=== PATIENT | female | born 1965 | race Caucasian/White ===

== ENCOUNTER 2022-08-16 | Outpatient (REF) | payer OTHER, SELFPAY ==
--- NOTE | ~2022-08-16 | XR_ITS ---
EXAMINATION: XR SHOULDER, LEFT CLINICAL INFORMATION: Left shoulder pain. COMPARISON: 02/01/2020 TECHNIQUE: Three views of the left shoulder. FINDINGS: The humeral head resurfacing hemiarthroplasty appears appropriately positioned without surrounding lucency. No fracture or malalignment. Acromioclavicular joint appears relatively well preserved. Soft tissues are unremarkable. XR/XR shoulder LT min 2V IMPRESSION: Status post left humeral head resurfacing. No complications are identified. No acute findings.
== END 2022-08-16 00:01 | disposition home or self-care (01) ==
LOC: HO.HOSX
PROVIDERS: Visit Provider Physician Assistant
DX: M25.512 Pain in left shoulder (principal); Z96.612 Presence of left artificial shoulder joint
CPT/HCPCS: 73030; 99212

== ENCOUNTER 2022-08-29 09:00 | Outpatient (RCR) | payer OTHER, MEDICAID, SELFPAY ==
--- NOTE | 2022-08-23 08:58 | MHC.PT.EP ---
[facility] [place] Office [place] [facility] [place] Office [address] Dorita Jones [address] [phone] F: [phone] F: [phone] F: [phone] F: [phone] Physical Therapy Plan of Care Date of Evaluation: Date of Surgery: 1.5-2 years ago. Diagnosis: Presence of LEFT artificial shoulder joint Assessment: Patient is a 57 year old R handed female who presents with s/s consistent with L shoulder pain. 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 Patient past medical history includes TSA, CTS, and ankle fusion. Current impairments include pain, posture, ROM, strength, activity tolerance and functional mobility. Functional limitations include decreased ability to sleep, dress, lift, push, pull and perform more strenuous activities with L UE. Patient is motivated with good rehab potential. Skilled PT will address impairments and functional limitations in order to achieve goals. Frequency and Duration: The patient will be seen 2x/week for 6 weeks Short Term Goals: I with HEP - 2 weeks AAROM flexion to 120 pain free - 3 weeks AAROM scaption to 90 pain free - 3 weeks ER 55 pain free - 3 weeks Longterm Goals: SPADI 60/130 or better - 6 weeks Strength ER/IR 4/5 pain free - 6 weeks Able to sleep pain free - 6 weeks Able to work pain free - 6 weeks Treatment Plan: Modalities to reduce pain, spasms and effusion. Manual therapy to restore motion and function. Therapeutic exercise to improve strength and flexibility. Neuromuscular re-education for posture and balance. Therapeutic activities to return to functional activities of daily living. Electronically signed by: Elias Lopez, PT Please sign and return to therapist. Thank you for your referral.
--- NOTE | 2022-10-16 11:23 | MHC.PT.DC ---
[facility] [place] Office [place] Office [place] Office [address] Dorita Jones [address] [phone] F: [phone] F: [phone] F: [phone] F: [phone] Physical Therapy Discharge Report Diagnosis: Presence of LEFT artificial shoulder joint Date of Surgery: 1.5-2 years ago. Date of Evaluation: 08/23/22 Date of Discharge: 10/16/22 Treatments to Date: 3 Cancellations to Date: No Shows to Date: Discharge Status: Discharge Summary: Pt held on PT due to discomfort. 08/29/22: pain management mostly today as pt has difficult time tolerating most activities. 08/27/22: attempting gentle desensitization to L c-spine and UE. we will assess response and progress as tolerated. to increase activity NV. Patient is a 57 year old R handed female who presents with s/s consistent with L shoulder pain. 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 Patient past medical history includes TSA, CTS, and ankle fusion. Current impairments include pain, posture, ROM, strength, activity tolerance and functional mobility. Functional limitations include decreased ability to sleep, dress, lift, push, pull and perform more strenuous activities with L UE. Patient is motivated with good rehab potential. Skilled PT will address impairments and functional limitations in order to achieve goals. Electronically signed by: Elias Lopez, PT Please sign and return to therapist. Thank you for your referral.
== END 2022-10-16 11:24 | disposition home or self-care (01) ==
LOC: HO.PTCHIC 09:00
PROVIDERS: PCP Nurse Practitioner Family; Visit Provider Physician Assistant
DX: Z96.612 Presence of left artificial shoulder joint (principal)
CPT/HCPCS: 97014; 97110; 97140; 97162

== ENCOUNTER 2023-04-18 09:21 | Outpatient (REF) | payer OTHER, SELFPAY ==
--- NOTE | ~2023-04-18 | MR_ITS ---
EXAMINATION: MR BRAIN WITHOUT AND WITH CONTRAST MR ORBITS WITHOUT AND WITH CONTRAST CLINICAL INFORMATION: Blurred vision. Rule out optic neuritis. COMPARISON: None available. TECHNIQUE: Multiplanar, multisequence imaging of the brain and orbits was performed before and after the intravenous administration of 7.5 mL of Gadavist. Slightly limited study with motion artifacts. FINDINGS: No diffusion abnormalities are identified to suggest an acute or subacute infarct. The ventricles are normal in size. No mass effect or midline shift is seen. Mild scattered white matter signal changes may be due to chronic microangiopathy. No extra-axial fluid collections are seen. The brainstem and cerebellum are normal. On postcontrast imaging, there is no abnormal parenchymal or leptomeningeal enhancement. The globes are symmetric and normal in appearance. No signal abnormality or pathologic enhancement is seen within the optic nerves. The extraocular muscles and lacrimal glands are normal. No post septal soft tissue inflammatory changes or mass lesion identified. The cavernous sinuses opacify symmetrically. The optic pathway and pituitary axis structures are normal. No suprasellar soft tissue abnormality is visible. The gradient refocused acquisition demonstrates no pathologic magnetic susceptibility artifact to indicate underlying acute or chronic blood products. The craniovertebral junction, marrow signal, and midline structures are normal. The major intracranial flow voids at the level of the [place] are preserved. The dural venous sinus flow voids are maintained. The mastoid air cells and paranasal sinuses are well aerated. MR/MR head/brain wo/w con IMPRESSION: 1. No acute intracranial process. Nonspecific mild scattered white matter signal changes. No abnormal enhancement. 2. Normal MRI of the orbits.
--- NOTE | ~2023-04-18 | MR_ITS ---
EXAMINATION: MR BRAIN WITHOUT AND WITH CONTRAST MR ORBITS WITHOUT AND WITH CONTRAST CLINICAL INFORMATION: Blurred vision. Rule out optic neuritis. COMPARISON: None available. TECHNIQUE: Multiplanar, multisequence imaging of the brain and orbits was performed before and after the intravenous administration of 7.5 mL of Gadavist. Slightly limited study with motion artifacts. FINDINGS: No diffusion abnormalities are identified to suggest an acute or subacute infarct. The ventricles are normal in size. No mass effect or midline shift is seen. Mild scattered white matter signal changes may be due to chronic microangiopathy. No extra-axial fluid collections are seen. The brainstem and cerebellum are normal. On postcontrast imaging, there is no abnormal parenchymal or leptomeningeal enhancement. The globes are symmetric and normal in appearance. No signal abnormality or pathologic enhancement is seen within the optic nerves. The extraocular muscles and lacrimal glands are normal. No post septal soft tissue inflammatory changes or mass lesion identified. The cavernous sinuses opacify symmetrically. The optic pathway and pituitary axis structures are normal. No suprasellar soft tissue abnormality is visible. The gradient refocused acquisition demonstrates no pathologic magnetic susceptibility artifact to indicate underlying acute or chronic blood products. The craniovertebral junction, marrow signal, and midline structures are normal. The major intracranial flow voids at the level of the [place] are preserved. The dural venous sinus flow voids are maintained. The mastoid air cells and paranasal sinuses are well aerated. MR/MR orbits face neck wo/w con IMPRESSION: 1. No acute intracranial process. Nonspecific mild scattered white matter signal changes. No abnormal enhancement. 2. Normal MRI of the orbits.
== END 2023-04-18 09:22 | disposition home or self-care (01) ==
LOC: HO.MRI 09:21
PROVIDERS: PCP Nurse Practitioner Family; Visit Provider Ophthalmology
DX: H53.8 Other visual disturbances (principal); H54.7 Unspecified visual loss
CPT/HCPCS: 70543; 70553; A9585

== ENCOUNTER 2023-09-20 10:44 | Outpatient (REF) | payer OTHER, SELFPAY ==
--- NOTE | ~2023-09-20 | XR_ITS ---
EXAMINATION: XR SHOULDER, LEFT CLINICAL INFORMATION: Pain. COMPARISON: Radiographs dated 02/01/2020. TECHNIQUE: AP external rotation, Grashey, scapular Y, and axillary views of the left shoulder. FINDINGS: Bony alignment and mineralization are normal. There is an intact left shoulder total arthroplasty, without hardware failure or loosening. No fracture or dislocation is seen. The acromioclavicular and coracoclavicular intervals are normal. No soft tissue calcifications or foreign body seen. There is no left pneumothorax. XR/XR shoulder LT min 2V IMPRESSION: An intact left shoulder arthroplasty is seen, without hardware failure or loosening. The examination is otherwise unremarkable.
== END 2023-09-20 10:45 | disposition home or self-care (01) ==
LOC: HO.HOSX 10:44
PROVIDERS: PCP Nurse Practitioner Family; Visit Provider Orthopaedic Surgery
DX: T84.84XA Pain due to internal orthopedic prosthetic devices, implants and grafts, initial encounter (principal); Z96.612 Presence of left artificial shoulder joint
CPT/HCPCS: 73030; 99212

== ENCOUNTER 2023-09-20 10:44 | Outpatient (AMB) | payer OTHER, SELFPAY ==
--- NOTE | 2023-09-20 11:26 | MHC.OFFVIS ---
Intake Vital Signs 09/20/23 11:27 Height 5 ft 5 in Weight 165 lb BMI 27.5 Intake Visit Reasons: OV- LT shoulder pain Intake Note: Aysha is a 57 yr old rt hand dominant female who presents today for left shoulder pain. Hx of left TSA. Was given Celebrex at her last visit. She reports that she has had increased pain for the last year, the celebrex was not helpful. Has numbness and tingling in the hand. She has increased pain with reaching lifting and laying on the left shoulder. Allergies acetaminophen [Percocet] Allergy (Unknown, Verified 08/16/22 15:05) unknown oxycodone [Percocet] Allergy (Unknown, Verified 08/16/22 15:05) Unknown latex Allergy (Verified 08/16/22 15:05) Unknown HPI OV- LT shoulder pain HPI Details Aysha is a 58 year old woman who presents with complaints of left shoulder pain. She complains of pain with daily activity, worse with reaching or lifting activities, and when lying on her side. She says her pain has been present for ~8 months and she found no relief from Celebrex. She denies any falls or known injury, and says her pain began suddenly . She has a hx of left shoulder humeral head resurfacing, DOS: 08/17/20. 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 Review of Systems Const All systems reviewed & are unremarkable except as noted in HPI and below Physical Exam Vital Signs: BMI result Body Mass Index 27.5 Const General: no acute distress, alert and awake Orientation/consciousness: patient oriented x3 HEENT Head: Yes normocephalic and Yes atraumatic Eyes EOM: EOMs intact bilaterally Resp Effort & Inspection: normal respiratory effort and able to speak in complete sentences Cardio Jugular venous distension: no JVD Skin General skin exam: turgor normal Rashes: no rashes Neuro General: patient oriented x3 Extrem Other: Left Shoulder: Psych Appearance: grossly normal Affect: normal affect Attitude: cooperative Results Reviewed Results Reviewed: I personally reviewed relevant radiographs Status post left humeral head resurfacing. No complications are identified. No acute findings. Assessment & Plan Assessment & Plan (1) History of arthroplasty of left shoulder: Code(s): Z96.612 - Presence of left artificial shoulder joint Plan: This is a 58 year old woman with a hx of partial left shoulder arthroplasty & humeral head resurfacing, DOS: 08/17/20. She complains of pain with daily activity, worse with lifting, reaching, and at night. She found no relief from Celebrex. I discussed her diagnosis and treatment options, she may benefit from a conversion to a TSA. I ordered labs to rule out infection and a CT scan to assess for hardware loosening and an MRI to assess the cuff. She will follow up when completed for review. Plan Scribed for Andrei Fletcher MD by Jamey Moulton, medical billing associate, on 09/20/23 at 12:00 PM, EST. Orders: Orders XR shoulder LT min 2V 09/20/23 M25.519 - Pain in unspecified shoulder Coding Level of Care Code Est Pt Level 4 (38319) Diagnoses History of arthroplasty of left shoulder Z96.612
[2023-09-20 11:27] VITALS: BMI 27.5
== END 2023-09-20 12:15 | disposition home or self-care (01) ==
PROVIDERS: PCP Nurse Practitioner Family; Visit Provider Orthopaedic Surgery
DX: M25.512 Pain in left shoulder (principal); Z96.612 Presence of left artificial shoulder joint
CPT/HCPCS: 99214

== ENCOUNTER 2023-10-04 08:12 | Outpatient (REF) | payer OTHER, SELFPAY ==
[2023-10-04 09:09] LABS: C Reactive Protein 0.18 mg/dL (< or = 0.50)
[2023-10-04 09:20] LABS: Erythrocyte Sedimentation Rate 8 MM/HR (0-20)
== END 2023-10-04 08:13 | disposition home or self-care (01) ==
LOC: HO.LAB 08:12
PROVIDERS: Visit Provider Orthopaedic Surgery
DX: Z96.612 Presence of left artificial shoulder joint (principal)
CPT/HCPCS: 36415; 85652; 86140

== ENCOUNTER 2023-10-31 07:12 | Outpatient (REF) | payer OTHER, SELFPAY ==
--- NOTE | ~2023-10-31 | CT_ITS ---
EXAMINATION: CT SHOULDER WITHOUT CONTRAST, LEFT CLINICAL INFORMATION: Left shoulder arthroplasty. Preoperative evaluation. COMPARISON: Multiple priors, most recent left shoulder radiographs dated 09/20/2023. TECHNIQUE: Contiguous axial CT images of the left shoulder were obtained without contrast. Sagittal and coronal reformats were provided and reviewed. Examination was performed as per T[facility]ier protocol. This CT examination was performed using dose optimization techniques as appropriate, variously including the following: *Automated exposure control *Adjustment of mA and/or kV according to patient size (this includes techniques or standardized protocols for targeted exams where dose is matched to indication/reason for exam; i.e. extremities or head) *Use of iterative reconstruction technique. DOSE: 231 mGy-cm. FINDINGS: Visualized left lung: Unremarkable. Bone/joint: Postsurgical change consistent with partial shoulder arthroplasty including a humeral head arthroplasty component. No hardware fracture. No perihardware lucency to suggest loosening or infection. Slight, chronic appearing posterior subluxation of the humeral head. No acute osseous fracture. Kniigtec-vu-[id number] glenohumeral joint space narrowing. No significant glenoid bony remodeling. Small marginal osteophytes. No concerning lytic or blastic osseous lesion. Glenoid version: No significant glenoid bony remodeling or retroversion. Estimated depth of the glenoid vault: Approximately 2.3 cm. Glenoid morphology: Walch Type a 1 Joint fluid/bursa/soft tissues: No large glenohumeral joint effusion. Grossly intact rotator cuff tendons, however, evaluation is limited on CT examination and due to metal artifact. CT/CT shoulder LT wo IV con IMPRESSION: 1. Postsurgical change consistent with partial shoulder arthroplasty. No evidence of hardware complication. Slight, chronic appearing posterior subluxation of the humeral head. 2. Isndfrej-ph-fyqsan glenohumeral osteoarthritis.
== END 2023-10-31 07:13 | disposition home or self-care (01) ==
LOC: HO.CT 07:12
PROVIDERS: PCP Nurse Practitioner Family; Visit Provider Orthopaedic Surgery
DX: Z96.612 Presence of left artificial shoulder joint (principal)
CPT/HCPCS: 73200

== ENCOUNTER 2023-12-05 09:14 | Outpatient (AMB) | payer OTHER, SELFPAY ==
--- NOTE | 2023-12-05 09:21 | MHC.OFFVIS ---
Intake Intake Visit Reasons: Preop LT TSA 12/11/23 NE Intake Note: Aysha is a 58 year old female who presents today for a pre op appointment for LT revision TSA 12/11/23 NE. Allergies acetaminophen [Percocet] Allergy (Unknown, Verified 12/05/23 09:23) unknown oxycodone [Percocet] Allergy (Unknown, Verified 12/05/23 09:23) Unknown latex Allergy (Verified 12/05/23 09:23) Unknown Medication List - Last Reconciled 12/05/23 by Ne Son, ODALIS amlodipine 5 mg PO BEDTIME PRN atorvastatin 40 mg PO BEDTIME liraglutide (Victoza 3-Catrachito) 1.8 mg subcut DAILY lisinopril 10 mg PO BEDTIME PRN HPI Preop LT TSA 12/11/23 NE HPI Details Aysha is a 58 year old woman who presents for a left shoulder CT scan review. She has a hx of partial left shoulder arthroplasty with humeral head resurfacing, DOS: 08/17/20, and is scheduled for a conversion to a TSA on 12/11/23. She complains of pain with daily activity, worse with reaching or lifting activities, and when lying on her side. She finds little relief from NSAIDs or activity modification. Her ESR and CRP are within nl and her radiographs are suggestive of loosening. CT was performed and she is scheduled for surgery next week. [facility] Medical History (Updated 12/03/23 @ 12:33 by Gisel Iniguez RN) Anemia Arthritis GERD (gastroesophageal reflux disease) Kidney stones Bipolar 1 disorder Avascular necrosis of humeral head Hx of substance abuse Pelvicaliectasis Hypertriglyceridemia Depression Tobacco dependence History of hypertension Surgical History (Updated 12/06/23 @ 12:01 by Paty Lord PA-C) H/O gastric sleeve H/O colonoscopy History of ankle fusion History of arthroplasty of left shoulder History of carpal tunnel release Social History (Updated 08/16/22 @ 15:00 by ANH Ignacio) Are you a primary client care representative to a significant other at home: Yes Do you presently have visiting nurse or other home services: No Patient Tobacco Use Status: Current everyday Tobacco user Cigarettes Per Day: 4 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, 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 Review of Systems Const All systems reviewed & are unremarkable except as noted in HPI and below Physical Exam Const General: cooperative and no acute distress Orientation/consciousness: patient oriented x3 HEENT Head: Yes normocephalic and Yes atraumatic Eyes EOM: EOMs intact bilaterally Neck Neck: Yes normal visual inspection and Yes no lymphadenopathy Resp Effort & Inspection: normal respiratory effort and able to speak in complete sentences Cardio Jugular venous distension: no JVD Peripheral pulses: Peripheral pulses 2+ throughout GI Inspection: Yes normal to inspection Palpation (GI): Soft to palpation Skin General skin exam: no rashes or lesions noted Rashes: no rashes Neuro General: patient oriented x3 Extrem Other: Pain with abduction Neg lift off 35/90/130/S1 inc c/d/i SILT Psych Appearance: grossly normal Affect: normal affect Attitude: cooperative Results Reviewed Results Reviewed: Daiana-implant lucency but no obvious hardware complications Assessment & Plan Assessment & Plan (1) History of arthroplasty of left shoulder: Comment: 2020 Code(s): Z96.612 - Presence of left artificial shoulder joint Plan: S/p Resurfacing with pain and question loosening vs pain from unresurfaced glenoid. I recommend revision arthroplasty. We have discussed this and we discussed the risks benefits and alternatives including but not limited to the risk of pain, infection, stiffness, need for further surgery as well as potential medical complications such as blood clots, pulmonary embolism and cardiac complications. She understands this and we will proceed forward accordingly. Plan Prepared for Andrei Fletcher MD by Jamey Moulton, medical coding technician, on 12/05/23 at 9:42 AM, EST. Coding Level of Care Code Global (88202) Diagnoses History of arthroplasty of left shoulder Z96.612
== END 2023-12-05 10:45 | disposition home or self-care (01) ==
PROVIDERS: PCP Nurse Practitioner Family; Visit Provider Orthopaedic Surgery
DX: T84.038A Mechanical loosening of other internal prosthetic joint, initial encounter (principal)
CPT/HCPCS: 99214

== ENCOUNTER → 2023-12-05 09:14 | Outpatient (BNVA) | payer OTHER, SELFPAY | PROVIDERS: PCP Nurse Practitioner Family; Visit Provider Physician Assistant | DX: M25.512 Pain in left shoulder (principal); Z96.612 Presence of left artificial shoulder joint | CPT/HCPCS: 99212 ==

== ENCOUNTER 2023-12-11 07:06 | Inpatient (IN) | payer OTHER, SELFPAY ==
[2023-12-03 12:09] VITALS: BP 145/70; PULSE 76; RESP 18; O2SAT 99; BMI 28.5
--- NOTE | 2023-12-03 12:36 | HO.ANESPROP2 ---
Documented by User: Gail Adhikari NP 12/10/23 10:17 HPI - Anesthesia Eval Consult details Narrative: 58yo F for Left CONVERSION of partial Shoulder Total Arthroplasty to a TSA 3 x surgically implanted piercings down sternum and patient unable to remove preop. Dr Fletcher and Dr Spencer aware. Plan to avoid cautery. 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 Resolved with gastric sleeve s/p gastric sleeve 2018 Anesthesia Pre-Procedure Meds Is the patient on any of the following meds?: Any other SGL-1 drugs or drugs that delay gastric emptying (Liraglutide daily for weight loss, no DM) If Yes to any meds - educate patient: Pt education - increased risk of aspiration and Pt education - possibility of cancelled proc at provider's discretion PMFSH Active Problems Active Problems: All Active Problems (Updated 12/03/23 @ 12:31 by Gisel Iniguez RN) History of arthroplasty of left shoulder (Acute) Past Medical History Medical History Anemia Arthritis GERD (gastroesophageal reflux disease) Kidney stones Bipolar 1 disorder Avascular necrosis of humeral head Hx of substance abuse Pelvicaliectasis Hypertriglyceridemia Depression Tobacco dependence History of hypertension Family History Family history of problems with anesthesia: No Surgical History Surgical History H/O gastric sleeve H/O colonoscopy History of ankle fusion History of arthroplasty of left shoulder History of carpal tunnel release History of Problems with Anesthesia: No Social History Social History 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 Allergies Allergy/AdvReac Type Severity Reaction Status Date / Time acetaminophen [Percocet] Allergy Severe Itching Verified 12/11/23 06:59 latex Allergy Severe Rash Verified 12/11/23 06:59 oxycodone [Percocet] Allergy Severe Itching Verified 12/11/23 06:59 Home Medications Medication Instructions Recorded Confirmed Last Taken Type amlodipine 5 mg tablet 5 mg PO BEDTIME PRN Hypertension 08/16/22 12/11/23 10/10/23 History atorvastatin 40 mg tablet 40 mg PO BEDTIME 08/16/22 12/11/23 12/10/23 History liraglutide 0.6 mg/0.1 mL (18 mg/3 1.8 mg subcut DAILY 08/16/22 12/11/23 12/03/23 History mL) subcutaneous pen injector (Victoza 3-Catrachito) lisinopril 10 mg tablet 10 mg PO BEDTIME PRN Hypertension 08/16/22 12/11/23 10/10/23 History Exam Height,Weight and Vital Signs: Height 5 ft 5 in Weight 77.564 kg Last Vital Signs Pulse 76 12/03/23 12:09 Resp 18 12/03/23 12:09 BP 145/70 H 12/03/23 12:09 Pulse Ox 99 12/03/23 12:09 O2 Del Method Room Air 12/03/23 12:09 Airway Mallampati Class: II TM Dist: >3cm Neck ROM: Full Partial: Lower Heart: RRR Lungs: CTAB Assessment and Plan Assessment Anesthesia Assessment: Anesthesia Plan Discussed, Smoking Cess. Discussed and PAT Visit Final Anesthetic Review Family History of Problems with Anesthesia: No History of Problems with Anesthesia: No Documented by User: Fabian Spencer MD 12/11/23 08:44 COUNT INCLUDES THE [facility] Past Medical History Medical History Anemia Arthritis GERD (gastroesophageal reflux disease) Kidney stones Bipolar 1 disorder Avascular necrosis of humeral head Hx of substance abuse Pelvicaliectasis Hypertriglyceridemia Depression Tobacco dependence History of hypertension Surgical History Surgical History H/O gastric sleeve H/O colonoscopy History of ankle fusion History of arthroplasty of left shoulder History of carpal tunnel release Social History Social History 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 Allergies Allergy/AdvReac Type Severity Reaction Status Date / Time acetaminophen [Percocet] Allergy Severe Itching Verified 12/11/23 06:59 latex Allergy Severe Rash Verified 12/11/23 06:59 oxycodone [Percocet] Allergy Severe Itching Verified 12/11/23 06:59 Home Medications Medication Instructions Recorded Confirmed Last Taken Type amlodipine 5 mg tablet 5 mg PO BEDTIME PRN Hypertension 08/16/22 12/11/23 10/10/23 History atorvastatin 40 mg tablet 40 mg PO BEDTIME 08/16/22 12/11/23 12/10/23 History liraglutide 0.6 mg/0.1 mL (18 mg/3 1.8 mg subcut DAILY 08/16/22 12/11/23 12/03/23 History mL) subcutaneous pen injector (Victoza 3-Catrachito) lisinopril 10 mg tablet 10 mg PO BEDTIME PRN Hypertension 08/16/22 12/11/23 10/10/23 History Exam Airway Mallampati Class: II Assessment and Plan Final Anesthetic Review NPO: Yes ASA Class: III Final Preanesthetic Review: No Changes in Pt Med Stat, Meds/Allgs Chart Reviewed, Consent Obtained/Reviewed and Anes Risks/Benef Reviewed Patient Risk: Intermediate Procedure Risk: Intermediate Assessment/Block/Sedation in SS: Assess/Block/Sedation-SS Anesthetic Plan Anesthetic Plan: GA and Neuraxial Block: Disposition: Standard PACU
[2023-12-03 14:09] LABS: MRSA Nasal PCR NEGATIVE (Negative); SA Nasal PCR NEGATIVE (Negative)
[2023-12-11] VITALS (11 sets, daily range): BP systolic 93–163; BP diastolic 52–86; PULSE 59–68; RESP 14–18; TEMP 36.3–37.6; O2SAT 94–100; BMI 28.2
--- NOTE | ~2023-12-11 | XR_ITS ---
EXAMINATION: XR SHOULDER, LEFT CLINICAL INFORMATION: Left shoulder COMPARISON: 09/20/2023 TECHNIQUE: AP external rotation, Grashey, scapular Y, and axillary views of the left shoulder. FINDINGS: Status post left shoulder arthroplasty. There is atelectasis at the left lung base and surgical clips overlie the mediastinum and are seen within the left upper quadrant.. Prosthetic components are intact with anatomic alignment observed. Post surgical soft tissue alterations are noted. XR/XR shoulder LT min 2V IMPRESSION: Post surgical changes noted. Alignment is considered anatomic.
--- OUTSIDE RECORDS SUMMARY | 2023-12-11 07:11 | XMS_ITS | Continuity of Care Document ---
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 Percocet itchy,rash Active 1Rash Immunizations Given and Recorded Vaccine Date Status Refusal Reason influenza virus vaccine, inactivated 10/26/21 Give n influenza virus vaccine, inactivated 07/29/20 Give n influenza virus vaccine, inactivated 08/05/19 Give n influenza virus vaccine, inactivated 08/08/18 Dameon rded influenza virus vaccine, inactivated 09/18/17 Give n influenza virus vaccine, inactivated 09/05/16 Give n influenza virus vaccine, inactivated 10/12/15 Give n influenza virus vaccine, inactivated 08/27/14 Give n influenza virus vaccine, inactivated 12/24/13 Give n SARS-CoV-2 (COVID-19) mRNA BNT-162b2 vac 07/02/21 Recorded SARS-CoV-2 (COVID-19) mRNA BNT-162b2 vac 12/26/20 Recorded SARS-CoV-2 (COVID-19) mRNA BNT-162b2 vac 12/09/20 Recorded SARS-CoV-2 (COVID-19) mRNA BNT-162b2 vac 12/06/20 Recorded pneumococcal 23-valent vaccine 10/12/15 Given tetanus/diphtheria/pertussis, acel(Tdap) 12/24/13 Given Medications amLODIPine 5 mg oral tablet 5 mg, 1, tablet, By Mouth, Daily, # 90 tablet, Refills 3, Tot. Refills 3, Maintenance, 09/14/21 16:28:00 EST, Route to Pharmacy Electronically, [facility]/pharmacy #[id number], 165, cm, 09/14/21 14:59:00 EST, Height Start Date: 09/14/21 Stop Date: 09/09/22 Status: Ordered Ankle Brace Ankle Brace, See Instructions, # 1 units, Refills 0, Tot. Refills 0, Maintenance, Dx: L ankle swelling, 05/02/18 17:00:21 EDT, Compound Start Date: 05/02/18 Status: Ordered atorvastatin 40 mg oral tablet 1 tablet = 40 mg, By Mouth, Daily at bedtime, # 90 tablet, 3 Refills, Maintenance, 09/14/21 16:28:00 EST, Tablet, [facility]/pharmacy #[id number], 165, cm, 09/14/21 14:59:00 EST, Height Start Date: 09/14/21 Stop Date: 09/09/22 Status: Ordered calcium (as carbonate)-vitamin D 500 mg-400 intl units oral tablet 1 tablet, By Mouth, Daily, # 300 tablet, 11 Refills, Maintenance, 11/03/20 8:37:00 EST, Tablet, [facility]/pharmacy #[id number], 1 tablet By Mouth Daily, 165, cm, 08/12/20 15:39:00 EDT, Height, 75, kg, 02/12/19 9:43:00 EDT, Dry Weight Start Date: 11/03/20 Status: Ordered hydrOXYzine hydrochloride 25 mg oral tablet 1 tablet = 25 mg, By Mouth, 2 times a day, 0 Refills, Maintenance, 12/21/21 15:52:00 EST, Tablet, Partial fill upon patient request if the prescription is for a schedule II opioid drug. Start Date: 12/21/21 Status: Ordered Left Hand Wrist Splint Left Hand Wrist Splint, See Instructions, # 1 each, Refills 0, Tot. Refills 0, Maintenance, Left Hand Wrist Splint To use as directed r/t numbeness and tingling Dx: R20.2 Duration: Lifetime, 01/20/2111:09:00 EDT, Supply Start Date: 01/20/21 Status: Ordered lisinopril 10 mg oral tablet 10 mg, 1, tablet, By Mouth, Daily, # 90 tablet, Refills 3, Tot. Refills 3, Maintenance, 09/14/21 16:29:00 EST, Route to Pharmacy Electronically, [facility]/pharmacy #[id number], 165, cm, 09/14/21 14:59:00 EST, Height Start Date: 09/14/21 Stop Date: 09/09/22 Status: Ordered meloxicam 7.5 mg oral tablet 1 tablet, By Mouth, Daily, # 30 tablet, 0 Refills, [facility] STORE [id number], 165, cm, 10/26/21 9:52:00 EST, Height Start Date: 11/19/21 Status: Ordered oxyCODONE 5 mg oral tablet 5 mg, 1, tablet, By Mouth, Every 4 hours, Refills 0, Tot. Refills 0, Maintenance, 12/27/21 6:45:00 EST, Partial fill upon patient request if the prescription is for a schedule II opioid drug. Start Date: 12/27/21 Status: Ordered oxyCODONE 5 mg oral tablet 5 mg, 1, tablet, By Mouth, Every 4 hours, Refills 0, Tot. Refills 0, Maintenance, 01/10/22 6:59:00 EST, Partial fill upon patient request if the prescription is for a schedule II opioid drug. Start Date: 01/10/22 Status: Ordered prazosin 5 mg oral capsule 10 mg, 2, capsule, By Mouth, Daily at bedtime, Dose increased to 10mg po qhs on 10/26/21, # 60 capsule, Refills 6, Tot. Refills 6, Maintenance, 01/02/22 11:52:00 EST, Route to Pharmacy Electronically, [facility]/pharmacy #[id number], Partial fill upon patient requ... Start Date: 01/02/22 Status: Ordered Right Hand Wrist Splint Right Hand Wrist Splint, See Instructions, # 1 each, Refills 0, Tot. Refills 0, Maintenance, Right Hand Wrist Splint To use for carpal tunnel Dx: G56.01 Duration: Lifetime, 01/02/21 10:32:00 EST, Supply Start Date: 01/02/21 Status: Ordered Wellbutrin XL 150 mg/24 hours oral tablet, extended release 1 tablet = 150 mg, By Mouth, Every 24 hours, # 90 tablet, 1 Refills, Maintenance, 09/14/21 18:33:00EST, ER Tablet, [id number], Partial fill upon patient request if the prescription is for a schedule II opioid drug., 165, cm, 09/14/21 14:59:00... 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 Currently attem pting to quit smoking(Confirmed) Active Colonoscopy(Confirmed) 1 04/04/10 Active History of substance use(Confirmed) 2 Active HTN (hypertension)(Confirmed) Active Hypertriglyceridemia(Confirmed) Active Left Pelvicaliectasis(Confirmed) 3 Active Depression(Confirmed) Active 1REPEAT 5 YRS 2heroin, cocaine 3Left, on CT abdo 2013 Social History Social History Type Response Smoking Status 5-9 cigarettes (betw een 1/4 to 1/2 pack)/day in last 30 days; Tobacco use times per day: 2 ppd X 31 years, currently 6 cigs/day; Started at age: 13; entered on: 11/06/19 Sex Female Medical Equipment Implanted Date:02/23/19Target Site:Foot Left Description Quantity MRI [employer] Model Bone Putty DBM, AlloSync, 01ml, Human Allograft 1 [employer] Unknown LILIAN:No Information Assigning Authority: FDA INJ AUGMENT BONE GRAFT 1.5ML - WRGT ([id number]) 1 [employer] Unknown LILIAN:No Information Assigning Authority: FDA
--- OUTSIDE RECORDS SUMMARY | 2023-12-11 07:11 | XMS_ITS | Continuity of Care Document ---
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 Percocet itchy,rash Active 1Rash Immunizations Given and Recorded Vaccine Date Status Refusal Reason SARS-CoV-2 (COVID-19) mRNA BNT-162b2 vac 07/02/21 Recorded SARS-CoV-2 (COVID-19) mRNA BNT-162b2 vac 12/26/20 Recorded SARS-CoV-2 (COVID-19) mRNA BNT-162b2 vac 12/09/20 Recorded SARS-CoV-2 (COVID-19) mRNA BNT-162b2 vac 12/06/20 Recorded influenza virus vaccine, inactivated 07/29/20 Give n influenza virus vaccine, inactivated 08/05/19 Give n influenza virus vaccine, inactivated 08/08/18 Dameon rded influenza virus vaccine, inactivated 09/18/17 Give n influenza virus vaccine, inactivated 09/05/16 Give n influenza virus vaccine, inactivated 10/12/15 Give n influenza virus vaccine, inactivated 08/27/14 Give n influenza virus vaccine, inactivated 12/24/13 Give n pneumococcal 23-valent vaccine 10/12/15 Given tetanus/diphtheria/pertussis, acel(Tdap) 12/24/13 Given Medications amLODIPine 5 mg oral tablet 5 mg, 1, tablet, By Mouth, Daily, # 90 tablet, Refills 3, Tot. Refills 3, Maintenance, 09/14/21 16:28:00 EST, Route to Pharmacy Electronically, [facility]/pharmacy #[id number], 165, cm, 09/14/21 14:59:00 [...] Maintenance, 09/14/21 16:28:00 EST, Tablet, [facility]/pharmacy #[id number], 165, cm, 09/14/21 14:59:00 EST, Height Start Date: 09/14/21 Stop Date: 09/09/22 Status: Ordered calcium (as carbonate)-vitamin D 500 mg-400 intl units oral tablet 1 tablet, By Mouth, Daily, # 300 tablet, 11 Refills, Maintenance, 11/03/20 8:37:00 EST, Tablet, [facility]/pharmacy #[id number], 1 tablet By Mouth Daily, 165, cm, 08/12/20 15:39:00 EDT, Height, 75, kg, 02/12/19 9:43:00 EDT, Dry Weight Start Date: 11/03/20 Status: Ordered capsaicin 0.025% topical cream 1 application, Topically, 2 times a day, # 42 Gm, 0 Refills, Maintenance, 07/29/20 15:33:00 EDT, Cream, [facility]/pharmacy #[id number], 1 application Topically 2 times a day, 165, cm, 07/29/20 14:56:00 EDT, Height, 75, kg, 02/12/19 9:43:00 EDT, Dry Weight Start Date: 07/29/20 Status: Ordered diclofenac 1% topical gel = 2 Gm, Topically, 4 times a day, # 100 Gm, 5 Refills, Maintenance, 11/06/19 11:03:00 EST, Gel, [facility]/pharmacy #[id number], 165, cm, 11/06/19 10:52:00 EST, Height, 75, kg, 02/12/19 9:43:00 EDT, Dry Weight Start Date: 11/06/19 Stop Date: 05/04/20 Status: Ordered diclofenac potassium 50 mg oral tablet 1 tablet, By Mouth, 3 times a day, PRN NEEDED FOR ARTHRITIS, WITH FOOD, # 50 tablet, 2 Refills, Acute, 03/21/21 13:01:00 EDT, [facility], 165, cm, 02/15/21 9:39:00 EDT, Height Start Date: 03/21/21 Status: Ordered doxepin 3 mg oral tablet 1 tablet = 3 mg, By Mouth, Daily at bedtime, # 30 tablet, 1 Refills, Maintenance, 09/22/21 15:54:00EST, Tablet, [id number], Partial fill upon patient request if the prescription is for a schedule II opioid drug., 165, cm, 09/22/21 14:38:00 ES... Start Date: 09/22/21 Status: Ordered famotidine 20 mg oral tablet 1, tablet, By Mouth, Daily, AVOID EATING/DRINKING FOR 10 MINUTES AFTER EACH DOSE, # 90 tablet, Refills 3, Tot. Refills 0, Maintenance, 05/15/20 8:33:00 EDT, Route to Pharmacy Electronically, [id number], 165, cm, 11/12/19 10:55:00 EST, Height, 75,... Start Date: 05/15/20 Status: Ordered hydrOXYzine hydrochloride 25 mg oral tablet 1 tablet = 25 mg, By Mouth, 3 times a day, PRN for anxiety, for 30 days, # 90 tablet, 2 Refills, Acute 12/13/21 18:34:00 EST, 09/14/21 18:34:00 EST, Tablet, [id number], Partial fill upon patient request if the prescription is for a schedule II... Start Date: 09/14/21 Stop Date: 12/13/21 Status: Ordered Left Hand Wrist Splint Left [...] EST, Route to Pharmacy Electronically, [facility]/pharmacy #[id number], 165, cm, 09/14/21 14:59:00 EST, Height Start Date: 09/14/21 Stop Date: 09/09/22 Status: Ordered melatonin 10 mg oral tablet 1 tablet = 10 mg, By Mouth, Daily at bedtime, PRN as needed for insomnia, # 200 tablet, 0 Refills, Maintenance, 09/29/21 16:15:00 EST, Tablet, [facility]/pharmacy #[id number], Partial fill upon patient request ifthe prescription is for a schedule II opioid drug.,... Start Date: 09/29/21 Status: Ordered naloxone 4 mg/0.1 mL nasal spray See Instructions, Once may repeat every 2 to 3 minutes until patient responds, # 2 each, 0 Refills,Soft Stop, 10/29/18 15:17:51 EST Start Date: 10/29/18 Status: Ordered omeprazole 20 mg oral enteric coated capsule 1 capsule = 20 mg, By Mouth, Daily, # 30 capsule, 3 Refills, Maintenance, 10/12/20 10:00:00 EST, ECCapsule, [facility]/pharmacy #[id number], 165, cm, 08/12/20 15:39:00 EDT, Height, 75, kg, 02/12/19 9:43:00 EDT, Dry Weight Start Date: 10/12/20 Stop Date: 02/09/21 Status: Ordered prazosin 5 mg oral capsule 5 mg, 1, capsule, By Mouth, Daily at bedtime, # 90 capsule, Refills 0, Tot. Refills 0, Maintenance,09/29/21 16:16:00 EST, Route to Pharmacy Electronically, [facility]/pharmacy #[id number], Partial fill upon patient request if the prescription is for a schedule II... Start Date: 09/29/21 Status: Ordered Right Hand Wrist Splint Right Hand Wrist Splint, See Instructions, # 1 each, Refills 0, Tot. Refills 0, Maintenance, Right Hand Wrist Splint To use for carpal tunnel Dx: G56.01 Duration: Lifetime, 01/02/21 10:32:00 EST, Supply Start Date: 01/02/21 Status: Ordered Senna 2 tablets, By Mouth, Daily at bedtime, 0 Refills, Maintenance, 01/22/19 13:16:27 EDT Start Date: 01/22/19 Status: Ordered Wellbutrin XL 150 mg/24 hours oral tablet, extended release 1 tablet = 150 mg, By Mouth, Every 24 hours, # 90 tablet, 1 Refills, Maintenance, 09/14/21 18:33:00EST, ER Tablet, [id number], Partial fill upon patient request if the [...] INJ AUGMENT BONE GRAFT 1.5ML - WRGT ([id number]) 1 [employer] Unknown LILIAN:No Information Assigning Authority: FDA
--- OUTSIDE RECORDS SUMMARY | 2023-12-11 07:11 | XMS_ITS | Continuity of Care Document ---
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 Percocet 5/ itchy,rash Active 1Rash Immunizations Given and Recorded [...] 09/14/21 16:28:00 EST, Route to Pharmacy Electronically, [facility]/pharmacy #[id number], 165, cm, 09/14/21 14:59:00 EST, Height [...] 3 Refills, Maintenance, 09/14/21 16:28:00 EST, Tablet, [facility]/pharmacy #[id number], 165, cm, 09/14/21 14:59:00 EST, Height Start Date: 09/14/21 Stop Date: 09/09/22 Status: Ordered calcium (as carbonate)-vitamin D 500 mg-400 intl units oral tablet 1 tablet, By Mouth, Daily, # 300 tablet, 11 Refills, Maintenance, 11/03/20 8:37:00 EST, Tablet, [facility]/pharmacy #[id number], 1 tablet By Mouth Daily, 165, [...] 09/14/21 16:29:00 EST, Route to Pharmacy Electronically, [facility]/pharmacy #[id number], 165, cm, 09/14/21 14:59:00 EST, Height Start Date: 09/14/21 Stop Date: 09/09/22 Status: Ordered meloxicam 7.5 mg oral tablet 1 tablet, By Mouth, Daily, # 30 tablet, 0 Refills, [facility] STORE 79316, 165, cm, 10/26/21 9:52:00 EST, Height Start [...] 01/02/22 11:52:00 EST, Route to Pharmacy Electronically, [facility]/pharmacy #[id number], Partial fill upon patient requ... Start [...] Refills, Maintenance, 09/14/21 18:33:00EST, ER Tablet, [id number], Partial fill upon patient request if the [...] INJ AUGMENT BONE GRAFT 1.5ML - WRGT ([id number]) 1 [employer] Unknown LILIAN:No Information Assigning Authority: FDA
--- OUTSIDE RECORDS SUMMARY | 2023-12-11 07:11 | XMS_ITS | Continuity of Care Document ---
Author Name Unknown Organization [facility] Address [address] [place] [address]- Care Team Providers Care Sawmill Equipment Operator Name Role Phone Shefali Sanchez MD Primary Care Physician [facility]): 02/19/22 - 03/21/22 [facility] [address] [place] [id number] Allergies, Adverse Reactions, Alerts Substance Reaction Severity [...] 09/14/21 16:28:00 EST, Route to Pharmacy Electronically, [facility]/pharmacy #[id number], 165, cm, 09/14/21 14:59:00 EST, [...] 3 Refills, Maintenance, 09/14/21 16:28:00 EST, Tablet, [facility]/pharmacy #[id number], 165, cm, 09/14/21 14:59:00 EST, Height Start Date: 09/14/21 Stop Date: 09/09/22 Status: Ordered calcium (as carbonate)-vitamin D 500 mg-400 intl units oral tablet 1 tablet, By Mouth, Daily, # 300 tablet, 11 Refills, Maintenance, 11/03/20 8:37:00 EST, Tablet, [facility]/pharmacy #[id number], 1 tablet By Mouth Daily, [...] EDT, Supply Start Date: 01/20/21 Status: Ordered liraglutide 18 mg/3 mL subcutaneous solution = 3 mg, Subcutaneous Injection, Daily, # 15 mL, 5 Refills, Maintenance, 02/21/22 10:27:00 EDT, Solution, [facility]/pharmacy #[id number], Partial fill upon patient request if the prescription is for a schedule IIopioid drug., 165, cm, 02/15/22 8:10:00 EDT, Height... Start Date: 02/21/22 Status: Ordered lisinopril 10 mg oral tablet 10 mg, 1, tablet, By Mouth, Daily, # 90 tablet, Refills 3, Tot. Refills 3, Maintenance, 09/14/21 16:29:00 EST, Route to Pharmacy Electronically, [facility]/pharmacy #[id number], 165, cm, 09/14/21 14:59:00 EST, Height Start Date: 09/14/21 Stop Date: 09/09/22 Status: Ordered meloxicam 7.5 mg oral tablet 1 tablet, By Mouth, Daily, # 30 tablet, 0 Refills, [facility] STORE [id number], 165, cm, 10/26/21 9:52:00 EST, Height Start [...] opioid drug. Start Date: 01/10/22 Status: Ordered Pen [place], 31 G x 8 mm BD Ultra Fine III See Instructions, # 100 each, Refills 5, Tot. Refills 5, Maintenance, use as directed for Type 2 Diabetes Mellitus, 01/30/22 15:20:00 EDT, Supply, 165, cm, 01/15/22 17:37:00 EDT, Height, 76.7, kg, 01/10/22 6:52:00 EST, Dry Weight Start Date: 01/30/22 Stop Date: 07/29/22 Status: Ordered prazosin 5 mg oral capsule 10 mg, 2, capsule, By Mouth, Daily at bedtime, Dose increased to 10mg po qhs on 10/26/21, # 60 capsule, Refills 6, Tot. Refills 6, Maintenance, 01/02/22 11:52:00 EST, Route to Pharmacy Electronically, [facility]/pharmacy #[id number], Partial fill upon patient requ... [...] 1 Refills, Maintenance, 09/14/21 18:33:00EST, ER Tablet, [facility]/pharmacy #[id number], Partial fill upon patient request if the prescription is for a schedule II opioid drug., 165, cm, 09/14/21 14:59:00... 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 Currently attem pting to [...] INJ AUGMENT BONE GRAFT 1.5ML - WRGT ([id number]) 1 [employer] Unknown LILIAN:No Information Assigning Authority: FDA
--- OUTSIDE RECORDS SUMMARY | 2023-12-11 07:11 | XMS_ITS | Continuity of Care Document ---
Author Name Unknown Organization [facility] Address [address] [place] [address]- Care Team Providers Care Immigration Lawyer Name Role Phone Shefali Sanchez MD Primary Care Physician [facility]): 09/12/21 - 10/12/21 [facility] [address] [place] [phone]- Allergies, Adverse Reactions, Alerts Substance Reaction Severity [...] 09/14/21 16:28:00 EST, Route to Pharmacy Electronically, [facility]/pharmacy #[id number], 165, cm, 09/14/21 14:59:00 EST, Height [...] 3 Refills, Maintenance, 09/14/21 16:28:00 EST, Tablet, [facility]/pharmacy #[id number], 165, cm, 09/14/21 14:59:00 EST, Height Start Date: 09/14/21 Stop Date: 09/09/22 Status: Ordered calcium (as carbonate)-vitamin D 500 mg-400 intl units oral tablet 1 tablet, By Mouth, Daily, # 300 tablet, 11 Refills, Maintenance, 11/03/20 8:37:00 EST, Tablet, [facility]/pharmacy #[id number], 1 tablet By Mouth Daily, 165, cm, 08/12/20 15:39:00 EDT, Height, 75, kg, 02/12/19 9:43:00 EDT, Dry Weight Start Date: 11/03/20 Status: Ordered capsaicin 0.025% topical cream 1 application, Topically, 2 times a day, # 42 Gm, 0 Refills, Maintenance, 07/29/20 15:33:00 EDT, Cream, [facility]/pharmacy #[id number], 1 application Topically 2 times a day, 165, cm, 07/29/20 14:56:00 EDT, Height, 75, kg, 02/12/19 9:43:00 EDT, Dry Weight Start Date: 07/29/20 Status: Ordered diclofenac 1% topical gel = 2 Gm, Topically, 4 times a day, # 100 Gm, 5 Refills, Maintenance, 11/06/19 11:03:00 EST, Gel, [facility]/pharmacy #[id number], 165, cm, 11/06/19 10:52:00 EST, Height, 75, kg, 02/12/19 9:43:00 EDT, Dry Weight Start Date: 11/06/19 Stop Date: 05/04/20 Status: Ordered diclofenac potassium 50 mg oral tablet 1 tablet, By Mouth, 3 times a day, PRN NEEDED FOR ARTHRITIS, WITH FOOD, # 50 tablet, 2 Refills, Acute, 03/21/21 13:01:00 EDT, [facility], 165, cm, 02/15/21 9:39:00 EDT, Height Start [...] 05/15/20 8:33:00 EDT, Route to Pharmacy Electronically, [facility], 165, cm, 11/12/19 10:55:00 EST, Height, 75,... [...] 09/14/21 16:29:00 EST, Route to Pharmacy Electronically, [facility]/pharmacy #[id number], 165, cm, 09/14/21 14:59:00 EST, Height Start Date: 09/14/21 Stop Date: 09/09/22 Status: Ordered melatonin 10 mg oral tablet 1 tablet = 10 mg, By Mouth, Daily at bedtime, PRN as needed for insomnia, # 200 tablet, 0 Refills, Maintenance, 09/29/21 16:15:00 EST, Tablet, [facility]/pharmacy #[id number], Partial fill upon patient request ifthe [...] 3 Refills, Maintenance, 10/12/20 10:00:00 EST, ECCapsule, [facility]/pharmacy #[id number], 165, cm, 08/12/20 15:39:00 EDT, Height, 75, kg, 02/12/19 9:43:00 EDT, Dry Weight Start Date: 10/12/20 Stop Date: 02/09/21 Status: Ordered prazosin 5 mg oral capsule 5 mg, 1, capsule, By Mouth, Daily at bedtime, # 90 capsule, Refills 0, Tot. Refills 0, Maintenance,09/29/21 16:16:00 EST, Route to Pharmacy Electronically, [facility]/pharmacy #[id number], Partial fill upon patient request if [...] Refills, Maintenance, 09/14/21 18:33:00EST, ER Tablet, [id number], Partial fill upon patient request if the [...] INJ AUGMENT BONE GRAFT 1.5ML - WRGT ([id number]) 1 [employer] Unknown LILIAN:No Information Assigning Authority: FDA
--- OUTSIDE RECORDS SUMMARY | 2023-12-11 07:11 | XMS_ITS | Continuity of Care Document ---
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 Refills 3, Maintenance, 09/14/21 16:28:00 EST, [id number], cm, 09/14/21 14:59:00 EST, Height [...] 3 Refills, Maintenance, 09/14/21 16:28:00 EST, Tablet[id number] 165, cm, 09/14/21 14:59:00 EST, Height Start Date: 09/14/21 Stop Date: 09/09/22 Status: Ordered calcium (as carbonate)-vitamin D 500 mg-400 intl units oral tablet 1 tablet, By Mouth, Daily, # 300 tablet, 11 Refills, Maintenance, 11/03/20 8:37:00 EST, Tablet, [facility]/pharmacy #[id number], 1 tablet By Mouth Daily, 165, cm, 08/12/20 15:39:00 EDT, Height, 75, kg, 02/12/19 9:43:00 EDT, Dry Weight Start Date: 11/03/20 Status: Ordered capsaicin 0.025% topical cream 1 application, Topically, 2 times a day, # 42 Gm, 0 Refills, Maintenance, 07/29/20 15:33:00 EDT, Cream, [facility]/pharmacy #[id number], 1 application Topically 2 times a day, 165, cm, 07/29/20 14:56:00 EDT, Height, 75, kg, 02/12/19 9:43:00 EDT, Dry Weight Start Date: 07/29/20 Status: Ordered diclofenac 1% topical gel = 2 Gm, Topically, 4 times a day, # 100 Gm, 5 Refills, Maintenance, 11/06/19 11:03:00 EST, Gel, [id number], 165, cm, 11/06/19 10:52:00 EST, Height, 75, kg, 02/12/19 9:43:00 EDT, Dry Weight Start Date: 11/06/19 Stop Date: 05/04/20 Status: Ordered diclofenac potassium 50 mg oral tablet 1 tablet, By Mouth, 3 times a day, PRN NEEDED FOR ARTHRITIS, WITH FOOD, # 50 tablet, 2 Refills, Acute, 03/21/21 13:01:00 EDT, [id number], 165, cm, 02/15/21 9:39:00 EDT, Height Start [...] EDT, Route to Pharmacy Electronically, [id number], 165, cm, 11/12/19 10:55:00 EST, Height, 75,... [...] 09/14/21 16:29:00 EST, Route to Pharmacy Electronically, [facility]/pharm[facility] #[id number], 165, cm, 09/14/21 14:59:00 EST, Height Start Date: 09/14/21 Stop Date: 09/09/22 Status: Ordered melatonin 10 mg oral tablet 1 tablet = 10 mg, By Mouth, Daily at bedtime, PRN as needed for insomnia, # 200 tablet, 0 Refills, Maintenance, 09/29/21 16:15:00 EST, Tablet, [facility]/pharmacy #[id number], Partial fill upon patient request ifthe [...] 3 Refills, Maintenance, 10/12/20 10:00:00 EST, ECCapsule, [facility]/pharmacy #[id number], 165, cm, 08/12/20 15:39:00 EDT, Height, 75, kg, 02/12/19 9:43:00 EDT, Dry Weight Start Date: 10/12/20 Stop Date: 02/09/21 Status: Ordered prazosin 5 mg oral capsule 5 mg, 1, capsule, By Mouth, Daily at bedtime, # 90 capsule, Refills 0, Tot. Refills 0, Maintenance,09/29/21 16:16:00 EST, Route to Pharmacy Electronically, [facility]/pharmacy #[id number], Partial fill upon patient request if [...] 1 Refills, Maintenance, 09/14/21 18:33:00EST, ER Tablet, [facility]/pharmacy #[id number], Partial fill upon patient request if [...] INJ AUGMENT BONE GRAFT 1.5ML - [employer] ([id number]) 1 [employer] Unknown LILIAN:No Information Assigning Authority: FDA
--- OUTSIDE RECORDS SUMMARY | 2023-12-11 07:11 | XMS_ITS | Continuity of Care Document ---
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 Name Role Phone Shefali Sanchez MD Primary Care Physician Encounter [facility] [place] Date(s): 04/22/23 - 06/14/23 [facility] [address] [place] [id number] Attending Physician: Kings CORDON, Hayley Kerr Admitting Physician: Hayley Ku NP Referring Physician: Shefali Sanchez MD Allergies, Adverse Reactions, Alerts Substance Reaction Severity Status Percocet 5/ itchy,rash Active Latex 1 Red,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 Refills 0, Maintenance, Dx: L ankle swelling, 05/02/18 17:00:21 EDT, Compound Start Date: 05/02/18 Status: Ordered atorvastatin 40 mg oral tablet 1 tablet = 40 mg, By Mouth, Daily at bedtime, # 90 tablet, 3 Refills, Maintenance, 10/18/22 15:53:00 EST, Tablet, [facility]/pharmacy #[id number], 165, cm, 10/18/22 15:02:00 EST, Height, 76.7, kg, 01/10/22 6:52:00 EST, Dry Weight Start Date: 10/18/22 Status: Ordered calcium (as carbonate)-vitamin D 500 mg-400 intl units oral tablet 1 tablet, By Mouth, Daily, # 84 tablet, 2 Refills, Maintenance, 05/14/23 12:37:00 EDT, [id number], 84, TAKE 1 TABLET BY MOUTH EVERY DAY, 165, cm, 03/25/23 14:55:00 EDT, Height, 76.7, kg, 01/10/22 6:52:00 EST, Dry Weight Start Date: 05/14/23 Status: Ordered hydrOXYzine hydrochloride 25 mg oral tablet 1 capsule, By Mouth, 4 times a day, PRN NEEDED FOR PAIN OR ANXIETY, # 120 tablet, 0 Refills, Maintenance, 02/08/23 18:04:00 EDT, [facility], 165, cm, 01/17/23 9:47:00 EDT, Height, 76.7, kg, 01/10/22 6:52:00 EST, Dry Weight Start Date: 02/08/23 Stop Date: 03/10/23 Status: Ordered Left Hand Wrist Splint Left Hand Wrist Splint, See Instructions, # 1 each, Refills 0, Tot. Refills 0, Maintenance, Left Hand Wrist Splint To use as directed r/t numbeness and tingling Dx: R20.2 Duration: Lifetime, 01/20/2111:09:00 EDT, Supply Start Date: 01/20/21 Status: Ordered liraglutide 18 mg/3 mL subcutaneous solution = 1.8 mg, Subcutaneous Injection, Daily, # 9 mL, 5 Refills, Maintenance, 10/18/22 15:53:00 EST, Solution, [facility]/pharmacy #[id number], Partial fill upon patient request if the prescription is for a schedule II opioid drug., 165, cm, 10/18/22 15:02:00 EST, Heig... Start Date: 10/18/22 Stop Date: 04/16/23 Status: Ordered lisinopril 10 mg oral tablet 10 mg, 1, tablet, By Mouth, Daily, # 90 tablet, Refills 3, Tot. Refills 3, Maintenance, 10/18/22 15:53:00 EST, Route to Pharmacy Electronically, [facility]/pharmacy #[id number], 165, cm, 10/18/22 15:02:00 EST, Height, 76.7, kg, 01/10/22 6:52:00 EST, Dry Weight Start Date: 10/18/22 Status: Ordered meloxicam 7.5 mg oral tablet 1 tablet, By Mouth, Daily, # 30 tablet, 0 Refills, [facility] ST[facility] [id number], 165, cm, 10/26/21 9:52:00 EST, Height Start [...] drug. Start Date: 01/10/22 Status: Ordered Pen Warner, 31 G x 8 mm BD Ultra Fine III See Instructions, # 100 each, Refills 5, Tot. Refills 5, Maintenance, use as directed for Type 2 Diabetes Mellitus, 01/30/22 15:20:00 EDT, Supply, 165, cm, 01/15/22 17:37:00 EDT, Height, 76.7, kg, 01/10/22 6:52:00 EST, Dry Weight Start Date: 01/30/22 Stop Date: 07/29/22 Status: Ordered prazosin 5 mg oral capsule 2, tablet, By Mouth, Daily, PRN, # 60 capsule, Refills 1, Maintenance, NEEDED FOR INSOMNIA, 02/08/23 18:04:00 EDT, Route to Pharmacy Electronically, [facility] STORE 22913, 165, cm, 01/17/23 9:47:00 EDT,Height, 76.7, kg, 01/10/22 6:52:00 EST, Dry Weight Start Date: 02/08/23 Status: Ordered Right Hand Wrist Splint Right Hand Wrist Splint, See Instructions, # 1 each, Refills 0, Tot. Refills 0, Maintenance, Right Hand Wrist Splint To use for carpal tunnel Dx: G56.01 Duration: Lifetime, 01/02/21 10:32:00 EST, Supply Start Date: 01/02/21 Status: Ordered sertraline 25 mg oral tablet 1 tablet = 25 mg, By Mouth, Daily, # 90 tablet, 0 Refills, Maintenance, 01/17/23 10:13:00 EDT, Tablet, [facility]/pharmacy #[id number], Partial fill upon patient request if the prescription is for a schedule II opioid drug., 165, cm, 01/17/23 9:47:00 EDT, Height,... Start Date: 01/17/23 Status: Ordered Victoza 18 mg/3 mL subcutaneous solution See Instructions, INJECT 1.8 MG SUBCUTANEOUS INJECTION DAILY,X30 DAYS, # 9 Unknown, 5 Refills, Maintenance, 04/23/23 14:24:00 EDT, [facility], 165, cm, 03/25/23 14:55:00 EDT, Height, 76.7, kg, 01/10/22 6:52:00 EST, Dry Weight Start Date: 04/23/23 Status: Ordered Problem List Condition Confirmation Course Effective Dates Status Health Status Informant Avascular necrosis of left humoral head, resurfaced / Andrew Yuen, Dr Andrei Fletcher Confirmed Active Tobacco use. Currently attempting to quit smoking Confirmed Active Colonoscopy 1 Confirmed 04/04/10 Active History of substance use 2 Confirmed Active HTN (hypertension) Confirmed Active Hypertriglyceridemia Confirmed Active Left Pelvicaliectasis 3 Confirmed Active Depression Confirmed Active 1REPEAT 5 YRS 2heroin, cocaine 3Left, on CT abdo 2013 Social History Social History Type Response Smoking Status 5-9 cigarettes (betw een 1/4 to 1/2 pack)/day in last 30 days; Tobacco use times per day: 2 ppd X 31 years, currently 6 cigs/day; Started at age: 13; entered on: 11/06/19 Sex Female Implantable Device List Procedure Provider Procedure Date Device Type Site Fusion/Arthrodesis Subtalar Matthieu Martinez MD 02/23/19 Unknown Foot Left Device Identifier Serial Number Lot or Batch Number Manufacturing Date Expiration Date Distinct Identification Code MRI Safety Implantable Status Assigning Authority Unknown [id number] Unknown 08/31/19 Unknown Unknown Active Unkn own Unknown Unknown [id number] Unknown 08/31/21 Unknown Unknown Active Un known Patient Care team information Care Team Personnel Name: Shefali Sanchez MD Position: [facility] Resident Member Role: PCP Address: Address: [address] [place] [address]- Name: Jean-Paul Clay RN Position: S RN Member Role: Primary Care Nurse Care Team Related Persons Name: YAMILA REYNOLDS Address: home [address] [place] [address] Name: MARKUS MATA Address: home [address] [place] [address] Name: KENZIE HENDRICKSON Address: home [address] [place] [address]
--- OUTSIDE RECORDS SUMMARY | 2023-12-11 07:11 | XMS_ITS | Continuity of Care Document ---
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 Name Role Phone Kristine Bhatia DO Primary Care Physician [place] [facility] [place]20 - 03/09/20 [facility] [address] [place] [id number]- [facility] Attending Physician: Gita Topete MD Admitting Physician: Baldomero Fried MD Allergies, Adverse Reactions, Alerts Substance Reaction Severity Status Latex 1 Red,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 Percocet 5/325 itchy,rash Active 1Rash Immunizations Given and Recorded Vaccine Date Status Refusal Reason influenza virus vaccine, inactivated 08/05/19 Give n influenza virus vaccine, inactivated 09/18/17 Give n influenza virus vaccine, inactivated 09/05/16 Give n influenza virus vaccine, inactivated 10/12/15 Give n influenza virus vaccine, inactivated 08/27/14 Give n influenza virus vaccine, inactivated 12/24/13 Give n pneumococcal 23-valent vaccine 10/12/15 Given tetanus/diphtheria/pertussis, acel(Tdap) 12/24/13 Given Medications amLODIPine 5 mg oral tablet 5 mg, 1, tablet, By Mouth, Daily, # 30 tablet, Refills 11, Tot. Refills 11, Maintenance, 11/06/19 11:00:00 EST, Route to Pharmacy Electronically, [facility]/pharmacy #[id number], 165, cm, 11/06/19 10:52:00 EST, Height, 75, kg, 02/12/19 9:43:00 EDT, Dry Weight Start Date: 11/06/19 Stop Date: 10/31/20 Status: Ordered Ankle Brace Ankle Brace, See Instructions, # 1 units, Refills 0, Tot. Refills 0, Maintenance, Dx: L ankle swelling, 05/02/18 17:00:21 EDT, Compound Start Date: 05/02/18 Status: Ordered atorvastatin 40 mg oral tablet 1 tablet = 40 mg, By Mouth, Daily at bedtime, # 30 tablet, 11 Refills, Maintenance, 02/03/20 9:22:00 EDT, Tablet, [facility]/pharmacy #[id number], 165, cm, 11/12/19 10:55:00 EST, Height, 75, kg, 02/12/19 9:43:00 EDT, Dry Weight Start Date: 02/03/20 Stop Date: 01/28/21 Status: Ordered calcium (as carbonate)-vitamin D 500 mg-400 intl units oral tablet 1 tablet, By Mouth, Daily, # 300 tablet, 11 Refills, Maintenance, 02/03/20 9:22:00 EDT, Tablet, [facility]/pharmacy #[id number], 1 tablet By Mouth Daily, 165, cm, 11/12/19 10:55:00 EST, Height, 75, kg, 02/12/19 9:43:00 EDT, Dry Weight Start Date: 02/03/20 Status: Ordered diclofenac 1% topical gel = 2 Gm, Topically, 4 times a day, # 100 Gm, 5 Refills, Maintenance, 11/06/19 11:03:00 EST, Gel, [facility]/pharmacy #[id number], 165, cm, 11/06/19 10:52:00 EST, Height, 75, kg, 02/12/19 9:43:00 EDT, Dry Weight Start Date: 11/06/19 Stop Date: 05/04/20 Status: Ordered famotidine 20 mg oral tablet 20 mg, 1, tablet, By Mouth, Daily, avoid eating and drinking for 10 minutes after each dose to replace rantitidine, # 30 tablet, Refills 2, Tot. Refills 2, Maintenance, 02/09/20 14:30:00 EDT, Route to Pharmacy Electronically, [facility]/pharmacy #[id number], 16... Start Date: 02/09/20 Status: Ordered lisinopril 10 mg oral tablet 10 mg, 1, tablet, By Mouth, Daily, # 30 tablet, Refills 11, Tot. Refills 11, Maintenance, 11/06/19 11:00:00 EST, Route to Pharmacy Electronically, [facility]/pharmacy #[id number], 165, cm, 11/06/19 10:52:00 EST, Height, 75, kg, 02/12/19 9:43:00 EDT, Dry Weight Start Date: 11/06/19 Stop Date: 10/31/20 Status: Ordered nabumetone 500 mg oral tablet 1 tablet = 500 mg, By Mouth, 2 times a day, # 6 tablet, 0 Refills, Maintenance, 11/06/19 11:03:00 EST, Tablet, [facility]/pharmacy #[id number], 165, cm, 11/06/19 10:52:00 EST, Height, 75, kg, 02/12/19 9:43:00 EDT, Dry Weight Start Date: 11/06/19 Stop Date: 11/09/19 Status: Ordered naloxone 4 mg/0.1 mL nasal spray See Instructions, Once may repeat every 2 to 3 minutes until patient responds, # 2 each, 0 Refills,Soft Stop, 10/29/18 15:17:51 EST Start Date: 10/29/18 Status: Ordered Senna 2 tablets, By Mouth, Daily at bedtime, 0 Refills, Maintenance, 01/22/19 13:16:27 EDT Start Date: 01/22/19 Status: Ordered Problem List Condition Effective Dates Status Health Status Inform ant Depression(Confirmed) Active Avascular necrosis of left h umoral head, resurfaced / Dr Andrei Michele(Confirmed) Active Tobacco use. Currently attem pting to quit smoking(Confirmed) Active Colonoscopy(Confirmed) 1 04/04/10 Active HTN (hypertension)(Confirmed) Active Hypertriglyceridemia(Confirmed) Active 1REPEAT 5 YRS Procedures Procedure Date Related Diagnosis Body Site Status Resurfacing - left humeral h ead for avascular necrosis 11/17/19 Completed Subtalar arthrodesis 02/23/19 Comp leted Social History Social History Type Response Smoking [...] INJ AUGMENT BONE GRAFT 1.5ML - [employer] ([id number]) 1 [employer] Unknown LILIAN:No Information Assigning Authority: FDA
--- OUTSIDE RECORDS SUMMARY | 2023-12-11 07:11 | XMS_ITS | Continuity of Care Document ---
Author Name Unknown Organization [facility] Address [address] [place] [id number]- Care Team Providers Care Orderly Name Role Phone Kristine Bhatia DO Primary Care Physician Encounter [facility] [place] Date(s): 11/12/19 - 11/19/19 [facility] [address] [id number]- [facility] Attending Physician: Justine HUMPHREY , Andrei Guan Allergies, Adverse Reactions, Alerts Substance Reaction Severity [...] 11/06/19 11:00:00 EST, Route to Pharmacy Electronically, [facility][id number], 165, cm, 11/06/19 10:52:00 EST, Height, 75, [...] Mouth, Daily at bedtime, # 30 tablet, 5 Refills, Maintenance, 11/02/19 9:13:00EST, Tablet, [facility]/pharmacy #[id number], 165, cm, 08/28/19 14:56:00 EDT, Height, 75, kg, 02/12/19 9:43:00 EDT, Dry Weight Start Date: 11/02/19 Stop Date: 04/30/20 Status: Ordered calcium (as carbonate)-vitamin D 500 mg-400 intl units oral tablet 1 tablet, By Mouth, Daily, # 300 tablet, 11 Refills, Maintenance, 04/01/19 9:22:18 EDT, Tablet, 1 tablet By Mouth Daily Start Date: 04/01/19 Status: Ordered diclofenac 1% topical gel = 2 Gm, Topically, 4 times a day, # 100 Gm, 5 Refills, Maintenance, 11/06/19 11:03:00 EST, Gel, [facility]/pharmacy #[id number], 165, cm, 11/06/19 10:52:00 EST, Height, 75, kg, 02/12/19 9:43:00 EDT, Dry Weight Start Date: 11/06/19 Stop Date: 05/04/20 Status: Ordered lisinopril 10 mg oral tablet 10 mg, 1, tablet, By Mouth, Daily, # 30 tablet, Refills 11, Tot. Refills 11, Maintenance, 11/06/19 11:00:00 EST, Route to Pharmacy Electronically, [facility]/pharmacy #[id number], 165, cm, 11/06/19 10:52:00 EST, Height, 75, kg, 02/12/19 9:43:00 EDT, Dry Weight Start Date: 11/06/19 Stop Date: 10/31/20 Status: Ordered nabumetone 500 mg oral tablet 1 tablet = 500 mg, By Mouth, 2 times a day, # 6 tablet, 0 Refills, Maintenance, 11/06/19 11:03:00 EST, [facility]t, [id number], 165, cm, 11/06/19 10:52:00 EST, [...] Status Health Status Inform ant Depression(Confirmed) Active Tobacco use. Currently attem pting to quit smoking(Confirmed) Active Colonoscopy(Confirmed) 1 04/04/10 Active HTN (hypertension)(Confirmed) Active Hypertriglyceridemia(Confirmed) Active 1REPEAT 5 YRS Vital Signs Most recent to oldest [Reference Range]: 1 Height 165 cm (11/12/19 10:55 AM) Weight 77.2 kg (11/12/19 10:55 AM) Pulse Rate [55-90 bpm] 74 bpm (11/12/19 10:55 AM) Body Mass Index [18.5-24.99] 28.36 *H* (11/12/19 10:55 AM) Blood Pressure [90-138/55-84 mm Hg] 120/ 78mm Hg (11/12/19 10:55 AM) Respiratory Rate [16-30 br/min] 18 br/mi n (11/12/19 10:55 AM) Temperature [96.8-100.4 DegF] 97 DegF (11/12/19 10:55 AM) Blood pressure sites Arm, right (11/12/19 10:55 AM) Temperature Route Temporal (11/12/19 10:55 AM) Social History Social History Type Response Smoking Status 5-9 cigarettes (betw een 1/4 to 1/2 pack)/day in last 30 days; Tobacco use times per day: 2 ppd X 31 years, currently 6 cigs/day; Started at age: 13; entered on: 11/06/19 Sex Female Medical Equipment Implanted Date:02/23/19Target Site:Foot Left Description Quantity MRI Company Model Bone Putty DBM, AlloSync, 01ml, Human Allograft 1 [employer] Unknown LILIAN:No Information Assigning Authority: FDA INJ AUGMENT BONE GRAFT 1.5ML - WRGT ([id number]) [address] [employer] Unknown LILIAN:No Information Assigning Authority: FDA
--- OUTSIDE RECORDS SUMMARY | 2023-12-11 07:11 | XMS_ITS | Continuity of Care Document ---
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/pharmacy #[id number], 165, cm, 11/06/19 10:52:00 EST, Height, [...] 11 Refills, Maintenance, 02/03/20 9:22:00 EDT, Tablet, [facility]/pharmacy #[id number], 165, cm, 11/12/19 10:55:00 EST, Height, 75, kg, 02/12/19 9:43:00 EDT, Dry Weight Start Date: 02/03/20 Stop Date: 01/28/21 Status: Ordered calcium (as carbonate)-vitamin D 500 mg-400 intl units oral tablet 1 tablet, By Mouth, Daily, # 300 tablet, 11 Refills, Maintenance, 02/03/20 9:22:00 EDT, Tablet, [facility]/pharmacy #[id number], 1 tablet By Mouth Daily, 165, cm, 11/12/19 10:55:00 EST, Height, 75, kg, 02/12/19 9:43:00 EDT, Dry Weight Start Date: 02/03/20 Status: Ordered diclofenac 1% topical gel = 2 Gm, Topically, 4 times a day, # 100 Gm, 5 Refills, Maintenance, 11/06/19 11:03:00 EST, Gel, [facility]/pharmacy #[id number], 165, cm, 11/06/19 10:52:00 EST, Height, 75, kg, 02/12/19 9:43:00 EDT, Dry Weight Start Date: 11/06/19 Stop Date: 05/04/20 Status: Ordered lisinopril 10 mg oral tablet 10 mg, 1, tablet, By Mouth, Daily, # 30 tablet, Refills 11, Tot. Refills 11, Maintenance, 11/06/19 11:00:00 EST, Route to Pharmacy Electronically, [facility]/pharmacy #[id number], 165, cm, 11/06/19 10:52:00 EST, Height, 75, kg, 02/12/19 9:43:00 EDT, Dry Weight Start Date: 11/06/19 Stop Date: 10/31/20 Status: Ordered nabumetone 500 mg oral tablet 1 tablet = 500 mg, By Mouth, 2 times a day, # 6 tablet, 0 Refills, Maintenance, 11/06/19 11:03:00 EST, Tablet, [facility]/pharmacy #[id number], 165, cm, 11/06/19 10:52:00 EST, Height, [...] mg, By Mouth, Daily, # 30 capsule, 5 Refills, Maintenance, 03/17/20 15:44:00 EDT, ECCapsule, [facility]/pharmacy #[id number], 165, cm, 11/12/19 10:55:00 EST, Height, 75, kg, 02/12/19 9:43:00 EDT, Dry Weight Start Date: 03/17/20 Stop Date: 09/13/20 Status: Ordered Senna 2 tablets, By Mouth, [...] (hypertension)(Confirmed) Active Hypertriglyceridemia(Confirmed) Active 1REPEAT 5 YRS Social History Social History Type Response Smoking [...] 01ml, Human Allograft 1 [employer] Unknown LILAIN:No Information Assigning Authority: FDA INJ AUGMENT BONE GRAFT 1.5ML - [facility] ([id number]) 1 [employer] Unknown LILIAN:No Information Assigning Authority: FDA
--- OUTSIDE RECORDS SUMMARY | 2023-12-11 07:11 | XMS_ITS | Continuity of Care Document ---
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 Role Phone Shefali Sanchez MD Primary Care Physician [place] [facility] [place] 11/01/21 - 12/06/21 [facility] [address] [place] [id number]- Attending Physician: Baldomero Fried MD Admitting Physician: Baldomero Fried MD Allergies, [...] 09/14/21 16:28:00 EST, Route to Pharmacy Electronically, [facility]/pharmacy #[id number], 165, cm, 09/14/21 14:59:00 [...] 3 Refills, Maintenance, 09/14/21 16:28:00 EST, Tablet, [facility]/pharmacy #[id number], 165, cm, 09/14/21 14:59:00 EST, Height Start Date: 09/14/21 Stop Date: 09/09/22 Status: Ordered calcium (as carbonate)-vitamin D 500 mg-400 intl units oral tablet 1 tablet, By Mouth, Daily, # 300 tablet, 11 Refills, Maintenance, 11/03/20 8:37:00 EST, Tablet, [facility]/pharmacy #[id number], 1 tablet By Mouth Daily, 165, cm, 08/12/20 15:39:00 EDT, Height, 75, kg, 02/12/19 9:43:00 EDT, Dry Weight Start Date: 11/03/20 Status: Ordered CALCIUM 500 + VIT D 400IU TAB CALCIUM 500 + VIT D 400IU TAB, 1, tablet, By Mouth, Daily, # 30 tablet, 5 Refills, 165, cm, 10/26/21 9:52:00 EST, Height Start Date: 11/23/21 Status: Ordered capsaicin 0.025% topical cream 1 application, Topically, 2 times a day, # 42 Gm, 0 Refills, Maintenance, 07/29/20 15:33:00 EDT, Cream, [facility]/pharmacy #[id number], 1 application Topically 2 times [...] Refills, Acute, 03/21/21 13:01:00 EDT, [facility], 165, cm, 02/15/21 9:39:00 EDT, Height Start Date: 03/21/21 Status: Ordered doxepin 10 mg oral capsule 1 capsule = 10 mg, By Mouth, Daily at bedtime, # 30 capsule, 0 Refills, Maintenance, 11/27/21 17:54:00 EST, [id number], Partial fill upon patient request if the prescription is for a scheduleII opioid drug., 165, cm, 11/27/21 17:11:00 EST, He... Start Date: 11/27/21 Status: Ordered famotidine 20 mg oral tablet 1, tablet, By Mouth, Daily, AVOID EATING/DRINKING FOR 10 MINUTES AFTER EACH DOSE, # 90 tablet, Refills 3, Tot. Refills 0, Maintenance, 05/15/20 8:33:00 EDT, Route to Pharmacy Electronically, [facility], 165, cm, 11/12/19 10:55:00 EST, Height, 75,... [...] 09/14/21 16:29:00 EST, Route to Pharmacy Electronically, [facility]/pharmacy #[id number], 165, cm, 09/14/21 14:59:00 EST, Height Start Date: 09/14/21 Stop Date: 09/09/22 Status: Ordered melatonin 10 mg oral tablet 1 tablet = 10 mg, By Mouth, Daily at bedtime, PRN as needed for insomnia, # 200 tablet, 0 Refills, Maintenance, 09/29/21 16:15:00 EST, Tablet, [facility]/pharmacy #[id number], Partial fill upon patient request ifthe prescription is for a schedule II opioid drug.,... Start Date: 09/29/21 Status: Ordered meloxicam 7.5 mg oral tablet 1 tablet, By Mouth, Daily, # 30 tablet, 0 Refills, [facility] ST[facility] 23189, 165, cm, 10/26/21 9:52:00 EST, Height Start Date: 11/19/21 Status: Ordered naloxone 4 mg/0.1 mL nasal spray See Instructions, Once may repeat every 2 to 3 minutes until patient responds, # 2 each, 0 Refills,Soft Stop, 10/29/18 15:17:51 EST Start Date: 10/29/18 Status: Ordered omeprazole 20 mg oral enteric coated capsule 1 capsule = 20 mg, By Mouth, Daily, # 30 capsule, 3 Refills, Maintenance, 10/12/20 10:00:00 EST, ECCapsule, [facility]/pharmacy #[id number], 165, cm, 08/12/20 15:39:00 EDT, Height, 75, kg, 02/12/19 9:43:00 EDT, Dry Weight Start Date: 10/12/20 Stop Date: 02/09/21 Status: Ordered prazosin 5 mg oral capsule 10 mg, 2, capsule, By Mouth, Daily at bedtime, Dose increased to 10mg po qhs on 10/26/21, # 60 capsule, Refills 1, Tot. Refills 1, Maintenance, 10/26/21 10:31:00 EST, Route to Pharmacy Electronically, [facility]/pharmacy #[id number], Partial fill upon patient requ... Start Date: 10/26/21 Status: Ordered Right Hand Wrist Splint Right [...] 1 Refills, Maintenance, 09/14/21 18:33:00EST, ER Tablet, [facility]/pharmacy #[id number], Partial fill upon patient [...] Putty DBM, AlloSync, 01ml, Human Allograft 1 [employer] Unknown LILIAN:No Information Assigning Authority: FDA INJ AUGMENT BONE GRAFT 1.5ML - [facility] ([id number]) 1 [employer] Unknown LILIAN:No Information Assigning Authority: FDA
--- OUTSIDE RECORDS SUMMARY | 2023-12-11 07:11 | XMS_ITS | Continuity of Care Document ---
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 Name Role Phone Kristine Bhatia DO Primary Care Physician [facility] Date(s): 11/06/19 - 11/16/19 [facility] [address] [place] [phone]- [facility] Attending Physician: Mony Whitney Admitting Physician: AdmtrMony Referring Physician: AdmtrMony Allergies, Adverse Reactions, Alerts Substance Reaction Severity [...] 11/06/19 11:00:00 EST, Route to Pharmacy Electronically, [facility]/pharmacy #[id number], 165, cm, 11/06/19 10:52:00 EST, [...] tablet, 5 Refills, Maintenance, 11/02/19 9:13:00EST, Tablet, [facility]/pharmacy #0693, 165, cm, 08/28/19 14:56:00 EDT, Height, [...] 5 Refills, Maintenance, 11/06/19 11:03:00 EST, Gel, [facility]/pharmacy #[id number], 165, cm, 11/06/19 10:52:00 EST, Height, 75, kg, 02/12/19 9:43:00 EDT, Dry Weight Start Date: 11/06/19 Stop Date: 05/04/20 Status: Ordered lisinopril 10 mg oral tablet 10 mg, 1, tablet, By Mouth, Daily, # 30 tablet, Refills 11, Tot. Refills 11, Maintenance, 11/06/19 11:00:00 EST, Route to Pharmacy Electronically, [facility]/pharmacy #[id number], 165, cm, 11/06/19 10:52:00 EST, [...] INJ AUGMENT BONE GRAFT 1.5ML - [facility] ([id number]) 1 [employer] Unknown LILIAN:No Information Assigning Authority: FDA
--- OUTSIDE RECORDS SUMMARY | 2023-12-11 07:11 | XMS_ITS | Continuity of Care Document ---
Author Name Unknown Organization [facility] Address [address] [place] [id number]- Care Team Providers Care Paramedic Rn Name Role Phone Shefali Sanchez MD Primary Care Physician [facility]counter [facility] Date(s): 09/13/21 - 10/14/21 [facility] [address] [place] [id number]- Attending Physician: Baldomero Fried MD Admitting Physician: Baldomero Fried MD Referring Physician: Kristine Bhatia DO Allergies, Adverse Reactions, [...] 09/14/21 16:28:00 EST, Route to Pharmacy Electronically, [facility]/pharmacy #[id number], 165, cm, 09/14/21 14:59:00 EST, Height [...] 3 Refills, Maintenance, 09/14/21 16:28:00 EST, Tablet, [facility]/pharmacy #[id number], 165, cm, 09/14/21 14:59:00 EST, Height Start Date: 09/14/21 Stop Date: 09/09/22 Status: Ordered calcium (as carbonate)-vitamin D 500 mg-400 intl units oral tablet 1 tablet, By Mouth, Daily, # 300 tablet, 11 Refills, Maintenance, 11/03/20 8:37:00 EST, Tablet, [facility]/pharmacy #[id number], 1 tablet By Mouth Daily, 165, cm, 08/12/20 15:39:00 EDT, Height, 75, kg, 02/12/19 9:43:00 EDT, Dry Weight Start Date: 11/03/20 Status: Ordered capsaicin 0.025% topical cream 1 application, Topically, 2 times a day, # 42 Gm, 0 Refills, Maintenance, 07/29/20 15:33:00 EDT, Cream, [facility]/pharmacy #[id number], 1 application Topically 2 times a [...] Refills, Acute, 03/21/21 13:01:00 EDT, [facility], 165, cm, 02/15/21 9:39:00 EDT, Height Start [...] EDT, Route to Pharmacy Electronically, [facility], 165, cm, 11/12/19 10:55:00 EST, Height, 75,... [...] 09/14/21 16:29:00 EST, Route to Pharmacy Electronically, [facility]/pharmacy #[id number], 165, cm, 09/14/21 14:59:00 EST, Height Start Date: 09/14/21 Stop Date: 09/09/22 Status: Ordered melatonin 10 mg oral tablet 1 tablet = 10 mg, By Mouth, Daily at bedtime, PRN as needed for insomnia, # 200 tablet, 0 Refills, Maintenance, 09/29/21 16:15:00 EST, Tablet, [facility]/pharmacy #[id number], Partial fill upon patient request ifthe [...] 3 Refills, Maintenance, 10/12/20 10:00:00 EST, ECCapsule, [facility]/pharmacy #[id number], 165, cm, 08/12/20 15:39:00 EDT, Height, 75, kg, 02/12/19 9:43:00 EDT, Dry Weight Start Date: 10/12/20 Stop Date: 02/09/21 Status: Ordered prazosin 5 mg oral capsule 5 mg, 1, capsule, By Mouth, Daily at bedtime, # 90 capsule, Refills 0, Tot. Refills 0, Maintenance,09/29/21 16:16:00 EST, Route to Pharmacy Electronically, [facility]/pharmacy #[id number], Partial fill upon patient request if [...] 1 Refills, Maintenance, 09/14/21 18:33:00EST, ER Tablet, [facility]/pharmacy #0650, Partial fill upon patient request if [...] INJ AUGMENT BONE GRAFT 1.5ML - [facility] ([id number]) 1 [employer] Unknown LILIAN:No Information Assigning Authority: FDA
--- OUTSIDE RECORDS SUMMARY | 2023-12-11 07:11 | XMS_ITS | Continuity of Care Document ---
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 Name Role Phone Shefali Sanchez MD Primary Care Physician [facility] Date(s): 01/29/22 - 02/28/22 [facility] [address] [place] [id number] Allergies, Adverse Reactions, Alerts Substance [...] 09/14/21 16:28:00 EST, Route to Pharmacy Electronically, [facility]/pharmacy #[id number], 165, cm, 09/14/21 14:59:00 [...] 3 Refills, Maintenance, 09/14/21 16:28:00 EST, Tablet, [facility]/pharmacy #[id number], 165, cm, 09/14/21 14:59:00 EST, Height Start Date: 09/14/21 Stop Date: 09/09/22 Status: Ordered calcium (as carbonate)-vitamin D 500 mg-400 intl units oral tablet 1 tablet, By Mouth, Daily, # 300 tablet, 11 Refills, Maintenance, 11/03/20 8:37:00 EST, Tablet, [facility]/pharmacy #[id number], 1 tablet By Mouth [...] 5 Refills, Maintenance, 02/21/22 10:27:00 EDT, Solution, [facility]/pharmacy #[id number], Partial fill upon patient request if the prescription is for a schedule IIopioid drug., 165, cm, 02/15/22 8:10:00 EDT, Height... Start Date: 02/21/22 Status: Ordered lisinopril 10 mg oral tablet 10 mg, 1, tablet, By Mouth, Daily, # 90 tablet, Refills 3, Tot. Refills 3, Maintenance, 09/14/21 16:29:00 EST, [id number], cm, 09/14/21 14:59:00 EST, Height Start Date: 09/14/21 Stop Date: 09/09/22 Status: Ordered meloxicam 7.5 mg oral tablet 1 tablet, By Mouth, Daily, # 30 tablet, 0 Refills, [facility] ST[facility] 57672, 165, cm, 10/26/21 9:52:00 EST, Height Start [...] drug. Start Date: 01/10/22 Status: Ordered Pen Sheffield, 31 G x 8 mm BD Ultra [...] 01/02/22 11:52:00 EST, Route to Pharmacy Electronically, [facility]/pharmacy #[id number], Partial fill upon patient [...] 1 Refills, Maintenance, 09/14/21 18:33:00EST, ER Tablet, [facility]/pharmacy #[id number], Partial fill upon patient request if [...] Putty DBM, AlloSync, 01ml, Human Allograft 1 [employer] Unknown LILIAN:No Information Assigning Authority: FDA INJ AUGMENT BONE GRAFT 1.5ML - [facility] ([id number]) 1 [employer] Unknown LILIAN:No Information Assigning Authority: FDA
--- OUTSIDE RECORDS SUMMARY | 2023-12-11 07:11 | XMS_ITS | Continuity of Care Document ---
Author Name Unknown Organization [facility] Address [address] [place] [address]- Care Team Providers Care Marine Service Operator Name Role Phone Shefali Sanchez MD Primary Care Physician [place] [facility] [place] 03/01/22 [facility] [address] [place] [id number] Attending Physician: Kings CORDON, Hayley Kerr Admitting Physician: Hayley Ku NP Allergies, Adverse Reactions, Alerts Substance Reaction [...] 09/14/21 16:28:00 EST, [id number] 165, cm, 09/14/21 14:59:00 EST, Height [...] 3 Refills, Maintenance, 09/14/21 16:28:00 EST, Tablet, [id number] 165, cm, 09/14/21 14:59:00 EST, Height Start Date: 09/14/21 Stop Date: 09/09/22 Status: Ordered calcium (as carbonate)-vitamin D 500 mg-400 intl units oral tablet 1 tablet, By Mouth, Daily, # 300 tablet, 11 Refills, Maintenance, 11/03/20 8:37:00 EST, Tablet, [facility]/pharmacy #[id number], 1 tablet By Mouth Daily, [...] 5 Refills, Maintenance, 02/21/22 10:27:00 EDT, Solution, [facility]/pharmacy #[id number], Partial fill upon patient request if the prescription is for a schedule IIopioid drug., 165, cm, 02/15/22 8:10:00 EDT, Height... Start Date: 02/21/22 Status: Ordered lisinopril 10 mg oral tablet 10 mg, 1, tablet, By Mouth, Daily, # 90 tablet, Refills 3, Tot. Refills 3, Maintenance, 09/14/21 16:29:00 EST, [facility], [id number], 165, cm, 09/14/21 14:59:00 EST, Height Start Date: 09/14/21 Stop Date: 09/09/22 Status: Ordered meloxicam 7.5 mg oral tablet 1 tablet, By Mouth, Daily, # 30 tablet, 0 Refills, [facility] ST[facility] 51845, 165, cm, 10/26/21 9:52:00 EST, Height Start [...] drug. Start Date: 01/10/22 Status: Ordered Pen Whitney, 31 G x 8 mm BD Ultra [...] 01/02/22 11:52:00 EST, Route to Pharmacy Electronically, [facility]/pharmacy #[id number], Partial fill upon patient requ... [...] 1 Refills, Maintenance, 09/14/21 18:33:00EST, ER Tablet, [facility]/pharmacy #[id number], Partial fill upon patient request [...] cigs/day; Started at age: 13; entered on: 1/3/20 Sex Female Medical Equipment Implanted Date:02/23/19Target Site:Foot Left Description Quantity [employer] Model Bone Putty DBM, AlloSync, 01ml, Human Allograft 1 [employer] Unknown LILIAN:No Information Assigning Authority: FDA INJ AUGMENT BONE GRAFT 1.5ML - [facility] ([id number]) 1 [employer] Unknown LILIAN:No Information Assigning Authority: FDA
--- OUTSIDE RECORDS SUMMARY | 2023-12-11 07:11 | XMS_ITS | Continuity of Care Document ---
Author Name Unknown Organization [facility] Address [address] [place] [address]- Care Team Providers Care Supply Technician Name Role Phone Shefali Sanchez MD Primary Care Physician [phone] Encounter [facility] Date(s): 02/21/22 - 03/23/22 [facility] [address] [place] [id number]- Allergies, Adverse Reactions, Alerts Substance Reaction Severity [...] 09/14/21 16:28:00 EST, Route to Pharmacy Electronically, [facility]/pharmacy #[id number], 165, cm, 09/14/21 [...] 3 Refills, Maintenance, 09/14/21 16:28:00 EST, Tablet, [facility]/pharmacy #[id number], 165, cm, 09/14/21 14:59:00 EST, Height Start Date: 09/14/21 Stop Date: 09/09/22 Status: Ordered calcium (as carbonate)-vitamin D 500 mg-400 intl units oral tablet 1 tablet, By Mouth, Daily, # 300 tablet, 11 Refills, Maintenance, 11/03/20 8:37:00 EST, Tablet, [facility]/pharmacy #[id number], 1 tablet By [...] Refills, Maintenance, 02/21/22 10:27:00 EDT, [id number] Partial fill upon patient request if the prescription is for a schedule IIopioid drug., 165, cm, 02/15/22 8:10:00 EDT, Height... Start Date: 02/21/22 Status: Ordered lisinopril 10 mg oral tablet 10 mg, 1, tablet, By Mouth, Daily, # 90 tablet, Refills 3, Tot. Refills 3, Maintenance, 09/14/21 16:29:00 EST, [id number] 165, cm, 09/14/21 14:59:00 EST, Height Start Date: 09/14/21 Stop Date: 09/09/22 Status: Ordered meloxicam 7.5 mg oral tablet 1 tablet, By Mouth, Daily, # 30 tablet, 0 Refills, [facility] STORE 80847, 165, cm, 10/26/21 9:52:00 EST, Height Start [...] drug. Start Date: 01/10/22 Status: Ordered Pen Adell, 31 G x 8 mm BD Ultra [...] 01/02/22 11:52:00 EST, Route to Pharmacy Electronically, [facility]/pharmacy #[id number], Partial fill upon [...] 1 Refills, Maintenance, 09/14/21 18:33:00EST, ER Tablet, [facility]/pharmacy #[id number], Partial fill upon [...] FDA INJ AUGMENT BONE GRAFT 1.5ML - [facility] ([id number]) 1 [employer] Unknown LILIAN:No Information Assigning Authority: FDA
--- OUTSIDE RECORDS SUMMARY | 2023-12-11 07:11 | XMS_ITS | Continuity of Care Document ---
Author Name Unknown Organization [facility] Address [address] [address]- Care Team Providers Care Try Out Person Name Role Phone Kristine Bhatia DO Primary Care Physician Encounter [facility] [place] Date(s): 04/19/20 - 05/19/20 [facility] [address] [address]- [facility] Attending Physician: Mony Whitney Admitting Physician: AdmtrMony [...] 10/12/15 Given tetanus/diphtheria/pertussis, acel(Tdap) 12/24/13 Given Medications acyclovir 200 mg oral capsule 2 capsule = 400 mg, By Mouth, 3 times a day, for 7 days, drink plenty of fluids, # 42 capsule, 1 Refills, Acute 05/25/20 8:10:00 EDT, 05/11/20 8:10:00 EDT, [facility], [id number], 165, cm, 11/12/19 10:55:00 EST, Height, 75, kg, 02/12/19 9:43:00 E... Start Date: 05/11/20 Stop Date: 05/25/20 Status: Ordered amLODIPine 5 mg oral tablet 5 mg, 1, tablet, By Mouth, Daily, # 30 tablet, Refills 11, Tot. Refills 11, Maintenance, 11/06/19 11:00:00 EST, Route to Pharmacy Electronically, [facility]/pharmacy #[id number], 165, cm, 11/06/19 10:52:00 EST, [...] 11 Refills, Maintenance, 02/03/20 9:22:00 EDT, Tablet, [facility]/pharmacy #[id number], 165, cm, 11/12/19 10:55:00 EST, Height, 75, kg, 02/12/19 9:43:00 EDT, Dry Weight Start Date: 02/03/20 Stop Date: 01/28/21 Status: Ordered calcium (as carbonate)-vitamin D 500 mg-400 intl units oral tablet 1 tablet, By Mouth, Daily, # 300 tablet, 11 Refills, Maintenance, 02/03/20 9:22:00 EDT, Tablet, [facility]/pharmacy #[id number], 1 tablet By Mouth Daily, 165, cm, 11/12/19 10:55:00 EST, Height, 75, kg, 02/12/19 9:43:00 EDT, Dry Weight Start Date: 02/03/20 Status: Ordered diclofenac 1% topical gel = 2 Gm, Topically, 4 times a day, # 100 Gm, 5 Refills, Maintenance, 11/06/19 11:03:00 EST, Gel, [facility]/pharmacy #[id number], 165, cm, 11/06/19 10:52:00 EST, Height, 75, kg, 02/12/19 9:43:00 EDT, Dry Weight Start Date: 11/06/19 Stop Date: 05/04/20 Status: Ordered famotidine 20 mg oral tablet 1, tablet, By Mouth, Daily, AVOID EATING/DRINKING FOR 10 MINUTES AFTER EACH DOSE, # 90 tablet, Refills 3, Tot. Refills 0, Maintenance, 05/15/20 8:33:00 EDT, Route to Pharmacy Electronically, [facility] STORE 92774, 165, cm, 11/12/19 10:55:00 EST, Height, 75,... Start Date: 05/15/20 Status: Ordered gabapentin 300 mg oral capsule 300 mg, 1, capsule, By Mouth, Daily at bedtime, # 90 capsule, Refills 1, Tot. Refills 1, Maintenance, 04/13/20 10:36:00 EDT, [id number], cm, 11/12/19 10:55:00 EST, Height, 75, kg, 02/12/19 9:43:00 EDT, Start Date: 04/13/20 Stop Date: 10/10/20 Status: Ordered lisinopril 10 mg oral tablet 10 mg, 1, tablet, By Mouth, Daily, # 30 tablet, Refills 11, Tot. Refills 11, Maintenance, 11/06/19 11:00:00 EST, [id number] 165, cm, 11/06/19 10:52:00 EST, Height, 75, kg, 02/12/19 9:43:00 EDT, Dry Weight Start Date: 11/06/19 Stop Date: 10/31/20 Status: Ordered nabumetone 500 mg oral tablet 1 tablet = 500 mg, By Mouth, 2 times a day, # 6 tablet, 0 Refills, Maintenance, 11/06/19 11:03:00 EST, Tablet, [facility]/pharmacy #[id number], 165, cm, 11/06/19 10:52:00 EST, [...] 5 Refills, Maintenance, 03/17/20 15:44:00 EDT, [facility], [id number], 165, cm, 11/12/19 10:55:00 EST, Height, [...] INJ AUGMENT BONE GRAFT 1.5ML - [facility] ([id number]) 1 [employer] Unknown LILIAN:No Information Assigning Authority: FDA
--- OUTSIDE RECORDS SUMMARY | 2023-12-11 07:11 | XMS_ITS | Continuity of Care Document ---
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 Name Role Phone Shefali Sanchez MD Primary Care Physician [phone] Encounter [facility] Date(s): 09/13/21 - 10/13/21 [facility] [address] [place] [phone]- Allergies, Adverse Reactions, Alerts Substance Reaction Severity [...] 09/14/21 16:28:00 EST, Route to Pharmacy Electronically, [facility]/pharmacy #[id number], 165, cm, 09/14/21 14:59:00 EST, [...] 3 Refills, Maintenance, 09/14/21 16:28:00 EST, Tablet, [facility]/pharmacy #[id number], 165, cm, 09/14/21 14:59:00 EST, Height Start Date: 09/14/21 Stop Date: 09/09/22 Status: Ordered calcium (as carbonate)-vitamin D 500 mg-400 intl units oral tablet 1 tablet, By Mouth, Daily, # 300 tablet, 11 Refills, Maintenance, 11/03/20 8:37:00 EST, Tablet, [facility]/pharmacy #[id number], 1 tablet By Mouth Daily, 165, cm, 08/12/20 15:39:00 EDT, Height, 75, kg, 02/12/19 9:43:00 EDT, Dry Weight Start Date: 11/03/20 Status: Ordered capsaicin 0.025% topical cream 1 application, Topically, 2 times a day, # 42 Gm, 0 Refills, Maintenance, 07/29/20 15:33:00 EDT, Cream, [facility]/pharmacy #[id number], 1 application Topically 2 times a day, 165, cm, 07/29/20 14:56:00 EDT, Height, 75, kg, 02/12/19 9:43:00 EDT, Dry Weight Start Date: 07/29/20 Status: Ordered diclofenac 1% topical gel = 2 Gm, Topically, 4 times a day, # 100 Gm, 5 Refills, Maintenance, 11/06/19 11:03:00 EST, Gel, [facility]/pharmacy #[id number], 165, cm, 11/06/19 10:52:00 EST, Height, 75, kg, 02/12/19 9:43:00 EDT, Dry Weight Start Date: 11/06/19 Stop Date: 05/04/20 Status: Ordered diclofenac potassium 50 mg oral tablet 1 tablet, By Mouth, 3 times a day, PRN NEEDED FOR ARTHRITIS, WITH FOOD, # 50 tablet, 2 Refills, Acute, 03/21/21 13:01:00 EDT, [facility], 165, cm, 02/15/21 9:39:00 EDT, Height Start [...] 05/15/20 8:33:00 EDT, Route to Pharmacy Electronically, [facility] STORE 52214, 165, cm, 11/12/19 10:55:00 EST, Height, 75,... [...] 09/14/21 16:29:00 EST, Route to Pharmacy Electronically, [facility]/pharmacy #[id number], 165, cm, 09/14/21 14:59:00 EST, Height Start Date: 09/14/21 Stop Date: 09/09/22 Status: Ordered melatonin 10 mg oral tablet 1 tablet = 10 mg, By Mouth, Daily at bedtime, PRN as needed for insomnia, # 200 tablet, 0 Refills, Maintenance, 09/29/21 16:15:00 EST, Tablet, [facility]/pharmacy #[id number], Partial fill upon [...] 3 Refills, Maintenance, 10/12/20 10:00:00 EST, ECCapsule, [facility]/pharmacy #[id number], 165, cm, 08/12/20 15:39:00 EDT, Height, 75, kg, 02/12/19 9:43:00 EDT, Dry Weight Start Date: 10/12/20 Stop Date: 02/09/21 Status: Ordered prazosin 5 mg oral capsule 5 mg, 1, capsule, By Mouth, Daily at bedtime, # 90 capsule, Refills 0, Tot. Refills 0, Maintenance,09/29/21 16:16:00 EST, Route to Pharmacy Electronically, [facility]/pharmacy #[id number], Partial fill upon [...] Refills, Maintenance, 09/14/21 18:33:00EST, ER Tablet, [id number], Partial fill upon patient request if the [...] INJ AUGMENT BONE GRAFT 1.5ML - [facility] ([id number]) 1 [employer] Unknown LILIAN:No Information Assigning Authority: FDA
--- OUTSIDE RECORDS SUMMARY | 2023-12-11 07:11 | XMS_ITS | Continuity of Care Document ---
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 Refills 11, Maintenance, 11/03/20 8:37:00 EST, Route to Pharmacy Electronically, [facility]/pharmacy #[id number], 165, cm, 08/12/20 15:39:00 EDT, Height, 75, kg, 04/11/19 9:43:00 EDT, Dry Weight Start Date: 11/03/20 Stop Date: 10/29/21 Status: Ordered Ankle Brace Ankle Brace, See Instructions, # 1 units, Refills 0, Tot. Refills 0, Maintenance, Dx: L ankle swelling, 05/02/18 17:00:21 EDT, Compound Start Date: 05/02/18 Status: Ordered atorvastatin 40 mg oral tablet 1 tablet = 40 mg, By Mouth, Daily at bedtime, # 30 tablet, 11 Refills, Maintenance, 02/13/21 9:53:00 EDT, Tablet, [id number], 165, cm, 01/19/21 17:30:00 EDT, Height Start Date: 02/13/21 Stop Date: 02/08/22 Status: Ordered calcium (as carbonate)-vitamin D 500 mg-400 intl units oral tablet 1 tablet, By Mouth, Daily, # 300 tablet, 11 Refills, Maintenance, 11/03/20 8:37:00 EST, Tablet, [id number], 1 tablet By Mouth Daily, 165, cm, 08/12/20 15:39:00 EDT, Height, 75, kg, 02/12/19 9:43:00 EDT, Dry Weight Start Date: 11/03/20 Status: Ordered capsaicin 0.025% topical cream 1 application, Topically, 2 times a day, # 42 Gm, 0 Refills, Maintenance, 07/29/20 15:33:00 EDT, Cream, [id number], 1 application Topically 2 times a [...] diclofenac potassium 50 mg oral tablet 1 tablet = 50 mg, By Mouth, 3 times a day, PRN for arthritis, with food, # 50 tablet, 2 Refills, Maintenance, 01/19/21 18:56:00 EDT, Tablet, [facility]/pharmacy #[id number], Partial fill upon patient request if the prescription is for a schedule II opioid drug., 1... Start Date: 01/19/21 Status: Ordered famotidine 20 mg oral tablet 1, tablet, By Mouth, Daily, AVOID EATING/DRINKING FOR 10 MINUTES AFTER EACH DOSE, # 90 tablet, Refills 3, Tot. Refills 0, Maintenance, 05/15/20 8:33:00 EDT, Route to Pharmacy Electronically, [facility] STORE [id number], 165, cm, 11/12/19 10:55:00 EST, Height, 75,... Start Date: 05/15/20 Status: Ordered gabapentin 600 mg oral tablet 1 tablet = 600 mg, By Mouth, 2 times a day, Increased dose, 600mg PO BID, # 60 tablet, 2 Refills, Maintenance, 01/02/21 9:18:00 EST, [facility]/pharmacy #[id number], Partial fill upon patient request if the prescription is for a schedule II opioid drug., 165, cm,... Start Date: 01/02/21 Status: Ordered Left Hand Wrist Splint Left [...] tablet, Refills 11, Tot. Refills 11, Maintenance, 11/03/20 8:37:00 EST, Route to Pharmacy Electronically, [facility]/pharmacy #[id number], 165, cm, 08/12/20 15:39:00 EDT, Height, 75, kg, 02/12/19 9:43:00 EDT, Dry Weight Start Date: 11/03/20 Stop Date: 10/29/21 Status: Ordered naloxone 4 mg/0.1 mL nasal spray See Instructions, Once may repeat every 2 to 3 minutes until patient responds, # 2 each, 0 Refills,Soft Stop, 10/29/18 15:17:51 EST Start Date: 10/29/18 Status: Ordered omeprazole 20 mg oral enteric coated capsule 1 capsule = 20 mg, By Mouth, Daily, # 30 capsule, 3 Refills, Maintenance, 10/12/20 10:00:00 EST, ECCapsule, [id number], 165, cm, 08/12/20 15:39:00 EDT, Height, 75, kg, 02/12/19 9:43:00 EDT, Dry Weight Start Date: 10/12/20 Stop Date: 02/09/21 Status: Ordered Right Hand Wrist Splint Right [...] 04/04/10 Active HTN (hypertension)(Confirmed) Active Hypertriglyceridemia(Confirmed) Active Left Pelvicaliectasis(Confirmed) 2 Active Depression(Confirmed) Active 1REPEAT 5 YRS 2Left, on CT abdo 2013 Social History Social [...] INJ AUGMENT BONE GRAFT 1.5ML - WRGT ([id number]) 1 [employer] Unknown LILIAN:No Information Assigning Authority: FDA
--- OUTSIDE RECORDS SUMMARY | 2023-12-11 07:11 | XMS_ITS | Continuity of Care Document ---
Author Name Unknown Organization 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 [address] [place] [id number] Allergies, Adverse Reactions, Alerts Substance Reaction Severity [...] 09/14/21 16:28:00 EST, Route to Pharmacy Electronically, [facility]/pharmacy #[id number], 165, cm, 09/14/21 14:59:00 [...] 3 Refills, Maintenance, 09/14/21 16:28:00 EST, Tablet, [facility]/pharmacy #[id number], 165, cm, 09/14/21 14:59:00 EST, Height Start Date: 09/14/21 Stop Date: 09/09/22 Status: Ordered calcium (as carbonate)-vitamin D 500 mg-400 intl units oral tablet 1 tablet, By Mouth, Daily, # 300 tablet, 11 Refills, Maintenance, 11/03/20 8:37:00 EST, Tablet, [facility]/pharmacy #[id number], 1 tablet By Mouth [...] Daily, # 9 mL, 5 Refills, Maintenance, 04/17/22 10:57:00 EDT, Solution, [facility]/pharmacy #[id number], Partial fill upon patient request if the prescription is for a schedule II opioid drug., 165, cm, 03/27/22 9:50:00 EDT, Marixa... Start Date: 04/17/22 Stop Date: 10/14/22 Status: Ordered lisinopril 10 mg oral tablet 10 mg, 1, tablet, By Mouth, Daily, # 90 tablet, Refills 3, Tot. Refills 3, Maintenance, 09/14/21 16:29:00 EST, Route to Pharmacy Electronically, [facility]/pharmacy #[id number], 165, cm, 09/14/21 14:59:00 EST, Height Start Date: 09/14/21 Stop Date: 09/09/22 Status: Ordered meloxicam 7.5 mg oral tablet 1 tablet, By Mouth, Daily, # 30 tablet, 0 Refills, [facility] STORE [id number], 165, cm, 10/26/21 9:52:00 EST, Height Start [...] drug. Start Date: 01/10/22 Status: Ordered Pen [place], 31 G x 8 mm BD Ultra [...] 01/02/22 11:52:00 EST, Route to Pharmacy Electronically, [facility]/pharmacy #[id number], Partial fill upon patient [...] 1 Refills, Maintenance, 09/14/21 18:33:00EST, ER Tablet, [facility]/pharmacy #[id number], Partial fill upon patient [...] Putty DBM, AlloSync, 01ml, Human Allograft 1 [employer] Unknown LILIAN:No Information Assigning Authority: FDA INJ AUGMENT BONE GRAFT 1.5ML - WRGT ([id number]) 1 [employer] Unknown LILIAN:No Information Assigning Authority: FDA
--- OUTSIDE RECORDS SUMMARY | 2023-12-11 07:12 | XMS_ITS | Continuity of Care Document ---
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 Percocet 5/325 itchy,rash Active 1Rash Immunizations Given and Recorded Vaccine Date Status Refusal Reason influenza virus vaccine, inactivated 07/29/20 Give n [...] 11:00:00 EST, Route to Pharmacy Electronically, [facility]/pharmacy #[id number], 165, cm, 11/06/19 10:52:00 EST, Height, 75, [...] 11 Refills, Maintenance, 02/03/20 9:22:00 EDT, Tablet, [facility]/pharmacy #[id number], 165, cm, 11/12/19 10:55:00 EST, Height, 75, kg, 02/12/19 9:43:00 EDT, Dry Weight Start Date: 02/03/20 Stop Date: 01/28/21 Status: Ordered calcium (as carbonate)-vitamin D 500 mg-400 intl units oral tablet 1 tablet, By Mouth, Daily, # 300 tablet, 11 Refills, Maintenance, 02/03/20 9:22:00 EDT, Tablet, [facility]/pharmacy #[id number], 1 tablet By Mouth Daily, 165, cm, 11/12/19 10:55:00 EST, Height, 75, kg, 02/12/19 9:43:00 EDT, Dry Weight Start Date: 02/03/20 Status: Ordered capsaicin 0.025% topical cream 1 application, Topically, 2 times a day, # 42 Gm, 0 Refills, Maintenance, 07/29/20 15:33:00 EDT, Cream, [facility]/pharmacy #[id number], 1 application Topically [...] 05/15/20 8:33:00 EDT, Route to Pharmacy Electronically, [facility] STORE [id number], 165, cm, 11/12/19 10:55:00 EST, Height, 75,... Start Date: 05/15/20 Status: Ordered gabapentin 300 mg oral capsule 300 mg, 1, capsule, By Mouth, 2 times a day, Increased dose, # 180 capsule, Refills 1, Tot. Refills1, Maintenance, 05/23/20 11:16:00 EDT, Route to Pharmacy Electronically, [facility]/pharmacy #[id number], 165, cm, 05/23/20 10:20:00 EDT, Height, 75, kg, 02/12/19 9... Start Date: 05/23/20 Stop Date: 11/19/20 Status: Ordered lisinopril 10 mg oral tablet 10 mg, 1, tablet, By Mouth, Daily, # 30 tablet, Refills 11, Tot. Refills 11, Maintenance, 11/06/19 11:00:00 EST, [id number] 165, cm, 11/06/19 10:52:00 EST, Height, 75, kg, 02/12/19 9:43:00 EDT, Dry Weight Start Date: 11/06/19 Stop Date: 10/31/20 Status: Ordered naloxone 4 mg/0.1 mL nasal spray See Instructions, Once may repeat every 2 to 3 minutes until patient responds, # 2 each, 0 Refills,Soft Stop, 10/29/18 15:17:51 EST Start Date: 10/29/18 Status: Ordered naproxen 500 mg oral tablet 1 tablet = 500 mg, By Mouth, 2 times a day, PRN for pain, with food, # 30 tablet, 0 Refills, Maintenance, 08/18/20 10:05:00 EDT, Tablet, [facility]/pharmacy #[id number], 165, cm, 08/12/20 15:39:00 EDT, Height, 75, kg, 02/12/19 9:43:00 EDT, Dry Weight Start Date: 08/18/20 Stop Date: 09/01/20 Status: Ordered omeprazole 20 mg oral enteric coated capsule 1 capsule = 20 mg, By Mouth, Daily, # 30 capsule, 1 Refills, Maintenance, 07/14/20 13:56:00 EDT, ECCapsule, [id number], 165, cm, 05/23/20 10:20:00 EDT, Height, 75, kg, 02/12/19 9:43:00 EDT, Dry Weight Start Date: 07/14/20 Stop Date: 09/12/20 Status: Ordered Senna 2 tablets, By Mouth, [...] INJ AUGMENT BONE GRAFT 1.5ML - WRGT ([id number]) 1 [employer] Unknown LILIAN:No Information Assigning Authority: FDA
--- OUTSIDE RECORDS SUMMARY | 2023-12-11 07:12 | XMS_ITS | Continuity of Care Document ---
Author Name Unknown Organization [facility] Address [address] [place] [phone]- Care Team Providers Care Diet Therapist Name Role Phone Shefali Sanchez MD Primary Care Physician [phone] Encounter [facility] Date(s): 01/10/22 - 02/09/22 [facility] [address] [place] [id number]- Allergies, Adverse Reactions, Alerts Substance Reaction Severity [...] 09/14/21 16:28:00 EST, Route to Pharmacy Electronically, [facility]/pharmacy #[id number], 165, cm, 09/14/21 [...] 3 Refills, Maintenance, 09/14/21 16:28:00 EST, Tablet, [facility]/pharmacy #[id number], 165, cm, 09/14/21 14:59:00 EST, Height Start Date: 09/14/21 Stop Date: 09/09/22 Status: Ordered calcium (as carbonate)-vitamin D 500 mg-400 intl units oral tablet 1 tablet, By Mouth, Daily, # 300 tablet, 11 Refills, Maintenance, 11/03/20 8:37:00 EST, Tablet, [facility]/pharmacy #[id number], 1 tablet By [...] 09/14/21 16:29:00 EST, Route to Pharmacy Electronically, [facility]/pharmacy #[id number], 165, cm, 09/14/21 14:59:00 EST, Height Start Date: 09/14/21 Stop Date: 09/09/22 Status: Ordered meloxicam 7.5 mg oral tablet 1 tablet, By Mouth, Daily, # 30 tablet, 0 Refills, [facility] STORE 19486, 165, cm, 10/26/21 9:52:00 EST, Height Start [...] drug. Start Date: 01/10/22 Status: Ordered Pen [place], 31 G x 8 mm BD Ultra [...] 01/02/22 11:52:00 EST, Route to Pharmacy Electronically, [facility]/pharmacy #[id number], Partial fill upon patient requ... Start Date: 01/02/22 Status: Ordered Right Hand Wrist Splint Right Hand Wrist Splint, See Instructions, # 1 each, Refills 0, Tot. Refills 0, Maintenance, Right Hand Wrist Splint To use for carpal tunnel Dx: G56.01 Duration: Lifetime, 01/02/21 10:32:00 EST, Supply Start Date: 01/02/21 Status: Ordered Victoza 18 mg/3 mL subcutaneous solution See Instructions, 0.6mg once daily for 1 week, then increase to 1.2mg daily, # 6 mL, 1 Refills, Maintenance, 01/25/22 14:46:00 EDT, [facility]/pharmacy #[id number], Partial fill upon patient request if the prescription is for a schedule II opioid drug., 165, cm, 0... Start Date: 01/25/22 Status: Ordered Wellbutrin XL 150 mg/24 hours oral tablet, extended release 1 tablet = 150 mg, By Mouth, Every 24 hours, # 90 tablet, 1 Refills, Maintenance, 09/14/21 18:33:00EST, ER Tablet, [facility]/pharmacy #[id number], Partial fill upon [...] INJ AUGMENT BONE GRAFT 1.5ML - WRGT ([id number]) 1 [employer] Unknown LILIAN:No Information Assigning Authority: FDA
--- OUTSIDE RECORDS SUMMARY | 2023-12-11 07:12 | XMS_ITS | Continuity of Care Document ---
Author Name Unknown Organization [facility] Address [address] [place] [address]- Care Team Providers Care Lozenge Maker Name Role Phone Daniel HUMPHREY, Shefali Primary Care Physician [phone] Encounter [facility] Date(s): 04/22/23 - 05/22/23 [facility] [address] [place] [id number]- Allergies, Adverse Reactions, Alerts Substance Reaction Severity [...] Refills, Maintenance, 01/21/23 15:58:00 EDT, [facility], 165, cm, 01/17/23 9:47:00 EDT, Height, 76.7, [...] 3 Refills, Maintenance, 10/18/22 15:53:00 EST, Tablet, [facility]/pharmacy #[id number], 165, cm, 10/18/22 15:02:00 EST, Height, 76.7, kg, 01/10/22 6:52:00 EST, Dry Weight Start Date: 10/18/22 Status: Ordered calcium (as carbonate)-vitamin D 500 mg-400 intl units oral tablet 1 tablet, By Mouth, Daily, # 84 tablet, 2 Refills, Maintenance, 05/14/23 12:37:00 EDT, [facility] 10[facility], 84, TAKE 1 TABLET BY MOUTH EVERY DAY, 165, cm, 03/25/23 14:55:00 EDT, Height, 76.7, kg, 01/10/22 6:52:00 EST, Dry Weight Start Date: 05/14/23 Status: Ordered hydrOXYzine hydrochloride 25 mg oral tablet 1 capsule, By Mouth, 4 times a day, PRN NEEDED FOR PAIN OR ANXIETY, # 120 tablet, 0 Refills, Maintenance, 02/08/23 18:04:00 EDT, [facility], 165, cm, 01/17/23 9:47:00 EDT, Height, 76.7, [...] 5 Refills, Maintenance, 10/18/22 15:53:00 EST, Solution, [facility]/pharmacy #0957, Partial fill upon patient request if the prescription is for a schedule II opioid drug., 165, cm, 10/18/22 15:02:00 EST, Heig... Start Date: 10/18/22 Stop Date: 04/16/23 Status: Ordered lisinopril 10 mg oral tablet 10 mg, 1, tablet, By Mouth, Daily, # 90 tablet, Refills 3, Tot. Refills 3, Maintenance, 10/18/22 15:53:00 EST, Route to Pharmacy Electronically, [facility]/pharmacy #[id number], 165, cm, 10/18/22 15:02:00 EST, Height, 76.7, kg, 01/10/22 6:52:00 EST, Dry Weight Start Date: 10/18/22 Status: Ordered meloxicam 7.5 mg oral tablet 1 tablet, By Mouth, Daily, # 30 tablet, 0 Refills, [facility] STORE 09274, 165, cm, 10/26/21 9:52:00 EST, Height Start [...] drug. Start Date: 01/10/22 Status: Ordered Pen [place], 31 G x 8 mm BD Ultra [...] 02/08/23 18:04:00 EDT, Route to Pharmacy Electronically, [facility], 165, cm, 01/17/23 9:47:00 EDT,Height, 76.7, kg, [...] 0 Refills, Maintenance, 01/17/23 10:13:00 EDT, Tablet, [facility]/pharmacy #[id number], Partial fill upon patient request if the prescription is for a schedule II opioid drug., 165, cm, 01/17/23 9:47:00 EDT, Height,... Start Date: 01/17/23 Status: Ordered Victoza 18 mg/3 mL subcutaneous solution See Instructions, INJECT 1.8 MG SUBCUTANEOUS INJECTION DAILY,X30 DAYS, # 9 Unknown, 5 Refills, Maintenance, 04/23/23 14:24:00 EDT, [facility], 165, cm, 03/25/23 14:55:00 EDT, Height, 76.7, [...] Provider Procedure Date Device Type Site Fusion/Arthrodesis Joanne Martinez MD, Matthieu Conti 02/23/19 Unknown Foot Left Device Identifier Serial Number Lot or Batch Number Manufacturing Date Expiration Date Distinct Identification Code MRI Safety Implantable Status Assigning Authority Unknown [id number] Unknown 08/31/19 Unknown Unknown Active Unkn own Unknown Unknown [id number] Unknown 08/31/21 Unknown Unknown Active Un known Patient Care team information Care Team Personnel Name: Shefali Sanchez MD Position: [facility] Resident Member Role: PCP Address: Address: [address] [facility] [place] [address]- Name: Jean-Paul Clay RN Position: [facility] RN Member Role: Primary Care Nurse Care Team Related Persons Name: NICCI HOODLE YAMILA Address: home [address] [place] [address] Name: MARKUS MATA Address: home [address] [place] [address] Name: KENZIE HENDRICKSON Address: home [address] [place] [address]
--- OUTSIDE RECORDS SUMMARY | 2023-12-11 07:12 | XMS_ITS | Continuity of Care Document ---
Author Name Unknown Organization [facility] Address [address] [place] [address]- Care Team Providers Care Bank Secrecy Act Officer Name Role Phone Shefali Sanchez MD Primary Care Physician [phone] [facility]counter [facility] Date[facility]): 08/19/23 - 09/18/23 [facility] [address] [place] [id number] Allergies, Adverse Reactions, Alerts Substance Reaction Severity [...] Refills, Maintenance, 01/21/23 15:58:00 EDT, [facility], 165, cm, 01/17/23 9:47:00 EDT, Height, 76.7, kg, 01/10/22 6:52:00 EST, Dry Weight Start Date: 01/21/23 Status: Ordered amLODIPine 5 mg oral tablet 1 tablet = 5 mg, By Mouth, Daily, # 90 tablet, 11 Refills, Maintenance, 08/19/23 10:04:00 EDT, Tablet, [id number], Partial fill upon patient request if the prescription is for a schedule II opioid drug., 165, cm, 08/19/23 9:40:00 EDT, Height,... Start Date: 08/19/23 Status: Ordered Ankle Brace Ankle Brace, See Instructions, # 1 units, Refills 0, Tot. Refills 0, Maintenance, Dx: L ankle swelling, 05/02/18 17:00:21 EDT, Compound Start Date: 05/02/18 Status: Ordered atorvastatin 40 mg oral tablet 1 tablet = 40 mg, By Mouth, Daily, # 30 tablet, 5 Refills, Maintenance, 08/19/23 10:05:00 EDT, Tablet, [facility], Partial fill upon patient request if the prescription is for a schedule II opioid drug., 165, cm, 08/19/23 9:40:00 EDT, Height,... Start Date: 08/19/23 Status: Ordered atorvastatin 40 mg oral tablet 1 tablet, By Mouth, Daily at bedtime, # 90 tablet, 3 Refills, Maintenance, 07/29/23 20:03:00 EDT, [facility], 165, cm, 03/25/23 14:55:00 EDT, Height, 76.7, kg, 01/10/22 6:52:00 EST, Dry Weight Start Date: 07/29/23 Status: Ordered calcium (as carbonate)-vitamin D 500 mg-400 intl units oral tablet 1 tablet, By Mouth, Daily, # 84 tablet, 2 Refills, Maintenance, 05/14/23 12:37:00 EDT, [facility] 238[facility], 84, TAKE 1 TABLET BY MOUTH EVERY DAY, 165, cm, 03/25/23 14:55:00 EDT, Height, 76.7, kg, 01/10/22 6:52:00 EST, Dry Weight Start Date: 05/14/23 Status: Ordered hydrOXYzine hydrochloride 25 mg oral tablet 1 capsule, By Mouth, 4 times a day, PRN NEEDED FOR PAIN OR ANXIETY, # 120 tablet, 0 Refills, Maintenance, 02/08/23 18:04:00 EDT, [facility] STORE 93829, 165, cm, 01/17/23 9:47:00 EDT, Height, 76.7, [...] 5 Refills, Maintenance, 10/18/22 15:53:00 EST, Solution, [facility]/pharmacy #0957, Partial fill upon patient request if the prescription is for a schedule II opioid drug., 165, cm, 10/18/22 15:02:00 EST, Freddie Start Date: 10/18/22 Stop Date: 04/16/23 Status: Ordered lisinopril 10 mg oral tablet 10 mg, 1, tablet, By Mouth, Daily, # 30 tablet, Refills 11, Tot. Refills 11, Maintenance, 08/19/23 10:04:00 EDT, Route to Pharmacy Electronically, [facility]/pharmacy #[id number], Partial fill upon patient request if the prescription is for a schedule II opioid dr... Start Date: 08/19/23 Status: Ordered lisinopril 10 mg oral tablet 10 mg, 1, tablet, By Mouth, Daily, # 90 tablet, Refills 3, Tot. Refills 3, Maintenance, 10/18/22 15:53:00 EST, Route to Pharmacy Electronically, [facility]/pharmacy #[id number], 165, cm, 10/18/22 15:02:00 EST, Height, 76.7, kg, 01/10/22 6:52:00 EST, Dry Weight Start Date: 10/18/22 Status: Ordered meloxicam 7.5 mg oral tablet 1 tablet, By Mouth, Daily, # 30 tablet, 0 Refills, [facility] STORE 50350, 165, cm, 10/26/21 9:52:00 EST, Height Start Date: 11/19/21 Status: Ordered Nasal Four 1% nasal spray 2 sprays, Nares, Both, Every 4 hours, PRN for nasal congestion, # 29.6 mL, 0 Refills, Maintenance, 08/19/23 10:00:00 EDT, [place] Partial fill upon patient request if the prescription is for a schedule II opioid drug., 2 sprays Nare... Start Date: 08/19/23 Status: Ordered oxyCODONE 5 mg oral tablet [...] opioid drug. Start Date: 01/10/22 Status: Ordered Paxlovid 150 mg-100 mg (150 mg-100 mg Dose) oral tablet See Instructions, By Mouth 2 times a day Take 150 mg nirmatrelvir (one 150 mg tablet) and 100 mg ritonavir (one 100 mg tablet), taking both tablets together, orally twice daily for 5 days, # 30 tablet, 0 Refills, Maintenance, 08/19/23 11:13:00 EDT, C... Start Date: 08/19/23 Status: Ordered Pen [place], 31 G x 8 mm BD Ultra [...] EDT, Route to Pharmacy Electronically, [facility], 165, cm, 01/17/23 9:47:00 EDT,Height, 76.7, kg, 01/10/22 6:52:00 EST, Dry Weight Start Date: 02/08/23 Status: Ordered Right Hand Wrist Splint Right Hand Wrist Splint, See Instructions, # 1 each, Refills 0, Tot. Refills 0, Maintenance, Right Hand Wrist Splint To use for carpal tunnel Dx: G56.01 Duration: [facility], 01/02/21 10:32:00 EST, Supply Start Date: 01/02/21 Status: Ordered Robitussin Maximum Strength Nighttime Cough 30 mg-12.5 mg/20 mL oral liquid 20 mL, By Mouth, Every 6 hours, PRN as needed for cough and congestion, # 118 mL, 0 Refills, Maintenance, 08/19/23 10:02:00 EDT, Liquid, [facility]/pharmacy #[id number], Partial fill upon patient request if the prescription is for a schedule II opioid drug., 20 mL... Start Date: 08/19/23 Status: Ordered sertraline 25 mg oral tablet 1 tablet = 25 mg, By Mouth, Daily, # 90 tablet, 0 Refills, Maintenance, 01/17/23 10:13:00 EDT, Tablet, [facility], Partial fill upon patient request if the prescription is for a schedule II opioid drug., 165, cm, 01/17/23 9:47:00 EDT, Height,... Start Date: 01/17/23 Status: Ordered Tylenol 8 Hour 650 mg oral tablet, extended release 2 tablet = 1,300 mg, By Mouth, Every 8 hours, PRN as needed for fever, # 24 tablet, 1 Refills, Maintenance, 08/19/23 9:59:00 EDT, ER Tablet, [facility], Partial fill upon patient request if the prescription is for a schedule II opioid drug., 1... Start Date: 08/19/23 Status: Ordered Victoza 18 mg/3 mL subcutaneous solution See Instructions, INJECT 1.8 MG SUBCUTANEOUS INJECTION DAILY,X30 DAYS, # 9 Unknown, 5 Refills, Maintenance, 04/23/23 14:24:00 EDT, [facility], 165, cm, 03/25/23 14:55:00 EDT, Height, 76.7, [...] Provider Procedure Date Device Type Site Fusion/Arthrodesis Matthieu Martinez MD 02/23/19 Unknown Foot Left Device Identifier Serial Number Lot or Batch Number Manufacturing Date Expiration Date Distinct Identification Code MRI Safety Implantable Status Assigning Authority Unknown [id number] Unknown 08/31/19 Unknown Unknown Active Unkn own Unknown Unknown [id number] Unknown 08/31/21 Unknown Unknown Active Un known Patient Care team information Care Team Personnel Name: Shefali Sanchez MD Position: [facility] Resident Member Role: PCP Address: Address: [address] [place] [address] [place] [address]- Name: Jean-Paul Clay RN Position: S RN Member Role: Primary Care Nurse Care Team Related Persons Name: LUX THAYERFA Address: home [address] [place] [address] Name: YAMILA REYNOLDS Address: home [address] [place] [address] Name: MARKUS MATA Address: home [address] [place] [address] Name: KENZIE HENDRICKSON Address: home [address] [place] [address]
--- OUTSIDE RECORDS SUMMARY | 2023-12-11 07:12 | XMS_ITS | Continuity of Care Document ---
Author Name Unknown Organization [facility] Address [address] [place] [address]- Care Team Providers Care Civil Engineering Assistant Name Role Phone Kristine Bhatia DO Primary Care Physician Encounter [facility] [place] Date(s): 10/16/19 - 11/21/19 [facility] [address] [address]- [facility] Attending Physician: Andrei Fletcher MD Allergies, Adverse Reactions, Alerts Substance Reaction [...] 11/06/19 11:00:00 EST, Route to Pharmacy Electronically, [facility]/pharmacy #[id number], 165, cm, 11/06/19 10:52:00 EST, [...] tablet, 5 Refills, Maintenance, 11/02/19 9:13:00EST, Tablet, [facility]/pharmacy #0693, 165, cm, 08/28/19 14:56:00 EDT, [...] 5 Refills, Maintenance, 11/06/19 11:03:00 EST, Gel, [facility]/pharmacy #0693, 165, cm, 11/06/19 10:52:00 EST, Height, 75, kg, 02/12/19 9:43:00 EDT, Dry Weight Start Date: 11/06/19 Stop Date: 05/04/20 Status: Ordered lisinopril 10 mg oral tablet 10 mg, 1, tablet, By Mouth, Daily, # 30 tablet, Refills 11, Tot. Refills 11, Maintenance, 11/06/19 11:00:00 EST, Route to Pharmacy Electronically, [facility]/pharmacy #[id number], 165, cm, 11/06/19 10:52:00 EST, [...] INJ AUGMENT BONE GRAFT 1.5ML - WRGT ([id number]) 1 [employer] Unknown LILIAN:No Information Assigning Authority: FDA
--- OUTSIDE RECORDS SUMMARY | 2023-12-11 07:12 | XMS_ITS | Continuity of Care Document ---
Author Name Unknown Organization [facility] Address [address] [place] [address]- Care Team Providers Care Editor Continuity And Script Name Role Phone Shefali Sanchez MD Primary Care Physician [facility]): 10/03/23 - 11/02/23 [facility] [address] [place] [id number]- Allergies, Adverse Reactions, Alerts Substance Reaction Severity [...] Refills, Maintenance, 01/21/23 15:58:00 EDT, [facility], 165, cm, 01/17/23 9:47:00 EDT, Height, 76.7, kg, 01/10/22 6:52:00 EST, Dry Weight Start Date: 01/21/23 Status: Ordered amLODIPine 5 mg oral tablet 1 tablet = 5 mg, By Mouth, Daily, # 90 tablet, 11 Refills, Maintenance, 08/19/23 10:04:00 EDT, Tablet, [facility]/pharmacy #[id number], Partial fill upon patient request [...] 5 Refills, Maintenance, 08/19/23 10:05:00 EDT, Tablet, [facility]/pharmacy #[id number], Partial fill upon patient request if the prescription is for a schedule II opioid drug., 165, cm, 08/19/23 9:40:00 EDT, Height,... Start Date: 08/19/23 Status: Ordered atorvastatin 40 mg oral tablet 1 tablet, By Mouth, Daily at bedtime, # 90 tablet, 3 Refills, Maintenance, 07/29/23 20:03:00 EDT, [facility], 165, cm, 03/25/23 14:55:00 EDT, Height, 76.7, kg, 01/10/22 6:52:00 EST, Dry Weight Start Date: 07/29/23 Status: Ordered calcium (as carbonate)-vitamin D 500 mg-400 intl units oral tablet 1 tablet, By Mouth, Daily, # 84 tablet, 2 Refills, Maintenance, 05/14/23 12:37:00 EDT, [facility] 247[facility], 84, TAKE 1 TABLET BY MOUTH EVERY DAY, 165, cm, 03/25/23 14:55:00 EDT, Height, 76.7, kg, 01/10/22 6:52:00 EST, Dry Weight Start Date: 05/14/23 Status: Ordered Home Blood Pressure Monitor See Instructions, # 1 each, Refills 0, Tot. Refills 0, Maintenance, HTN / i10 Lisinopril / Amlodipine Daily BP checks [facility], 10/24/23 20:06:00 EST, Supply, 165, cm, 10/24/23 16:33:00 EST, Height, 76.7, kg, 01/10/22 6:52:00 EST, Dry Weight Start Date: 10/24/23 Status: Ordered hydrOXYzine hydrochloride 25 mg oral tablet 1 capsule, By Mouth, 4 times a day, PRN NEEDED FOR PAIN OR ANXIETY, # 120 tablet, 0 Refills, Maintenance, 02/08/23 18:04:00 EDT, [facility], 165, cm, 01/17/23 9:47:00 EDT, Height, 76.7, kg, 01/10/22 6:52:00 EST, Dry Weight Start Date: 02/08/23 Stop Date: 03/10/23 Status: Ordered ibuprofen 800 mg oral tablet 800 mg, 1, tablet, By Mouth, 3 times a day, not to exceed 3200 mg/day with food or milk, # 90 tablet, Refills 1, Tot. Refills 1, Acute 12/20/23 20:09:00 EST, 10/24/23 20:09:00 EST, Route to Pharmacy Electronically, [facility]/pharmacy #[id number], Partial fill up... Start Date: 10/24/23 Stop Date: 12/20/23 Status: Ordered Left Hand Wrist Splint Left [...] 5 Refills, Maintenance, 10/18/22 15:53:00 EST, Solution, [facility]/pharmacy #0957, Partial fill upon patient request if the prescription is for a schedule II opioid drug., 165, cm, 10/18/22 15:02:00 EST, [place]... Start Date: 10/18/22 Stop Date: 04/16/23 Status: Ordered lisinopril 10 mg oral tablet 10 mg, 1, tablet, By Mouth, Daily, # 30 tablet, Refills 11, Tot. Refills 11, Maintenance, 08/19/23 10:04:00 EDT, Route to Pharmacy Electronically, [facility]/pharmacy #[id number], Partial fill upon patient request if the prescription is for a schedule II opioid dr... Start Date: 08/19/23 Status: Ordered lisinopril 10 mg oral tablet 10 mg, 1, tablet, By Mouth, Daily, # 90 tablet, Refills 3, Tot. Refills 3, Maintenance, 10/18/22 15:53:00 EST, Route to Pharmacy Electronically, [facility]/pharmacy #[id number], 165, cm, 10/18/22 15:02:00 EST, Height, 76.7, kg, 01/10/22 6:52:00 EST, Dry Weight Start Date: 10/18/22 Status: Ordered Nasal Four 1% nasal spray 2 sprays, Nares, Both, Every 4 hours, PRN for nasal congestion, # 29.6 mL, 0 Refills, Maintenance, 08/19/23 10:00:00 EDT, [place], [facility]/pharmacy #[id number], Partial fill upon patient request [...] C... Start Date: 08/19/23 Status: Ordered Pen [place], 31 G x 8 mm BD Ultra [...] EDT, Route to Pharmacy Electronically, [facility], 165, cm, 01/17/23 9:47:00 EDT,Height, 76.7, kg, [...] 0 Refills, Maintenance, 08/19/23 10:02:00 EDT, Liquid, [facility]/pharmacy #0675, Partial fill upon patient request if [...] mg/3 mL subcutaneous solution See Instructions, INJECT 2.4 MG SUBCUTANEOUS INJECTION DAILY,X30 DAYS, # 9 Unknown, 5 Refills, Maintenance, 10/24/23 20:03:00 EST, [id number], 165, cm, 10/24/23 16:33:00 EST, Height, 76.7, kg, 01/10/22 6:52:00 EST, Dry Weight Start Date: 10/24/23 Status: Ordered Problem List Condition Confirmation Course [...] MRI Safety Implantable Status Assigning Authority Unknown [id number] Unknown 08/31/19 Unknown Unknown Active Unkn own Unknown Unknown [id number] Unknown 08/31/21 Unknown Unknown Active Un known Patient Care team information Care Team Personnel Name: Shefali Sanchez MD Position: [facility] Resident Member Role: PCP Address: Address: [address] [place] [address] [place], [place] [address] Name: Jean-Paul Clay RN Position: [facility] RN Member Role: Primary Care Nurse Care Team Related Persons Name: YAMILA THAYER Address: home [address] [place] [address] Name: YAMILA REYNOLDS Address: home [address] [place] [address] Name: MARKUS MATA Address: home [address] [place] [address] Name: KENZIE HENDRICKSON Address: home [address] [place] [address]
--- OUTSIDE RECORDS SUMMARY | 2023-12-11 07:12 | XMS_ITS | Continuity of Care Document ---
Author Name Unknown Organization [facility] Address [address] [place] [address]- Care Team Providers Care Business Development Sales Executive Name Role Phone Kristine Bhatia DO Primary Care Physician [place] [facility] [place] 01/13[place]21 - 02/12/21 [facility] [address] [place] [id number]- Allergies, Adverse Reactions, Alerts Substance Reaction Severity [...] 11/03/20 8:37:00 EST, Route to Pharmacy Electronically, [facility]/pharmacy #[id number], 165, cm, 08/12/20 15:39:00 EDT, Height, 75, [...] bedtime, # 30 tablet, 11 Refills, Maintenance, 11/03/20 8:37:00 EST, Tablet, [facility]/pharmacy #[id number], 165, cm, 08/12/20 15:39:00 EDT, Height, 75, kg, 02/12/19 9:43:00 EDT, Dry Weight Start Date: 11/03/20 Stop Date: 10/29/21 Status: Ordered calcium (as carbonate)-vitamin D 500 [...] 2 Refills, Maintenance, 01/19/21 18:56:00 EDT, Tablet, [facility]/pharmacy #[id number], Partial fill upon patient request if the prescription is for a schedule II opioid drug., 1... Start Date: 01/19/21 Status: Ordered famotidine 20 mg oral tablet 1, tablet, By Mouth, Daily, AVOID EATING/DRINKING FOR 10 MINUTES AFTER EACH DOSE, # 90 tablet, Refills 3, Tot. Refills 0, Maintenance, 05/15/20 8:33:00 EDT, Route to Pharmacy Electronically, [facility] STORE 25327, 165, cm, 11/12/19 10:55:00 EST, Height, 75,... Start Date: 05/15/20 Status: Ordered gabapentin 300 mg oral capsule 300 mg, 1, capsule, By Mouth, 2 times a day, Increased dose, # 180 capsule, Refills 4, Tot. Refills4, Maintenance, 12/23/20 10:52:00 EST, Route to Pharmacy Electronically, [facility]/pharmacy #[id number], 165, cm, 08/12/20 15:39:00 EDT, Height, 75, kg, 02/12/19 9... Start Date: 12/23/20 Stop Date: 03/18/22 Status: Ordered gabapentin 600 mg oral tablet 1 tablet = 600 mg, By Mouth, 2 times a day, Increased dose, 600mg PO BID, # 60 tablet, 2 Refills, Maintenance, 01/02/21 9:18:00 EST, [facility]/pharmacy #[id number], Partial fill upon [...] 11/03/20 8:37:00 EST, Route to Pharmacy Electronically, [facility]/pharmacy #[id number], 165, cm, 08/12/20 [...] 0 Refills, Maintenance, 08/18/20 10:05:00 EDT, Tablet, [facility]/pharmacy #[id number], 165, cm, 08/12/20 [...] necrosis of left h umoral head, resurfaced 1-2020 / Andrew Yuen, Dr Andrei Fletcher(Confirmed) Active [...] INJ AUGMENT BONE GRAFT 1.5ML - WRGT ([id number]) 1 [employer] Unknown LILIAN:No Information Assigning Authority: FDA
--- OUTSIDE RECORDS SUMMARY | 2023-12-11 07:12 | XMS_ITS | Continuity of Care Document ---
Author Name Unknown Organization [facility] Address [address] [place] [address]- Care Team Providers Care Database Administration Manager Name Role Phone Shefali Sanchez MD Primary Care Physician [facility] 04[facility]10[facility]22 - 05/10/22 [facility] [address] [place] [address]- Allergies, Adverse Reactions, Alerts Substance Reaction Severity [...] 09/14/21 16:28:00 EST, Route to Pharmacy Electronically, [facility]/pharmacy #[id number], 165, cm, 09/14/21 14:59:00 EST, Height [...] 3 Refills, Maintenance, 09/14/21 16:28:00 EST, Tablet, [facility]/pharmacy #[id number], 165, cm, 09/14/21 14:59:00 EST, Height Start Date: 09/14/21 Stop Date: 09/09/22 Status: Ordered calcium (as carbonate)-vitamin D 500 mg-400 intl units oral tablet 1 tablet, By Mouth, Daily, # 300 tablet, 11 Refills, Maintenance, 11/03/20 8:37:00 EST, Tablet, [facility]/pharmacy #0693, 1 tablet By Mouth Daily, 165, [...] 5 Refills, Maintenance, 04/17/22 10:57:00 EDT, Solution, [facility]/pharmacy #0957, Partial fill upon patient request if the prescription is for a schedule II opioid drug., 165, cm, 03/27/22 9:50:00 EDT, Heigh... Start Date: 04/17/22 Stop Date: 10/14/22 Status: Ordered lisinopril 10 mg oral tablet 10 mg, 1, tablet, By Mouth, Daily, # 90 tablet, Refills 3, Tot. Refills 3, Maintenance, 09/14/21 16:29:00 EST, Route to Pharmacy Electronically, [facility]/pharmacy #[id number], 165, cm, 09/14/21 14:59:00 EST, Height Start Date: 09/14/21 Stop Date: 09/09/22 Status: Ordered meloxicam 7.5 mg oral tablet 1 tablet, By Mouth, Daily, # 30 tablet, 0 Refills, [facility] 69623, 165, cm, 10/26/21 9:52:00 EST, Height Start [...] drug. Start Date: 01/10/22 Status: Ordered Pen [place], 31 G x 8 mm BD Ultra [...] 01/02/22 11:52:00 EST, Route to Pharmacy Electronically, [facility]/pharmacy #[id number], Partial fill upon patient requ... Start [...] 1 Refills, Maintenance, 09/14/21 18:33:00EST, ER Tablet, [facility]/pharmacy #[id number], Partial fill upon patient request if [...] Putty DBM, [employer]oSync, 01ml, Human Allograft 1 [employer] Unknown LILIAN:No Information Assigning Authority: FDA INJ AUGMENT BONE GRAFT 1.5ML - WRGT ([id number]) 1 [employer] Unknown LILIAN:No Information Assigning Authority: FDA
--- OUTSIDE RECORDS SUMMARY | 2023-12-11 07:12 | XMS_ITS | Continuity of Care Document ---
Author Name Unknown Organization [facility] Address [address] [place] [address]- Care Team Providers Care Mainframe Consultant Name Role Phone Shefali Sanchez MD Primary Care Physician [facility]): 02/19/22 - 03/21/22 [facility] [address] [place] [address] Allergies, Adverse Reactions, Alerts Substance Reaction Severity [...] 09/14/21 16:28:00 EST, Route to Pharmacy Electronically, [facility]/pharmacy #[id number], 165, cm, 09/14/21 [...] 3 Refills, Maintenance, 09/14/21 16:28:00 EST, Tablet, [facility]/pharmacy #[id number], 165, cm, 09/14/21 14:59:00 EST, Height Start Date: 09/14/21 Stop Date: 09/09/22 Status: Ordered calcium (as carbonate)-vitamin D 500 mg-400 intl units oral tablet 1 tablet, By Mouth, Daily, # 300 tablet, 11 Refills, Maintenance, 11/03/20 8:37:00 EST, Tablet, [facility]/pharmacy #0693, 1 tablet By [...] 5 Refills, Maintenance, 02/21/22 10:27:00 EDT, Solution, [facility]/pharmacy #[id number], Partial fill upon patient request if the prescription is for a schedule IIopioid drug., 165, cm, 02/15/22 8:10:00 EDT, Height... Start Date: 02/21/22 Status: Ordered lisinopril 10 mg oral tablet 10 mg, 1, tablet, By Mouth, Daily, # 90 tablet, Refills 3, Tot. Refills 3, Maintenance, 09/14/21 16:29:00 EST, Route to Pharmacy Electronically, [facility]/pharmacy #[id number], 165, cm, 09/14/21 14:59:00 EST, Height Start Date: 09/14/21 Stop Date: 09/09/22 Status: Ordered meloxicam 7.5 mg oral tablet 1 tablet, By Mouth, Daily, # 30 tablet, 0 Refills, [facility] STORE 18089, 165, cm, 10/26/21 9:52:00 EST, Height Start [...] drug. Start Date: 01/10/22 Status: Ordered Pen [place], 31 G x 8 mm BD Ultra [...] 01/02/22 11:52:00 EST, Route to Pharmacy Electronically, [facility]/pharmacy #[id number], Partial fill upon [...] 1 Refills, Maintenance, 09/14/21 18:33:00EST, ER Tablet, [facility]/pharmacy #[id number], Partial fill upon [...] INJ AUGMENT BONE GRAFT 1.5ML - WRGT ([id number]) 1 [employer] Unknown LILIAN:No Information Assigning Authority: FDA
--- OUTSIDE RECORDS SUMMARY | 2023-12-11 07:12 | XMS_ITS | Continuity of Care Document ---
Author Name Unknown Organization Pre Op Overflow Address [address] [facility], [address] [address]- Care Team Providers Care Sand System Operator Name Role Phone Kristine Bhatia DO Primary Care Physician Encounter [facility] Date(s): 10/22/19 - 11/01/19 Pre Op Overflow [address] [address]- [facility] Attending Physician: Mony Whitney Admitting Physician: Mony Whitney Referring Physician: AdmtrMony Allergies, Adverse Reactions, Alerts [...] 5 mg, 1, tablet, By Mouth, Daily, dose decrease. d/c amlopidine 10mg tablets, # 30 tablet, Refills 11, Tot. Refills 11, Maintenance, 12/26/18 10:34:18 EST, Route to Pharmacy Electronically, [id number], [facility]/pharmacy #[id number] Start Date: 12/26/18 Status: Ordered Ankle Brace Ankle Brace, See Instructions, # 1 units, Refills 0, Tot. Refills 0, Maintenance, Dx: L ankle swelling, 05/02/18 17:00:21 EDT, Compound Start Date: 05/02/18 Status: Ordered atorvastatin 40 mg oral tablet 1 tablet = 40 mg, By Mouth, Daily at bedtime, # 30 tablet, 11 Refills, Maintenance, Tablet, Route to Pharmacy Electronically, [id number], [facility]/pharmacy #[id number] Start Date: 10/29/18 Stop Date: 10/24/19 Status: Ordered calcium (as carbonate)-vitamin D 500 mg-400 intl units oral tablet 1 tablet, By Mouth, Daily, # 300 tablet, 11 Refills, Maintenance, 04/01/19 9:22:18 EDT, Tablet, 1 tablet By Mouth Daily Start Date: 04/01/19 Status: Ordered diclofenac 1% topical gel 1 application, Topically, 4 times a day, not to exceed 8 grams/day/single joint of upper extremities, prn pain, # 100 Gm, 5 Refills, Maintenance, 08/31/19 13:33:03 EDT, Gel, 1 application Topically 4times a day,x30 days,Instr:not to exceed 8 grams/da... Start Date: 08/31/19 Stop Date: 02/27/20 Status: Ordered lisinopril 10 mg oral tablet 10 mg, 1, tablet, By Mouth, Daily, # 30 tablet, Refills 11, Tot. Refills 11, Maintenance, 10/29/18 15:20:06 EST, Route to Pharmacy Electronically, [id number], [facility]/pharmacy #[id number] Start Date: 10/29/18 Stop Date: 10/24/19 Status: Ordered naloxone 4 mg/0.1 mL nasal [...] History Social History Type Response Smoking Status 10 or more cigarette s (1/2 pack or more)/day in last 30 days; Tobacco use times per day: 2 ppd X 31 years, currently 6 cigs/day; Started at age: 13; entered on: 04/01/19 Sex Female Medical Equipment Implanted Date:02/23/19Target Site:Foot Left Description Quantity MRI Company Model Bone Putty DBM, AlloSync, 01ml, Human Allograft 1 [employer] Unknown LILIAN:No Information Assigning Authority: FDA INJ AUGMENT BONE GRAFT 1.5ML - WRGT ([id number]) 1 [employer] Unknown LILIAN:No Information Assigning Authority: FDA
--- OUTSIDE RECORDS SUMMARY | 2023-12-11 07:12 | XMS_ITS | Continuity of Care Document ---
Author Name Unknown Organization [facility] Address [address] [place] [address]- Care Team Providers Care Special Forces Engineer Sergeant Name Role Phone Shefali Sanchez MD Primary Care Physician [facility] Date(s): 09/20/21 - 10/22/21 [facility] [address] [place] [address]- Attending Physician: Garret Perkins Admitting Physician: Garret Perkins Allergies, Adverse Reactions, Alerts Substance Reaction Severity [...] inactivated 12/24/13 Give n pneumococcal 23-valent vaccine 12/9/15 Given tetanus/diphtheria/pertussis, acel(Tdap) 12/24/13 Given Medications amLODIPine 5 mg oral tablet 5 mg, 1, tablet, By Mouth, Daily, # 90 tablet, Refills 3, Tot. Refills 3, Maintenance, 09/14/21 16:28:00 EST, [id number], cm, 09/14/21 14:59:00 EST, [...] 3 Refills, Maintenance, 09/14/21 16:28:00 EST, Tablet[id number], cm, 09/14/21 14:59:00 EST, Height Start Date: 09/14/21 Stop Date: 09/09/22 Status: Ordered calcium (as carbonate)-vitamin D 500 mg-400 intl units oral tablet 1 tablet, By Mouth, Daily, # 300 tablet, 11 Refills, Maintenance, 11/03/20 8:37:00 EST, Tablet, [facility]/pharmacy #[id number], 1 tablet By Mouth Daily, 165, cm, 08/12/20 15:39:00 EDT, Height, 75, kg, 02/12/19 9:43:00 EDT, Dry Weight Start Date: 11/03/20 Status: Ordered capsaicin 0.025% topical cream 1 application, Topically, 2 times a day, # 42 Gm, 0 Refills, Maintenance, 07/29/20 15:33:00 EDT, Cream, [facility]/pharmacy #[id number], 1 application Topically 2 times [...] Refills, Acute, 03/21/21 13:01:00 EDT, [facility], 165, cm, 02/15/21 9:39:00 EDT, Height Start Date: 03/21/21 Status: Ordered doxepin 3 mg oral tablet 1 tablet = 3 mg, By Mouth, Daily at bedtime, # 30 tablet, 1 Refills, Maintenance, 09/22/21 15:54:00EST, Tablet, [facility]/pharmacy #[id number], Partial fill upon patient request if the prescription is for a schedule II opioid drug., 165, cm, 09/22/21 14:38:00 ES... Start Date: 09/22/21 Status: Ordered famotidine 20 mg oral tablet 1, tablet, By Mouth, Daily, AVOID EATING/DRINKING FOR 10 MINUTES AFTER EACH DOSE, # 90 tablet, Refills 3, Tot. Refills 0, Maintenance, 05/15/20 8:33:00 EDT, Route to Pharmacy Electronically, [facility], 165, cm, 11/12/19 10:55:00 EST, Height, 75,... Start Date: 05/15/20 Status: Ordered hydrOXYzine hydrochloride 25 mg oral tablet 1 tablet = 25 mg, By Mouth, 3 times a day, PRN for anxiety, for 30 days, # 90 tablet, 2 Refills, Acute 12/13/21 18:34:00 EST, 09/14/21 18:34:00 EST, Tablet, [facility]/pharmacy #[id number], Partial fill upon patient request [...] 09/14/21 16:29:00 EST, Route to Pharmacy Electronically, [facility]/pharmacy #[id number], 165, cm, 09/14/21 14:59:00 EST, Height Start Date: 09/14/21 Stop Date: 09/09/22 Status: Ordered melatonin 10 mg oral tablet 1 tablet = 10 mg, By Mouth, Daily at bedtime, PRN as needed for insomnia, # 200 tablet, 0 Refills, Maintenance, 09/29/21 16:15:00 EST, Tablet, [facility]/pharmacy #[id number], Partial fill upon patient request [...] 3 Refills, Maintenance, 10/12/20 10:00:00 EST, ECCapsule, [facility]/pharmacy #[id number], 165, cm, 08/12/20 15:39:00 EDT, Height, 75, kg, 02/12/19 9:43:00 EDT, Dry Weight Start Date: 10/12/20 Stop Date: 02/09/21 Status: Ordered prazosin 5 mg oral capsule 5 mg, 1, capsule, By Mouth, Daily at bedtime, # 90 capsule, Refills 0, Tot. Refills 0, Maintenance,09/29/21 16:16:00 EST, Route to Pharmacy Electronically, [facility]/pharmacy #[id number], Partial fill upon patient request [...] 1 Refills, Maintenance, 09/14/21 18:33:00EST, ER Tablet, [facility]/pharmacy #[id number], Partial fill upon patient request if the prescription is for a schedule II opioid drug., 165, cm, 09/14/21 14:59:00... 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 Currently [...] INJ AUGMENT BONE GRAFT 1.5ML - WRGT ([id number]) 1 [employer] Unknown LILIAN:No Information Assigning Authority: FDA
--- OUTSIDE RECORDS SUMMARY | 2023-12-11 07:12 | XMS_ITS | Continuity of Care Document ---
Author Name Unknown Organization [facility] Address [address] [place] [address]- Care Team Providers Care Caustic Purification Operator Name Role Phone Shefali Sanchez MD Primary Care Physician [facility] Date(s): 04/13/22 - 05/13/22 [facility] [address] [place] [phone]- Allergies, Adverse Reactions, Alerts Substance Reaction Severity [...] 5 Refills, Maintenance, 04/17/22 10:57:00 EDT, Solution, [facility]/pharmacy #0957, Partial fill upon patient request [...] 0 Refills, [facility], 165, cm, 10/26/21 9:52:00 EST, Height Start [...] drug. Start Date: 01/10/22 Status: Ordered Pen Winifred, 31 G x 8 mm BD Ultra [...] 1 Refills, Maintenance, 09/14/21 18:33:00EST, ER Tablet, [facility]/pharmacy #[id number], Partial fill [...] Putty DBM, AlloSync, 01ml, Human Allograft 1 [employer] Unknown LILIAN:No Information Assigning Authority: FDA INJ AUGMENT BONE GRAFT 1.5ML - WRGT ([id number]) 1 [employer] Unknown LILIAN:No Information Assigning Authority: FDA
--- OUTSIDE RECORDS SUMMARY | 2023-12-11 07:12 | XMS_ITS | Continuity of Care Document ---
Author Name Unknown Organization [facility] Address [address] [place] [address]- Care Team Providers Care Diagrammer And Seamer Name Role Phone Shefali Sanchez MD Primary Care Physician [facility]counter [facility] Date(s): 10/19/21 - 11/18/21 [facility] [address] [place] [address]- Allergies, Adverse Reactions, Alerts Substance Reaction Severity [...] Route to Pharmacy Electronically, [facility]/pharmacy #[id number], 165, cm, 09/14/21 14:59:00 EST, Height [...] 09/14/21 16:28:00 EST, Tablet, [facility]/pharmacy #[id number], 165, cm, 09/14/21 14:59:00 EST, Height Start Date: 09/14/21 Stop Date: 09/09/22 Status: Ordered calcium (as carbonate)-vitamin D 500 mg-400 intl units oral tablet 1 tablet, By Mouth, Daily, # 300 tablet, 11 Refills, Maintenance, 11/03/20 8:37:00 EST, Tablet, [facility]/pharmacy #[id number], 1 tablet By Mouth Daily, 165, cm, 08/12/20 15:39:00 EDT, Height, 75, kg, 02/12/19 9:43:00 EDT, Dry Weight Start Date: 11/03/20 Status: Ordered capsaicin 0.025% topical cream 1 application, Topically, 2 times a day, # 42 Gm, 0 Refills, Maintenance, 07/29/20 15:33:00 EDT, Cream, [facility]/pharmacy #[id number], 1 application Topically 2 times a day, 165, cm, 07/29/20 14:56:00 EDT, Height, 75, kg, 02/12/19 9:43:00 EDT, Dry Weight Start Date: 07/29/20 Status: Ordered diclofenac 1% topical gel = 2 Gm, Topically, 4 times a day, # 100 Gm, 5 Refills, Maintenance, 11/06/19 11:03:00 EST, Gel, [facility]/pharmacy #[id number], 165, cm, 11/06/19 10:52:00 EST, Height, 75, kg, 02/12/19 9:43:00 EDT, Dry Weight Start Date: 11/06/19 Stop Date: 05/04/20 Status: Ordered diclofenac potassium 50 mg oral tablet 1 tablet, By Mouth, 3 times a day, PRN NEEDED FOR ARTHRITIS, WITH FOOD, # 50 tablet, 2 Refills, Acute, 03/21/21 13:01:00 EDT, [facility], 165, cm, 02/15/21 9:39:00 EDT, Height Start [...] EDT, Route to Pharmacy Electronically, [facility], 165, cm, 11/12/19 10:55:00 EST, Height, 75,... [...] Route to Pharmacy Electronically, [facility]/pharmacy #[id number], 165, cm, 09/14/21 14:59:00 EST, Height Start Date: 09/14/21 Stop Date: 09/09/22 Status: Ordered melatonin 10 mg oral tablet 1 tablet = 10 mg, By Mouth, Daily at bedtime, PRN as needed for insomnia, # 200 tablet, 0 Refills, Maintenance, 09/29/21 16:15:00 EST, Tablet, [facility]/pharmacy #[id number], Partial fill upon patient request ifthe prescription is for a schedule II opioid drug.,... Start Date: 09/29/21 Status: Ordered meloxicam 7.5 mg oral tablet 1 tablet = 7.5 mg, By Mouth, Daily, # 30 tablet, 0 Refills, Maintenance, 10/26/21 10:31:00 EST, Tablet, [facility]/pharmacy #[id number], Partial fill upon patient request if the prescription is for a schedule II opioid drug., 165, cm, 10/26/21 9:52:00 EST, Height Start Date: 10/26/21 Status: Ordered naloxone 4 mg/0.1 mL nasal spray See Instructions, Once may repeat every 2 to 3 minutes until patient responds, # 2 each, 0 Refills,Soft Stop, 10/29/18 15:17:51 EST Start Date: 10/29/18 Status: Ordered omeprazole 20 mg oral enteric coated capsule 1 capsule = 20 mg, By Mouth, Daily, # 30 capsule, 3 Refills, Maintenance, 10/12/20 10:00:00 EST, ECCapsule, [facility]/pharmacy #[id number], 165, cm, 08/12/20 15:39:00 EDT, Height, 75, kg, 02/12/19 9:43:00 EDT, Dry Weight Start Date: 10/12/20 Stop Date: 02/09/21 Status: Ordered prazosin 5 mg oral capsule 10 mg, 2, capsule, By Mouth, Daily at bedtime, Dose increased to 10mg po qhs on 10/26/21, # 60 capsule, Refills 1, Tot. Refills 1, Maintenance, 10/26/21 10:31:00 EST, Route to Pharmacy Electronically, [facility]/pharmacy #[id number], Partial fill upon patient requ... Start [...] 1 Refills, Maintenance, 09/14/21 18:33:00EST, ER Tablet, [facility]/pharmacy #[id number], Partial fill upon patient request if [...] INJ AUGMENT BONE GRAFT 1.5ML - WRGT ([id number]) 1 [employer] Unknown LILIAN:No Information Assigning Authority: FDA
--- OUTSIDE RECORDS SUMMARY | 2023-12-11 07:12 | XMS_ITS | Continuity of Care Document ---
Author Name Unknown Organization [facility] Address [address] [place] [address]- Care Team Providers Care Proposal Manager Writer Name Role Phone Kristine Bhatia DO Primary Care Physician [facility] Date[facility]): 07/28/20 - 08/27/20 [facility] [address] [place] [phone]- [facility] Allergies, Adverse Reactions, Alerts Substance Reaction Severity [...] 11/06/19 11:00:00 EST, Route to Pharmacy Electronically, [facility]/pharmacy #[id number], 165, cm, 11/06/19 10:52:00 EST, Height, 75, [...] 11 Refills, Maintenance, 02/03/20 9:22:00 EDT, Tablet, [facility]/pharmacy #[id number], 165, cm, 11/12/19 10:55:00 EST, Height, 75, kg, 02/12/19 9:43:00 EDT, Dry Weight Start Date: 02/03/20 Stop Date: 01/28/21 Status: Ordered calcium (as carbonate)-vitamin D 500 mg-400 intl units oral tablet 1 tablet, By Mouth, Daily, # 300 tablet, 11 Refills, Maintenance, 02/03/20 9:22:00 EDT, Tablet, [facility]/pharmacy #[id number], 1 tablet By Mouth Daily, 165, cm, 11/12/19 10:55:00 EST, Height, 75, kg, 02/12/19 9:43:00 EDT, Dry Weight Start Date: 02/03/20 Status: Ordered capsaicin 0.025% topical cream 1 application, Topically, 2 times a day, # 42 Gm, 0 Refills, Maintenance, 07/29/20 15:33:00 EDT, Cream, [facility]/pharmacy #[id number], 1 application Topically 2 times [...] 05/15/20 8:33:00 EDT, Route to Pharmacy Electronically, [id number], 165, cm, 11/12/19 10:55:00 EST, Height, 75,... Start Date: 05/15/20 Status: Ordered gabapentin 300 mg oral capsule 300 mg, 1, capsule, By Mouth, 2 times a day, Increased dose, # 180 capsule, Refills 1, Tot. Refills1, Maintenance, 05/23/20 11:16:00 EDT, Route to Pharmacy Electronically, [facility]/pharmacy #[id number], 165, cm, 05/23/20 10:20:00 EDT, Height, 75, kg, 02/12/19 9... Start Date: 05/23/20 Stop Date: 11/19/20 Status: Ordered lisinopril 10 mg oral tablet 10 mg, 1, tablet, By Mouth, Daily, # 30 tablet, Refills 11, Tot. Refills 11, Maintenance, 11/06/19 11:00:00 EST, [facility], cm, 11/06/19 10:52:00 EST, Height, [...] 0 Refills, Maintenance, 08/18/20 10:05:00 EDT, Tablet, [facility]/pharmacy #[id number], 165, cm, 08/12/20 15:39:00 EDT, [...] INJ AUGMENT BONE GRAFT 1.5ML - WRGT ([id number]) 1 [employer] Unknown LILIAN:No Information Assigning Authority: FDA
--- OUTSIDE RECORDS SUMMARY | 2023-12-11 07:12 | XMS_ITS | Continuity of Care Document ---
Author Name Unknown Organization [facility] Address [address] [place] [address]- Care Team Providers Care Housekeeper And Laundry Assistant Name Role Phone Shefali Sanchez MD Primary Care Physician Encounter [facility] Date(s): 07/22/21 - 09/22/21 [facility] [address] [place] [phone]- Attending Physician: Not on Staff, Attending MD Allergies, Adverse Reactions, Alerts Substance Reaction [...] 09/14/21 16:28:00 EST, Route to Pharmacy Electronically, [facility]/pharmacy #[id number], 165, cm, 09/14/21 14:59:00 [...] 3 Refills, Maintenance, 09/14/21 16:28:00 EST, Tablet, [facility]/pharmacy #[id number], 165, cm, 09/14/21 14:59:00 EST, Height Start Date: 09/14/21 Stop Date: 09/09/22 Status: Ordered calcium (as carbonate)-vitamin D 500 mg-400 intl units oral tablet 1 tablet, By Mouth, Daily, # 300 tablet, 11 Refills, Maintenance, 11/03/20 8:37:00 EST, Tablet, [facility]/pharmacy #[id number], 1 tablet By Mouth Daily, 165, cm, 08/12/20 15:39:00 EDT, Height, 75, kg, 02/12/19 9:43:00 EDT, Dry Weight Start Date: 11/03/20 Status: Ordered capsaicin 0.025% topical cream 1 application, Topically, 2 times a day, # 42 Gm, 0 Refills, Maintenance, 07/29/20 15:33:00 EDT, Cream, [facility]/pharmacy #[id number], 1 application Topically 2 times a day, 165, cm, 07/29/20 14:56:00 EDT, Height, 75, kg, 02/12/19 9:43:00 EDT, Dry Weight Start Date: 07/29/20 Status: Ordered diclofenac 1% topical gel = 2 Gm, Topically, 4 times a day, # 100 Gm, 5 Refills, Maintenance, 11/06/19 11:03:00 EST, Gel, [facility]/pharmacy #[id number], 165, cm, 11/06/19 10:52:00 EST, Height, 75, kg, 02/12/19 9:43:00 EDT, Dry Weight Start Date: 11/06/19 Stop Date: 05/04/20 Status: Ordered diclofenac potassium 50 mg oral tablet 1 tablet, By Mouth, 3 times a day, PRN NEEDED FOR ARTHRITIS, WITH FOOD, # 50 tablet, 2 Refills, Acute, 03/21/21 13:01:00 EDT, [facility], 165, cm, 02/15/21 9:39:00 EDT, Height Start [...] 05/15/20 8:33:00 EDT, Route to Pharmacy Electronically, [facility], 165, cm, 11/12/19 10:55:00 EST, Height, 75,... [...] 09/14/21 16:29:00 EST, Route to Pharmacy Electronically, [facility]/pharmacy #[id number], 165, cm, 09/14/21 14:59:00 EST, Height Start Date: 09/14/21 Stop Date: 09/09/22 Status: Ordered naloxone 4 mg/0.1 mL nasal spray See Instructions, Once may repeat every 2 to 3 minutes until patient responds, # 2 each, 0 Refills,Soft Stop, 10/29/18 15:17:51 EST Start Date: 10/29/18 Status: Ordered omeprazole 20 mg oral enteric coated capsule 1 capsule = 20 mg, By Mouth, Daily, # 30 capsule, 3 Refills, Maintenance, 10/12/20 10:00:00 EST, ECCapsule, [facility]/pharmacy #[id number], 165, cm, 08/12/20 15:39:00 [...] 1 Refills, Maintenance, 09/14/21 18:33:00EST, ER Tablet, [facility]/pharmacy #[id number], Partial fill upon patient [...] INJ AUGMENT BONE GRAFT 1.5ML - WRGT ([id number]) 1 [employer] Unknown LILIAN:No Information Assigning Authority: FDA
--- OUTSIDE RECORDS SUMMARY | 2023-12-11 07:12 | XMS_ITS | Continuity of Care Document ---
Author Name Unknown Organization [facility] Address [address] [place] [address]- Care Team Providers Care Credit Risk Manager Name Role Phone Kristine Bhatia DO Primary Care Physician [facility]): 08[facility]12/20 - 09/11/20 [facility] [address] [place] [address]- Attending Physician: Mony Whitney Admitting Physician: Mony Whitney Referring Physician: Mony Whitney Allergies, Adverse Reactions, Alerts Substance Reaction Severity [...] 11/06/19 11:00:00 EST, Route to Pharmacy Electronically, [facility]/pharmacy #[id number], 165, cm, 11/06/19 10:52:00 EST, Height, [...] 11 Refills, Maintenance, 02/03/20 9:22:00 EDT, Tablet, [facility]/pharmacy #0693, 165, cm, 11/12/19 10:55:00 EST, Height, 75, kg, 02/12/19 9:43:00 EDT, Dry Weight Start Date: 02/03/20 Stop Date: 01/28/21 Status: Ordered calcium (as carbonate)-vitamin D 500 mg-400 intl units oral tablet 1 tablet, By Mouth, Daily, # 300 tablet, 11 Refills, Maintenance, 02/03/20 9:22:00 EDT, Tablet, [facility]/pharmacy #[id number], 1 tablet By Mouth Daily, 165, [...] 05/15/20 8:33:00 EDT, Route to Pharmacy Electronically, [facility] 6[facility], 165, cm, 11/12/19 10:55:00 EST, Height, 75,... Start Date: 05/15/20 Status: Ordered gabapentin 300 mg oral capsule 300 mg, 1, capsule, By Mouth, 2 times a day, Increased dose, # 180 capsule, Refills 1, Tot. Refills1, Maintenance, 05/23/20 11:16:00 EDT, [id number], cm, 05/23/20 10:20:00 EDT, Height, 75, kg, 02/12/19 9... Start Date: 05/23/20 Stop Date: 11/19/20 Status: Ordered lisinopril 10 mg oral tablet 10 mg, 1, tablet, By Mouth, Daily, # 30 tablet, Refills 11, Tot. Refills 11, Maintenance, 11/06/19 11:00:00 EST, [id number] 165, cm, 11/06/19 10:52:00 EST, [...] 0 Refills, Maintenance, 08/18/20 10:05:00 EDT, Tablet, [facility]/pharmacy #[id number], 165, cm, 08/12/20 15:39:00 EDT, Height, [...] INJ AUGMENT BONE GRAFT 1.5ML - WRGT ([id number]) 1 [employer] Unknown LILIAN:No Information Assigning Authority: FDA
--- OUTSIDE RECORDS SUMMARY | 2023-12-11 07:12 | XMS_ITS | Continuity of Care Document ---
Author Name Unknown Organization [facility] Address [address] [place] [address]- Care Team Providers Care Remote Sensing Technologist Name Role Phone Kristine Bhatia DO Primary Care Physician [facility]): 08/27/19 - 10/24/19 [facility] [address] [place] [phone]- [facility] Attending Physician: Not on Staff, Attending MD [...] 12/26/18 10:34:18 EST, Route to Pharmacy Electronically, [id number], [facility]/pharmacy #[id number] Start Date: 12/26/18 Status: Ordered Ankle Brace Ankle Brace, See Instructions, # 1 units, Refills 0, Tot. Refills 0, Maintenance, Dx: L ankle swelling, 05/02/18 17:00:21 EDT, Compound Start Date: 05/02/18 Status: Ordered atorvastatin 40 mg oral tablet 1 tablet = 40 mg, By Mouth, Daily at bedtime, # 30 tablet, 11 Refills, Maintenance, Tablet, Route to Pharmacy Electronically, [id number], [facility]/pharmacy #[id number] Start Date: 10/29/18 Stop Date: 10/24/19 [...] 10/29/18 15:20:06 EST, Route to Pharmacy Electronically, [id number], [facility]/pharmacy #[id number] Start Date: 10/29/18 Stop Date: 10/24/19 [...] INJ AUGMENT BONE GRAFT 1.5ML - WRGT ([id number]) 1 [employer] Unknown LILIAN:No Information Assigning Authority: FDA
--- OUTSIDE RECORDS SUMMARY | 2023-12-11 07:12 | XMS_ITS | Continuity of Care Document ---
Author Name Unknown Organization [facility] Address [address] [place] [address]- Care Team Providers Care Welfare Visitor Name Role Phone Shefali Sanchez MD Primary Care Physician Encounter [facility] Date(s): 01/16/22 - 03/01/22 [facility] [address] [place] [id number] Attending Physician: Kings CORDON, Hayley Kerr Admitting [...] 16:28:00 EST, [id number], cm, 09/14/21 14:59:00 [...] Refills, Maintenance, 09/14/21 16:28:00 EST, Tablet, [id number], cm, 09/14/21 14:59:00 EST, Height Start Date: 09/14/21 Stop Date: 09/09/22 Status: Ordered calcium (as carbonate)-vitamin D 500 mg-400 intl units oral tablet 1 tablet, By Mouth, Daily, # 300 tablet, 11 Refills, Maintenance, 11/03/20 8:37:00 EST, Tablet, [facility]/pharmacy #[id number], 1 tablet By Mouth [...] 5 Refills, Maintenance, 02/21/22 10:27:00 EDT, Solution, [facility]/pharmacy #[id number], Partial fill upon patient request if the prescription is for a schedule IIopioid drug., 165, cm, 02/15/22 8:10:00 EDT, Height... Start Date: 02/21/22 Status: Ordered lisinopril 10 mg oral tablet 10 mg, 1, tablet, By Mouth, Daily, # 90 tablet, Refills 3, Tot. Refills 3, Maintenance, 09/14/21 16:29:00 EST, [id number], 165, cm, 09/14/21 14:59:00 EST, Height Start Date: 09/14/21 Stop Date: 09/09/22 Status: Ordered meloxicam 7.5 mg oral tablet 1 tablet, By Mouth, Daily, # 30 tablet, 0 Refills, [facility] STORE 96638, 165, cm, 10/26/21 9:52:00 EST, Height Start [...] drug. Start Date: 01/10/22 Status: Ordered Pen [place], 31 G x 8 mm BD Ultra [...] Pharmacy Electronically, [facility]/pharmacy #[id number], Partial fill [...] Maintenance, 09/14/21 18:33:00EST, ER Tablet, [facility]/pharmacy #0693, Partial [...] INJ AUGMENT BONE GRAFT 1.5ML - WRGT ([id number]) 1 [employer] Unknown LILIAN:No Information Assigning Authority: FDA
--- OUTSIDE RECORDS SUMMARY | 2023-12-11 07:12 | XMS_ITS | Continuity of Care Document ---
Author Name Unknown Organization [facility] Address [address] [place] [address]- Care Team Providers Care Senior Sustainability Consultant Name Role Phone Shefali Sanchez MD Primary Care Physician [facility]counter [facility] Date(s): 09/25/21 - 10/25/21 [facility] [address] [place] [phone]- Allergies, Adverse Reactions, Alerts Substance Reaction Severity [...] 09/14/21 16:28:00 EST, Route to Pharmacy Electronically, [facility]/pharmacy #[id number], 165, cm, 09/14/21 14:59:00 EST, [...] 3 Refills, Maintenance, 09/14/21 16:28:00 EST, Tablet, [facility]/pharmacy #0693, 165, cm, 09/14/21 14:59:00 EST, Height Start Date: 09/14/21 Stop Date: 09/09/22 Status: Ordered calcium (as carbonate)-vitamin D 500 mg-400 intl units oral tablet 1 tablet, By Mouth, Daily, # 300 tablet, 11 Refills, Maintenance, 11/03/20 8:37:00 EST, Tablet, [facility]/pharmacy #0693, 1 tablet By Mouth Daily, 165, cm, 08/12/20 15:39:00 EDT, Height, 75, kg, 02/12/19 9:43:00 EDT, Dry Weight Start Date: 11/03/20 Status: Ordered capsaicin 0.025% topical cream 1 application, Topically, 2 times a day, # 42 Gm, 0 Refills, Maintenance, 07/29/20 15:33:00 EDT, Cream, [facility]/pharmacy #0693, 1 application Topically 2 times a day, 165, cm, 07/29/20 14:56:00 EDT, Height, 75, kg, 02/12/19 9:43:00 EDT, Dry Weight Start Date: 07/29/20 Status: Ordered diclofenac 1% topical gel = 2 Gm, Topically, 4 times a day, # 100 Gm, 5 Refills, Maintenance, 11/06/19 11:03:00 EST, Gel, [facility]/pharmacy #0693, 165, cm, 11/06/19 10:52:00 EST, Height, 75, kg, 02/12/19 9:43:00 EDT, Dry Weight Start Date: 11/06/19 Stop Date: 05/04/20 Status: Ordered diclofenac potassium 50 mg oral tablet 1 tablet, By Mouth, 3 times a day, PRN NEEDED FOR ARTHRITIS, WITH FOOD, # 50 tablet, 2 Refills, Acute, 03/21/21 13:01:00 EDT, [facility], 165, cm, 02/15/21 9:39:00 EDT, Height Start [...] EDT, Route to Pharmacy Electronically, [facility], 165, cm, 11/12/19 10:55:00 EST, Height, 75,... [...] 09/14/21 16:29:00 EST, Route to Pharmacy Electronically, [facility]/pharmacy #[id number], 165, cm, 09/14/21 14:59:00 EST, Height Start Date: 09/14/21 Stop Date: 09/09/22 Status: Ordered melatonin 10 mg oral tablet 1 tablet = 10 mg, By Mouth, Daily at bedtime, PRN as needed for insomnia, # 200 tablet, 0 Refills, Maintenance, 09/29/21 16:15:00 EST, Tablet, [facility]/pharmacy #0693, Partial fill upon patient request [...] 3 Refills, Maintenance, 10/12/20 10:00:00 EST, ECCapsule, [facility]/pharmacy #[id number], 165, cm, 08/12/20 15:39:00 EDT, Height, 75, kg, 02/12/19 9:43:00 EDT, Dry Weight Start Date: 10/12/20 Stop Date: 02/09/21 Status: Ordered prazosin 5 mg oral capsule 5 mg, 1, capsule, By Mouth, Daily at bedtime, # 90 capsule, Refills 0, Tot. Refills 0, Maintenance,09/29/21 16:16:00 EST, Route to Pharmacy Electronically, [facility]/pharmacy #[id number], Partial fill upon patient request [...] Refills, Maintenance, 09/14/21 18:33:00EST, ER Tablet, [facility], Partial fill upon patient request if the [...] INJ AUGMENT BONE GRAFT 1.5ML - WRGT ([id number]) 1 [employer] Unknown LILIAN:No Information Assigning Authority: FDA
--- OUTSIDE RECORDS SUMMARY | 2023-12-11 07:12 | XMS_ITS | Continuity of Care Document ---
Author Name Unknown Organization [facility] Address [address] [place] [phone]- Care Team Providers Care Faith Doctor Name Role Phone Shefali Sanchez MD Primary Care Physician Encounter [facility] Date(s): 08/19/23 - 11/06/23 [facility] [address] [place] [address]- Attending Physician: Baldomero Fried MD Admitting Physician: [...] Refills, Maintenance, 01/21/23 15:58:00 EDT, [facility], 165, cm, 01/17/23 9:47:00 EDT, Height, 76.7, [...] Refills, Maintenance, 07/29/23 20:03:00 EDT, [facility], 165, cm, 03/25/23 14:55:00 EDT, Height, 76.7, kg, 01/10/22 6:52:00 EST, Dry Weight Start Date: 07/29/23 Status: Ordered calcium (as carbonate)-vitamin D 500 mg-400 intl units oral tablet 1 tablet, By Mouth, Daily, # 84 tablet, 2 Refills, Maintenance, 05/14/23 12:37:00 EDT, [facility] STORE 37932, 84, TAKE 1 TABLET BY MOUTH EVERY [...] tablet, 0 Refills, Maintenance, 02/08/23 18:04:00 EDT, [facility] STORE 38781, 165, cm, 01/17/23 9:47:00 EDT, Height, 76.7, [...] 10/24/23 20:09:00 EST, Route to Pharmacy Electronically, [facility]/pharmacy #[id number], Partial fill up... Start Date: 10/24/23 Stop [...] 5 Refills, Maintenance, 10/18/22 15:53:00 EST, Solution, [facility]/pharmacy #0957, Partial fill upon patient request if the prescription is for a schedule II opioid drug., 165, cm, 10/18/22 15:02:00 EST, [place]... Start Date: 10/18/22 Stop Date: 04/16/23 Status: Ordered lisinopril 10 mg oral tablet 10 mg, 1, tablet, By Mouth, Daily, # 30 tablet, Refills 11, Tot. Refills 11, Maintenance, 08/19/23 10:04:00 EDT, Route to Pharmacy Electronically, [facility]/pharmacy #[id number], Partial fill upon patient request if the prescription is for a schedule II opioid dr... Start Date: 08/19/23 Status: Ordered lisinopril 10 mg oral tablet 10 mg, 1, tablet, By Mouth, Daily, # 90 tablet, Refills 3, Tot. Refills 3, Maintenance, 10/18/22 15:53:00 EST, Route to Pharmacy Electronically, [facility]/pharmacy #[id number], 165, cm, 10/18/22 15:02:00 EST, Height, 76.7, kg, 01/10/22 6:52:00 EST, Dry Weight Start Date: 10/18/22 Status: Ordered Nasal Four 1% nasal spray 2 sprays, Nares, Both, Every 4 hours, PRN for nasal congestion, # 29.6 mL, 0 Refills, Maintenance, 08/19/23 10:00:00 EDT, [place], [facility]/pharmacy #0693, Partial fill upon patient [...] C... Start Date: 08/19/23 Status: Ordered Pen [place], 31 G x 8 mm BD Ultra [...] EDT, Route to Pharmacy Electronically, [facility], 165, cm, 01/17/23 9:47:00 EDT,Height, 76.7, kg, [...] 0 Refills, Maintenance, 08/19/23 10:02:00 EDT, Liquid, [facility]/pharmacy #0659, Partial fill upon patient request if the [...] Refills, Maintenance, 08/19/23 9:59:00 EDT, ER Tablet, [facility]/pharmacy #0693, Partial fill upon patient [...] of left humoral head, resurfaced / Andrew Paradacosmo, Dr Andrei Fletcher Confirmed Active Tobacco use. [...] MRI Safety Implantable Status Assigning Authority Unknown [id number] Unknown 08/31/19 Unknown Unknown Active Unkn own Unknown Unknown [id number] Unknown 08/31/21 Unknown Unknown Active Un known Patient Care team information Care Team Personnel Name: Shefali Sanchez MD Position: [facility] Resident Member Role: PCP Address: Address: [address] [facility] [place], [place] [address] Name: Jean-Paul Clay RN Position: [facility] RN Member Role: Primary Care Nurse Care Team Related Persons Name: YAMILA THAYER Address: home [address] [place] [address] Name: YAMILA REYNOLDS Address: home [address] [place] [address] Name: MARKUS MATA Address: home [address] [place] [address] Name: KENZIE HENDRICKSON Address: home [address] [place] [address]
--- OUTSIDE RECORDS SUMMARY | 2023-12-11 07:12 | XMS_ITS | Continuity of Care Document ---
Author Name Unknown Organization [facility] Address [address] [place] [address]- Care Team Providers Care Director Of Alumni Relations Name Role Phone Kristine Bhatia DO Primary Care Physician Encounter [facility] Date(s): 02/13/21 - 03/15/21 [facility] [address] [place] [address]- Allergies, Adverse Reactions, Alerts Substance Reaction Severity [...] 11/03/20 8:37:00 EST, Route to Pharmacy Electronically, [facility]/pharmacy #[id number], 165, cm, 08/12/20 15:39:00 EDT, Height, [...] 2 Refills, Maintenance, 01/19/21 18:56:00 EDT, Tablet, [facility]/pharmacy #0693, Partial fill upon patient request if the prescription is for a schedule II opioid drug., 1... Start Date: 01/19/21 Status: Ordered famotidine 20 mg oral tablet 1, tablet, By Mouth, Daily, AVOID EATING/DRINKING FOR 10 MINUTES AFTER EACH DOSE, # 90 tablet, Refills 3, Tot. Refills 0, Maintenance, 05/15/20 8:33:00 EDT, Route to Pharmacy Electronically, [facility] STORE 96430, 165, cm, 11/12/19 10:55:00 EST, Height, 75,... Start Date: 05/15/20 Status: Ordered gabapentin 600 mg oral tablet 1 tablet = 600 mg, By Mouth, 2 times a day, Increased dose, 600mg PO BID, # 60 tablet, 2 Refills, Maintenance, 01/02/21 9:18:00 EST, [facility]/pharmacy #[id number], Partial fill upon patient request [...] 11/03/20 8:37:00 EST, Route to Pharmacy Electronically, [facility]/pharmacy #[id number], 165, cm, 08/12/20 15:39:00 EDT, Height, [...] INJ AUGMENT BONE GRAFT 1.5ML - WRGT ([id number]) 1 [employer] Unknown LILIAN:No Information Assigning Authority: FDA
--- OUTSIDE RECORDS SUMMARY | 2023-12-11 07:12 | XMS_ITS | Continuity of Care Document ---
Author Name Unknown Organization [facility] Address [address] [place] [address]- Care Team Providers Care Chemist Pharmaceutical Name Role Phone Kristine Bhatia DO Primary Care Physician Encounter [facility] Date(s): 12/22/20 - 01/21/21 [facility] [address] [place] [address]- Allergies, Adverse Reactions, Alerts Substance Reaction Severity [...] 11/03/20 8:37:00 EST, Route to Pharmacy Electronically, [facility]/pharmacy #9054, 165, cm, 08/12/20 15:39:00 EDT, Height, 75, [...] 11 Refills, Maintenance, 11/03/20 8:37:00 EST, Tablet, [facility]/pharmacy #[id number], 165, cm, 08/12/20 15:39:00 EDT, [...] 2 Refills, Maintenance, 01/19/21 18:56:00 EDT, Tablet, [facility]/pharmacy #0693, Partial fill upon patient request if the prescription is for a schedule II opioid drug., 1... Start Date: 01/19/21 Status: Ordered famotidine 20 mg oral tablet 1, tablet, By Mouth, Daily, AVOID EATING/DRINKING FOR 10 MINUTES AFTER EACH DOSE, # 90 tablet, Refills 3, Tot. Refills 0, Maintenance, 05/15/20 8:33:00 EDT, Route to Pharmacy Electronically, [facility] STORE 63468, 165, cm, 11/12/19 10:55:00 EST, Height, 75,... Start Date: 05/15/20 Status: Ordered gabapentin 300 mg oral capsule 300 mg, 1, capsule, By Mouth, 2 times a day, Increased dose, # 180 capsule, Refills 4, Tot. Refills4, Maintenance, 12/23/20 10:52:00 EST, Route to Pharmacy Electronically, [facility]/pharmacy #[id number], 165, cm, 08/12/20 15:39:00 EDT, Height, 75, kg, 02/12/19 9... Start Date: 12/23/20 Stop Date: 03/18/22 Status: Ordered gabapentin 600 mg oral tablet 1 tablet = 600 mg, By Mouth, 2 times a day, Increased dose, 600mg PO BID, # 60 tablet, 2 Refills, Maintenance, 01/02/21 9:18:00 EST, [facility]/pharmacy #[id number], Partial fill upon patient request [...] 11/03/20 8:37:00 EST, Route to Pharmacy Electronically, [facility]/pharmacy #[id number], 165, cm, 08/12/20 15:39:00 EDT, [...] 0 Refills, Maintenance, 08/18/20 10:05:00 EDT, Tablet, [facility]/pharmacy #0693, 165, cm, 08/12/20 15:39:00 EDT, Height, 75, kg, 02/12/19 9:43:00 EDT, Dry Weight Start Date: 08/18/20 Stop Date: 09/01/20 Status: Ordered omeprazole 20 mg oral enteric coated capsule 1 capsule = 20 mg, By Mouth, Daily, # 30 capsule, 3 Refills, Maintenance, 10/12/20 10:00:00 EST, ECCapsule, [facility]/pharmacy #[id number], 165, cm, 08/12/20 15:39:00 EDT, [...] INJ AUGMENT BONE GRAFT 1.5ML - WRGT ([id number]) 1 [employer] Unknown LILIAN:No Information Assigning Authority: FDA
--- OUTSIDE RECORDS SUMMARY | 2023-12-11 07:12 | XMS_ITS | Continuity of Care Document ---
Author Name Unknown Organization [facility] Address [address] [place] [address]- Care Team Providers Care 1St Pressman Name Role Phone Shefali Sanchez MD Primary Care Physician [facility]counter [facility] Date(s): 01/17/23 - 02/16/23 [facility] [address] [place] [address]- Attending Physician: Mony Whitney Admitting Physician: Mony Whitney Referring Physician: AdmMony cano Allergies, Adverse Reactions, Alerts Substance Reaction Severity [...] Refills, Maintenance, 01/21/23 15:58:00 EDT, [facility], 165, cm, 01/17/23 9:47:00 EDT, Height, 76.7, [...] 3 Refills, Maintenance, 10/18/22 15:53:00 EST, Tablet, [facility]/pharmacy #[id number], 165, cm, 10/18/22 15:02:00 EST, Height, 76.7, kg, 01/10/22 6:52:00 EST, Dry Weight Start Date: 10/18/22 Status: Ordered calcium (as carbonate)-vitamin D 500 mg-400 intl units oral tablet 1 tablet, By Mouth, Daily, # 90 tablet, 1 Refills, Maintenance, 10/18/22 15:54:00 EST, Tablet, [facility]/pharmacy #0957, 1 tablet By Mouth Daily, 165, cm, 10/18/22 15:02:00 EST, Height, 76.7, kg, 01/10/22 6:52:00 EST, Dry Weight Start Date: 10/18/22 Status: Ordered hydrOXYzine hydrochloride 25 mg oral tablet 1 capsule, By Mouth, 4 times a day, PRN NEEDED FOR PAIN OR ANXIETY, # 120 tablet, 0 Refills, Maintenance, 02/08/23 18:04:00 EDT, [facility], 165, cm, 01/17/23 9:47:00 EDT, Height, 76.7, [...] 5 Refills, Maintenance, 10/18/22 15:53:00 EST, Solution, [facility]/pharmacy #0957, Partial fill upon patient request if the prescription is for a schedule II opioid drug., 165, cm, 10/18/22 15:02:00 EST, Heig... Start Date: 10/18/22 Stop Date: 04/16/23 Status: Ordered lisinopril 10 mg oral tablet 10 mg, 1, tablet, By Mouth, Daily, # 90 tablet, Refills 3, Tot. Refills 3, Maintenance, 10/18/22 15:53:00 EST, Route to Pharmacy Electronically, [facility]/pharmacy #[id number], 165, cm, 10/18/22 15:02:00 EST, Height, 76.7, kg, 01/10/22 6:52:00 EST, Dry Weight Start Date: 10/18/22 Status: Ordered meloxicam 7.5 mg oral tablet 1 tablet, By Mouth, Daily, # 30 tablet, 0 Refills, [facility] STORE 11232, 165, cm, 10/26/21 9:52:00 EST, Height Start [...] drug. Start Date: 01/10/22 Status: Ordered Pen [place], 31 G x 8 mm BD Ultra [...] EDT, Route to Pharmacy Electronically, [facility], 165, cm, 01/17/23 9:47:00 EDT,Height, 76.7, kg, [...] 0 Refills, Maintenance, 01/17/23 10:13:00 EDT, Tablet, [facility]/pharmacy #[id number], Partial fill upon patient request if the prescription is for a schedule II opioid drug., 165, cm, 01/17/23 9:47:00 EDT, Height,... Start Date: 01/17/23 Status: Ordered Problem List Condition Confirmation Course [...] MRI Safety Implantable Status Assigning Authority Unknown [id number] Unknown 08/31/19 Unknown Unknown Active Unkn own Unknown Unknown [id number] Unknown 08/31/21 Unknown Unknown Active Un known Note * Event Display: [facility] Inpatient Records Authored Date: * Event Display: Non BH Lab Results Authored Date: * Event Display: Non BH Lab Results Authored Date: * Event Display: Non BH Lab Results Authored Date: * Event Display: Laboratory Result Scanned Authored Date: * Event Display: MRI Ankle/Foot, Non- BH Authored Date: * Event Display: Cardiology Office Note, Non-BH Authored Date: Patient Care team information Care Team Personnel Name: Shefali Sanchez MD Position: S Resident Member Role: PCP Address: Address: [address] [place] [address] [place] [address]- Name: Jean-Paul Clay RN Position: S RN Member Role: Primary Care Nurse Care Team Related Persons Name: YAMILA REYNOLDS Address: home [address] [place] [address] Name: MARKUS MATA Address: home [address] [place] [address] Name: KENZIE HENDRICKSON Address: home [address] [place] [address]
--- OUTSIDE RECORDS SUMMARY | 2023-12-11 07:12 | XMS_ITS | Continuity of Care Document ---
Author Name Unknown Organization [facility] Address [address] [place] [address]- Care Team Providers Care Autistic Teacher Name Role Phone Kristine Bhatia DO Primary Care Physician [facility] Date(s): 06/27/21 - 07/27/21 [facility] [address] [place] [phone]- Allergies, Adverse Reactions, Alerts Substance Reaction Severity [...] 11/03/20 8:37:00 EST, Route to Pharmacy Electronically, [facility]/pharmacy #[id number], 165, cm, 08/12/20 15:39:00 EDT, [...] 11 Refills, Maintenance, 02/13/21 9:53:00 EDT, Tablet, [facility]/pharmacy #[id number], 165, cm, 01/19/21 17:30:00 EDT, Height [...] 0 Refills, Maintenance, 07/29/20 15:33:00 EDT, Cream, [facility]/pharmacy #0693, 1 application Topically 2 times a day, 165, cm, 07/29/20 14:56:00 EDT, Height, 75, kg, 02/12/19 9:43:00 EDT, Dry Weight Start Date: 07/29/20 Status: Ordered diclofenac 1% topical gel = 2 Gm, Topically, 4 times a day, # 100 Gm, 5 Refills, Maintenance, 11/06/19 11:03:00 EST, Gel, [facility]/pharmacy #[id number], 165, cm, 11/06/19 10:52:00 EST, Height, 75, kg, 02/12/19 9:43:00 EDT, Dry Weight Start Date: 11/06/19 Stop Date: 05/04/20 Status: Ordered diclofenac potassium 50 mg oral tablet 1 tablet, By Mouth, 3 times a day, PRN NEEDED FOR ARTHRITIS, WITH FOOD, # 50 tablet, 2 Refills, Acute, 03/21/21 13:01:00 EDT, [facility], 165, cm, 02/15/21 9:39:00 EDT, Height Start Date: 03/21/21 Status: Ordered famotidine 20 mg oral tablet 1, tablet, By Mouth, Daily, AVOID EATING/DRINKING FOR 10 MINUTES AFTER EACH DOSE, # 90 tablet, Refills 3, Tot. Refills 0, Maintenance, 05/15/20 8:33:00 EDT, Route to Pharmacy Electronically, [facility] 34084, 165, cm, 11/12/19 10:55:00 EST, Height, 75,... Start Date: 05/15/20 Status: Ordered gabapentin 600 mg oral tablet 1 tablet, By Mouth, 2 times a day, # 60 tablet, 2 Refills, Maintenance, 03/21/21 20:41:00 EDT, [facility], 165, cm, 02/15/21 9:39:00 EDT, Height Start Date: 03/21/21 Status: Ordered Left Hand Wrist Splint Left [...] 11/03/20 8:37:00 EST, Route to Pharmacy Electronically, [facility]/pharmacy #[id number], 165, cm, 08/12/20 15:39:00 EDT, [...] on: 11/06/19 Sex Female Medical Equipment Implanted Date:4/22/19Target Site:Foot Left Description Quantity MRI Company Model Bone Putty DBM, AlloSync, 01ml, Human Allograft 1 [employer] Unknown LILIAN:No Information Assigning Authority: FDA INJ AUGMENT BONE GRAFT 1.5ML - WRGT ([id number]) 1 [employer] Unknown LILIAN:No Information Assigning Authority: FDA
--- OUTSIDE RECORDS SUMMARY | 2023-12-11 07:12 | XMS_ITS | Continuity of Care Document ---
Author Name Unknown Organization [facility] Address [address] [place] [address]- Care Team Providers Care Director Corporate Communications Name Role Phone Shefali Sanchez MD Primary Care Physician [phone] Encounter [facility] Date(s): 05/16/22 - 06/15/22 [facility] [address] [facility] [address] [place] [address]- Attending Physician: Moyn Whitney Admitting Physician: Mony Whitney Referring Physician: [...] 09/14/21 16:28:00 EST, [id number], cm, 09/14/21 14:59:00 EST, [...] 3 Refills, Maintenance, 09/14/21 16:28:00 EST, [facility]t, [id number], cm, 09/14/21 14:59:00 EST, Height Start Date: 09/14/21 Stop Date: 09/09/22 Status: Ordered calcium (as carbonate)-vitamin D 500 mg-400 intl units oral tablet 1 tablet, By Mouth, Daily, # 90 tablet, 1 Refills, Maintenance, 05/23/22 9:24:00 EDT, Tablet, [facility]/pharmacy #0957, 1 tablet By Mouth Daily, 165, cm, 03/27/22 9:50:00 EDT, Height, 76.7, kg, 01/10/22 6:52:00 EST, Dry Weight Start Date: 05/23/22 Status: Ordered hydrOXYzine hydrochloride 25 mg oral [...] 5 Refills, Maintenance, 04/17/22 10:57:00 EDT, Solution, [facility]/pharmacy #0957, Partial fill upon patient request if the prescription is for a schedule II opioid drug., 165, cm, 03/27/22 9:50:00 EDT, [facility]... Start Date: 04/17/22 Stop Date: 10/14/22 Status: Ordered lisinopril 10 mg oral tablet 10 mg, 1, tablet, By Mouth, Daily, # 90 tablet, Refills 3, Tot. Refills 3, Maintenance, 09/14/21 16:29:00 EST, Route to Pharmacy Electronically, [facility]/pharmacy #[id number], 165, cm, 09/14/21 14:59:00 EST, Height Start Date: 09/14/21 Stop Date: 09/09/22 Status: Ordered meloxicam 7.5 mg oral tablet 1 tablet, By Mouth, Daily, # 30 tablet, 0 Refills, [facility] STORE 67294, 165, cm, 10/26/21 9:52:00 EST, Height Start [...] drug. Start Date: 01/10/22 Status: Ordered Pen [place], 31 G x 8 mm BD Ultra [...] 01/02/22 11:52:00 EST, Route to Pharmacy Electronically, [facility]/pharmacy #0693, Partial fill upon patient requ... [...] Refills, Maintenance, 09/14/21 18:33:00EST, ER Tablet, [facility]/pharmacy #[id number], Partial fill upon patient request [...] INJ AUGMENT BONE GRAFT 1.5ML - WRGT ([id number]) 1 [employer] Unknown LILIAN:No Information Assigning Authority: FDA
--- OUTSIDE RECORDS SUMMARY | 2023-12-11 07:12 | XMS_ITS | Continuity of Care Document ---
Author Name Unknown Organization [facility] Address [address] [place] [address]- Care Team Providers Care Teletype Clerk Name Role Phone Kristine Bhatia DO Primary Care Physician [facility]counter [facility] Date(s): 06/16/21 - 07/16/21 [facility] [address] [place] [address]- Attending Physician: Mony Whitney Admitting Physician: AdmMony cano Referring Physician: AdmtrMony Allergies, Adverse Reactions, Alerts [...] 11/03/20 8:37:00 EST, Route to Pharmacy Electronically, [facility]/pharmacy #[id number], 165, cm, 08/12/20 15:39:00 EDT, [...] 11 Refills, Maintenance, 02/13/21 9:53:00 EDT, Tablet, [facility]/pharmacy #[id number], 165, cm, 01/19/21 17:30:00 EDT, Height Start Date: 02/13/21 Stop Date: 02/08/22 Status: Ordered calcium (as carbonate)-vitamin D 500 mg-400 intl units oral tablet 1 tablet, By Mouth, Daily, # 300 tablet, 11 Refills, Maintenance, 11/03/20 8:37:00 EST, Tablet, [facility]/pharmacy #0693, 1 tablet By Mouth Daily, 165, cm, 08/12/20 15:39:00 EDT, Height, 75, kg, 02/12/19 9:43:00 EDT, Dry Weight Start Date: 11/03/20 Status: Ordered capsaicin 0.025% topical cream 1 application, Topically, 2 times a day, # 42 Gm, 0 Refills, Maintenance, 07/29/20 15:33:00 EDT, Cream, [facility]/pharmacy #[id number], 1 application Topically 2 times a day, 165, cm, 07/29/20 14:56:00 EDT, Height, 75, kg, 02/12/19 9:43:00 EDT, Dry Weight Start Date: 07/29/20 Status: Ordered diclofenac 1% topical gel = 2 Gm, Topically, 4 times a day, # 100 Gm, 5 Refills, Maintenance, 11/06/19 11:03:00 EST, Gel, [facility]/pharmacy #[id number], 165, cm, 11/06/19 10:52:00 EST, Height, 75, kg, 02/12/19 9:43:00 EDT, Dry Weight Start Date: 11/06/19 Stop Date: 05/04/20 Status: Ordered diclofenac potassium 50 mg oral tablet 1 tablet, By Mouth, 3 times a day, PRN NEEDED FOR ARTHRITIS, WITH FOOD, # 50 tablet, 2 Refills, Acute, 03/21/21 13:01:00 EDT, [facility], 165, cm, 02/15/21 9:39:00 EDT, Height Start Date: 03/21/21 Status: Ordered famotidine 20 mg oral tablet 1, tablet, By Mouth, Daily, AVOID EATING/DRINKING FOR 10 MINUTES AFTER EACH DOSE, # 90 tablet, Refills 3, Tot. Refills 0, Maintenance, 05/15/20 8:33:00 EDT, Route to Pharmacy Electronically, [facility], 165, cm, 11/12/19 10:55:00 EST, Height, 75,... Start Date: 05/15/20 Status: Ordered gabapentin 600 mg oral tablet 1 tablet, By Mouth, 2 times a day, # 60 tablet, 2 Refills, Maintenance, 03/21/21 20:41:00 EDT, [facility], 165, cm, 02/15/21 9:39:00 EDT, Height Start [...] 11/03/20 8:37:00 EST, Route to Pharmacy Electronically, [facility]/pharmacy #[id number], 165, cm, 08/12/20 15:39:00 EDT, [...] 3 Refills, Maintenance, 10/12/20 10:00:00 EST, ECCapsule, [facility]/pharmacy #0693, 165, cm, 08/12/20 15:39:00 EDT, [...] left h umoral head, resurfaced / Andrew OrjackoeDr Andrei nayak(Confirmed) Active Tobacco use. Currently attem pting to [...] INJ AUGMENT BONE GRAFT 1.5ML - WRGT ([id number]) 1 [employer] Unknown LILIAN:No Information Assigning Authority: FDA
--- OUTSIDE RECORDS SUMMARY | 2023-12-11 07:12 | XMS_ITS | Continuity of Care Document ---
Author Name Unknown Organization [facility] Address [address] [place] [address]- Care Team Providers Care Manager Document Name Role Phone Shefali Sanchez MD Primary Care Physician Encounter [facility] Date(s): 03/25/23 - 04/24/23 [facility] [address]- [place] Allergies, Adverse Reactions, Alerts Substance Reaction Severity [...] Refills, Maintenance, 01/21/23 15:58:00 EDT, [facility], 165, cm, 01/17/23 9:47:00 EDT, Height, 76.7, [...] 3 Refills, Maintenance, 10/18/22 15:53:00 EST, Tablet, [facility]/pharmacy #[id number], 165, cm, 10/18/22 15:02:00 EST, Height, 76.7, kg, 01/10/22 6:52:00 EST, Dry Weight Start Date: 10/18/22 Status: Ordered calcium (as carbonate)-vitamin D 500 mg-400 intl units oral tablet 1 tablet, By Mouth, Daily, # 90 tablet, 1 Refills, Maintenance, 10/18/22 15:54:00 EST, Tablet, [facility]/pharmacy #0957, 1 tablet By Mouth Daily, 165, cm, 10/18/22 15:02:00 EST, Height, 76.7, kg, 01/10/22 6:52:00 EST, Dry Weight Start Date: 10/18/22 Status: Ordered hydrOXYzine hydrochloride 25 mg oral tablet 1 capsule, By Mouth, 4 times a day, PRN NEEDED FOR PAIN OR ANXIETY, # 120 tablet, 0 Refills, Maintenance, 02/08/23 18:04:00 EDT, [facility], 165, cm, 01/17/23 9:47:00 EDT, Height, 76.7, [...] 5 Refills, Maintenance, 10/18/22 15:53:00 EST, Solution, [facility]/pharmacy #0957, Partial fill upon patient request if the prescription is for a schedule II opioid drug., 165, cm, 10/18/22 15:02:00 EST, [place]... Start Date: 10/18/22 Stop Date: 04/16/23 Status: Ordered lisinopril 10 mg oral tablet 10 mg, 1, tablet, By Mouth, Daily, # 90 tablet, Refills 3, Tot. Refills 3, Maintenance, 10/18/22 15:53:00 EST, Route to Pharmacy Electronically, [facility]/pharmacy #[id number], 165, cm, 10/18/22 15:02:00 EST, Height, 76.7, kg, 01/10/22 6:52:00 EST, Dry Weight Start Date: 10/18/22 Status: Ordered meloxicam 7.5 mg oral tablet 1 tablet, By Mouth, Daily, # 30 tablet, 0 Refills, [facility] ST[facility] 25070, 165, cm, 10/26/21 9:52:00 EST, Height Start [...] drug. Start Date: 01/10/22 Status: Ordered Pen [place], 31 G x 8 mm BD Ultra [...] EDT, Route to Pharmacy Electronically, [facility], 165, cm, 01/17/23 9:47:00 EDT,Height, 76.7, kg, [...] 0 Refills, Maintenance, 01/17/23 10:13:00 EDT, Tablet, [facility]/pharmacy #0693, Partial fill upon patient request if the prescription is for a schedule II opioid drug., 165, cm, 01/17/23 9:47:00 EDT, Height,... Start Date: 01/17/23 Status: Ordered Victoza 18 mg/3 mL subcutaneous solution See Instructions, INJECT 1.8 MG SUBCUTANEOUS INJECTION DAILY,X30 DAYS, # 9 Unknown, 5 Refills, Maintenance, 04/23/23 14:24:00 EDT, [facility], 165, cm, 03/25/23 14:55:00 EDT, Height, 76.7, [...] MRI Safety Implantable Status Assigning Authority Unknown [id number] Unknown 08/31/19 Unknown Unknown Active Unkn own Unknown Unknown [id number] Unknown 08/31/21 Unknown Unknown Active Un known Patient Care team information Care Team Personnel Name: Shefali Sanchez MD Position: [facility] Resident Member Role: PCP Address: Address: [address] [facility] [place] [address]- Name: Jean-Paul Clay RN Position: [facility] RN Member Role: Primary Care Nurse Care Team Related Persons Name: LUX REYNOLDSFA Address: home [address] [place] [address] Name: MARKUS MATA Address: home [address] [place] [address] Name: KENZIE HENDRICKSON Address: home [address] [place] [address]
--- OUTSIDE RECORDS SUMMARY | 2023-12-11 07:13 | XMS_ITS | Continuity of Care Document ---
Author Name Unknown Organization [facility] Address [address] [place] [address]- Care Team Providers Care Ventilation Mechanic Name Role Phone Kristine Bhatia DO Primary Care Physician Encounter [facility] Date(s): 01/29/21 - 02/28/21 [facility] [address] [place] [address]- Allergies, Adverse Reactions, Alerts Substance Reaction Severity [...] 11/03/20 8:37:00 EST, Route to Pharmacy Electronically, [facility]/pharmacy #[id number], 165, cm, 08/12/20 15:39:00 [...] 2 Refills, Maintenance, 01/19/21 18:56:00 EDT, Tablet, [facility]/pharmacy #0693, Partial fill upon patient request if the prescription is for a schedule II opioid drug., 1... Start Date: 01/19/21 Status: Ordered famotidine 20 mg oral tablet 1, tablet, By Mouth, Daily, AVOID EATING/DRINKING FOR 10 MINUTES AFTER EACH DOSE, # 90 tablet, Refills 3, Tot. Refills 0, Maintenance, 05/15/20 8:33:00 EDT, Route to Pharmacy Electronically, [facility] 7[facility], 165, cm, 11/12/19 10:55:00 EST, Height, 75,... Start Date: 05/15/20 Status: Ordered gabapentin 600 mg oral tablet 1 tablet = 600 mg, By Mouth, 2 times a day, Increased dose, 600mg PO BID, # 60 tablet, 2 Refills, Maintenance, 01/02/21 9:18:00 EST, [facility]/pharmacy #[id number], Partial fill upon [...] 11/03/20 8:37:00 EST, Route to Pharmacy Electronically, [facility]/pharmacy #[id number], 165, cm, 08/12/20 15:39:00 [...] INJ AUGMENT BONE GRAFT 1.5ML - WRGT ([id number]) 1 [employer] Unknown LILIAN:No Information Assigning Authority: FDA
--- OUTSIDE RECORDS SUMMARY | 2023-12-11 07:13 | XMS_ITS | Continuity of Care Document ---
Author Name Unknown Organization [facility] Address [address] [place] [address]- Care Team Providers Care Legal Summer Intern Name Role Phone Shefali Sanchez MD Primary Care Physician [facility]counter [facility] Date(s): 10/25/23 - 11/24/23 [facility] [address] [place] [phone]- Allergies, Adverse Reactions, Alerts Substance Reaction Severity [...] Refills, Maintenance, 01/21/23 15:58:00 EDT, [facility], 165, cm, 01/17/23 9:47:00 EDT, Height, 76.7, kg, 01/10/22 6:52:00 EST, Dry Weight Start Date: 01/21/23 Status: Ordered amLODIPine 5 mg oral tablet 1 tablet = 5 mg, By Mouth, Daily, # 90 tablet, 11 Refills, Maintenance, 08/19/23 10:04:00 EDT, Tablet, [facility]/pharmacy #0693, Partial fill upon patient request if [...] 5 Refills, Maintenance, 08/19/23 10:05:00 EDT, Tablet, [facility]/pharmacy #0693, Partial fill upon patient request if the prescription is for a schedule II opioid drug., 165, cm, 08/19/23 9:40:00 EDT, Height,... Start Date: 08/19/23 Status: Ordered atorvastatin 40 mg oral tablet 1 tablet, By Mouth, Daily at bedtime, # 90 tablet, 3 Refills, Maintenance, 07/29/23 20:03:00 EDT, [facility], 165, cm, 03/25/23 14:55:00 EDT, Height, 76.7, kg, 01/10/22 6:52:00 EST, Dry Weight Start Date: 07/29/23 Status: Ordered calcium (as carbonate)-vitamin D 500 mg-400 intl units oral tablet 1 tablet, By Mouth, Daily, # 84 tablet, 2 Refills, Maintenance, 05/14/23 12:37:00 EDT, [facility], 84, TAKE 1 TABLET BY MOUTH EVERY [...] Refills, Maintenance, 02/08/23 18:04:00 EDT, [facility], 165, cm, 01/17/23 9:47:00 EDT, Height, 76.7, [...] 10/24/23 20:09:00 EST, Route to Pharmacy Electronically, [facility]/pharmacy #2258, Partial fill up... Start Date: 10/24/23 Stop [...] 5 Refills, Maintenance, 10/18/22 15:53:00 EST, Solution, [facility]/pharmacy #0957, Partial fill upon patient request if the prescription is for a schedule II opioid drug., 165, cm, 10/18/22 15:02:00 EST, Heig... Start Date: 10/18/22 Stop Date: 04/16/23 Status: Ordered lisinopril 10 mg oral tablet 10 mg, 1, tablet, By Mouth, Daily, # 30 tablet, Refills 11, Tot. Refills 11, Maintenance, 08/19/23 10:04:00 EDT, Route to Pharmacy Electronically, [facility]/pharmacy #0693, Partial fill upon patient request if the prescription is for a schedule II opioid dr... Start Date: 08/19/23 Status: Ordered lisinopril 10 mg oral tablet 10 mg, 1, tablet, By Mouth, Daily, # 90 tablet, Refills 3, Tot. Refills 3, Maintenance, 10/18/22 15:53:00 EST, Route to Pharmacy Electronically, [facility]/pharmacy #[id number], 165, cm, 10/18/22 15:02:00 EST, Height, 76.7, kg, 01/10/22 6:52:00 EST, Dry Weight Start Date: 10/18/22 Status: Ordered Nasal Four 1% nasal spray 2 sprays, Nares, Both, Every 4 hours, PRN for nasal congestion, # 29.6 mL, 0 Refills, Maintenance, 08/19/23 10:00:00 EDT, [place], [facility]/pharmacy #0693, Partial fill upon patient request if [...] C... Start Date: 08/19/23 Status: Ordered Pen [place], 31 G x 8 mm BD Ultra [...] EDT, Route to Pharmacy Electronically, [facility], 165, cm, 01/17/23 9:47:00 EDT,Height, 76.7, kg, [...] 0 Refills, Maintenance, 08/19/23 10:02:00 EDT, Liquid, [facility]/pharmacy #0609, Partial fill upon patient request if the [...] MRI Safety Implantable Status Assigning Authority Unknown [id number] Unknown 08/31/19 Unknown Unknown Active Unkn own Unknown Unknown [id number] Unknown 08/31/21 Unknown Unknown Active Un known Patient Care team information Care Team Personnel Name: Shefali Sanchez MD Position: [facility] Resident Member Role: PCP Address: Address: [address] [place] [address] [place], [place] [address] Name: Jean-Paul Clay RN Position: [facility] RN Member Role: Primary Care Nurse Care Team Related Persons Name: YAMILA THAYER Address: home [address] [place] [address] Name: YAMILA REYNOLDS Address: home [address] [place] [address] Name: MARKUS MATA Address: home [address] [place] [address] Name: KENZIE HENDRICKSON Address: home [address] [place] [address]
--- OUTSIDE RECORDS SUMMARY | 2023-12-11 07:13 | XMS_ITS | Continuity of Care Document ---
Author Name Unknown Organization [facility] Address [address] [place] [address]- Care Team Providers Care Commissioned Defence Force Officer Name Role Phone Kristine Bhatia DO Primary Care Physician Encounter [facility] Date(s): 11/02/20 - 12/02/20 [facility] [address] [place] [phone]- Allergies, Adverse Reactions, Alerts Substance Reaction Severity [...] EST, Route to Pharmacy Electronically, [facility]/pharmacy #[id number], 165, cm, 08/12/20 15:39:00 EDT, [...] Maintenance, 11/03/20 8:37:00 EST, Tablet, [facility], 165, cm, 08/12/20 15:39:00 EDT, [...] 05/15/20 8:33:00 EDT, Route to Pharmacy Electronically, [facility] 75325, 165, cm, 11/12/19 10:55:00 EST, Height, 75,... Start Date: 05/15/20 Status: Ordered gabapentin 300 mg oral capsule 300 mg, 1, capsule, By Mouth, 2 times a day, Increased dose, # 180 capsule, Refills 1, Tot. Refills1, Maintenance, 05/23/20 11:16:00 EDT, [id number], 165, cm, 05/23/20 10:20:00 EDT, Height, 75, kg, 02/12/19 9... Start Date: 05/23/20 Stop Date: 11/19/20 Status: Ordered lisinopril 10 mg oral tablet 10 mg, 1, tablet, By Mouth, Daily, # 30 tablet, Refills 11, Tot. Refills 11, Maintenance, 11/03/20 8:37:00 EST, [facility], [facility], 165, cm, 08/12/20 15:39:00 EDT, Height, [...] 0 Refills, Maintenance, 08/18/20 10:05:00 EDT, Tablet, [facility]/pharmacy #[id number], 165, cm, 08/12/20 15:39:00 EDT, [...] Date: 10/12/20 Stop Date: 02/09/21 Status: Ordered Senna 2 tablets, By Mouth, [...] INJ AUGMENT BONE GRAFT 1.5ML - WRGT ([id number]) 1 [employer] Unknown LILIAN:No Information Assigning Authority: FDA
--- OUTSIDE RECORDS SUMMARY | 2023-12-11 07:13 | XMS_ITS | Continuity of Care Document ---
Author Name Unknown Organization [facility] Address [address] [place] [address]- Care Team Providers Care Gold Nib Grinder Name Role Phone Kristine Bhatia DO Primary Care Physician [facility] Date[facility]s): 06/06/21 - 07/06/21 [facility] [address] [place] [phone]- Allergies, Adverse Reactions, Alerts Substance Reaction Severity [...] 11/03/20 8:37:00 EST, Route to Pharmacy Electronically, [facility] [...] 11 Refills, Maintenance, 02/13/21 9:53:00 EDT, Tablet, [facility]/pharmacy #[id number], 165, cm, 01/19/21 17:30:00 EDT, Height [...] Refills, Acute, 03/21/21 13:01:00 EDT, [facility], 165, cm, 02/15/21 9:39:00 EDT, Height Start Date: 03/21/21 Status: Ordered famotidine 20 mg oral tablet 1, tablet, By Mouth, Daily, AVOID EATING/DRINKING FOR 10 MINUTES AFTER EACH DOSE, # 90 tablet, Refills 3, Tot. Refills 0, Maintenance, 05/15/20 8:33:00 EDT, Route to Pharmacy Electronically, [facility], 165, cm, 11/12/19 10:55:00 EST, Height, 75,... Start Date: 05/15/20 Status: Ordered gabapentin 600 mg oral tablet 1 tablet, By Mouth, 2 times a day, # 60 tablet, 2 Refills, Maintenance, 03/21/21 20:41:00 EDT, [facility], 165, cm, 02/15/21 9:39:00 EDT, Height Start [...] 11/03/20 8:37:00 EST, Route to Pharmacy Electronically, [facility] [...] Putty DBM, AlloSync, 01ml, Human Allograft 1 [id number] Unknown LILIAN:No Information Assigning Authority: FDA INJ AUGMENT BONE GRAFT 1.5ML - WRGT ([id number]) 1 [employer] Unknown LILIAN:No Information Assigning Authority: FDA
--- OUTSIDE RECORDS SUMMARY | 2023-12-11 07:13 | XMS_ITS | Continuity of Care Document ---
Author Name Unknown Organization [facility] Address [address] [place] [address]- Care Team Providers Care Implementation Project Manager Name Role Phone Kristine Bhatia DO Primary Care Physician [facility]counter [facility] Date(s): 06/19/21 - 07/19/21 [facility] [address] [place] [phone]- Allergies, Adverse Reactions, Alerts Substance Reaction Severity [...] 11/03/20 8:37:00 EST, Route to Pharmacy Electronically, [facility]/pharmacy #[id number], 165, cm, 08/12/20 15:39:00 [...] 11 Refills, Maintenance, 02/13/21 9:53:00 EDT, Tablet, [facility]/pharmacy #[id number], 165, cm, 01/19/21 17:30:00 EDT, Height Start Date: 02/13/21 Stop Date: 02/08/22 Status: Ordered calcium (as carbonate)-vitamin D 500 mg-400 intl units oral tablet 1 tablet, By Mouth, Daily, # 300 tablet, 11 Refills, Maintenance, 11/03/20 8:37:00 EST, Tablet, [facility]/pharmacy #0693, 1 tablet By Mouth Daily, 165, cm, 08/12/20 15:39:00 EDT, Height, 75, kg, 02/12/19 9:43:00 EDT, Dry Weight Start Date: 11/03/20 Status: Ordered capsaicin 0.025% topical cream 1 application, Topically, 2 times a day, # 42 Gm, 0 Refills, Maintenance, 07/29/20 15:33:00 EDT, Cream, [facility]/pharmacy #0693, 1 application Topically 2 times a day, 165, cm, 07/29/20 14:56:00 EDT, Height, 75, kg, 02/12/19 9:43:00 EDT, Dry Weight Start Date: 07/29/20 Status: Ordered diclofenac 1% topical gel = 2 Gm, Topically, 4 times a day, # 100 Gm, 5 Refills, Maintenance, 11/06/19 11:03:00 EST, Gel, [facility]/pharmacy #[id number], 165, cm, 11/06/19 10:52:00 EST, Height, 75, kg, 02/12/19 9:43:00 EDT, Dry Weight Start Date: 11/06/19 Stop Date: 05/04/20 Status: Ordered diclofenac potassium 50 mg oral tablet 1 tablet, By Mouth, 3 times a day, PRN NEEDED FOR ARTHRITIS, WITH FOOD, # 50 tablet, 2 Refills, Acute, 03/21/21 13:01:00 EDT, [facility], 165, cm, 02/15/21 9:39:00 EDT, Height Start Date: 03/21/21 Status: Ordered famotidine 20 mg oral tablet 1, tablet, By Mouth, Daily, AVOID EATING/DRINKING FOR 10 MINUTES AFTER EACH DOSE, # 90 tablet, Refills 3, Tot. Refills 0, Maintenance, 05/15/20 8:33:00 EDT, Route to Pharmacy Electronically, [facility], 165, cm, 11/12/19 10:55:00 EST, Height, 75,... Start Date: 05/15/20 Status: Ordered gabapentin 600 mg oral tablet 1 tablet, By Mouth, 2 times a day, # 60 tablet, 2 Refills, Maintenance, 03/21/21 20:41:00 EDT, [facility], 165, cm, 02/15/21 9:39:00 EDT, Height Start [...] 11/03/20 8:37:00 EST, Route to Pharmacy Electronically, [facility]/pharmacy #[id number], 165, cm, 08/12/20 15:39:00 [...] Putty DBM, AlloSync, 01ml, Human Allograft 1 [employer] Unknown LILIAN:No Information Assigning Authority: FDA INJ AUGMENT BONE GRAFT 1.5ML - WRGT ([id number]) 1 [employer] Unknown LILIAN:No Information Assigning Authority: FDA
--- OUTSIDE RECORDS SUMMARY | 2023-12-11 07:13 | XMS_ITS | Continuity of Care Document ---
Author Name Unknown Organization [facility] Address [address] [place] [address]- Care Team Providers Care Forensic Computer Examiner Name Role Phone Shefali Sanchez MD Primary Care Physician [facility] Date(s): 02/20/22 - 03/22/22 [facility] [address] [place] [id number] Allergies, Adverse [...] 16:28:00 EST, Route to Pharmacy Electronically, [facility]/pharmacy #[id number], 165, cm, 09/14/21 14:59:00 EST, [...] Refills, Maintenance, 09/14/21 16:28:00 EST, Tablet, [facility]/pharmacy #[id number], 165, cm, 09/14/21 14:59:00 EST, Height Start Date: 09/14/21 Stop Date: 09/09/22 Status: Ordered calcium (as carbonate)-vitamin D 500 mg-400 intl units oral tablet 1 tablet, By Mouth, Daily, # 300 tablet, 11 Refills, Maintenance, 11/03/20 8:37:00 EST, Tablet, [facility]/pharmacy #0693, 1 tablet By Mouth Daily, [...] 5 Refills, Maintenance, 02/21/22 10:27:00 EDT, Solution, [facility]/pharmacy #[id number], Partial fill upon patient request if the prescription is for a schedule IIopioid drug., 165, cm, 02/15/22 8:10:00 EDT, Height... Start Date: 02/21/22 Status: Ordered lisinopril 10 mg oral tablet 10 mg, 1, tablet, By Mouth, Daily, # 90 tablet, Refills 3, Tot. Refills 3, Maintenance, 09/14/21 16:29:00 EST, Route to Pharmacy Electronically, [facility]/pharmacy #[id number], 165, cm, 09/14/21 14:59:00 EST, Height Start Date: 09/14/21 Stop Date: 09/09/22 Status: Ordered meloxicam 7.5 mg oral tablet 1 tablet, By Mouth, Daily, # 30 tablet, 0 Refills, [facility] STORE 64966, 165, cm, 10/26/21 9:52:00 EST, Height Start [...] drug. Start Date: 01/10/22 Status: Ordered Pen [place], 31 G x 8 mm BD Ultra [...] 01/02/22 11:52:00 EST, Route to Pharmacy Electronically, [facility]/pharmacy #[id number], Partial fill upon patient requ... [...] 1 Refills, Maintenance, 09/14/21 18:33:00EST, ER Tablet, [facility]/pharmacy #[id number], Partial fill upon patient request [...] INJ AUGMENT BONE GRAFT 1.5ML - WRGT ([id number]) 1 [employer] Unknown LILIAN:No Information Assigning Authority: FDA
--- OUTSIDE RECORDS SUMMARY | 2023-12-11 07:13 | XMS_ITS | Continuity of Care Document ---
Author Name Unknown Organization [facility] Address [address] [place] [address]- Care Team Providers Care Panel Edge Sealer Name Role Phone Kristine Bhatia DO Primary Care Physician Encounter [facility] Date(s): 08/20/19 - 11/13/[address] [address]- [facility] Attending Physician: Kristine Bhatia DO Admitting Physician: Kristine Bhatia DO Referring Physician: Kristine Bhatia DO Allergies, Adverse [...] 11/06/19 11:00:00 EST, Route to Pharmacy Electronically, [facility]/pharmacy #[id number], 165, cm, 11/06/19 10:52:00 [...] tablet, 5 Refills, Maintenance, 11/02/19 9:13:00EST, Tablet, [facility]/pharmacy #[id number], 165, cm, 08/28/19 14:56:00 EDT, Height, [...] 5 Refills, Maintenance, 11/06/19 11:03:00 EST, Gel, [facility]/pharmacy #[id number], 165, cm, 11/06/19 10:52:00 EST, Height, 75, kg, 02/12/19 9:43:00 EDT, Dry Weight Start Date: 11/06/19 Stop Date: 05/04/20 Status: Ordered lisinopril 10 mg oral tablet 10 mg, 1, tablet, By Mouth, Daily, # 30 tablet, Refills 11, Tot. Refills 11, Maintenance, 11/06/19 11:00:00 EST, Route to Pharmacy Electronically, [facility]/pharmacy #[id number], 165, cm, 11/06/19 10:52:00 [...] INJ AUGMENT BONE GRAFT 1.5ML - WRGT ([id number]) 1 [employer] Unknown LILIAN:No Information Assigning Authority: FDA
--- OUTSIDE RECORDS SUMMARY | 2023-12-11 07:13 | XMS_ITS | Continuity of Care Document ---
Author Name Unknown Organization [facility] Address [address] [place] [id number]- Care Team Providers Care Retail Pharmacist Name Role Phone Shefali Sanchez MD Primary Care Physician Encounter [facility] Date(s): 08/23/23 - 11/06/23 [facility] [address] [place] [address]- Attending Physician: Baldomero Fried MD Admitting Physician: [...] Refills, Maintenance, 01/21/23 15:58:00 EDT, [facility], 165, cm, 01/17/23 9:47:00 EDT, Height, 76.7, [...] Refills, Maintenance, 07/29/23 20:03:00 EDT, [facility], 165, cm, 03/25/23 14:55:00 EDT, Height, 76.7, kg, 01/10/22 6:52:00 EST, Dry Weight Start Date: 07/29/23 Status: Ordered calcium (as carbonate)-vitamin D 500 mg-400 intl units oral tablet 1 tablet, By Mouth, Daily, # 84 tablet, 2 Refills, Maintenance, 05/14/23 12:37:00 EDT, [facility] STORE 17743, 84, TAKE 1 TABLET BY MOUTH EVERY [...] tablet, 0 Refills, Maintenance, 02/08/23 18:04:00 EDT, [facility] STORE 92319, 165, cm, 01/17/23 9:47:00 EDT, Height, 76.7, [...] 10/24/23 20:09:00 EST, Route to Pharmacy Electronically, [facility]/pharmacy #[id number], Partial fill up... Start Date: 10/24/23 Stop [...] 5 Refills, Maintenance, 10/18/22 15:53:00 EST, Solution, [facility]/pharmacy #0957, Partial fill upon patient request if the prescription is for a schedule II opioid drug., 165, cm, 10/18/22 15:02:00 EST, [place]... Start Date: 10/18/22 Stop Date: 04/16/23 Status: Ordered lisinopril 10 mg oral tablet 10 mg, 1, tablet, By Mouth, Daily, # 30 tablet, Refills 11, Tot. Refills 11, Maintenance, 08/19/23 10:04:00 EDT, Route to Pharmacy Electronically, [facility]/pharmacy #0693, Partial fill upon patient request if the prescription is for a schedule II opioid dr... Start Date: 08/19/23 Status: Ordered lisinopril 10 mg oral tablet 10 mg, 1, tablet, By Mouth, Daily, # 90 tablet, Refills 3, Tot. Refills 3, Maintenance, 10/18/22 15:53:00 EST, Route to Pharmacy Electronically, [facility]/pharmacy #0693, 165, cm, 10/18/22 15:02:00 EST, Height, 76.7, kg, 01/10/22 6:52:00 EST, Dry Weight Start Date: 10/18/22 Status: Ordered Nasal Four 1% nasal spray 2 sprays, Nares, Both, Every 4 hours, PRN for nasal congestion, # 29.6 mL, 0 Refills, Maintenance, 08/19/23 10:00:00 EDT, [place], [facility]/pharmacy #0693, Partial fill upon patient [...] C... Start Date: 08/19/23 Status: Ordered Pen [place], 31 G x 8 mm BD Ultra [...] EDT, Route to Pharmacy Electronically, [facility], 165, cm, 01/17/23 9:47:00 EDT,Height, 76.7, kg, [...] 0 Refills, Maintenance, 08/19/23 10:02:00 EDT, Liquid, [facility]/pharmacy #0676, Partial fill upon patient request if the [...] Refills, Maintenance, 08/19/23 9:59:00 EDT, ER Tablet, [facility]/pharmacy #0693, Partial fill upon patient [...] MRI Safety Implantable Status Assigning Authority Unknown [id number] Unknown 08/31/19 Unknown Unknown Active Unkn own Unknown Unknown [id number] Unknown 08/31/21 Unknown Unknown Active Un known Patient Care team information Care Team Personnel Name: Shefali Sanchez MD Position: [facility] Resident Member Role: PCP Address: Address: [address] [facility] [place], [place] [address] Name: Jean-Paul Clay RN Position: [facility] RN Member Role: Primary Care Nurse Care Team Related Persons Name: YAMILA THAYER Address: home [address] [place] [address] Name: YAMILA REYNOLDS Address: home [address] [place] [address] Name: MARKUS MATA Address: home [address] [place] [address] Name: KENZIE HENDRICKSON Address: home [address] [place] [address]
--- OUTSIDE RECORDS SUMMARY | 2023-12-11 07:13 | XMS_ITS | Continuity of Care Document ---
Author Name Unknown Organization [facility] Address [address] [place] [address]- Care Team Providers Care Business Support Manager Name Role Phone Shefali Sanchez MD Primary Care Physician [phone] Encounter [facility] Date(s): 10/25/21 - 11/24/21 [facility] [address] [place] [address]- Allergies, Adverse Reactions, Alerts Substance Reaction Severity [...] 09/14/21 16:28:00 EST, Route to Pharmacy Electronically, [facility]/pharmacy #[id number], 165, cm, 09/14/21 14:59:00 [...] 3 Refills, Maintenance, 09/14/21 16:28:00 EST, Tablet, [facility]/pharmacy #[id number], 165, cm, 09/14/21 14:59:00 EST, Height Start Date: 09/14/21 Stop Date: 09/09/22 Status: Ordered calcium (as carbonate)-vitamin D 500 mg-400 intl units oral tablet 1 tablet, By Mouth, Daily, # 300 tablet, 11 Refills, Maintenance, 11/03/20 8:37:00 EST, Tablet, [facility]/pharmacy #0693, 1 tablet By Mouth [...] 0 Refills, Maintenance, 07/29/20 15:33:00 EDT, Cream, [facility]/pharmacy #0693, 1 application Topically 2 [...] tablet, 2 Refills, Acute, 03/21/21 13:01:00 EDT, [facility] 8[facility], 165, cm, 02/15/21 9:39:00 EDT, Height Start Date: 03/21/21 Status: Ordered doxepin 3 mg oral tablet 1 tablet = 3 mg, By Mouth, Daily at bedtime, # 30 tablet, 1 Refills, Maintenance, 09/22/21 15:54:00EST, Tablet, [facility]/pharmacy #0693, Partial fill upon patient request if the prescription is for a schedule II opioid drug., 165, cm, 09/22/21 14:38:00 ES... Start Date: 09/22/21 Status: Ordered famotidine 20 mg oral tablet 1, tablet, By Mouth, Daily, AVOID EATING/DRINKING FOR 10 MINUTES AFTER EACH DOSE, # 90 tablet, Refills 3, Tot. Refills 0, Maintenance, 05/15/20 8:33:00 EDT, Route to Pharmacy Electronically, [facility] 97214, 165, cm, 11/12/19 10:55:00 EST, Height, 75,... [...] 09/14/21 16:29:00 EST, Route to Pharmacy Electronically, [facility]/pharmacy #[id number], 165, cm, 09/14/21 14:59:00 EST, Height Start Date: 09/14/21 Stop Date: 09/09/22 Status: Ordered melatonin 10 mg oral tablet 1 tablet = 10 mg, By Mouth, Daily at bedtime, PRN as needed for insomnia, # 200 tablet, 0 Refills, Maintenance, 09/29/21 16:15:00 EST, Tablet, [facility]/pharmacy #0693, Partial fill upon patient request ifthe prescription is for a schedule II opioid drug.,... Start Date: 09/29/21 Status: Ordered meloxicam 7.5 mg oral tablet 1 tablet, By Mouth, Daily, # 30 tablet, 0 Refills, [facility], 165, cm, 10/26/21 9:52:00 EST, Height Start [...] 3 Refills, Maintenance, 10/12/20 10:00:00 EST, ECCapsule, [facility]/pharmacy #0693, 165, cm, 08/12/20 15:39:00 EDT, Height, 75, kg, 02/12/19 9:43:00 EDT, Dry Weight Start Date: 10/12/20 Stop Date: 02/09/21 Status: Ordered prazosin 5 mg oral capsule 10 mg, 2, capsule, By Mouth, Daily at bedtime, Dose increased to 10mg po qhs on 10/26/21, # 60 capsule, Refills 1, Tot. Refills 1, Maintenance, 10/26/21 10:31:00 EST, Route to Pharmacy Electronically, [facility]/pharmacy #0693, Partial fill upon [...] 1 Refills, Maintenance, 09/14/21 18:33:00EST, ER Tablet, [facility]/pharmacy #0693, Partial fill upon [...] Putty DBM, AlloSync, 01ml, Human Allograft 1 [employer] Unknown LILIAN:No Information Assigning Authority: FDA INJ AUGMENT BONE GRAFT 1.5ML - WRGT ([id number]) 1 [employer] Unknown LILIAN:No Information Assigning Authority: FDA
--- OUTSIDE RECORDS SUMMARY | 2023-12-11 07:13 | XMS_ITS | Continuity of Care Document ---
Author Name Unknown Organization [facility] Address [address] [place] [address]- Care Team Providers Care Shrub Planter Name Role Phone Shefali Sanchez MD Primary Care Physician [facility]counter [facility] Date(s): 10/24/23 - 11/23/23 [facility] [address] [place] [address]- Attending Physician: Mony Whitney Admitting Physician: Mony [...] Refills, Maintenance, 01/21/23 15:58:00 EDT, [facility], 165, cm, 01/17/23 9:47:00 EDT, Height, 76.7, [...] Refills, Maintenance, 07/29/23 20:03:00 EDT, [facility], 165, cm, 03/25/23 14:55:00 EDT, Height, 76.7, kg, 01/10/22 6:52:00 EST, Dry Weight Start Date: 07/29/23 Status: Ordered calcium (as carbonate)-vitamin D 500 mg-400 intl units oral tablet 1 tablet, By Mouth, Daily, # 84 tablet, 2 Refills, Maintenance, 05/14/23 12:37:00 EDT, [facility], 84, TAKE 1 TABLET BY MOUTH EVERY [...] tablet, 0 Refills, Maintenance, 02/08/23 18:04:00 EDT, [facility] STORE 58483, 165, cm, 01/17/23 9:47:00 EDT, Height, 76.7, [...] 10/24/23 20:09:00 EST, Route to Pharmacy Electronically, [facility]/pharmacy #[id number], Partial fill up... Start Date: 10/24/23 Stop [...] 5 Refills, Maintenance, 10/18/22 15:53:00 EST, Solution, [facility]/pharmacy #0957, Partial fill upon patient request if the prescription is for a schedule II opioid drug., 165, cm, 10/18/22 15:02:00 EST, [place]... Start Date: 10/18/22 Stop Date: 04/16/23 Status: Ordered lisinopril 10 mg oral tablet 10 mg, 1, tablet, By Mouth, Daily, # 30 tablet, Refills 11, Tot. Refills 11, Maintenance, 08/19/23 10:04:00 EDT, Route to Pharmacy Electronically, [facility]/pharmacy #[id number], Partial fill upon patient request if the prescription is for a schedule II opioid dr... Start Date: 08/19/23 Status: Ordered lisinopril 10 mg oral tablet 10 mg, 1, tablet, By Mouth, Daily, # 90 tablet, Refills 3, Tot. Refills 3, Maintenance, 10/18/22 15:53:00 EST, Route to Pharmacy Electronically, [facility]/pharmacy #[id number], 165, cm, 10/18/22 15:02:00 EST, Height, 76.7, kg, 01/10/22 6:52:00 EST, Dry Weight Start Date: 10/18/22 Status: Ordered Nasal Four 1% nasal spray 2 sprays, Nares, Both, Every 4 hours, PRN for nasal congestion, # 29.6 mL, 0 Refills, Maintenance, 08/19/23 10:00:00 EDT, [place], [facility]/pharmacy #[id number], Partial fill upon patient request if [...] C... Start Date: 08/19/23 Status: Ordered Pen [place], 31 G x 8 mm BD Ultra [...] EDT, Route to Pharmacy Electronically, [facility], 165, cm, 01/17/23 9:47:00 EDT,Height, 76.7, kg, [...] 0 Refills, Maintenance, 08/19/23 10:02:00 EDT, Liquid, [facility]/pharmacy #06, Partial fill upon patient request if the [...] of left humoral head, resurfaced / Andrew Kinneyyvrosecosmo, Dr Andrei Fletcher Confirmed Active Tobacco use. [...] MRI Safety Implantable Status Assigning Authority Unknown [id number] Unknown 08/31/19 Unknown Unknown Active Unkn own Unknown Unknown [id number] Unknown 08/31/21 Unknown Unknown Active Un known Note * Event Display: [facility] In[facility] Records Authored Date: Laboratory * Event Display: Non BH Lab Results Authored Date: * Event Display: Non BH Lab Results Authored Date: * Event Display: Non BH Lab Results Authored Date: * Event Display: Laboratory Result Scanned Authored Date: Cardiology * Event Display: Cardiology Office Note, Non-BH Authored Date: Radiology * Event Display: CT Scan Shoulder, Non- BH Authored Date: * Event Display: X-Ray Shoulder, Non- BH Authored Date: * Event Display: MRI Ankle/Foot, Non- BH Authored Date: Patient Care team information Care Team Personnel Name: Shefali Sanchez MD Position: S Resident Member Role: PCP Address: Address: [address] [place] [id number] Name: Jean-Paul Clay RN Position: S RN Member Role: Primary Care Nurse Care Team Related Persons Name: YAMILA THAYER Address: home [address] [place] [address] Name: YAMILA REYNOLDS Address: home [address] [place] [address] Name: MARKUS MATA Address: home [address] [place] [address] Name: KENZIE HENDRICKSON Address: home [address] [facility] [place] [address]
--- OUTSIDE RECORDS SUMMARY | 2023-12-11 07:13 | XMS_ITS | Continuity of Care Document ---
Author Name Unknown Organization [facility] Address [address] [address]- Care Team Providers Care Ambulatory Services Representative Name Role Phone Kristine Bhatia DO Primary Care Physician Encounter [facility] Date(s): 04/20/21 - 05/20/21 [facility] [address] [place] [id number] Attending Physician: AdmMony cano Admitting Physician: AdmtrMony Referring Physician: Admtr, Ar8 Allergies, Adverse Reactions, Alerts Substance Reaction Severity [...] 11/03/20 8:37:00 EST, Route to Pharmacy Electronically, [facility]/pharmacy #[id number], 165, cm, 08/12/20 [...] 11 Refills, Maintenance, 02/13/21 9:53:00 EDT, Tablet, [facility]/pharmacy #0693, 165, cm, 01/19/21 17:30:00 EDT, Height Start Date: 02/13/21 Stop Date: 02/08/22 Status: Ordered calcium (as carbonate)-vitamin D 500 mg-400 intl units oral tablet 1 tablet, By Mouth, Daily, # 300 tablet, 11 Refills, Maintenance, 11/03/20 8:37:00 EST, Tablet, [facility]/pharmacy #[id number], 1 tablet By Mouth Daily, 165, cm, 08/12/20 15:39:00 EDT, Height, 75, kg, 02/12/19 9:43:00 EDT, Dry Weight Start Date: 11/03/20 Status: Ordered capsaicin 0.025% topical cream 1 application, Topically, 2 times a day, # 42 Gm, 0 Refills, Maintenance, 07/29/20 15:33:00 EDT, Cream, [facility]/pharmacy #0693, 1 application Topically 2 times a day, 165, cm, 07/29/20 14:56:00 EDT, Height, 75, kg, 02/12/19 9:43:00 EDT, Dry Weight Start Date: 07/29/20 Status: Ordered diclofenac 1% topical gel = 2 Gm, Topically, 4 times a day, # 100 Gm, 5 Refills, Maintenance, 11/06/19 11:03:00 EST, Gel, [facility]/pharmacy #0693, 165, cm, 11/06/19 10:52:00 EST, Height, 75, kg, 02/12/19 9:43:00 EDT, Dry Weight Start Date: 11/06/19 Stop Date: 05/04/20 Status: Ordered diclofenac potassium 50 mg oral tablet 1 tablet, By Mouth, 3 times a day, PRN NEEDED FOR ARTHRITIS, WITH FOOD, # 50 tablet, 2 Refills, Acute, 03/21/21 13:01:00 EDT, [facility], 165, cm, 02/15/21 9:39:00 EDT, Height Start Date: 03/21/21 Status: Ordered famotidine 20 mg oral tablet 1, tablet, By Mouth, Daily, AVOID EATING/DRINKING FOR 10 MINUTES AFTER EACH DOSE, # 90 tablet, Refills 3, Tot. Refills 0, Maintenance, 05/15/20 8:33:00 EDT, Route to Pharmacy Electronically, [facility] STORE 85736, 165, cm, 11/12/19 10:55:00 EST, Height, 75,... Start Date: 05/15/20 Status: Ordered gabapentin 600 mg oral tablet 1 tablet, By Mouth, 2 times a day, # 60 tablet, 2 Refills, Maintenance, 03/21/21 20:41:00 EDT, [facility], 165, cm, 02/15/21 9:39:00 EDT, Height Start [...] 11/03/20 8:37:00 EST, Route to Pharmacy Electronically, [facility]/pharmacy #[id number], 165, cm, 08/12/20 [...] INJ AUGMENT BONE GRAFT 1.5ML - WRGT ([id number]) 1 [employer] Unknown LILIAN:No Information Assigning Authority: FDA
--- OUTSIDE RECORDS SUMMARY | 2023-12-11 07:13 | XMS_ITS | Continuity of Care Document ---
Author Name Unknown Organization [facility] Address [address] [place] [address]- Care Team Providers Care Barrel Builder Name Role Phone Kristine Bhatia DO Primary Care Physician [facility] Date(s): 06/08/21 - 07/16/21 [facility] [address] [place] [address]- Attending Physician: Baldomero Fried MD Admitting Physician: [...] 11/03/20 8:37:00 EST, [id number], cm, 08/12/20 15:39:00 EDT, Height, [...] 11 Refills, Maintenance, 02/13/21 9:53:00 EDT, [id number], cm, 01/19/21 17:30:00 EDT, Height Start Date: 02/13/21 Stop Date: 02/08/22 Status: Ordered calcium (as carbonate)-vitamin D 500 mg-400 intl units oral tablet 1 tablet, By Mouth, Daily, # 300 tablet, 11 Refills, Maintenance, 11/03/20 8:37:00 EST, Tablet, [facility]/pharmacy #0693, 1 tablet By Mouth Daily, 165, cm, 08/12/20 15:39:00 EDT, Height, 75, kg, 02/12/19 9:43:00 EDT, Dry Weight Start Date: 11/03/20 Status: Ordered capsaicin 0.025% topical cream 1 application, Topically, 2 times a day, # 42 Gm, 0 Refills, Maintenance, 07/29/20 15:33:00 EDT, Cream, [facility]/pharmacy #[id number], 1 application Topically 2 times [...] Refills, Acute, 03/21/21 13:01:00 EDT, [facility], 165, cm, 02/15/21 9:39:00 EDT, Height Start Date: 03/21/21 Status: Ordered famotidine 20 mg oral tablet 1, tablet, By Mouth, Daily, AVOID EATING/DRINKING FOR 10 MINUTES AFTER EACH DOSE, # 90 tablet, Refills 3, Tot. Refills 0, Maintenance, 05/15/20 8:33:00 EDT, Route to Pharmacy Electronically, [facility], 165, cm, 11/12/19 10:55:00 EST, Height, 75,... Start Date: 05/15/20 Status: Ordered gabapentin 600 mg oral tablet 1 tablet, By Mouth, 2 times a day, # 60 tablet, 2 Refills, Maintenance, 03/21/21 20:41:00 EDT, [facility], 165, cm, 02/15/21 9:39:00 EDT, Height Start [...] 8:37:00 EST, Route to Pharmacy Electronically, [facility]/pharmacy #[id number], 165, cm, 08/12/20 15:39:00 EDT, [...] Refills, Maintenance, 10/12/20 10:00:00 EST, ECCapsule, [facility]/pharmacy #0693, 165, cm, 08/12/20 15:39:00 EDT, [...] INJ AUGMENT BONE GRAFT 1.5ML - WRGT ([id number]) 1 [employer] Unknown LILIAN:No Information Assigning Authority: FDA
--- OUTSIDE RECORDS SUMMARY | 2023-12-11 07:13 | XMS_ITS | Continuity of Care Document ---
Author Name Unknown Organization [facility] Address [address] [place] [address]- Care Team Providers Care Machine Builder Name Role Phone Shefali Sanchez MD Primary Care Physician [facility] Date[facility]s): 10/30/21 - 11/29/21 [facility] [address] [place] [address]- Allergies, Adverse Reactions, Alerts Substance Reaction Severity [...] 09/14/21 16:28:00 EST, Route to Pharmacy Electronically, [facility]/pharmacy #[id number], 165, cm, 09/14/21 14:59:00 [...] 3 Refills, Maintenance, 09/14/21 16:28:00 EST, Tablet, [facility]/pharmacy #0693, 165, cm, 09/14/21 14:59:00 EST, Height Start Date: 09/14/21 Stop Date: 09/09/22 Status: Ordered calcium (as carbonate)-vitamin D 500 mg-400 intl units oral tablet 1 tablet, By Mouth, Daily, # 300 tablet, 11 Refills, Maintenance, 11/03/20 8:37:00 EST, Tablet, [facility]/pharmacy #0693, 1 tablet By Mouth [...] 0 Refills, Maintenance, 07/29/20 15:33:00 EDT, Cream, [facility]/pharmacy #0693, 1 application Topically 2 times a day, 165, cm, 07/29/20 14:56:00 EDT, Height, 75, kg, 02/12/19 9:43:00 EDT, Dry Weight Start Date: 07/29/20 Status: Ordered diclofenac 1% topical gel = 2 Gm, Topically, 4 times a day, # 100 Gm, 5 Refills, Maintenance, 11/06/19 11:03:00 EST, Gel, [facility]/pharmacy #0693, 165, cm, 11/06/19 10:52:00 EST, Height, 75, kg, 02/12/19 9:43:00 EDT, Dry Weight Start Date: 11/06/19 Stop Date: 05/04/20 Status: Ordered diclofenac potassium 50 mg oral tablet 1 tablet, By Mouth, 3 times a day, PRN NEEDED FOR ARTHRITIS, WITH FOOD, # 50 tablet, 2 Refills, Acute, 03/21/21 13:01:00 EDT, [facility], 165, cm, 02/15/21 9:39:00 EDT, Height Start Date: 03/21/21 Status: Ordered doxepin 10 mg oral capsule 1 capsule = 10 mg, By Mouth, Daily at bedtime, # 30 capsule, 0 Refills, Maintenance, 11/27/21 17:54:00 EST, [facility]/pharmacy #[id number], Partial fill upon patient [...] EDT, Route to Pharmacy Electronically, [facility], 165, cm, 11/12/19 10:55:00 EST, Height, 75,... [...] 09/14/21 16:29:00 EST, Route to Pharmacy Electronically, [facility]/pharmacy #[id number], 165, cm, 09/14/21 14:59:00 EST, Height Start Date: 09/14/21 Stop Date: 09/09/22 Status: Ordered melatonin 10 mg oral tablet 1 tablet = 10 mg, By Mouth, Daily at bedtime, PRN as needed for insomnia, # 200 tablet, 0 Refills, Maintenance, 09/29/21 16:15:00 EST, Tablet, [facility]/pharmacy #0693, Partial fill upon patient request ifthe prescription is for a schedule II opioid drug.,... Start Date: 09/29/21 Status: Ordered meloxicam 7.5 mg oral tablet 1 tablet, By Mouth, Daily, # 30 tablet, 0 Refills, [facility] ST[facility] 35774, 165, cm, 10/26/21 9:52:00 EST, Height Start [...] 3 Refills, Maintenance, 10/12/20 10:00:00 EST, ECCapsule, [facility]/pharmacy #0693, 165, cm, 08/12/20 15:39:00 EDT, Height, 75, kg, 02/12/19 9:43:00 EDT, Dry Weight Start Date: 10/12/20 Stop Date: 02/09/21 Status: Ordered prazosin 5 mg oral capsule 10 mg, 2, capsule, By Mouth, Daily at bedtime, Dose increased to 10mg po qhs on 10/26/21, # 60 capsule, Refills 1, Tot. Refills 1, Maintenance, 10/26/21 10:31:00 EST, Route to Pharmacy Electronically, [facility]/pharmacy #0609, Partial fill upon patient requ... Start Date: [...] 1 Refills, Maintenance, 09/14/21 18:33:00EST, ER Tablet, [facility]/pharmacy #0693, Partial fill upon patient [...] INJ AUGMENT BONE GRAFT 1.5ML - WRGT ([id number]) 1 [employer] Unknown LILIAN:No Information Assigning Authority: FDA
--- OUTSIDE RECORDS SUMMARY | 2023-12-11 07:13 | XMS_ITS | Continuity of Care Document ---
Author Name Unknown Organization [facility] Address [address] [place] [address]- Care Team Providers Care Case Management Coordinator Name Role Phone Shefali Sanchez MD Primary Care Physician [facility] Date[facility]): [facility]22 - 12/15/22 [facility] [address] [place] [address]- Attending Physician: Baldomero Fried MD Admitting Physician: [...] By Mouth, Daily, # 90 tablet, Refills 0, Tot. Refills 0, Maintenance, 10/18/22 15:53:00 EST, [id number], cm, 10/18/22 15:02:00 EST, Height, 76.7, kg, 01/10/22 6:52:00 EST, Dry Weight Start Date: 10/18/22 Status: Ordered Ankle Brace Ankle Brace, See Instructions, # 1 units, Refills 0, Tot. Refills 0, Maintenance, Dx: L ankle swelling, 05/02/18 17:00:21 EDT, Compound Start Date: 05/02/18 Status: Ordered atorvastatin 40 mg oral tablet 1 tablet = 40 mg, By Mouth, Daily at bedtime, # 90 tablet, 3 Refills, Maintenance, 10/18/22 15:53:00 EST, [facility], cm, 10/18/22 15:02:00 EST, Height, 76.7, kg, 01/10/22 6:52:00 EST, Dry Weight Start Date: 10/18/22 Status: Ordered calcium (as carbonate)-vitamin D 500 mg-400 intl units oral tablet 1 tablet, By Mouth, Daily, # 90 tablet, 1 Refills, Maintenance, 10/18/22 15:54:00 EST, [facility], 1 tablet By Mouth Daily, 165, [...] Mouth, Daily, # 30 tablet, 0 Refills, [facility] STORE 07420, 165, cm, 10/26/21 9:52:00 EST, Height Start [...] drug. Start Date: 01/10/22 Status: Ordered Pen Marcell, 31 G x 8 mm BD Ultra [...] 01/02/22 11:52:00 EST, Route to Pharmacy Electronically, [facility]/pharmacy #[id number], Partial fill upon patient requ... Start Date: 01/02/22 Status: Ordered Right Hand Wrist Splint Right Hand Wrist Splint, See Instructions, # 1 each, Refills 0, Tot. Refills 0, Maintenance, Right Hand Wrist Splint To use for carpal tunnel Dx: G56.01 Duration: Lifetime, 01/02/21 10:32:00 EST, Supply Start Date: 01/02/21 Status: Ordered Problem List Condition Confirmation Course [...] MRI Safety Implantable Status Assigning Authority Unknown [id number] Unknown 08/31/19 Unknown Unknown Active Unkn own Unknown Unknown [id number] Unknown 08/31/21 Unknown Unknown Active Un known Patient Care team information Care Team Personnel Name: Shefali Sanchez MD Position: [facility] Resident Member Role: PCP Address: Address: [address] [place] [address]- Name: Jean-Paul Clay RN Position: S RN Member Role: Primary Care Nurse Care Team Related Persons Name: YAMILA REYNOLDS Address: home [address] [place] [address] Name: MARKUS MATA Address: home [address] [place] [address] Name: KENZIE HENDRICKSON Address: home [address] [place] [address]
--- OUTSIDE RECORDS SUMMARY | 2023-12-11 07:13 | XMS_ITS | Continuity of Care Document ---
Author Name Unknown Organization [facility] Address [address] [place] [address]- Care Team Providers Care Tallow Maker Name Role Phone Shefali Sanchez MD Primary Care Physician [facility] Date[facility]s): 07/19/22 - 08/18/22 [facility] [address] [place] [address]- Attending Physician: Mony Whitney Admitting Physician: Mony [...] 09/14/21 16:28:00 EST, [id number] 165, cm, 09/14/21 14:59:00 EST, [...] 3 Refills, Maintenance, 09/14/21 16:28:00 EST, Tablet[facility] 165, cm, 09/14/21 14:59:00 EST, Height Start Date: 09/14/21 Stop Date: 09/09/22 Status: Ordered calcium (as carbonate)-vitamin D 500 mg-400 intl units oral tablet 1 tablet, By Mouth, Daily, # 90 tablet, 1 Refills, Maintenance, 05/23/22 9:24:00 EDT, Tablet, [facility]/pharmacy #0957, 1 tablet By Mouth Daily, 165, [...] 5 Refills, Maintenance, 04/17/22 10:57:00 EDT, Solution, [facility]/pharmacy #0957, Partial fill upon patient request if the prescription is for a schedule II opioid drug., 165, cm, 03/27/22 9:50:00 EDT, Marixa... Start Date: 04/17/22 Stop Date: 10/14/22 Status: Ordered lisinopril 10 mg oral tablet 10 mg, 1, tablet, By Mouth, Daily, # 90 tablet, Refills 3, Tot. Refills 3, Maintenance, 09/14/21 16:29:00 EST, Route to Pharmacy Electronically, [facility]/pharmacy #0693, 165, cm, 09/14/21 14:59:00 EST, Height Start Date: 09/14/21 Stop Date: 09/09/22 Status: Ordered meloxicam 7.5 mg oral tablet 1 tablet, By Mouth, Daily, # 30 tablet, 0 Refills, [facility] STORE 88187, 165, cm, 10/26/21 9:52:00 EST, Height Start [...] drug. Start Date: 01/10/22 Status: Ordered Pen [place], 31 G x 8 mm BD Ultra [...] 01/02/22 11:52:00 EST, Route to Pharmacy Electronically, [facility]/pharmacy #[id number], Partial fill upon patient requ... Start [...] 1 Refills, Maintenance, 09/14/21 18:33:00EST, ER Tablet, [facility]/pharmacy #0693, Partial fill upon patient request if the prescription is for a schedule II opioid drug., 165, cm, 09/14/21 14:59:00... Start Date: 09/14/21 Status: Ordered Problem List Condition Confirmation Course [...] MRI Safety Implantable Status Assigning Authority Unknown [id number] Unknown 08/31/19 Unknown Unknown Active Unkn own Unknown Unknown [id number] Unknown 08/31/21 Unknown Unknown Active Un known Patient Care team information Personnel Name: Shefali Sanchez MD Address: Address: [address] [place] [address]
--- OUTSIDE RECORDS SUMMARY | 2023-12-11 07:13 | XMS_ITS | Continuity of Care Document ---
Author Name Unknown Organization [facility] Address [address] [place] [address]- Care Team Providers Care Head Strength And Conditioning Coach Name Role Phone Kristine Bhatia DO Primary Care Physician Encounter [facility] Date(s): 07/14/20 - 08/13/20 [facility] [address] [place] [address]- [facility] Allergies, Adverse Reactions, Alerts Substance Reaction [...] 11/06/19 11:00:00 EST, Route to Pharmacy Electronically, [facility]/pharmacy #[id number], 165, cm, 11/06/19 10:52:00 EST, Height, 75, [...] 11 Refills, Maintenance, 02/03/20 9:22:00 EDT, Tablet, [facility]/pharmacy #0693, 165, cm, 11/12/19 10:55:00 EST, Height, 75, kg, 02/12/19 9:43:00 EDT, Dry Weight Start Date: 02/03/20 Stop Date: 01/28/21 Status: Ordered calcium (as carbonate)-vitamin D 500 mg-400 intl units oral tablet 1 tablet, By Mouth, Daily, # 300 tablet, 11 Refills, Maintenance, 02/03/20 9:22:00 EDT, Tablet, [facility]/pharmacy #0693, 1 tablet By Mouth Daily, 165, cm, 11/12/19 10:55:00 EST, Height, 75, kg, 02/12/19 9:43:00 EDT, Dry Weight Start Date: 02/03/20 Status: Ordered capsaicin 0.025% topical cream 1 application, Topically, 2 times a day, # 42 Gm, 0 Refills, Maintenance, 07/29/20 15:33:00 EDT, Cream, [facility]/pharmacy #0693, 1 application Topically 2 [...] 05/15/20 8:33:00 EDT, Route to Pharmacy Electronically, [facility] STORE 02251, 165, cm, 11/12/19 10:55:00 EST, Height, 75,... Start Date: 05/15/20 Status: Ordered gabapentin 300 mg oral capsule 300 mg, 1, capsule, By Mouth, 2 times a day, Increased dose, # 180 capsule, Refills 1, Tot. Refills1, Maintenance, 05/23/20 11:16:00 EDT, [id number] 165, cm, 05/23/20 10:20:00 EDT, Height, 75, kg, 02/12/19 9... Start Date: 05/23/20 Stop Date: 11/19/20 Status: Ordered lisinopril 10 mg oral tablet 10 mg, 1, tablet, By Mouth, Daily, # 30 tablet, Refills 11, Tot. Refills 11, Maintenance, 11/06/19 11:00:00 EST, [id number] 165, cm, 11/06/19 10:52:00 EST, Height, 75, kg, 02/12/19 9:43:00 EDT, Dry Weight Start Date: 11/06/19 Stop Date: 10/31/20 Status: Ordered naloxone 4 mg/0.1 mL nasal spray See Instructions, Once may repeat every 2 to 3 minutes until patient responds, # 2 each, 0 Refills,Soft Stop, 10/29/18 15:17:51 EST Start Date: 10/29/18 Status: Ordered naproxen 500 mg (as sodium) oral tablet, extended release 2 tablet = 1,000 mg, By Mouth, Daily, PRN as needed for pain, do not chew or break tablets with food, # 14 tablet, 0 Refills, Maintenance, 08/12/20 16:11:00 EDT, ER Tablet, [facility]/pharmacy #0693, 165, cm, 08/12/20 15:39:00 EDT, Height, 75, kg, 02/12/19... Start Date: 08/12/20 Stop Date: 08/19/20 Status: Ordered omeprazole 20 mg oral enteric [...] INJ AUGMENT BONE GRAFT 1.5ML - WRGT ([id number]) 1 [employer] Unknown LILIAN:No Information Assigning Authority: FDA
--- OUTSIDE RECORDS SUMMARY | 2023-12-11 07:13 | XMS_ITS | Continuity of Care Document ---
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 Sprinkler Servicer Name Role Phone Shefali Sanchez MD Primary Care Physician [phone] [facility] Date[facility]s): 07/26/23 - 08/25/23 [facility] [address] [place] [id number] Allergies, Adverse Reactions, Alerts Substance Reaction [...] Refills, Maintenance, 01/21/23 15:58:00 EDT, [facility], 165, cm, 01/17/23 9:47:00 EDT, Height, 76.7, [...] Refills, Maintenance, 07/29/23 20:03:00 EDT, [facility], 165, cm, 03/25/23 14:55:00 EDT, Height, 76.7, kg, 01/10/22 6:52:00 EST, Dry Weight Start Date: 07/29/23 Status: Ordered calcium (as carbonate)-vitamin D 500 mg-400 intl units oral tablet 1 tablet, By Mouth, Daily, # 84 tablet, 2 Refills, Maintenance, 05/14/23 12:37:00 EDT, [facility], 84, TAKE 1 TABLET BY MOUTH EVERY DAY, 165, cm, 03/25/23 14:55:00 EDT, Height, 76.7, kg, 01/10/22 6:52:00 EST, Dry Weight Start Date: 05/14/23 Status: Ordered hydrOXYzine hydrochloride 25 mg oral tablet 1 capsule, By Mouth, 4 times a day, PRN NEEDED FOR PAIN OR ANXIETY, # 120 tablet, 0 Refills, Maintenance, 02/08/23 18:04:00 EDT, [facility], 165, cm, 01/17/23 9:47:00 EDT, Height, 76.7, [...] 5 Refills, Maintenance, 10/18/22 15:53:00 EST, Solution, [facility]/pharmacy #0957, Partial fill upon patient request if the prescription is for a schedule II opioid drug., 165, cm, 10/18/22 15:02:00 EST, Freddie Start Date: 10/18/22 Stop Date: 04/16/23 Status: Ordered lisinopril 10 mg oral tablet 10 mg, 1, tablet, By Mouth, Daily, # 30 tablet, Refills 11, Tot. Refills 11, Maintenance, 08/19/23 10:04:00 EDT, Route to Pharmacy Electronically, [facility]/pharmacy #0693, Partial fill upon patient request if the prescription is for a schedule II opioid dr... Start Date: 08/19/23 Status: Ordered lisinopril 10 mg oral tablet 10 mg, 1, tablet, By Mouth, Daily, # 90 tablet, Refills 3, Tot. Refills 3, Maintenance, 10/18/22 15:53:00 EST, Route to Pharmacy Electronically, [facility]/pharmacy #0693, 165, cm, 10/18/22 15:02:00 EST, Height, 76.7, kg, 01/10/22 6:52:00 EST, Dry Weight Start Date: 10/18/22 Status: Ordered meloxicam 7.5 mg oral tablet 1 tablet, By Mouth, Daily, # 30 tablet, 0 Refills, [facility] 94377, 165, cm, 10/26/21 9:52:00 EST, Height Start Date: 11/19/21 Status: Ordered Nasal Four 1% nasal spray 2 sprays, Nares, Both, Every 4 hours, PRN for nasal congestion, # 29.6 mL, 0 Refills, Maintenance, 08/19/23 10:00:00 EDT, [place] Partial fill upon patient request if [...] C... Start Date: 08/19/23 Status: Ordered Pen Ciales, 31 G x 8 mm BD Ultra [...] EDT, Route to Pharmacy Electronically, [facility], 165, cm, 01/17/23 9:47:00 EDT,Height, 76.7, kg, [...] 0 Refills, Maintenance, 08/19/23 10:02:00 EDT, Liquid, [facility]/pharmacy #0693, Partial fill upon patient [...] Refills, Maintenance, 04/23/23 14:24:00 EDT, [facility], 165, cm, 03/25/23 14:55:00 EDT, Height, 76.7, [...] MRI Safety Implantable Status Assigning Authority Unknown [id number] Unknown 08/31/19 Unknown Unknown Active Unkn own Unknown Unknown [id number] Unknown 08/31/21 Unknown Unknown Active Un known Patient Care team information Care Team Personnel Name: Shefali Sanchez MD Position: [facility] Resident Member Role: PCP Address: Address: [address] [place] [address] [place] [address]- Name: Jean-Paul Clay RN Position: [facility] RN Member Role: Primary Care Nurse Care Team Related Persons Name: FLACA YAMILA Address: home [address] [place] [address] Name: YAMILA REYNOLDS Address: home [address] [place] [address] Name: MARKUS MATA Address: home [address] [place] [address] Name: KENZIE HENDRICKSON Address: home [address] [place] [address]
--- OUTSIDE RECORDS SUMMARY | 2023-12-11 07:13 | XMS_ITS | Continuity of Care Document ---
Author Name Unknown Organization [facility] Address [address] [place] [address]- Care Team Providers Care Business Systems Architect Name Role Phone Shefali Sanchez MD Primary Care Physician [phone] [id number] Date(s): 01/09/22 - 07/22/[address] [address]- Attending Physician: Devon Holguin MD Admitting Physician: Devon Holguin MD Referring Physician: Kings CORDON, Hayley Kerr Allergies, Adverse Reactions, Alerts Substance Reaction Severity [...] 12/09/20 Recorded SARS-CoV-2 (COVID-19) mRNA BNT-162b2 vac 2/2/21 Recorded pneumococcal 23-valent vaccine 10/12/15 Given tetanus/diphtheria/pertussis, acel(Tdap) 12/24/13 Given Medications amLODIPine 5 mg oral tablet 5 mg, 1, tablet, By Mouth, Daily, # 90 tablet, Refills 3, Tot. Refills 3, Maintenance, 09/14/21 16:28:00 EST, [id number] 165, cm, 09/14/21 14:59:00 EST, [...] 3 Refills, Maintenance, 09/14/21 16:28:00 EST, Tablet, [id number] 165, cm, 09/14/21 14:59:00 EST, Height Start Date: 09/14/21 Stop Date: 09/09/22 Status: Ordered calcium (as carbonate)-vitamin D 500 mg-400 intl units oral tablet 1 tablet, By Mouth, Daily, # 90 tablet, 1 Refills, Maintenance, 05/23/22 9:24:00 EDT, Tablet, [facility]/pharmacy #0957, 1 tablet By Mouth Daily, [...] 5 Refills, Maintenance, 04/17/22 10:57:00 EDT, Solution, [facility]/pharmacy #0957, Partial fill upon patient request if the prescription is for a schedule II opioid drug., 165, cm, 03/27/22 9:50:00 EDT, Heigh... Start Date: 04/17/22 Stop Date: 10/14/22 Status: Ordered lisinopril 10 mg oral tablet 10 mg, 1, tablet, By Mouth, Daily, # 90 tablet, Refills 3, Tot. Refills 3, Maintenance, 09/14/21 16:29:00 EST, Route to Pharmacy Electronically, [facility]/pharmacy #0693, 165, cm, 09/14/21 14:59:00 EST, Height Start Date: 09/14/21 Stop Date: 09/09/22 Status: Ordered meloxicam 7.5 mg oral tablet 1 tablet, By Mouth, Daily, # 30 tablet, 0 Refills, [facility] 44158, 165, cm, 10/26/21 9:52:00 EST, Height Start [...] drug. Start Date: 01/10/22 Status: Ordered Pen [place], 31 G x 8 mm BD Ultra [...] 01/02/22 11:52:00 EST, Route to Pharmacy Electronically, [facility]/pharmacy #0693, Partial fill upon patient requ... [...] 1 Refills, Maintenance, 09/14/21 18:33:00EST, ER Tablet, [facility]/pharmacy #0693, Partial fill upon patient request [...] MRI Safety Implantable Status Assigning Authority Unknown [id number] Unknown 08/31/19 Unknown Unknown Active Unkn own Unknown Unknown [id number] Unknown 08/31/21 Unknown Unknown Active Un known Care Team Personnel Name: Shefali Sanchez MD Address: [address] [place] [address]
--- OUTSIDE RECORDS SUMMARY | 2023-12-11 07:13 | XMS_ITS | Continuity of Care Document ---
Author Name Unknown Organization [facility] Address [address] [place] [address]- Care Team Providers Care Eyeglass Cutter Name Role Phone Kristine Bhatia DO Primary Care Physician [place] [facility] Date(s): 10/11/20 - 11/10/20 [facility] [address] [place] [address]- Allergies, Adverse Reactions, Alerts Substance Reaction Severity [...] 11/03/20 8:37:00 EST, Route to Pharmacy Electronically, [facility]/pharmacy #0604, 165, cm, 08/12/20 15:39:00 EDT, Height, 75, [...] to Pharmacy Electronically, [facility] STORE 75029, 165, cm, 11/12/19 10:55:00 EST, Height, 75,... Start Date: 05/15/20 Status: Ordered gabapentin 300 mg oral capsule 300 mg, 1, capsule, By Mouth, 2 times a day, Increased dose, # 180 capsule, Refills 1, Tot. Refills1, Maintenance, 05/23/20 11:16:00 EDT, [id number], 165, cm, 05/23/20 10:20:00 EDT, Height, 75, kg, 02/12/19 9... Start Date: 05/23/20 Stop Date: 11/19/20 Status: Ordered lisinopril 10 mg oral tablet 10 mg, 1, tablet, By Mouth, Daily, # 30 tablet, Refills 11, Tot. Refills 11, Maintenance, 11/03/20 8:37:00 EST, [id number], 165, cm, 08/12/20 15:39:00 [...] 0 Refills, Maintenance, 08/18/20 10:05:00 EDT, Tablet, [facility]/pharmacy #0693, 165, [...] INJ AUGMENT BONE GRAFT 1.5ML - WRGT ([id number]) 1 [employer] Unknown LILIAN:No Information Assigning Authority: FDA
--- OUTSIDE RECORDS SUMMARY | 2023-12-11 07:13 | XMS_ITS | Continuity of Care Document ---
Author Name Unknown Organization [facility] Address [address] [place] [address]- Care Team Providers Care Fire Chief Deputy Name Role Phone Shefali Sanchez MD Primary Care Physician Encounter [facility] Date(s): 06/22/22 - 07/22/[address] [address]- Attending Physician: Mony Whitney Admitting Physician: Mony [...] 09/14/21 16:28:00 EST, [id number], cm, 09/14/21 14:59:00 EST, [...] 3 Refills, Maintenance, 09/14/21 16:28:00 EST, Tablet, [facility] 165, cm, 09/14/21 14:59:00 EST, Height Start Date: 09/14/21 Stop Date: 09/09/22 Status: Ordered calcium (as carbonate)-vitamin D 500 mg-400 intl units oral tablet 1 tablet, By Mouth, Daily, # 90 tablet, 1 Refills, Maintenance, 05/23/22 9:24:00 EDT, Tablet, [facility], 1 tablet By Mouth Daily, [...] 5 Refills, Maintenance, 04/17/22 10:57:00 EDT, Solution, [facility]/pharmacy #0957, Partial fill upon patient request if the prescription is for a schedule II opioid drug., 165, cm, 03/27/22 9:50:00 EDT, Marixa... Start Date: 04/17/22 Stop Date: 10/14/22 Status: Ordered lisinopril 10 mg oral tablet 10 mg, 1, tablet, By Mouth, Daily, # 90 tablet, Refills 3, Tot. Refills 3, Maintenance, 09/14/21 16:29:00 EST, [facility] 165, cm, 09/14/21 14:59:00 EST, Height Start Date: 09/14/21 Stop Date: 09/09/22 Status: Ordered meloxicam 7.5 mg oral tablet 1 tablet, By Mouth, Daily, # 30 tablet, 0 Refills, [facility] STORE 57784, 165, cm, 10/26/21 9:52:00 EST, Height Start [...] drug. Start Date: 01/10/22 Status: Ordered Pen [place], 31 G x 8 mm BD Ultra [...] 1 Refills, Maintenance, 09/14/21 18:33:00EST, ER Tablet, [facility]/pharmacy #0693, [...] MRI Safety Implantable Status Assigning Authority Unknown [id number] Unknown 08/31/19 Unknown Unknown Active Unkn own Unknown Unknown [id number] Unknown 08/31/21 Unknown Unknown Active Un known Care Team Personnel Name: Shefali Sanchez MD Address: [address] [place] [address]
--- OUTSIDE RECORDS SUMMARY | 2023-12-11 07:13 | XMS_ITS | Continuity of Care Document ---
Author Name Unknown Organization [facility] Address [address] [place] [address]- Care Team Providers Care Position Description Manager Name Role Phone Shefali Sanchez MD Primary Care Physician [facility] Date[facility]s): 02/15/22 - 03/17/22 [facility] [address] [place] [address] Attending Physician: Geno CORDON, Karol Monzon Admitting Physician: Karol Lora NP Allergies, Adverse Reactions, Alerts Substance Reaction [...] 3 Refills, Maintenance, 09/14/21 16:28:00 EST, Tablet, [facility]/pharmacy #0693, 165, cm, 09/14/21 14:59:00 EST, Height Start Date: 09/14/21 Stop Date: 09/09/22 Status: Ordered calcium (as carbonate)-vitamin D 500 mg-400 intl units oral tablet 1 tablet, By Mouth, Daily, # 300 tablet, 11 Refills, Maintenance, 11/03/20 8:37:00 EST, Tablet, [facility]/pharmacy #0693, 1 tablet By Mouth Daily, [...] 5 Refills, Maintenance, 02/21/22 10:27:00 EDT, [facility] Partial fill upon patient request if the prescription is for a schedule IIopioid drug., 165, cm, 02/15/22 8:10:00 EDT, Height... Start Date: 02/21/22 Status: Ordered lisinopril 10 mg oral tablet 10 mg, 1, tablet, By Mouth, Daily, # 90 tablet, Refills 3, Tot. Refills 3, Maintenance, 09/14/21 16:29:00 EST, [id number] 165, cm, 09/14/21 14:59:00 EST, Height Start Date: 09/14/21 Stop Date: 09/09/22 Status: Ordered meloxicam 7.5 mg oral tablet 1 tablet, By Mouth, Daily, # 30 tablet, 0 Refills, [facility] STORE 08384, 165, cm, 10/26/21 9:52:00 EST, Height Start [...] drug. Start Date: 01/10/22 Status: Ordered Pen Loraine, 31 G x 8 mm BD Ultra [...] 01/02/22 11:52:00 EST, Route to Pharmacy Electronically, [facility]/pharmacy #0693, Partial fill upon patient requ... [...] 1 Refills, Maintenance, 09/14/21 18:33:00EST, ER Tablet, [facility]/pharmacy #0693, Partial fill upon patient request [...] INJ AUGMENT BONE GRAFT 1.5ML - WRGT ([id number]) 1 [employer] Unknown LILIAN:No Information Assigning Authority: FDA
--- OUTSIDE RECORDS SUMMARY | 2023-12-11 07:13 | XMS_ITS | Continuity of Care Document ---
Author Name Unknown Organization [facility] Address [address] [place] [address]- Care Team Providers Care Ticker Maintainer Name Role Phone Kristine Bhatia DO Primary Care Physician Encounter [facility] Date(s): 03/02/21 - 04/14/[address] [address]- Attending Physician: Pedrito Vance MD Allergies, Adverse Reactions, Alerts Substance Reaction [...] 11/03/20 8:37:00 EST, Route to Pharmacy Electronically, [facility]/pharmacy #[id number], 165, cm, 08/12/20 15:39:00 EDT, [...] Refills, Acute, 03/21/21 13:01:00 EDT, [facility], 165, cm, 02/15/21 9:39:00 EDT, Height Start Date: 03/21/21 Status: Ordered famotidine 20 mg oral tablet 1, tablet, By Mouth, Daily, AVOID EATING/DRINKING FOR 10 MINUTES AFTER EACH DOSE, # 90 tablet, Refills 3, Tot. Refills 0, Maintenance, 05/15/20 8:33:00 EDT, Route to Pharmacy Electronically, [facility] 64[facility], 165, cm, 11/12/19 10:55:00 EST, Height, 75,... Start Date: 05/15/20 Status: Ordered gabapentin 600 mg oral tablet 1 tablet, By Mouth, 2 times a day, # 60 tablet, 2 Refills, Maintenance, 03/21/21 20:41:00 EDT, [facility], 165, cm, 02/15/21 9:39:00 EDT, Height Start [...] 11/03/20 8:37:00 EST, Route to Pharmacy Electronically, [facility]/pharmacy #[id number], 165, cm, 08/12/20 15:39:00 EDT, [...] INJ AUGMENT BONE GRAFT 1.5ML - WRGT ([id number]) 1 [employer] Unknown LILIAN:No Information Assigning Authority: FDA
--- OUTSIDE RECORDS SUMMARY | 2023-12-11 07:13 | XMS_ITS | Continuity of Care Document ---
Author Name Unknown Organization [facility] Address [address] [place] [address]- Care Team Providers Care Acid Dumper Name Role Phone Kristine Bhatia DO Primary Care Physician [place] [facility] [place] - 03/17/21 [facility] [address] [place] [address]- Attending Physician: Mony Whitney Admitting Physician: Mony [...] 11/03/20 8:37:00 EST, Route to Pharmacy Electronically, [facility]/pharmacy #[id number], 165, cm, 08/12/20 15:39:00 [...] 11 Refills, Maintenance, 02/13/21 9:53:00 EDT, Tablet, [facility]/pharmacy #[id number], 165, cm, 01/19/21 17:30:00 EDT, Height Start Date: 02/13/21 Stop Date: 02/08/22 Status: Ordered calcium (as carbonate)-vitamin D 500 mg-400 intl units oral tablet 1 tablet, By Mouth, Daily, # 300 tablet, 11 Refills, Maintenance, 11/03/20 8:37:00 EST, Tablet, [facility]/pharmacy #[id number], 1 tablet By Mouth Daily, 165, cm, 08/12/20 15:39:00 EDT, Height, 75, kg, 02/12/19 9:43:00 EDT, Dry Weight Start Date: 11/03/20 Status: Ordered capsaicin 0.025% topical cream 1 application, Topically, 2 times a day, # 42 Gm, 0 Refills, Maintenance, 07/29/20 15:33:00 EDT, Cream, [facility]/pharmacy #[id number], 1 application Topically 2 times a day, 165, cm, 07/29/20 14:56:00 EDT, Height, 75, kg, 02/12/19 9:43:00 EDT, Dry Weight Start Date: 07/29/20 Status: Ordered diclofenac 1% topical gel = 2 Gm, Topically, 4 times a day, # 100 Gm, 5 Refills, Maintenance, 11/06/19 11:03:00 EST, Gel, [facility]/pharmacy #[id number], 165, cm, 11/06/19 10:52:00 EST, Height, 75, kg, 02/12/19 9:43:00 EDT, Dry Weight Start Date: 11/06/19 Stop Date: 05/04/20 Status: Ordered diclofenac potassium 50 mg oral tablet 1 tablet = 50 mg, By Mouth, 3 times a day, PRN for arthritis, with food, # 50 tablet, 2 Refills, Maintenance, 01/19/21 18:56:00 EDT, Tablet, [id number], Partial fill upon patient request if the prescription is for a schedule II opioid drug., 1... Start Date: 01/19/21 Status: Ordered famotidine 20 mg oral tablet 1, tablet, By Mouth, Daily, AVOID EATING/DRINKING FOR 10 MINUTES AFTER EACH DOSE, # 90 tablet, Refills 3, Tot. Refills 0, Maintenance, 05/15/20 8:33:00 EDT, Route to [facility]acy Electronically, [facility], 165, cm, 11/12/19 10:55:00 EST, Height, 75,... Start Date: 05/15/20 Status: Ordered gabapentin 600 mg oral tablet 1 tablet = 600 mg, By Mouth, 2 times a day, Increased dose, 600mg PO BID, # 60 tablet, 2 Refills, Maintenance, 01/02/21 9:18:00 EST, [id number], Partial fill upon patient [...] 11/03/20 8:37:00 EST, Route to Pharmacy Electronically, [facility]/pharmacy #[id number], 165, cm, 08/12/20 15:39:00 [...] INJ AUGMENT BONE GRAFT 1.5ML - WRGT ([id number]) 1 [employer] Unknown LILIAN:No Information Assigning Authority: FDA
--- OUTSIDE RECORDS SUMMARY | 2023-12-11 07:13 | XMS_ITS | Continuity of Care Document ---
Author Name Unknown Organization [facility] Address [address] [place] [address]- Care Team Providers Care Platen Press Feeder Name Role Phone Kristine Bhatia DO Primary Care Physician [facility]counter [facility] Date(s): 02/03/20 - 02/13/20 [facility] [address] [place] [address]- [facility] Attending Physician: Mony Whitney Admitting Physician: AdmtrMony [...] 11/06/19 11:00:00 EST, Route to Pharmacy Electronically, [facility]/pharmacy #[id number], 165, cm, 11/06/19 10:52:00 EST, [...] 11 Refills, Maintenance, 02/03/20 9:22:00 EDT, Tablet, [facility]/pharmacy #[id number], 165, cm, 11/12/19 10:55:00 EST, Height, 75, kg, 02/12/19 9:43:00 EDT, Dry Weight Start Date: 02/03/20 Stop Date: 01/28/21 Status: Ordered calcium (as carbonate)-vitamin D 500 mg-400 intl units oral tablet 1 tablet, By Mouth, Daily, # 300 tablet, 11 Refills, Maintenance, 02/03/20 9:22:00 EDT, Tablet, [facility]/pharmacy #[id number], 1 tablet By Mouth Daily, 165, cm, 11/12/19 10:55:00 EST, Height, 75, kg, 02/12/19 9:43:00 EDT, Dry Weight Start Date: 02/03/20 Status: Ordered diclofenac 1% topical gel = 2 Gm, Topically, 4 times a day, # 100 Gm, 5 Refills, Maintenance, 11/06/19 11:03:00 EST, Gel, [facility]/pharmacy #[id number], 165, cm, 11/06/19 10:52:00 EST, [...] 02/09/20 14:30:00 EDT, Route to Pharmacy Electronically, [facility]/pharmacy #[id number], 16... Start Date: 02/09/20 Status: Ordered lisinopril 10 mg oral tablet 10 mg, 1, tablet, By Mouth, Daily, # 30 tablet, Refills 11, Tot. Refills 11, Maintenance, 11/06/19 11:00:00 EST, Route to Pharmacy Electronically, [facility]/pharmacy #[id number], 165, cm, 11/06/19 10:52:00 EST, Height, 75, kg, 02/12/19 9:43:00 EDT, Dry Weight Start Date: 11/06/19 Stop Date: 10/31/20 Status: Ordered nabumetone 500 mg oral tablet 1 tablet = 500 mg, By Mouth, 2 times a day, # 6 tablet, 0 Refills, Maintenance, 11/06/19 11:03:00 EST, Tablet, [facility]/pharmacy #[id number], 165, cm, 11/06/19 10:52:00 EST, [...] INJ AUGMENT BONE GRAFT 1.5ML - WRGT ([id number]) 1 [employer] Unknown LILIAN:No Information Assigning Authority: FDA
--- OUTSIDE RECORDS SUMMARY | 2023-12-11 07:13 | XMS_ITS | Continuity of Care Document ---
Author Name Unknown Organization [facility] Address [address] [place] [address]- Care Team Providers Care Prosecuting Attorney Name Role Phone Shefali Sanchez MD Primary Care Physician [phone] Encounter [facility] Date(s): 03/27/22 - 04/26/22 [facility] [address] [place] [address]- Attending Physician: Mony Whitney Admitting Physician: Mony [...] 09/14/21 16:28:00 EST, Route to Pharmacy Electronically, [facility]/pharmacy #[id number], 165, cm, 09/14/21 14:59:00 [...] 3 Refills, Maintenance, 09/14/21 16:28:00 EST, Tablet, [facility]/pharmacy #[id number], 165, cm, 09/14/21 14:59:00 EST, Height Start Date: 09/14/21 Stop Date: 09/09/22 Status: Ordered calcium (as carbonate)-vitamin D 500 mg-400 intl units oral tablet 1 tablet, By Mouth, Daily, # 300 tablet, 11 Refills, Maintenance, 11/03/20 8:37:00 EST, Tablet, [facility]/pharmacy #[id number], 1 tablet By Mouth [...] 5 Refills, Maintenance, 04/17/22 10:57:00 EDT, Solution, [facility]/pharmacy #0957, Partial fill [...] Electronically, [facility]/pharmacy #[id number], 165, cm, 09/14/21 14:59:00 EST, Height Start Date: 09/14/21 Stop Date: 09/09/22 Status: Ordered meloxicam 7.5 mg oral tablet 1 tablet, By Mouth, Daily, # 30 tablet, 0 Refills, [facility] STORE 67519, 165, cm, 10/26/21 9:52:00 EST, Height Start [...] drug. Start Date: 01/10/22 Status: Ordered Pen [place], 31 G x 8 mm BD Ultra [...] 01/02/22 11:52:00 EST, Route to Pharmacy Electronically, [facility]/pharmacy #[id number], Partial fill upon [...] 1 Refills, Maintenance, 09/14/21 18:33:00EST, ER Tablet, [facility]/pharmacy #[id number], Partial fill [...] INJ AUGMENT BONE GRAFT 1.5ML - WRGT ([id number]) 1 [employer] Unknown LILIAN:No Information Assigning Authority: FDA
--- OUTSIDE RECORDS SUMMARY | 2023-12-11 07:13 | XMS_ITS | Continuity of Care Document ---
Author Name Unknown Organization [facility] Address [address] [place] [address]- Care Team Providers Care Bait Tier Name Role Phone Kristine Bhatia DO Primary Care Physician [place] [facility] [place] 03/01/21 [facility] [address] [place] [address]- Allergies, Adverse Reactions, Alerts Substance Reaction Severity [...] 11/03/20 8:37:00 EST, Route to Pharmacy Electronically, [facility]/pharmacy #[id number], 165, cm, 08/12/20 15:39:00 EDT, Height, [...] 2 Refills, Maintenance, 01/19/21 18:56:00 EDT, Tablet, [facility]/pharmacy #[id number], Partial fill upon patient request if the prescription is for a schedule II opioid drug., 1... Start Date: 01/19/21 Status: Ordered famotidine 20 mg oral tablet 1, tablet, By Mouth, Daily, AVOID EATING/DRINKING FOR 10 MINUTES AFTER EACH DOSE, # 90 tablet, Refills 3, Tot. Refills 0, Maintenance, 05/15/20 8:33:00 EDT, Route to Pharmacy Electronically, [facility] STORE 11495, 165, cm, 11/12/19 10:55:00 EST, Height, 75,... Start Date: 05/15/20 Status: Ordered gabapentin 600 mg oral tablet 1 tablet = 600 mg, By Mouth, 2 times a day, Increased dose, 600mg PO BID, # 60 tablet, 2 Refills, Maintenance, 01/02/21 9:18:00 EST, [facility]/pharmacy #[id number], Partial fill upon patient request if [...] 11/03/20 8:37:00 EST, Route to Pharmacy Electronically, [facility]/pharmacy #[id number], 165, cm, 08/12/20 15:39:00 EDT, Height, [...] INJ AUGMENT BONE GRAFT 1.5ML - WRGT ([id number]) 1 [employer] Unknown LILIAN:No Information Assigning Authority: FDA
--- OUTSIDE RECORDS SUMMARY | 2023-12-11 07:14 | XMS_ITS | Continuity of Care Document ---
Author Name Unknown Organization [facility] Address [address] [address]- Care Team Providers Care Truck Hopper Name Role Phone Daniel HUMPHREY, Shefali Primary Care Physician [phone] Encounter [facility] [place] Date(s): 05/23/23 - 06/22/23 [facility] [address] [address] Allergies, Adverse Reactions, Alerts Substance Reaction [...] Refills, Maintenance, 01/21/23 15:58:00 EDT, [facility], 165, cm, 01/17/23 9:47:00 EDT, Height, 76.7, [...] 3 Refills, Maintenance, 10/18/22 15:53:00 EST, Tablet, [facility]/pharmacy #[id number], 165, cm, 10/18/22 15:02:00 EST, Height, 76.7, kg, 01/10/22 6:52:00 EST, Dry Weight Start Date: 10/18/22 Status: Ordered calcium (as carbonate)-vitamin D 500 mg-400 intl units oral tablet 1 tablet, By Mouth, Daily, # 84 tablet, 2 Refills, Maintenance, 05/14/23 12:37:00 EDT, [facility] STORE 67160, 84, TAKE 1 TABLET BY MOUTH EVERY DAY, 165, cm, 03/25/23 14:55:00 EDT, Height, 76.7, kg, 01/10/22 6:52:00 EST, Dry Weight Start Date: 05/14/23 Status: Ordered hydrOXYzine hydrochloride 25 mg oral tablet 1 capsule, By Mouth, 4 times a day, PRN NEEDED FOR PAIN OR ANXIETY, # 120 tablet, 0 Refills, Maintenance, 02/08/23 18:04:00 EDT, [facility], 165, cm, 01/17/23 9:47:00 EDT, Height, 76.7, [...] 5 Refills, Maintenance, 10/18/22 15:53:00 EST, Solution, [facility]/pharmacy #[id number], Partial fill upon patient request if the prescription is for a schedule II opioid drug., 165, cm, 10/18/22 15:02:00 EST, Heig... Start Date: 10/18/22 Stop Date: 04/16/23 Status: Ordered lisinopril 10 mg oral tablet 10 mg, 1, tablet, By Mouth, Daily, # 90 tablet, Refills 3, Tot. Refills 3, Maintenance, 10/18/22 15:53:00 EST, Route to Pharmacy Electronically, [facility]/pharmacy #[id number], 165, cm, 10/18/22 15:02:00 EST, Height, 76.7, kg, 01/10/22 6:52:00 EST, Dry Weight Start Date: 10/18/22 Status: Ordered meloxicam 7.5 mg oral tablet 1 tablet, By Mouth, Daily, # 30 tablet, 0 Refills, [facility] STORE 97193, 165, cm, 10/26/21 9:52:00 EST, Height Start [...] drug. Start Date: 01/10/22 Status: Ordered Pen [place], 31 G x 8 mm BD Ultra [...] EDT, Route to [facility]acy Electronically, [facility], 165, cm, 01/17/23 9:47:00 EDT,Height, 76.7, kg, [...] 0 Refills, Maintenance, 01/17/23 10:13:00 EDT, Tablet, [facility]/pharmacy #[id number], Partial fill upon patient request if the prescription is for a schedule II opioid drug., 165, cm, 01/17/23 9:47:00 EDT, Height,... Start Date: 01/17/23 Status: Ordered Victoza 18 mg/3 mL subcutaneous solution See Instructions, INJECT 1.8 MG SUBCUTANEOUS INJECTION DAILY,X30 DAYS, # 9 Unknown, 5 Refills, Maintenance, 04/23/23 14:24:00 EDT, [facility], 165, cm, 03/25/23 14:55:00 EDT, Height, 76.7, [...] MRI Safety Implantable Status Assigning Authority Unknown [id number] Unknown 08/31/19 Unknown Unknown Active Unkn own Unknown Unknown [id number] Unknown 08/31/21 Unknown Unknown Active Un known Patient Care team information Care Team Personnel Name: Shefali Sanchez MD Position: [facility] Resident Member Role: PCP Address: Address: [address] [facility] [place] [address]- Name: Jean-Paul Clay RN Position: [facility] RN Member Role: Primary Care Nurse Care Team Related Persons Name: YAMILA REYNOLDS Address: home [address] [place] [address] Name: MARKUS MATA Address: home [address] [place] [address] Name: KENZIE HENDRICKSON Address: home [address] [place] [address]
--- OUTSIDE RECORDS SUMMARY | 2023-12-11 07:14 | XMS_ITS | Continuity of Care Document ---
Author Name Unknown Organization [facility] Address [address] [place] [address]- Care Team Providers Care Special Weapons Unit Officer Name Role Phone Kristine Bhatia DO Primary Care Physician [place] [facility] [place]21 - 06/01/21 [facility] [address] [place] [address]- Allergies, Adverse Reactions, Alerts Substance Reaction Severity [...] 11/03/20 8:37:00 EST, Route to Pharmacy Electronically, [facility]/pharmacy #[id number], 165, cm, 08/12/20 15:39:00 [...] 11 Refills, Maintenance, 02/13/21 9:53:00 EDT, Tablet, [facility]/pharmacy #[id number], 165, cm, 01/19/21 17:30:00 [...] 02/12/19 9:43:00 EDT, Dry Weight Start Date: 1/3/20 Stop Date: 05/04/20 Status: Ordered diclofenac potassium 50 mg oral tablet 1 tablet, By Mouth, 3 times a day, PRN NEEDED FOR ARTHRITIS, WITH FOOD, # 50 tablet, 2 Refills, Acute, 03/21/21 13:01:00 EDT, [facility], 165, cm, 02/15/21 9:39:00 EDT, Height Start Date: 03/21/21 Status: Ordered famotidine 20 mg oral tablet 1, tablet, By Mouth, Daily, AVOID EATING/DRINKING FOR 10 MINUTES AFTER EACH DOSE, # 90 tablet, Refills 3, Tot. Refills 0, Maintenance, 05/15/20 8:33:00 EDT, Route to Pharmacy Electronically, [facility], 165, cm, 11/12/19 10:55:00 EST, Height, 75,... Start Date: 05/15/20 Status: Ordered gabapentin 600 mg oral tablet 1 tablet, By Mouth, 2 times a day, # 60 tablet, 2 Refills, Maintenance, 03/21/21 20:41:00 EDT, [facility], 165, cm, 02/15/21 9:39:00 EDT, Height Start [...] 11/03/20 8:37:00 EST, Route to Pharmacy Electronically, [facility]/pharmacy #[id number], 165, cm, 08/12/20 15:39:00 [...] Putty DBM, [employer]oSync, 01ml, Human Allograft 1 [employer] Unknown LILIAN:No Information Assigning Authority: FDA INJ AUGMENT BONE GRAFT 1.5ML - WRGT ([id number]) 1 [employer] Unknown LILIAN:No Information Assigning Authority: FDA
--- OUTSIDE RECORDS SUMMARY | 2023-12-11 07:14 | XMS_ITS | Continuity of Care Document ---
Author Name Unknown Organization [facility] Address [address] [place] [address]- Care Team Providers Care Type Photography Supervisor Name Role Phone Kristine Bhatia DO Primary Care Physician [place] [facility] [place] 02/03/20 - 02/10/20 [facility] [address] [place] [phone] [facility] Attending Physician: Kristine Bhatia DO Admitting Physician: Kristine Bhatia DO Allergies, Adverse Reactions, [...] 11/06/19 11:00:00 EST, Route to Pharmacy Electronically, [facility] [...] 11 Refills, Maintenance, 02/03/20 9:22:00 EDT, Tablet, [facility]/pharmacy #[id number], 165, cm, 11/12/19 10:55:00 EST, Height, 75, kg, 02/12/19 9:43:00 EDT, Dry Weight Start Date: 02/03/20 Stop Date: 01/28/21 Status: Ordered calcium (as carbonate)-vitamin D 500 mg-400 intl units oral tablet 1 tablet, By Mouth, Daily, # 300 tablet, 11 Refills, Maintenance, 02/03/20 9:22:00 EDT, Tablet, [facility]/pharmacy #0693, 1 [...] 02/09/20 14:30:00 EDT, Route to Pharmacy Electronically, [facility]/pharmacy #[id number], 16... Start Date: 02/09/20 Status: Ordered lisinopril 10 mg oral tablet 10 mg, 1, tablet, By Mouth, Daily, # 30 tablet, Refills 11, Tot. Refills 11, Maintenance, 11/06/19 11:00:00 EST, Route to Pharmacy Electronically, [facility]/pharmacy #[id number], 165, cm, 11/06/19 10:52:00 EST, Height, 75, kg, 02/12/19 9:43:00 EDT, Dry Weight Start Date: 11/06/19 Stop Date: 10/31/20 Status: Ordered nabumetone 500 mg oral tablet 1 tablet = 500 mg, By Mouth, 2 times a day, # 6 tablet, 0 Refills, Maintenance, 11/06/19 11:03:00 EST, Tablet, [facility]/pharmacy #[id number], [...] INJ AUGMENT BONE GRAFT 1.5ML - WRGT ([id number]) 1 [employer] Unknown LILIAN:No Information Assigning Authority: FDA
--- OUTSIDE RECORDS SUMMARY | 2023-12-11 07:14 | XMS_ITS | Continuity of Care Document ---
Author Name Unknown Organization [facility] Adult [facility] Address [address] [place] [address]- Care Team Providers Care Manager Enterprise Name Role Phone Kristine Bhatia DO Primary Care Physician Encounter [facility] [place] Date(s): 12/29/19 - 02/24/20 [facility] Adult Medicine [address] [place] [address] [facility] Attending Physician: Kristine Bhatia DO Admitting Physician: Kristine Bhatia DO Allergies, Adverse Reactions, Alerts Substance Reaction Severity Status Percocet 5/325 itchy,rash Active Latex 1 Red,itchy after gastric [...] 11/06/19 11:00:00 EST, Route to Pharmacy Electronically, [facility]/pharmacy #[id number], 165, cm, 11/06/19 10:52:00 EST, [...] 11 Refills, Maintenance, 02/03/20 9:22:00 EDT, Tablet, [facility]/pharmacy #[id number], 165, cm, 11/12/19 10:55:00 EST, Height, 75, kg, 02/12/19 9:43:00 EDT, Dry Weight Start Date: 02/03/20 Stop Date: 01/28/21 Status: Ordered calcium (as carbonate)-vitamin D 500 mg-400 intl units oral tablet 1 tablet, By Mouth, Daily, # 300 tablet, 11 Refills, Maintenance, 02/03/20 9:22:00 EDT, Tablet, [facility]/pharmacy #[id number], 1 tablet By Mouth Daily, 165, cm, 11/12/19 10:55:00 EST, Height, 75, kg, 02/12/19 9:43:00 EDT, Dry Weight Start Date: 02/03/20 Status: Ordered diclofenac 1% topical gel = 2 Gm, Topically, 4 times a day, # 100 Gm, 5 Refills, Maintenance, 11/06/19 11:03:00 EST, Gel, [facility]/pharmacy #[id number], 165, cm, 11/06/19 10:52:00 EST, [...] 02/09/20 14:30:00 EDT, Route to Pharmacy Electronically, [facility]/pharmacy #[id number], 16... Start Date: 02/09/20 Status: Ordered lisinopril 10 mg oral tablet 10 mg, 1, tablet, By Mouth, Daily, # 30 tablet, Refills 11, Tot. Refills 11, Maintenance, 11/06/19 11:00:00 EST, Route to Pharmacy Electronically, [facility]/pharmacy #[id number], 165, cm, 11/06/19 10:52:00 EST, Height, 75, kg, 02/12/19 9:43:00 EDT, Dry Weight Start Date: 11/06/19 Stop Date: 10/31/20 Status: Ordered nabumetone 500 mg oral tablet 1 tablet = 500 mg, By Mouth, 2 times a day, # 6 tablet, 0 Refills, Maintenance, 11/06/19 11:03:00 EST, Tablet, [facility]/pharmacy #[id number], 165, cm, 11/06/19 10:52:00 EST, [...] INJ AUGMENT BONE GRAFT 1.5ML - WRGT ([id number]) 1 [employer] Unknown LILIAN:No Information Assigning Authority: FDA
--- OUTSIDE RECORDS SUMMARY | 2023-12-11 07:14 | XMS_ITS | Continuity of Care Document ---
Author Name Unknown Organization [facility] Address [address] [place] [address]- Care Team Providers Care Passementerie Worker Name Role Phone Kristine Bhatia DO Primary Care Physician Encounter [facility] Date(s): 09/22/20 - 10/22/20 [facility] [address] [place] [id number]- Allergies, Adverse Reactions, Alerts Substance Reaction Severity [...] 11:00:00 EST, Route to Pharmacy Electronically, [facility]/pharmacy #[id number], 165, cm, 11/06/19 10:52:00 [...] Refills, Maintenance, 02/03/20 9:22:00 EDT, Tablet, [facility]/pharmacy #[id number], 165, cm, 11/12/19 10:55:00 EST, Height, 75, kg, 02/12/19 9:43:00 EDT, Dry Weight Start Date: 02/03/20 Stop Date: 01/28/21 Status: Ordered calcium (as carbonate)-vitamin D 500 mg-400 intl units oral tablet 1 tablet, By Mouth, Daily, # 300 tablet, 11 Refills, Maintenance, 02/03/20 9:22:00 EDT, [facility], [id number], 1 tablet By Mouth [...] 8:33:00 EDT, Route to Pharmacy Electronically, [facility] STORE 45954, 165, cm, 11/12/19 10:55:00 EST, Height, 75,... Start Date: 05/15/20 Status: Ordered gabapentin 300 mg oral capsule 300 mg, 1, capsule, By Mouth, 2 times a day, Increased dose, # 180 capsule, Refills 1, Tot. Refills1, Maintenance, 05/23/20 11:16:00 EDT, [id number] 165, cm, 05/23/20 10:20:00 EDT, Height, 75, kg, 02/12/19 9... Start Date: 05/23/20 Stop Date: 11/19/20 Status: Ordered lisinopril 10 mg oral tablet 10 mg, 1, tablet, By Mouth, Daily, # 30 tablet, Refills 11, Tot. Refills 11, Maintenance, 11/06/19 11:00:00 EST, [id number] 165, cm, 11/06/19 10:52:00 EST, [...] Refills, Maintenance, 08/18/20 10:05:00 EDT, Tablet, [facility]/pharmacy #[id number], 165, cm, 08/12/20 15:39:00 [...] INJ AUGMENT BONE GRAFT 1.5ML - WRGT ([id number]) 1 [employer] Unknown LILIAN:No Information Assigning Authority: FDA
--- OUTSIDE RECORDS SUMMARY | 2023-12-11 07:14 | XMS_ITS | Continuity of Care Document ---
Author Name Unknown Organization [facility] Address [address] [place] [address]- Care Team Providers Care Magnetic Resonance Imaging Director Name Role Phone Shefali Sanchez MD Primary Care Physician [phone] [facility] - 10/22/21 [facility] [address] [place] [address]- Allergies, Adverse Reactions, Alerts Substance Reaction Severity [...] 09/14/21 16:28:00 EST, Route to Pharmacy Electronically, [facility]/pharmacy #[id number], 165, cm, 09/14/21 [...] 3 Refills, Maintenance, 09/14/21 16:28:00 EST, Tablet, [facility]/pharmacy #[id number], 165, cm, 09/14/21 14:59:00 EST, Height Start Date: 09/14/21 Stop Date: 09/09/22 Status: Ordered calcium (as carbonate)-vitamin D 500 mg-400 intl units oral tablet 1 tablet, By Mouth, Daily, # 300 tablet, 11 Refills, Maintenance, 11/03/20 8:37:00 EST, Tablet, [facility]/pharmacy #0693, 1 tablet By Mouth Daily, 165, cm, 08/12/20 15:39:00 EDT, Height, 75, kg, 02/12/19 9:43:00 EDT, Dry Weight Start Date: 11/03/20 Status: Ordered capsaicin 0.025% topical cream 1 application, Topically, 2 times a day, # 42 Gm, 0 Refills, Maintenance, 07/29/20 15:33:00 EDT, Cream, [facility]/pharmacy #0693, 1 application Topically 2 times a day, 165, cm, 07/29/20 14:56:00 EDT, Height, 75, kg, 02/12/19 9:43:00 EDT, Dry Weight Start Date: 07/29/20 Status: Ordered diclofenac 1% topical gel = 2 Gm, Topically, 4 times a day, # 100 Gm, 5 Refills, Maintenance, 11/06/19 11:03:00 EST, Gel, [facility]/pharmacy #0693, 165, cm, 11/06/19 10:52:00 EST, Height, 75, kg, 02/12/19 9:43:00 EDT, Dry Weight Start Date: 11/06/19 Stop Date: 05/04/20 Status: Ordered diclofenac potassium 50 mg oral tablet 1 tablet, By Mouth, 3 times a day, PRN NEEDED FOR ARTHRITIS, WITH FOOD, # 50 tablet, 2 Refills, Acute, 03/21/21 13:01:00 EDT, [id number], 165, cm, 02/15/21 9:39:00 EDT, Height Start [...] EDT, Route to Pharmacy Electronically, [facility], 165, cm, 11/12/19 10:55:00 EST, Height, 75,... [...] 09/14/21 16:29:00 EST, Route to Pharmacy Electronically, [facility]/pharmacy #[id number], 165, cm, 09/14/21 14:59:00 EST, Height Start Date: 09/14/21 Stop Date: 09/09/22 Status: Ordered melatonin 10 mg oral tablet 1 tablet = 10 mg, By Mouth, Daily at bedtime, PRN as needed for insomnia, # 200 tablet, 0 Refills, Maintenance, 09/29/21 16:15:00 EST, Tablet, [facility]/pharmacy #0693, Partial fill upon patient request ifthe [...] 3 Refills, Maintenance, 10/12/20 10:00:00 EST, ECCapsule, [facility]/pharmacy #0693, 165, cm, 08/12/20 15:39:00 EDT, Height, 75, kg, 02/12/19 9:43:00 EDT, Dry Weight Start Date: 10/12/20 Stop Date: 02/09/21 Status: Ordered prazosin 5 mg oral capsule 5 mg, 1, capsule, By Mouth, Daily at bedtime, # 90 capsule, Refills 0, Tot. Refills 0, Maintenance,09/29/21 16:16:00 EST, Route to Pharmacy Electronically, [facility]/pharmacy #0693, Partial fill upon [...] Refills, Maintenance, 09/14/21 18:33:00EST, ER Tablet, [facility], Partial fill upon patient request if the [...] INJ AUGMENT BONE GRAFT 1.5ML - WRGT ([id number]) 1 [employer] Unknown LILIAN:No Information Assigning Authority: FDA
--- OUTSIDE RECORDS SUMMARY | 2023-12-11 07:14 | XMS_ITS | Continuity of Care Document ---
Author Name Unknown Organization [facility] Address [address] [place] [address]- Care Team Providers Care Rn Transition Name Role Phone Shefali Sanchez MD Primary Care Physician [phone] [facility] 05[facility]/23 - 06/14/23 [facility] [address] [place] [address]- Attending Physician: Mony Whitney Admitting Physician: Mony [...] Refills, Maintenance, 01/21/23 15:58:00 EDT, [facility], 165, cm, 01/17/23 9:47:00 EDT, Height, 76.7, [...] 3 Refills, Maintenance, 10/18/22 15:53:00 EST, Tablet, [facility]/pharmacy #[id number], 165, cm, 10/18/22 15:02:00 EST, Height, 76.7, kg, 01/10/22 6:52:00 EST, Dry Weight Start Date: 10/18/22 Status: Ordered calcium (as carbonate)-vitamin D 500 mg-400 intl units oral tablet 1 tablet, By Mouth, Daily, # 84 tablet, 2 Refills, Maintenance, 05/14/23 12:37:00 EDT, [facility], 84, TAKE 1 TABLET BY MOUTH EVERY DAY, 165, cm, 03/25/23 14:55:00 EDT, Height, 76.7, kg, 01/10/22 6:52:00 EST, Dry Weight Start Date: 05/14/23 Status: Ordered hydrOXYzine hydrochloride 25 mg oral tablet 1 capsule, By Mouth, 4 times a day, PRN NEEDED FOR PAIN OR ANXIETY, # 120 tablet, 0 Refills, Maintenance, 02/08/23 18:04:00 EDT, [facility], 165, cm, 01/17/23 9:47:00 EDT, Height, 76.7, [...] 5 Refills, Maintenance, 10/18/22 15:53:00 EST, Solution, [facility]/pharmacy #0957, Partial fill upon patient request if the prescription is for a schedule II opioid drug., 165, cm, 10/18/22 15:02:00 EST, Heig... Start Date: 10/18/22 Stop Date: 04/16/23 Status: Ordered lisinopril 10 mg oral tablet 10 mg, 1, tablet, By Mouth, Daily, # 90 tablet, Refills 3, Tot. Refills 3, Maintenance, 10/18/22 15:53:00 EST, Route to Pharmacy Electronically, [facility]/pharmacy #[id number], 165, cm, 10/18/22 15:02:00 EST, Height, 76.7, kg, 01/10/22 6:52:00 EST, Dry Weight Start Date: 10/18/22 Status: Ordered meloxicam 7.5 mg oral tablet 1 tablet, By Mouth, Daily, # 30 tablet, 0 Refills, [facility] 458[facility], 165, cm, 10/26/21 9:52:00 EST, Height Start [...] drug. Start Date: 01/10/22 Status: Ordered Pen [place], 31 G x 8 mm BD Ultra [...] 02/08/23 18:04:00 EDT, Route to Pharmacy Electronically, [facility], 165, cm, 01/17/23 9:47:00 EDT,Height, 76.7, kg, [...] 0 Refills, Maintenance, 01/17/23 10:13:00 EDT, Tablet, [facility]/pharmacy #0693, Partial fill upon patient request if the prescription is for a schedule II opioid drug., 165, cm, 01/17/23 9:47:00 EDT, Height,... Start Date: 01/17/23 Status: Ordered Victoza 18 mg/3 mL subcutaneous solution See Instructions, INJECT 1.8 MG SUBCUTANEOUS INJECTION DAILY,X30 DAYS, # 9 Unknown, 5 Refills, Maintenance, 04/23/23 14:24:00 EDT, [facility], 165, cm, 03/25/23 14:55:00 EDT, Height, 76.7, kg, 01/10/22 6:52:00 EST, Dry Weight Start Date: 04/23/23 Status: Ordered Problem List Condition Confirmation Course Effective Dates Status Health Status Informant Avascular necrosis of left humoral head, resurfaced / Dr Andrei Michele Confirmed Active Tobacco use. Currently attempting to [...] MRI Safety Implantable Status Assigning Authority Unknown [id number] Unknown 08/31/19 Unknown Unknown Active Unkn own Unknown Unknown [id number] Unknown 08/31/21 Unknown Unknown Active Un known [...] Non-BH Authored Date: Radiology * Event Display: MRI Ankle/Foot, Non- BH Authored Date: Patient Care team information Care Team Personnel Name: Shefali Sanchez MD Position: S Resident Member Role: PCP Address: Address: [address] [place] [address] [place] [address]- Name: Jean-Paul Clay RN Position: S RN Member Role: Primary Care Nurse Care Team Related Persons Name: YAMILA REYNLODS Address: home [address] [place] [address] [address] [place] [address] Name: MARKUS MATA Address: home [address] [place] [address] Name: KENZIE HENDRICKSON Address: home [address] [place] [address]
--- OUTSIDE RECORDS SUMMARY | 2023-12-11 07:14 | XMS_ITS | Continuity of Care Document ---
Author Name Unknown Organization [facility] Address [address] [place] [address]- Care Team Providers Care Making Machine Catcher Name Role Phone Shefali Sanchez MD Primary Care Physician [phone] [facility]s): 09/20/21 - 10/20/21 [facility] [address] [place] [address]- Allergies, Adverse Reactions, Alerts Substance Reaction Severity [...] 09/14/21 16:28:00 EST, Route to Pharmacy Electronically, [facility]/pharmacy #[id number], 165, cm, 09/14/21 14:59:00 EST, Height [...] 3 Refills, Maintenance, 09/14/21 16:28:00 EST, Tablet, [facility]/pharmacy #0693, 165, cm, 09/14/21 14:59:00 EST, Height Start Date: 09/14/21 Stop Date: 09/09/22 Status: Ordered calcium (as carbonate)-vitamin D 500 mg-400 intl units oral tablet 1 tablet, By Mouth, Daily, # 300 tablet, 11 Refills, Maintenance, 11/03/20 8:37:00 EST, Tablet, [facility]/pharmacy #[id number], 1 tablet By Mouth Daily, 165, cm, 08/12/20 15:39:00 EDT, Height, 75, kg, 02/12/19 9:43:00 EDT, Dry Weight Start Date: 11/03/20 Status: Ordered capsaicin 0.025% topical cream 1 application, Topically, 2 times a day, # 42 Gm, 0 Refills, Maintenance, 07/29/20 15:33:00 EDT, Cream, [facility]/pharmacy #0693, 1 application Topically 2 times a day, 165, cm, 07/29/20 14:56:00 EDT, Height, 75, kg, 02/12/19 9:43:00 EDT, Dry Weight Start Date: 07/29/20 Status: Ordered diclofenac 1% topical gel = 2 Gm, Topically, 4 times a day, # 100 Gm, 5 Refills, Maintenance, 11/06/19 11:03:00 EST, Gel, [facility]/pharmacy #0693, 165, cm, 11/06/19 10:52:00 EST, Height, 75, kg, 02/12/19 9:43:00 EDT, Dry Weight Start Date: 11/06/19 Stop Date: 05/04/20 Status: Ordered diclofenac potassium 50 mg oral tablet 1 tablet, By Mouth, 3 times a day, PRN NEEDED FOR ARTHRITIS, WITH FOOD, # 50 tablet, 2 Refills, Acute, 03/21/21 13:01:00 EDT, [facility], 165, cm, 02/15/21 9:39:00 EDT, Height Start [...] 05/15/20 8:33:00 EDT, Route to Pharmacy Electronically, [facility], 165, cm, 11/12/19 10:55:00 EST, Height, 75,... [...] 09/14/21 16:29:00 EST, Route to Pharmacy Electronically, [facility]/pharmacy #[id number], 165, cm, 09/14/21 14:59:00 EST, Height Start Date: 09/14/21 Stop Date: 09/09/22 Status: Ordered melatonin 10 mg oral tablet 1 tablet = 10 mg, By Mouth, Daily at bedtime, PRN as needed for insomnia, # 200 tablet, 0 Refills, Maintenance, 09/29/21 16:15:00 EST, Tablet, [facility]/pharmacy #0693, Partial fill upon patient request ifthe [...] 3 Refills, Maintenance, 10/12/20 10:00:00 EST, ECCapsule, [facility]/pharmacy #0693, 165, cm, 08/12/20 15:39:00 EDT, Height, 75, kg, 02/12/19 9:43:00 EDT, Dry Weight Start Date: 10/12/20 Stop Date: 02/09/21 Status: Ordered prazosin 5 mg oral capsule 5 mg, 1, capsule, By Mouth, Daily at bedtime, # 90 capsule, Refills 0, Tot. Refills 0, Maintenance,09/29/21 16:16:00 EST, Route to Pharmacy Electronically, [facility]/pharmacy #0693, Partial fill upon patient [...] Refills, Maintenance, 09/14/21 18:33:00EST, ER Tablet, [facility], Partial fill upon patient request if the [...] INJ AUGMENT BONE GRAFT 1.5ML - WRGT ([id number]) 1 [employer] Unknown LILIAN:No Information Assigning Authority: FDA
--- OUTSIDE RECORDS SUMMARY | 2023-12-11 07:14 | XMS_ITS | Continuity of Care Document ---
Author Name Unknown Organization [facility] Address [address] [place] [address]- Care Team Providers Care Insurance And Benefits Clerk Name Role Phone Daniel HUMPHREY, Shefali Primary Care Physician [facility]s): 11/26/23 - 12/03/23 [facility] [address] [place], [place] [address] Attending Physician: Bienvenido Artis MD Referring Physician: Andrei Fletcher MD Allergies, Adverse Reactions, [...] Medications amLODIPine 5 mg oral tablet 1 tablet = 5 mg, By Mouth, Daily, # 90 tablet, 11 Refills, Maintenance, 08/19/23 10:04:00 EDT, Tablet, [facility]/pharmacy #0693, Partial fill upon patient [...] 5 Refills, Maintenance, 08/19/23 10:05:00 EDT, Tablet, [facility]/pharmacy #[id number], Partial fill upon patient request if the prescription is for a schedule II opioid drug., 165, cm, 08/19/23 9:40:00 EDT, Height,... Start Date: 08/19/23 Status: Ordered Home Blood Pressure Monitor See Instructions, # 1 each, Refills 0, Tot. Refills 0, Maintenance, HTN / i10 Lisinopril / Amlodipine Daily BP checks [facility], 10/24/23 20:06:00 EST, Supply, 165, cm, 10/24/23 16:33:00 EST, Height, 76.7, kg, 01/10/22 6:52:00 EST, Dry Weight Start Date: 10/24/23 Status: Ordered ibuprofen 800 mg oral tablet 800 mg, 1, tablet, By Mouth, 3 times a day, not to exceed 3200 mg/day with food or milk, # 90 tablet, Refills 1, Tot. Refills 1, Acute 12/20/23 20:09:00 EST, 10/24/23 20:09:00 EST, Route to Pharmacy Electronically, [facility]/pharmacy #[id number], Partial fill up... Start Date: 10/24/23 Stop [...] 5 Refills, Maintenance, 10/18/22 15:53:00 EST, Solution, [facility]/pharmacy #0957, Partial fill upon patient request if the prescription is for a schedule II opioid drug., 165, cm, 10/18/22 15:02:00 EST, Heig... Start Date: 10/18/22 Stop Date: 04/16/23 Status: Ordered lisinopril 10 mg oral tablet 10 mg, 1, tablet, By Mouth, Daily, # 30 tablet, Refills 11, Tot. Refills 11, Maintenance, 08/19/23 10:04:00 EDT, Route to Pharmacy Electronically, [facility]/pharmacy #[id number], Partial fill upon patient request if the prescription is for a schedule II opioid drEric. Start Date: 08/19/23 Status: Ordered Pen [place], 31 G x 8 mm BD Ultra Fine III See Instructions, # 100 each, Refills 5, Tot. Refills 5, Maintenance, use as directed for Type 2 Diabetes Mellitus, 01/30/22 15:20:00 EDT, Supply, 165, cm, 01/15/22 17:37:00 EDT, Height, 76.7, kg, 01/10/22 6:52:00 EST, Dry Weight Start Date: 01/30/22 Stop Date: 07/29/22 Status: Ordered Right Hand Wrist Splint Right Hand Wrist Splint, See Instructions, # 1 each, Refills 0, Tot. Refills 0, Maintenance, Right Hand Wrist Splint To use for carpal tunnel Dx: G56.01 Duration: [facility], 01/02/21 10:32:00 EST, Supply Start Date: 01/02/21 Status: Ordered Tylenol 8 Hour 650 mg oral tablet, extended release 2 tablet = 1,300 mg, By Mouth, Every 8 hours, PRN as needed for fever, # 24 tablet, 1 Refills, Maintenance, 08/19/23 9:59:00 EDT, ER Tablet, [facility]/pharmacy #[id number], Partial fill upon patient request if the prescription is for a schedule II opioid drug., 1... Start Date: 08/19/23 Status: Ordered Problem List Condition Confirmation Course [...] 2heroin, cocaine 3Left, on CT abdo 2013 Vital Signs Most recent to oldest [Reference Range]: 1 Height 165 cm (11/26/23 12:59 PM) Weight 76 kg (11/26/23 12:59 PM) Oxygen Saturation [94-100 %] 100 % (11/26/23 12:59 PM) Pulse Rate [55-90 bpm] 78 bpm (11/26/23 12:59 PM) Body Mass Index [18.5-24.99 kg/m2] 27.92 kg/m2 *H* (11/26/23 12:59 PM) Blood Pressure [90-138/55-84 mm Hg] 119/ 71mm Hg (11/26/23 12:59 PM) Respiratory Rate [16-30 br/min] 16 br/mi n (11/26/23 12:59 PM) Mode of Delivery (Oxygen) Room air (11/26/23 12:59 PM) Blood pressure sites Arm, right (11/26/23 12:59 PM) Weight Obtained Via Standing scale (11/26/23 12:59 PM) Social History Social History Type Response Smoking [...] MRI Safety Implantable Status Assigning Authority Unknown [id number] Unknown 08/31/19 Unknown Unknown Active Unkn own Unknown Unknown [id number] Unknown 08/31/21 Unknown Unknown Active Un known EKG study * Event Display: ECG 12-Lead Authored Date: Please click on pdf link to open report * Event Display: ECG 12-Lead Authored Date: Ventricular Rate: 70 BPM Atrial Rate: 70 BPM P-R Interval: 194 ms QRS Duration: 78 ms Q-T Interval: 406 ms QTC Calculation(Bazett): 438 ms P [place]: 47 degrees R [place]: -28 degrees T [place]: 86 degrees Normal sinus rhythm Normal ECG When compared with ECG of 13-DEC-2021 09:04, No significant change was found Confirmed by DUY KOVACS ([id number]) on 11/26/2023 9:42:46 PM [place]: DUY KOVACS Patient Care team information Care Team Personnel Name: Shefali Sanchez MD Position: S Resident Member Role: PCP Address: Address: [address] [place] [address] Name: Jean-Paul Clay RN Position: S RN Member Role: Primary Care Nurse Care Team Related Persons Name: YAMILA THAYER Address: home [address] [place] [address] Name: YAMILA REYNOLDS Address: [address] [place] [address] Name: MARKUS MATA Address: home [address] [place] [address] Name: KENZIE HENDRICKSON Address: home [address] [place] [address]
--- OUTSIDE RECORDS SUMMARY | 2023-12-11 07:14 | XMS_ITS | Continuity of Care Document ---
Author Name Unknown Organization [facility] Address [address] [place] [address]- Care Team Providers Care Movie Extra Name Role Phone Shefali Sanchez MD Primary Care Physician [facility]s): 04/17/22 - 05/17/22 [facility] [address] [place] [address] Allergies, Adverse Reactions, Alerts Substance Reaction [...] 16:28:00 EST, Route to Pharmacy Electronically, [facility] [...] Refills, Maintenance, 09/14/21 16:28:00 EST, Tablet, [facility]/pharmacy #[id number], 165, cm, 09/14/21 14:59:00 EST, Height Start Date: 09/14/21 Stop Date: 09/09/22 Status: Ordered calcium (as carbonate)-vitamin D 500 mg-400 intl units oral tablet 1 tablet, By Mouth, Daily, # 300 tablet, 11 Refills, Maintenance, 11/03/20 8:37:00 EST, Tablet, [facility]/pharmacy #[id number], 1 tablet By Mouth Daily, [...] tablet, 0 Refills, [facility] 29[facility], 165, cm, 10/26/21 9:52:00 EST, Height Start [...] drug. Start Date: 01/10/22 Status: Ordered Pen [place], 31 G x 8 mm BD Ultra [...] Putty DBM, AlloSync, 01ml, Human Allograft 1 [employer] Unknown LILIAN:No Information Assigning Authority: FDA INJ AUGMENT BONE GRAFT 1.5ML - WRGT ([id number]) 1 [employer] Unknown LILIAN:No Information Assigning Authority: FDA
--- OUTSIDE RECORDS SUMMARY | 2023-12-11 07:14 | XMS_ITS | Continuity of Care Document ---
Author Name Unknown Organization [facility] Address [address] [place] [address]- Care Team Providers Care Commercial Attache Name Role Phone Kristine Bhatia DO Primary Care Physician Encounter [facility] Date(s): 02/08/21 - 03/10/21 [facility] [address] [address]- Attending Physician: Mony Whitney Admitting Physician: AdmMony [...] 11/03/20 8:37:00 EST, Route to Pharmacy Electronically, [facility]/pharmacy #[id number], 165, cm, 08/12/20 [...] 11 Refills, Maintenance, 02/13/21 9:53:00 EDT, Tablet, [facility]/pharmacy #[id number], 165, cm, 01/19/21 17:30:00 EDT, Height Start Date: 02/13/21 Stop Date: 02/08/22 Status: Ordered calcium (as carbonate)-vitamin D 500 mg-400 intl units oral tablet 1 tablet, By Mouth, Daily, # 300 tablet, 11 Refills, Maintenance, 11/03/20 8:37:00 EST, Tablet, [facility]/pharmacy #[id number], 1 tablet By Mouth Daily, 165, cm, 08/12/20 15:39:00 EDT, Height, 75, kg, 02/12/19 9:43:00 EDT, Dry Weight Start Date: 11/03/20 Status: Ordered capsaicin 0.025% topical cream 1 application, Topically, 2 times a day, # 42 Gm, 0 Refills, Maintenance, 07/29/20 15:33:00 EDT, Cream, [facility]/pharmacy #0693, 1 application Topically 2 times a day, 165, cm, 07/29/20 14:56:00 EDT, Height, 75, kg, 02/12/19 9:43:00 EDT, Dry Weight Start Date: 07/29/20 Status: Ordered diclofenac 1% topical gel = 2 Gm, Topically, 4 times a day, # 100 Gm, 5 Refills, Maintenance, 11/06/19 11:03:00 EST, Gel, [facility]/pharmacy #0693, 165, cm, 11/06/19 10:52:00 EST, Height, 75, kg, 02/12/19 9:43:00 EDT, Dry Weight Start Date: 11/06/19 Stop Date: 05/04/20 Status: Ordered diclofenac potassium 50 mg oral tablet 1 tablet = 50 mg, By Mouth, 3 times a day, PRN for arthritis, with food, # 50 tablet, 2 Refills, Maintenance, 01/19/21 18:56:00 EDT, Tablet, [facility]/pharmacy #0693, Partial fill upon patient request if the prescription is for a schedule II opioid drug., 1... Start Date: 01/19/21 Status: Ordered famotidine 20 mg oral tablet 1, tablet, By Mouth, Daily, AVOID EATING/DRINKING FOR 10 MINUTES AFTER EACH DOSE, # 90 tablet, Refills 3, Tot. Refills 0, Maintenance, 05/15/20 8:33:00 EDT, Route to Pharmacy Electronically, [facility] 633[facility], 165, cm, 11/12/19 10:55:00 EST, Height, 75,... [...] 11/03/20 8:37:00 EST, Route to Pharmacy Electronically, [facility]/pharmacy #[id number], 165, cm, 08/12/20 [...] INJ AUGMENT BONE GRAFT 1.5ML - WRGT ([id number]) 1 [employer] Unknown LILIAN:No Information Assigning Authority: FDA
--- OUTSIDE RECORDS SUMMARY | 2023-12-11 07:14 | XMS_ITS | Continuity of Care Document ---
Author Name Unknown Organization [facility] Address [address] [place] [address]- Care Team Providers Care Novelty Twister Tender Name Role Phone Shefali Sanchez MD Primary Care Physician [phone] [facility] Date[facility]s): 04/03/22 - 05/03/22 [facility] [address] [place] [address]- Allergies, Adverse Reactions, Alerts Substance Reaction Severity [...] 09/14/21 16:28:00 EST, Route to Pharmacy Electronically, [facility]/pharmacy #[id number], 165, cm, 09/14/21 14:59:00 EST, Height [...] 3 Refills, Maintenance, 09/14/21 16:28:00 EST, Tablet, [facility]/pharmacy #0693, 165, cm, 09/14/21 14:59:00 EST, Height Start Date: 09/14/21 Stop Date: 09/09/22 Status: Ordered calcium (as carbonate)-vitamin D 500 mg-400 intl units oral tablet 1 tablet, By Mouth, Daily, # 300 tablet, 11 Refills, Maintenance, 11/03/20 8:37:00 EST, Tablet, [facility]/pharmacy #0693, 1 tablet By Mouth Daily, 165, [...] 5 Refills, Maintenance, 04/17/22 10:57:00 EDT, Solution, [facility]/pharmacy #0957, Partial fill upon patient request if the prescription is for a schedule II opioid drug., 165, cm, 03/27/22 9:50:00 EDT, Heigh... Start Date: 04/17/22 Stop Date: 10/14/22 Status: Ordered lisinopril 10 mg oral tablet 10 mg, 1, tablet, By Mouth, Daily, # 90 tablet, Refills 3, Tot. Refills 3, Maintenance, 09/14/21 16:29:00 EST, Route to Pharmacy Electronically, [facility]/pharmacy #[id number], 165, cm, 09/14/21 14:59:00 EST, Height Start Date: 09/14/21 Stop Date: 09/09/22 Status: Ordered meloxicam 7.5 mg oral tablet 1 tablet, By Mouth, Daily, # 30 tablet, 0 Refills, [facility], 165, cm, 10/26/21 9:52:00 EST, Height Start [...] drug. Start Date: 01/10/22 Status: Ordered Pen [place], 31 G x 8 mm BD Ultra [...] 01/02/22 11:52:00 EST, Route to Pharmacy Electronically, [facility]/pharmacy #[id number], Partial fill upon patient requ... Start [...] 1 Refills, Maintenance, 09/14/21 18:33:00EST, ER Tablet, [facility]/pharmacy #0693, Partial fill upon patient request if [...] Putty DBM, AlloSync, 01ml, Human Allograft 1 [employer] Unknown LILIAN:No Information Assigning Authority: FDA INJ AUGMENT BONE GRAFT 1.5ML - WRGT ([id number]) 1 [employer] Unknown LILIAN:No Information Assigning Authority: FDA
--- OUTSIDE RECORDS SUMMARY | 2023-12-11 07:14 | XMS_ITS | Continuity of Care Document ---
Author Name Unknown Organization [facility] Address [address] [place] [address]- Care Team Providers Care Reconstructive Dentist Name Role Phone Shefali Sanchez MD Primary Care Physician [phone] Encounter [facility] Date(s): 04/04/22 - 05/04/22 [facility] [address] [place] [id number]- Allergies, Adverse Reactions, Alerts Substance Reaction Severity [...] 16:28:00 EST, Route to Pharmacy Electronically, [facility]/pharmacy #[id number], 165, cm, 09/14/21 14:59:00 EST, [...] Refills, Maintenance, 09/14/21 16:28:00 EST, Tablet, [facility]/pharmacy #[id number], 165, cm, 09/14/21 14:59:00 EST, Height Start Date: 09/14/21 Stop Date: 09/09/22 Status: Ordered calcium (as carbonate)-vitamin D 500 mg-400 intl units oral tablet 1 tablet, By Mouth, Daily, # 300 tablet, 11 Refills, Maintenance, 11/03/20 8:37:00 EST, Tablet, [facility]/pharmacy #[id number], 1 tablet By Mouth Daily, [...] 5 Refills, Maintenance, 04/17/22 10:57:00 EDT, Solution, [facility]/pharmacy #[id number], Partial fill upon patient request if the prescription is for a schedule II opioid drug., 165, cm, 03/27/22 9:50:00 EDT, Heigh... Start Date: 04/17/22 Stop Date: 10/14/22 Status: Ordered lisinopril 10 mg oral tablet 10 mg, 1, tablet, By Mouth, Daily, # 90 tablet, Refills 3, Tot. Refills 3, Maintenance, 09/14/21 16:29:00 EST, Route to Pharmacy Electronically, [facility]/pharmacy #[id number], 165, cm, 09/14/21 14:59:00 EST, Height Start Date: 09/14/21 Stop Date: 09/09/22 Status: Ordered meloxicam 7.5 mg oral tablet 1 tablet, By Mouth, Daily, # 30 tablet, 0 Refills, [id number], 165, cm, 10/26/21 9:52:00 EST, Height Start [...] drug. Start Date: 01/10/22 Status: Ordered Pen [place], 31 G x 8 mm BD Ultra [...] 01/02/22 11:52:00 EST, Route to Pharmacy Electronically, [facility]/pharmacy #[id number], Partial fill upon patient requ... [...] 1 Refills, Maintenance, 09/14/21 18:33:00EST, ER Tablet, [facility]/pharmacy #[id number], Partial fill upon patient request [...] INJ AUGMENT BONE GRAFT 1.5ML - [employer] ([id number]) [employer] Unknown LILIAN:No Information Assigning Authority: FDA
--- NOTE | 2023-12-11 07:18 | PHA.MEDREC ---
Pharmacy Consult ? Medication Reconciliation Pharmacy has completed the medication reconciliation. Reviewed med rec done by nursing
[2023-12-11] MEDS: Lactated Ringers 1,000 ML 100 ML IVCONT ×3 (07:24→20:18)
--- NOTE | 2023-12-11 07:57 | MHC.SHP ---
Pre-Procedural Eval Section A - 24 Hr Update-Section A only Date of Service: 12/11/23 The patient is an INPATIENT: No Changes since office visit: No Cold of Flu in the past 2 weeks, No New Medical Problems, No Changes in Medication and No Patient answered all questions The patient has been examined within 24 hours of the surgical procedure. The History & Physical has been completed within 30 days and I have reviewed it.: Yes Section B - Complete if H&P > 30 days Chief Complaint: cinversion of partial left shoulder to Lt TSA Allergies: Allergies Allergy/AdvReac Type Severity Reaction Status Date / Time acetaminophen [Percocet] Allergy Severe Itching Verified 12/11/23 06:59 latex Allergy Severe Rash Verified 12/11/23 06:59 oxycodone [Percocet] Allergy Severe Itching Verified 12/11/23 06:59 Plan I have reviewed the history and physical and performed a pertinent physical examination on my patient. No changes have occurred unless specified. Time Spent With Patient Time: Total time managing care of this patient today ____ minutes.
--- NOTE | 2023-12-11 10:39 | P.BOP_ITS ---
Brief Operative Note Date of Service: 12/11/23 Pre-op diagnosis: Left shoulder resurfacing Post-op diagnosis: same Procedure: Left hsoulder recvision arthroplasty Implants: Tournier small cortiloc cemented with A18 Simpliciti Surgeon: Andrei Fletcher MD Anesthesia: GETA Was an Boiler Tube Reamer used for this Procedure?: Yes Boiler Tube Reamer: Michaela Melo Estimated blood loss (mL): 150 IV fluids (mL): 1,000 Pathology: other Condition: stable Disposition: PACU
[2023-12-11] MEDS: oxyCODONE HCl ER 10 MG TAB.ER.12H PO ×2 (12:08→20:19)
[2023-12-11] MEDS: Celecoxib 200 MG CAPSULE PO ×2 (12:08→20:19)
[2023-12-11] MEDS: 0.9 % Sodium Chloride Flush 3 ML SYRINGE IVFLUSH (12:10)
[2023-12-11] MEDS: ceFAZolin Sodium/Dextrose,Iso 2 GM/50 ML PIGGYBACK IV (14:31)
[2023-12-11] MEDS: diphenhydrAMINE HCL 25 MG CAPSULE 50 MG PO (20:19)
[2023-12-11] MEDS: Atorvastatin Calcium 40 MG TABLET PO (20:19)
--- NOTE | 2023-12-11 21:40 | P.CONHOSP_ITS ---
History of Present Illness Data of Consult Service Date: 12/11/23 Primary Care Provider: Hayley Ku NP HPI Reason for consult: Routine medical management Patient is a 58-year-old female with a PMH significant for HTN and HLD who was admitted to the hospital under orthopedics for elective left shoulder revision arthroplasty. Medical consult for routine medical management. Patient states her pain is well managed and has no acute medical complaints at this time. Denies chest pain/pressure, palpitations. No shortness of breath. Denies fever, chills, nausea, vomiting, abdominal pain. No or leg edema. Of note, patient denies history of diabetes, since she is on Liraglutide for weight loss. Patient also mentioned she only on antihypertensives as necessary. States she has not needed to take any meds for HTN for ?many months. Review of Systems Review of Systems: Patient has no acute medical complaints at this time [facility] Medical History Anemia Arthritis GERD (gastroesophageal reflux disease) Kidney stones Bipolar 1 disorder Avascular necrosis of humeral head Hx of substance abuse Pelvicaliectasis Hypertriglyceridemia Depression Tobacco dependence History of hypertension Surgical History H/O gastric sleeve H/O colonoscopy History of ankle fusion History of arthroplasty of left shoulder History of carpal tunnel release Social History Household Members: Spouse Housing: Apartment Are you a primary home care giver to a significant other at home: Yes Do you presently have visiting nurse or other home services: No Patient Tobacco Use Status: Current everyday Tobacco user Tobacco use type: Cigarette Cigarettes Per Day: 3 Years Smoked: 46 Smoked in Last 30 Days: Yes e-Cigarette/Vaping Use: Never Used Patient Interested in Nicotine Replacement: No Patient Given Instructions on How to Stop Smoking: Yes Date Education Initiated: 12/11/23 Second Hand Smoke Exposure: No Use of substances other than those prescribed or required for medical reasons: No Currently Displaying Signs/Symptoms of Drug Intoxication Withdrawal: No Any prior treatment program specific to substance use: No Have you been hit, kicked, punched, or otherwise hurt by someone within the past year? 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, 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 Allergies Allergy/AdvReac Type Severity Reaction Status Date / Time acetaminophen [From Percocet] Allergy Severe Itching Verified 12/11/23 11:50 latex Allergy Severe Rash Verified 12/11/23 06:59 oxycodone [From Percocet] Allergy Severe Itching Verified 12/11/23 11:50 Active Medications: Current Medications Acetaminophen (Acetaminophen 325 Mg Tablet) 650 mg PO Q6H PRN PRN Reason: Pain, Mild (Pain Scale 1-3) Amlodipine Besylate (Amlodipine Besylate 5 Mg Tablet) 5 mg PO BEDTIME PRN; Protocol PRN Reason: Hypertension Atorvastatin Calcium (Atorvastatin Calcium 40 Mg Tablet) 40 mg PO BEDTIME [facility] Last Admin: 12/11/23 20:19 Dose: 40 mg Celecoxib (Celecoxib 200 Mg Capsule) 200 mg PO BID [facility] Last Admin: 12/11/23 20:19 Dose: 200 mg Docusate Sodium (Docusate Sodium 100 Mg Capsule) 100 mg PO BID [facility] Last Admin: 12/11/23 20:04 Dose: Not Given Fentanyl (Fentanyl Citrate/Pf 100 Mcg/2 Ml Vial) 50 mcg IVPUSH Q5M PRN; Protocol PRN Reason: Pain, Moderate(Pain Scale 4-6) Hydromorphone HCl (Hydromorphone Hcl 0.5 Mg/0.5 Ml Syringe) 0.5 mg IVPUSH Q5M PRN; Protocol PRN Reason: Pain, Severe (Pain Scale 7-10) Hydromorphone HCl (Hydromorphone Hcl 0.5 Mg/0.5 Ml Syringe) 0.25 mg IVPUSH Q4H PRN; Protocol PRN Reason: Pain, Severe (Pain Scale 7-10) Lactated Ringer's (Lr) 1,000 mls @ 100 mls/hr IVCONT .Q10H [facility] Last Admin: 12/11/23 20:32 Dose: Not Given Lisinopril (Lisinopril 10 Mg Tablet) 10 mg PO BEDTIME PRN; Protocol PRN Reason: Hypertension Non-Formulary Medication (Liraglutide [Victoza 3-Catrachito]) 1.8 mg SUBCUT DAILY [facility] Ondansetron HCl (Ondansetron Hcl 4 Mg/2 Ml Vial) 4 mg IVPUSH ONCE PRN PRN Reason: Nausea and Vomiting Ondansetron HCl (Ondansetron Hcl 4 Mg/2 Ml Vial) 4 mg IVPUSH Q8H PRN PRN Reason: Nausea and Vomiting Oxycodone HCl (Oxycodone Hcl Immed Release 5 Mg Tablet) 5 mg PO ONCE PRN PRN Reason: Pain, Severe (Pain Scale 7-10) Oxycodone HCl (Oxycodone Hcl Immed Release 5 Mg Tablet) 5 mg PO Q4H PRN PRN Reason: Pain, Moderate(Pain Scale 4-6) Oxycodone HCl (Oxycodone Hcl Er 10 Mg Tab.Er.12h) 10 mg PO BID [facility] Last Admin: 12/11/23 20:19 Dose: 10 mg Sodium Chloride (0.9 % Sodium Chloride Flush 3 Ml Syringe) 3 ml IVFLUSH QSHIFT [facility] Last Admin: 12/11/23 13:28 Dose: Not Given Home Medications Medication Instructions Recorded Confirmed Last Taken Type amlodipine 5 mg tablet 5 mg PO BEDTIME PRN Hypertension 08/16/22 12/11/23 10/10/23 History atorvastatin 40 mg tablet 40 mg PO BEDTIME 08/16/22 12/11/23 12/10/23 History liraglutide 0.6 mg/0.1 mL (18 mg/3 1.8 mg subcut DAILY 08/16/22 12/11/23 12/03/23 History mL) subcutaneous pen injector (Victoza 3-Catrachito) lisinopril 10 mg tablet 10 mg PO BEDTIME PRN Hypertension 08/16/22 12/11/23 10/10/23 History Physical Exam Vital Signs and Narrative: Vital Signs: Last Vital Signs Temp 97.4 F 12/11/23 19:33 Pulse 68 12/11/23 19:33 Resp 18 12/11/23 19:33 BP 93/52 L 12/11/23 19:33 Pulse Ox 94 12/11/23 19:33 O2 Del Method Room Air 12/11/23 19:33 O2 Flow Rate 2 12/11/23 11:51 BMI result Body Mass Index 28.2 General: AOx3, no acute distress Resp: CTA bilaterally CVS: S1, S2, RRR GI: +BS, NT, no distention Skin: Warm, dry Neuro: Cranial nerves II-XII grossly intact bilaterally. Motor grossly intact bilaterally Extremities: No edema. Left upper extremity in brace. Psych: Appropriate affect Results Imaging Radiologist's Impressions: Impressions Shoulder X-Ray 12/11/23 11:18 IMPRESSION: Post surgical changes noted. Alignment is considered anatomic. 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 Medical consult for routine medical management. Patient states her pain is well managed and has no acute medical complaints at this time. Left shoulder revision arthroplasty Plan as per Orthopedics HTN Patient only on p.r.n. antihypertensives Patient BP currently soft Continue amlodipine and lisinopril p.r.n. for hypertension HLD Continue statin Weight loss Hold liraglutide Thank you for allowing us to participate in the care of this patient. Pt seems stable with no acute medical complaints at this time. Will sign off. Please re- consult if any acute complaints or issues arise. Attending: Dr. Sylvester
[2023-12-12 03:40] VITALS: BP 94/51; PULSE 58; RESP 16; TEMP 36.2; O2SAT 94
[2023-12-12] MEDS: HYDROmorphone HCl 0.5 MG/0.5 ML SYRINGE 0.25 MG IVPUSH (03:45)
[2023-12-12] MEDS: Lactated Ringers 1,000 ML 100 ML IVCONT (03:46)
[2023-12-12 05:58] LABS: MANUAL DIFF FLAG NO
[2023-12-12 06:08] LABS: Basophils Percent Auto 0.3 % (0-2); Eosinophils Absolute Auto 0.1 X10*3/uL (0.0-0.4); Eosinophils Percent Auto 0.8 % (0-4); Hematocrit 32.4 % (37.0-47.0); Hemoglobin 10.6 g/dl (12.0-16.0); Imm Gran Abs Auto 0.03 X10*3/uL (0.00-0.03); Imm Gran Pct Auto 0.3 % (0.0-0.4); Lymphocytes Absolute Auto 2.6 X10*3/uL (1.2-4.9); Lymphocytes Percent Auto 28.8 % (20-40); Mean Corpuscular HGB Conc 32.7 g/dl (31.0-35.0); Mean Corpuscular Hemoglobin 28.3 pg (27.0-33.0); Mean Corpuscular Volume 86.6 fL (80.0-98.0); Mean Platelet Volume 10.1 fL (9.4-12.3); Monocytes Absolute Auto 0.8 X10*3/uL (0.1-1.2); Neutrophils Absolute Auto 5.5 x10*3/uL (2.0-8.3); Neutrophils Percent Auto 60.8 % (45-73); Platelet Count 191 X10*3/uL (160-400); Red Blood Count 3.74 X10*6/uL (4.20-5.50); Red Cell Distribution Width 13.4 % (11.0-16.0)
[2023-12-12 06:21] LABS: Anion Gap 9 (12-20); Blood Urea Nitrogen 17 mg/dL (9-16); Calcium 8.5 mg/dL (8.4-10.2); Carbon Dioxide 24 mmol/L (22-29); Chloride 111 mmol/L (96-108); Creatinine Clr Calc Pharmacy 98.9; Estimated Glomerular Filt Rate > 60; Glucose Fasting 87 mg/dL (60-99); Sodium 140 mmol/L (135-145)
[2023-12-12 07:29] VITALS: BP 140/72; PULSE 60; RESP 18; TEMP 36.7; O2SAT 96
--- NOTE | 2023-12-12 08:05 | PM.DS ---
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 During their stay, their vitals were stable, afebrile at 97.6. Labs were unremarkable, H/H 10.6/32.4. Occupation therapy worked with the patient two times prior to discharge. Prior to discharge, their dressing was clean dry and intact, and the plan was to be discharged home with VNA services. Time Attestation Discharge coordination time: Less than 30 minutes Quality: Safe Use of Opioids Does Pt have an Active Cancer Diagnosis on the Problem List?: No Quality: Stroke Does the patient have a stroke diagnosis?: No Physical Exam Vital Signs: Vital Signs: Last Vital Signs Temp 98.0 F 12/12/23 07:29 Pulse 60 12/12/23 07:29 Resp 18 12/12/23 07:29 BP 140/72 H 12/12/23 07:29 Pulse Ox 96 12/12/23 07:29 O2 Del Method Room Air 12/12/23 07:29 O2 Flow Rate 2 12/11/23 11:51 BMI result Body Mass Index 28.2 Const: General: cooperative, healthy appearing and no acute distress Resp: Effort & Inspection: normal respiratory effort and able to speak in complete sentences Cardio: Rate: regular rate Peripheral pulses: Peripheral pulses 2+ throughout GI: Palpation (GI): Soft to palpation Skin: Lesions: no lesions Rashes: no rashes Extrem: Other: Left shoulder dressing is c/d/i. Able to flex and extend at the wrist. Able to make a full fist. Sensation intact. Radial pulse intact. DS: Data Data Completed and Pending Pending studies at discharge: Pending at discharge 12/11/23 10:07 Surgical [PTH] Routine Labs on day of discharge: Laboratory Results - last 24 hr 12/12/23 05:52 WBC 9.0 RBC 3.74 L Hgb 10.6 L Hct 32.4 L MCV 86.6 MCH 28.3 MCHC 32.7 RDW 13.4 Plt Count 191 MPV 10.1 Immature Gran % (Auto) 0.3 Neut % (Auto) 60.8 Lymph % (Auto) 28.8 [place] % (Auto) 9.0 Eos % (Auto) 0.8 Baso % (Auto) 0.3 Lymph # (Auto) 2.6 [place] # (Auto) 0.8 Eos # (Auto) 0.1 Baso # (Auto) 0.0 Abs Immat Gran (auto) 0.03 Absolute Neuts (auto) 5.5 Absolute Nucleated RBC 0.000 Nucleated RBC % (auto) 0.0 Sodium 140 Potassium 4.0 Chloride 111 H Carbon Dioxide 24 Anion Gap 9 L BUN 17 H Creatinine 0.62 Estim Creat Clear Calc 98.9 Estimated GFR > 60 Fasting Glucose 87 Calcium 8.5 Discharge Plan Discharge Anticipated Discharge Date/Time: 12/12/23 13:00 Patient Disposition: Home Health Service Discharge Diagnosis: s/p left shoulder partial to total shoulder arthroplasty Referrals: Michaela Melo PA-C [Physician Order Department Supervisor] - 12/26/23 1:45 pm Discharge Medications: New celecoxib 200 mg Capsule 200 mg PO BID 30 Days Qty: 60 0RF acetaminophen 325 mg Tablet 650 mg PO Q6H PRN (Reason: Pain, Mild (Pain Scale 1-3)) 30 Days Qty: 240 0RF docusate sodium 100 mg Capsule 100 mg PO BID 90 Days Qty: 180 0RF oxycodone 5 mg Tablet 5 mg PO ONCE PRN (Reason: Pain, Severe (Pain Scale 7-10)) 7 Days Qty: 42 0RF Rx Instructions: Partial Fill upon patient request. Continued amlodipine 5 mg tablet 5 mg PO BEDTIME PRN (Reason: Hypertension) lisinopril 10 mg tablet 10 mg PO BEDTIME PRN (Reason: Hypertension) atorvastatin 40 mg tablet 40 mg PO BEDTIME Victoza 3-Catrachito 0.6 mg/0.1 mL (18 mg/3 mL) pen injector 1.8 mg subcut DAILY Discharge Orders: Discharge Order (Routine); Ordered 12/12/23 Ordered By: Michaela Melo Diet: Advance to usual diet Activity on Discharge: Use Splints or Immobilizers Stand Alone Forms: Patient Portal Discharge page Care Plan Goals: restore fxn to left shoulder Health Concerns: none Plan of Treatment: Wear sling at all times, including sleeping No lifting-OK to move arm at elbow and wrist Do not bathe or shower--Keep bandage clean, dry, and intact Call [facility] orthopedics with any questions or concerns. Follow up with orthopedics in 14 days post op Assessment: stable for discharge
--- NOTE | 2023-12-12 08:08 | P.F2F_ITS ---
Service Date Service Date: 12/12/23 Encounter Date of encounter: 12/12/23 Reasons for Services Signs and symptoms assessed: Pt. is considered homebound due to recent surgery. Unable to drive, poor balance, poor gait mechanics. s/p conversion of left partial shoulder to total shoulder arthroplasty. Reason for occupational therapy: home safety and mobility, therapeutic exercis es, restore joint function, gait/transfer training, assess need for DME and ADL training Homebound: Leaving the home is medically contraindicated at this time without the asist of a device and/or another person due th the listed conditions above and below. Reason homebound: unsteady gait / fall risk, pain with transfers and unable to drive Certification: Based on the above findings, I certify that this patient is confined to the home and needs intermittent assisted care, physical therapy and/or speech therapy, or continues to need occupational therapy. The patient is under my care, and I have initiated the establishment of the plan of care. The patient will be followed by a physician who will periodically review the plan of care. Time Spent With Patient Time: Total time managing care of this patient today ____ minutes.
--- NOTE | 2023-12-12 08:42 | MHC.CM.PN ---
Addendum entered by Altagracia Contreras 12/12/23 09:01: CM MET WITH PT TO DISCUSS POTENTIAL BARRIER TO VNA SERVICES PT REPORTS NOT BEING INTERESTED IN VNA CM WILL INFORM PROVIDER TO DETERMINE IF THEY WANT TO ORDER OP OT PT ALSO DID NOT WANT TO WAIT WHILE ANSWER WAS OBTAINED HER RIDE WAS PRESENT Original Note: PT REPORTS SHE LIVES AT HOME WITH HER AND 20 YO GRANDDAUGHTER SHE IS INDEPENDENT WITH CARE AND HAS NO SERVICES PT SAYS SHE USUALLY DOES NOT REQUIRE DME, BUT HER HAS A TOILET RISER, GRAB BARS IN THE BR AND A LIFT RECLINER THAT SHE WILL USE WHILE RECOVERING. PCP: ANGEL SANTANA PT DECLINES TO COMPLETE A HCP PT WILL DC HOME TODAY, VNA HAS BEEN ORDERED, HOWEVER HER HNE INSURANCE MAY BE A BARRIER REFERRALS OUT PT HAS ARRANGED TRANSPORT
[2023-12-12] MEDS: oxyCODONE HCl ER 10 MG TAB.ER.12H PO (08:52)
[2023-12-12] MEDS: oxyCODONE HCl Immed Release 5 MG TABLET PO (08:53)
--- NOTE | 2023-12-13 08:40 | HO.POSTANES ---
Post Anesthesia Evaluation Post Anesthesia Evaluation Date of Service: 12/12/23 Vital Signs: Patient seen on 12/12/23 at 0800am 140/72, 60, 18, 96%RA Anesthesia: Nerve Block and General Mental Status: Awake Pain Control: Satisfactory Nausea/Vomiting: None Hydration: Adequate Anesthesia-Related Issues: No Anes. Related Issues
--- NOTE | 2023-12-18 07:44 | P.OP_ITS ---
Operative Note Operative Note Date of Service: 12/11/23 Narrative: Date of Service: 12/11/23 Pre-op diagnosis: Left shoulder resurfacing Post-op diagnosis: same Procedure: Left shoulder revision arthroplasty Implants: Tournier small cortiloc cemented with A18 Simpliciti Surgeon: Andrei Fletcher MD Anesthesia: GETA Was an Rework Machine Operator used for this Procedure?: Yes Rework Machine Operator: Michaela Melo Estimated blood loss (mL): 150 IV fluids (mL): 1,000 Pathology: other Condition: stable Disposition: PACU Procedure in detail: Patient was brought to the operating room and placed in the beach chair position on the surgical table. The limb was prepped and draped in standard sterile fashion and a time out was called to identify proper site, proper procedure and IV antibiotics per weight were administered. I began by making a deltopectoral incision from the coracoid to the pectoralis insertion.? Blunt dissection identified the cephalic vein which was retracted laterally.? Blunt dissection was taken down to the 3 sisters which were cauterized.? I then made a full- thickness capsulotomy including the subscapularis. A 1 cm cuff was left for repair.? This was then tagged and the arm was externally rotated and extended and the head was dislocated.? The humeral head resurfacing was intact and did not appear loose. I made a cut at the base of the implant an d it was removed easily with minimal bone loss. THe underlying bone was healthy. ? The RTC was intact. An clena up cut was made in patient's natural inclination (approximately 132 degree) .? a central pin was placed and the metaphysis was reamed and a head protector was placed and I turned my attention to the glenoid.? Posterior anterior and superior glenoid retractors were placed and the biceps was tenotomized and labral tissue was removed.? Based on the preoperative CT and templating a guide pin was placed in approximately 5 degrees of retroversion and neutral inclination.? Using a wedge Reamer I reamed down to bleeding bone circumferentially and placed the size 40M glenoid drill guide. A small glenoid was selected and opne bag of bone cement was mixed on the back table. My final glenoid was cemented in place while applying axial compression. Once the cement was dry all excess cement was removed. I then returned to the humerus where I trialed a? simpliciti neutral head. I was satisfied with the height and the stability. I irrigated copiously and then placed the final humeral component. I was satisfied with the stability and alignment of the implants. I then irrigated and repaired the subscapularis with fiberwire.?I had anatomic and strong repair of the subscapularis. I closed in a layered fashion with absorbable suture and ron and the patient was placed in a sterile dressing and an abduction sling.? She was extubated brought to recovery room stable condition there were no known complications.
== END 2023-12-12 09:10 | disposition home health service (06) | DRG 322 ==
LOC: HO.SSSA 07:10 → HO.S3 08:19
PROVIDERS: Physician Assistant; Admitting Provider Orthopaedic Surgery; PCP Nurse Practitioner Family; Visit Provider Orthopaedic Surgery
PROC: 0RRK0JZ Replacement of Left Shoulder Joint with Synthetic Substitute, Open Approach (ICD-10-PCS; CPT 23472; principal; 2023-12-11 09:10)
DX: T84.84XA Pain due to internal orthopedic prosthetic devices, implants and grafts, initial encounter (principal); E78.5 Hyperlipidemia, unspecified; I10 Essential (primary) hypertension; F17.210 Nicotine dependence, cigarettes, uncomplicated; Y79.2 Prosthetic and other implants, materials and accessory orthopedic devices associated with adverse incidents; G89.18 Other acute postprocedural pain; F31.9 Bipolar disorder, unspecified; Z71.6 Tobacco abuse counseling; Z91.040 Latex allergy status; Z79.899 Other long term (current) drug therapy
CPT/HCPCS: 36415; 73030; 80048; 85025; 86850; 86900; 86901; 87640; 87641; 88304; 88311; 97165; C1713; C1776; J0690; J1100; J1170; J2250; J2405; J2704; J2795; J3010; J7120

== ENCOUNTER → 2023-12-11 07:06 | Outpatient (BNV) | payer OTHER, SELFPAY | PROVIDERS: Admitting Provider Orthopaedic Surgery; PCP Nurse Practitioner Family; Visit Provider Student in an Organized Health Care Education/Training Program | DX: Z96.612 Presence of left artificial shoulder joint (principal) | CPT/HCPCS: 99222 ==

== ENCOUNTER → 2023-12-11 07:06 | Outpatient (BNV) | payer OTHER, SELFPAY | PROVIDERS: Admitting Provider Orthopaedic Surgery; PCP Nurse Practitioner Family; Visit Provider Orthopaedic Surgery | DX: Z47.1 Aftercare following joint replacement surgery (principal); Z96.612 Presence of left artificial shoulder joint | CPT/HCPCS: 23474; 99024; G0180 ==

== ENCOUNTER 2023-12-26 11:11 | Outpatient (REF) | payer OTHER, SELFPAY | END 2023-12-26 11:12 | disposition home or self-care (01) | LOC: HO.HOSX 11:11 | PROVIDERS: Visit Provider Physician Assistant | DX: M25.512 Pain in left shoulder (principal); Z47.1 Aftercare following joint replacement surgery; Z96.612 Presence of left artificial shoulder joint | CPT/HCPCS: 99212 ==

== ENCOUNTER 2023-12-26 15:05 | Outpatient (AMB) | payer OTHER, SELFPAY ==
--- NOTE | 2023-12-26 15:08 | A.OFFVIS_ITS ---
Intake Intake Visit Reasons: Tele-LT TSA 12/11/23 NE Intake Note: Aysha a 58 year old female presents today for a post operative telehealth visit s/p left TSA on 12/11/23 NE. Allergies acetaminophen [From Percocet] Allergy (Severe, Verified 12/11/23 11:50) Itching latex Allergy (Severe, Verified 12/11/23 06:59) Rash oxycodone [From Percocet] Allergy (Severe, Verified 12/11/23 11:50) Itching HPI Tele-LT TSA 12/11/23 NE HPI Details 58-year-old female who presents over the phone for her appointment today 15 days status post left shoulder revision arthroplasty, which was performed on 12/11/[address] Fletcher. The patient reports she is currently in [place] due to the of her father. She states she is unsure when she is to return. Patient reports an increase in pain. She states the gauze on her left shoulder has moved and the incision site is oozing. She states she believes it is infected. [facility] Medical History Anemia Arthritis GERD (gastroesophageal reflux disease) Kidney stones Bipolar 1 disorder Avascular necrosis of humeral head Hx of substance abuse Pelvicaliectasis Hypertriglyceridemia Depression Tobacco dependence History of hypertension Surgical History H/O gastric sleeve H/O colonoscopy History of ankle fusion History of arthroplasty of left shoulder History of carpal tunnel release Social History Household Members: Spouse Housing: Apartment Are you a primary home care coordinator to a significant other at home: Yes Do you presently have visiting nurse or other home services: No Patient Tobacco Use Status: Current everyday Tobacco user Tobacco use type: Cigarette Cigarettes Per Day: 3 Years Smoked: 46 e-Cigarette/Vaping Use: Never Used Second Hand Smoke Exposure: No service: No 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 Assessment & Plan Assessment & Plan (1) History of arthroplasty of left shoulder: Comment: 2020 Code(s): Z96.612 - Presence of left artificial shoulder joint Plan Ms. Palomares is a 58-year-old female who presents over the phone for her appointment today 15 days status post left shoulder revision arthroplasty, which was performed on 12/11/[address] Fletcher. The patient reports she is currently in [place] due to the of her father. She states she is unsure when she is to return. Patient reports an increase in pain. She states the gauze on her left shoulder has moved and the incision site is oozing. She states she believes it is infected. I discussed with the patient that due to not being able to see her in person to evaluate the incision site I strongly recommend for her to present to an ED in [place]. The patient demonstrates understanding and states she is going to go as soon as the call ends. I requested for the patient to call the office and keep up informed about her ED visit and the course of treatment recommended. She was asked to call the office as soon as she knows when she is going to return and we will schedule her for an appointment as soon as she is available. Follow up will be when the patient notifies the office of her return, or sooner if needed. Orders: Orders XR shoulder LT min 2V Today M25.519 - Pain in unspecified shoulder Patient Instructions: Scribed by Herminia Falcon medical customer service representative, for Michaela Melo PA-C on 12/26/2023 at 3:08 pm, EST. Telehealth Telehealth Location of provider rendering services: practice address Location of patient: other (In [place], due to father's passing) Patient Identification confirmed using: Name, : Yes Telehealth method: voice only Patient verbally consented to treatment: Yes Patient verbally consented to billing insurance company: Yes Patient informed of any privacy concerns related to visit: Yes Minutes spent on Phone/Video with Pt.: 10 Coding Level of Care Code Global (30854) Diagnoses History of arthroplasty of left shoulder Z96.612
== END 2023-12-26 15:27 | disposition home or self-care (01) ==
LOC: HO.HOS 15:08
PROVIDERS: PCP Nurse Practitioner Family; Visit Provider Physician Assistant
DX: Z96.612 Presence of left artificial shoulder joint (principal)
CPT/HCPCS: 99024

== ENCOUNTER 2024-01-06 11:02 | Outpatient (AMB) | payer OTHER, SELFPAY ==
--- NOTE | 2024-01-06 11:32 | A.OFFVIS_ITS ---
Intake Intake Visit Reasons: po- 6 wk LT TSA 12/11/23 NE Intake Note: Aysha a 58 year old female presents today for a post operative visit s/p left TSA on 12/11/23 NE. She was last seen 12/26 for a telehealth visit as she was in [place], there was concerns of infection at incision site. Patient was going to the ED in [place] where she was given abx injection about 2 weeks. She reports oozing of a yellowish red odorous fluid that leaks from the distal end of the incision. Allergies acetaminophen [From Percocet] Allergy (Severe, Verified 12/11/23 11:50) Itching latex Allergy (Severe, Verified 12/11/23 06:59) Rash oxycodone [From Percocet] Allergy (Severe, Verified 12/11/23 11:50) Itching HPI po- 6 wk LT TSA 12/11/23 NE HPI Details Aysha is a 58 year old woman returning ~5 weeks S/P left rTSA. She has recently returned from [place] due to the of her father. She was not able to attend her first post-op appointment here due to this. She reports an odor coming from her incision. She was given a 1 time antibiotic shot when in [facility] Medical History Anemia Arthritis GERD (gastroesophageal reflux disease) Kidney stones Bipolar 1 disorder Avascular necrosis of humeral head Hx of substance abuse Pelvicaliectasis Hypertriglyceridemia Depression Tobacco dependence History of hypertension Surgical History H/O gastric sleeve H/O colonoscopy History of ankle fusion History of arthroplasty of left shoulder History of carpal tunnel release Social History Household Members: Spouse Housing: Apartment Are you a primary home health care respiratory therapist to a significant other at home: Yes Do you presently have visiting nurse or other home services: No Patient Tobacco Use Status: Current everyday Tobacco user Tobacco use type: Cigarette Cigarettes Per Day: 3 Years Smoked: 46 e-Cigarette/Vaping Use: Never Used Second Hand Smoke Exposure: No service: No 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 Over the distal part of the incision there is some staple erythema. Minimal discharge from this area. He is abducting and externally rotating her arm out of the sling. Psych Appearance: grossly normal Affect: normal affect Attitude: cooperative Assessment & Plan Assessment & Plan (1) Status post total replacement of left shoulder: Code(s): Z96.612 - Presence of left artificial shoulder joint Plan: Status post left shoulder replacement. Her postoperative course was complicated by a family emergency which necessitated her traveling by plane 3 days postop. She subsequently developed a hematoma and had some discharge and swelling. Story is a little vague but overall the incision looks superficially infected at worst but no fluid collection or severe erythema. I removed the ron and I would like to see her back in 2 days. Plan Prepared for Andrei Fletcher MD by Jamey Moulton, medical information officer, on 01/06/24 at 11:35 AM, EST. Orders: Orders XR shoulder LT min 2V 01/06/24 M25.519 - Pain in unspecified shoulder Medications: New sulfamethoxazole-trimethoprim 800-160 mg (Bactrim DS) 1 tab PO BID 10 days 20 tabs 0RF Coding Level of Care Code Global (29139) Diagnoses Status post total replacement of left shoulder Z96.612
== END 2024-01-06 12:23 | disposition home or self-care (01) ==
PROVIDERS: PCP Nurse Practitioner Family; Visit Provider Orthopaedic Surgery
DX: Z96.612 Presence of left artificial shoulder joint (principal)
CPT/HCPCS: 99024

== ENCOUNTER 2024-01-06 11:02 | Outpatient (REF) | payer OTHER, SELFPAY ==
--- NOTE | ~2024-01-06 | XR_ITS ---
EXAMINATION: XR SHOULDER, LEFT CLINICAL INFORMATION: Pain in left shoulder COMPARISON: 12/11/2023 TECHNIQUE: 2 views of left shoulder . FINDINGS: Patient is status post left shoulder arthroplasty. Appearance of left shoulder prosthesis is stable. There are skin ron present. XR/XR shoulder LT min 2V IMPRESSION: Left shoulder arthroplasty
== END 2024-01-06 11:03 | disposition home or self-care (01) ==
LOC: HO.HOSX 11:02
PROVIDERS: PCP Nurse Practitioner Family; Visit Provider Orthopaedic Surgery
DX: M25.512 Pain in left shoulder (principal); Z47.1 Aftercare following joint replacement surgery; Z96.612 Presence of left artificial shoulder joint
CPT/HCPCS: 73030; 99212

== ENCOUNTER 2024-01-09 09:20 | Outpatient (AMB) | payer OTHER, SELFPAY ==
--- NOTE | 2024-01-09 09:21 | A.OFFVIS_ITS ---
Intake Intake Visit Reasons: OV - Left TSA 12/11/22 - Wound Check Intake Note: Aysha a 58 year old female presents today for a post operative visit s/p left TSA on 12/11/23 NE. After surgery patient had to travel to [place] due to the passing of her father. While in [place] she noticed that the distal end of the incision was draining a yellow-reddish fluid. She was seen at the ED in [place] where she was given an ABX shot and discharged. At her last visit on 01/06/24 her ron were removed, incision site cleaned and xeroform with a telfa dressing was applied. She was instructed to do twice daily dressing changes. She reports that she has been doing dressing changes 2x a day and feels that the wound is looking about the same. She reports that she is having continued pain. Allergies acetaminophen [From Percocet] Allergy (Severe, Verified 12/11/23 11:50) Itching latex Allergy (Severe, Verified 12/11/23 06:59) Rash oxycodone [From Percocet] Allergy (Severe, Verified 12/11/23 11:50) Itching HPI OV - Left TSA 12/11/22 - Wound Check HPI Details Pain at night but no changes from last visit. No fever/chills. PFSH Medical History Anemia Arthritis GERD (gastroesophageal reflux disease) Kidney stones Bipolar 1 disorder Avascular necrosis of humeral head Hx of substance abuse Pelvicaliectasis Hypertriglyceridemia Depression Tobacco dependence History of hypertension Surgical History H/O gastric sleeve H/O colonoscopy History of ankle fusion History of arthroplasty of left shoulder History of carpal tunnel release Social History Household Members: Spouse Housing: Apartment Are you a primary progressive care unit registered nurse to a significant other at home: Yes Do you presently have visiting nurse or other home services: No Patient Tobacco Use Status: Current everyday Tobacco user Tobacco use type: Cigarette Cigarettes Per Day: 3 Years Smoked: 46 e-Cigarette/Vaping Use: Never Used Second Hand Smoke Exposure: No service: No 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 5 mg PO Q4H 7 days PRN 42 tabs 0RF pain To oxycodone Partial Fill upon patient request. 5 mg PO DAILY PRN 15 tabs 0RF pain 15 days Coding Level of Care Code Global (60788) Diagnoses Status post total replacement of left shoulder Z96.612
== END 2024-01-09 09:52 | disposition home or self-care (01) ==
PROVIDERS: PCP Nurse Practitioner Family; Visit Provider Orthopaedic Surgery
DX: Z96.612 Presence of left artificial shoulder joint (principal)
CPT/HCPCS: 99024

== ENCOUNTER → 2024-01-09 09:20 | Outpatient (BNVA) | payer OTHER, SELFPAY | PROVIDERS: PCP Nurse Practitioner Family; Visit Provider Orthopaedic Surgery | DX: Z47.1 Aftercare following joint replacement surgery (principal); Z96.612 Presence of left artificial shoulder joint | CPT/HCPCS: 99212 ==

== ENCOUNTER 2024-01-17 08:00 | Outpatient (RCR) | payer OTHER, SELFPAY ==
--- NOTE | 2024-01-10 08:12 | MHC.PT.EP ---
[facility] [place] Office [place] Office [place] Office [address] Dorita Jones [address] [facility] [phone] F: [phone] F: [phone] F: [phone] F: [phone] Physical Therapy Plan of Care Date of Evaluation: 01/10/24 Date of Surgery: 12/11/2023 Diagnosis: This is a 58 yo female presenting to skilled PT with a script for s/p L shoulder replacement. Assessment: This is a 58 yo female presenting to skilled PT with a script for s/p L shoulder replacement. 3 years ago patient underwent a partial TSA however then her ROM decreased and her replacement shifted. She underwent a left TSA which was performed on 12/11/[address] Fletcher. After surgery she had a fall and fell onto the shoulder. She then had to travel to [place] due to the passing of her father. While in [place] she noticed that the distal end of the incision was draining a yellow-reddish fluid. She was seen at the ED in [place] where she was given an ABX shot and discharged. At her last visit on 01/06/24 her ron were removed, incision site cleaned and xeroform with a telfa dressing was applied. She was instructed to do twice daily dressing changes. Ortho note states She reports that she has been doing dressing changes 2x a day and feels that the wound is looking about the same. She reports that she is having continued pain. Today the patient reports that she has increased pain at night. Pain is located anterior and superior shoulder that radiates to the elbow (achy) and the incision is throbbing and itchy. She has been attempting to move her arm since surgery with exercises she remembered from prior surgery. Assessment reveals pain that ranges from up to a 10/10 at the worst. Patient demos decreased L shoulder and cervical ROM, strength of L shoulder, TTP at UT and surrounding muscles as well as impaired posture with forward head and rounded shoulders expected s/p TSA. Based on functional limitations, impaired QOL and pain tolerance patient is a good candidate for skilled PT 2x/wk for 10 wks. Frequency and Duration: The patient will be seen 2x/wk for 10 wks Short Term Goals: In 4 wks patient will demo at least 90 degs AROM flexion and abduction with good control and posture in supine In 4 wks patient will demo good understanding of scapular control with beginning of resistance exercises if pain and wound are controlled and protocol allows In 2 wks patient will understand safety, precautions and surgical techniques Care Home Goals: In 10 wks patient will demo WFL AROM In 10 wks patient will improve pain to no more than 3/10 at the worst In 10 wks patient will improve MMT to at least 4/5 In 10 wks patient will demo I with updated HEP to continue on own Treatment Plan: Modalities to reduce pain, spasms and effusion. Manual therapy to restore motion and function. Therapeutic exercise to improve strength and flexibility. Neuromuscular re-education for posture and balance. Therapeutic activities to return to functional activities of daily living. Electronically signed by: Ambreen Soler PT Please sign and return to therapist. Thank you for your referral.
--- NOTE | 2024-01-31 08:40 | MHC.PT.DC ---
[facility] [place] Office [place] Office [place] Office [address] Dorita Jones [address] [phone] F: [phone] F: [phone] F: [phone] F: [phone] Physical Therapy Discharge Report Diagnosis: This is a 58 yo female presenting to skilled PT with a script for s/p L shoulder replacement. Date of Surgery: 12/11/2023 Date of Evaluation: 01/10/24 Date of Discharge: 01/31/24 Treatments to Date: 3 Cancellations to Date: 0 No Shows to Date: 0 Discharge Status: Visit Non-compliance Discharge Summary: Patient with multiple no shows to appointments. PT called ortho office on 01/30 to let them know patient will be DC'd due to noncompliance with PT appointments and facility policy. Electronically signed by: Ambreen Soler PT Please sign and return to therapist. Thank you for your referral.
== END 2024-01-31 08:41 | disposition home or self-care (01) ==
LOC: HO.PTCHIC 08:00
PROVIDERS: PCP Family Medicine; Visit Provider Orthopaedic Surgery
DX: Z47.1 Aftercare following joint replacement surgery (principal); Z96.612 Presence of left artificial shoulder joint
CPT/HCPCS: 97110; 97140; 97162

== ENCOUNTER 2024-02-28 08:55 | Outpatient (REF) | payer OTHER, SELFPAY ==
--- NOTE | ~2024-02-28 | XR_ITS ---
EXAMINATION: XR SHOULDER, LEFT CLINICAL INFORMATION: Reason for Exam M25.519 - Pain in unspecified shoulder COMPARISON: Shoulder radiographs 01/06/2024 TECHNIQUE: Three views of the shoulder. FINDINGS: No acute fracture or dislocation. Post surgical changes of shoulder hemiarthroplasty with a humeral head prosthesis in anatomic alignment. Interval removal of the soft tissue ron. No evidence of hardware fracture or complication. Acromioclavicular joint space is maintained. Similar surgical hardware noted in the mid thorax. Soft tissues are unremarkable. XR/XR shoulder LT min 2V IMPRESSION: Post surgical changes of shoulder hemiarthroplasty with a humeral head prosthesis in anatomic alignment. Interval removal of the soft tissue ron. No evidence of hardware fracture or complication.
== END 2024-02-28 08:56 | disposition home or self-care (01) ==
LOC: HO.HOSX 08:55
PROVIDERS: Visit Provider Orthopaedic Surgery
DX: Z47.1 Aftercare following joint replacement surgery (principal); Z96.612 Presence of left artificial shoulder joint; F43.9 Reaction to severe stress, unspecified
CPT/HCPCS: 73030; 99212

== ENCOUNTER 2024-02-28 11:05 | Outpatient (AMB) | payer OTHER, SELFPAY ==
--- NOTE | 2024-02-28 11:29 | MHC.OFFVIS ---
Intake Visit Reasons: OV - Left TSA 12/11/22 NE Intake Note: Aysha a 58 year old female presents today for a follow up visit s/p left TSA on 12/11/23 NE. After surgery patient had to travel to [place] due to the passing of her father. While in [place] she noticed that the distal end of the incision was draining a yellow-reddish fluid. She was seen at the ED in [place] where she was given an ABX shot and discharged she is having sharp pain down her left arm of which she states has been worsening since her surgery. She states that her pain is worse when she wears her bra or when she is lifting heavy items. She explains that she was admitted for Suicidal thoughts due to her pain and lack of ROM Allergies acetaminophen [From Percocet] Allergy (Severe, Verified 12/11/23 11:50) Itching latex Allergy (Severe, Verified 12/11/23 06:59) Rash oxycodone [From Percocet] Allergy (Severe, Verified 12/11/23 11:50) Itching HPI HPI OV - Left TSA 12/11/22 NE: Details: Aysha a 58 year old female presents today for a follow up visit s/p left TSA on 12/11/23 NE. After surgery patient had to travel to [place] due to the passing of her father. While in [place] she noticed that the distal end of the incision was draining a yellow-reddish fluid. She was seen at the ED in [place] where she was given an ABX shot and discharged. She is having sharp pain down her left arm of which she states has been worsening since her surgery. She states that her pain is worse when she wears her bra or when she is lifting heavy items. She explains that she was admitted for Suicidal thoughts due to her pain and lack of ROM PFSH Medical History Anemia Arthritis GERD (gastroesophageal reflux disease) Kidney stones Bipolar 1 disorder Avascular necrosis of humeral head Hx of substance abuse Pelvicaliectasis Hypertriglyceridemia Depression Tobacco dependence History of hypertension Surgical History H/O gastric sleeve H/O colonoscopy History of ankle fusion History of arthroplasty of left shoulder History of carpal tunnel release Social History Household Members: Spouse Housing: Apartment Are you a primary patient care technician to a significant other at home: Yes Do you presently have visiting nurse or other home services: No Patient Tobacco Use Status: Current everyday Tobacco user Tobacco use type: Cigarette Cigarettes Per Day: 3 Years Smoked: 46 e-Cigarette/Vaping Use: Never Used Second Hand Smoke Exposure: No service: No 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 Left total shoulder arthroplasty in expected post operative position with no hardware complications or evidence of loosening Assessment & Plan Assessment & Plan (1) Status post total replacement of left shoulder: Code(s): Z96.612 - Presence of left artificial shoulder joint Category: Medical Plan: s/p l TSA. Her shoulder appears normal without evidence of complication. SHe is tearful and experienceing obvious psychological stress.Due to residence in [place] we have connected patient with [facility] crisis center. She will be heading to their [place] location today for assessment. Her shoulder appears stable without any evidence of complication. (2) Psychological stress: Code(s): F43.9 - Reaction to severe stress, unspecified Category: Medical Plan: Tearful. Spoke with crisis center in [place] Orders: Orders XR shoulder LT min 2V 02/28/24 M25.519 - Pain in unspecified shoulder Coding Level of Care Code Est Pt Level 3 (85981) Global (04759) Diagnoses Status post total replacement of left shoulder Z96.612 Psychological stress F43.9
== END 2024-02-28 12:14 | disposition home or self-care (01) ==
PROVIDERS: PCP Family Medicine; Visit Provider Physician Assistant
DX: Z47.1 Aftercare following joint replacement surgery (principal); Z96.612 Presence of left artificial shoulder joint
CPT/HCPCS: 99024

== ENCOUNTER 2024-03-26 09:46 | Outpatient (AMB) | payer OTHER, SELFPAY ==
--- NOTE | 2024-03-26 09:48 | A.OFFVIS_ITS ---
Vital Signs 03/26/24 09:56 Height 5 ft 5 in Weight 160 lb 6 oz BMI 26.7 BP 133/63 Blood Pressure Location Rt brachial Position Sitting Pulse 80 Pulse Source Pulse Oximeter Pulse Oximetry (%) 99 Oxygen Delivery Method Room Air Intake Visit Reasons: - Presence of left artificial shoulder joint Intake Note: Pain today 9/10 Roll Line Operator Required: No Accompanied by: Self / Same As Patient Allergies acetaminophen [From Percocet] Allergy (Severe, Verified 03/26/24 09:56) Itching latex Allergy (Severe, Verified 03/26/24 09:56) Rash oxycodone [From Percocet] Allergy (Severe, Verified 03/26/24 09:56) Itching HPI Comments Details: Aysha is a very pleasant 4-year-old female who presents to the office today for evaluation management of her chronic left shoulder pain. She was referred here from Orthopedics, status post total left shoulder replacement December 2023. Three years ago she underwent partial joint replacement and had been tolerating well. Then pain started to worsen she was evaluated by Orthopedics and told she needed total replacement. Since total replacement in December pain has been severe and unrelenting. She endorses limited range of motion and inability to do activities of daily living secondary to her pain and limited range of motion. Patient has been taking Tylenol and ibuprofen without improvement of her pain. She completed physical therapy and states that it made the pain worse did not help with range of motion. She reports she is unable to get dressed, pull up her pants or perform other necessary activities of daily living since she had surgery. She finds this very frustrating and relies heavily on her to help her throughout the day. Pain today is rated as a 9/10, constant. In terms of muscle damage condition is described as spasming, stabbing, sharp, shooting, shocking. Pain is negatively impacting patient's enjoyment of life, general activity, mood, normal work, recreational activities, relationships with people, sleep and walking. [facility] Medical History Anemia Arthritis GERD (gastroesophageal reflux disease) Kidney stones Bipolar 1 disorder Avascular necrosis of humeral head Hx of substance abuse Pelvicaliectasis Hypertriglyceridemia Depression Tobacco dependence History of hypertension Surgical History H/O gastric sleeve H/O colonoscopy History of ankle fusion History of arthroplasty of left shoulder History of carpal tunnel release Social History Household Members: Spouse Housing: Apartment Are you a primary patient care secretary to a significant other at home: Yes Do you presently have visiting nurse or other home services: No Patient Tobacco Use Status: Current everyday Tobacco user Tobacco use type: Cigarette Cigarettes Per Day: 3 Years Smoked: 46 e-Cigarette/Vaping Use: Never Used Second Hand Smoke Exposure: No service: No 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 Answers questions appropriately. Fully engaged in examination. Skin: warm, dry, intact HEENT: Normocephalic. Hearing intact. Cardiac: External chest normal in appearance. Respiratory: No cough, audible wheezing or stridor. Abdomen: without gross distension. MS: No obvious swelling or deformities. LUE: limited ROM, decreased over head reach and behind the back reach. 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 Neurological: Oriented to person, place, time and situation. Thought process i ntact. No gait abnormalities appreciated. Psychiatric: Appropriate mood and affect. Good judgment and insight. Results Reviewed Results Reviewed: 02/26/2024 XR/XR shoulder LT min 2V IMPRESSION: Post surgical changes of shoulder hemiarthroplasty with a humeral head prosthesis in anatomic alignment. Interval removal of the soft tissue ron. No evidence of hardware fracture or complication. Assessment & Plan Assessment & Plan (1) Status post total replacement of left shoulder: Code(s): Z96.612 - Presence of left artificial shoulder joint Category: Surgical (2) Left shoulder pain: Comment: Total replacement left shoulder 12/2023 Code(s): M25.512 - Pain in left shoulder Category: Medical Plan Aysha very pleasant 58-year-old female who presented to the office today for evaluation manage of her chronic left shoulder pain. Patient has exhausted conservative therapy including Tylenol, ibuprofen, physical therapy without improvement of her symptoms. Cyclobenzaprine 10 mg p.o. t.i.d., patient advised on cautions for use. 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 No driving while taking this medication. Will schedule for fluoroscopy guided left suprascapular Sprint PNS with local anesthetic All questions concerns answered, patient visit the plan. Follow-up after Sprint placement, sooner if needed. Coding Level of Care Code New Pt Level 4 (34704) Diagnoses Status post total replacement of left shoulder Z96.612 Left shoulder pain M25.512
[2024-03-26 09:56] VITALS: BP 133/63; PULSE 80; O2SAT 99; BMI 26.7
== END 2024-03-26 10:25 | disposition home or self-care (01) ==
PROVIDERS: PCP Family Medicine; Referring Provider Orthopaedic Surgery; Visit Provider Registered Nurse Emergency
DX: M25.512 Pain in left shoulder (principal); Z96.612 Presence of left artificial shoulder joint
CPT/HCPCS: 99204

== ENCOUNTER → 2024-03-26 09:46 | Outpatient (BNVA) | payer OTHER, SELFPAY | PROVIDERS: PCP Family Medicine; Referring Provider Orthopaedic Surgery; Visit Provider Registered Nurse Emergency | DX: M25.512 Pain in left shoulder (principal); Z96.612 Presence of left artificial shoulder joint | CPT/HCPCS: 99202 ==

== ENCOUNTER 2024-06-02 07:01 | Outpatient (REF) | payer OTHER, SELFPAY ==
--- NOTE | ~2024-06-02 | FL_ITS ---
EXAMINATION: XR FLUOROSCOPY WITH IMAGES CLINICAL INFORMATION: Left shoulder pain, steroid injection. COMPARISON: Left shoulder radiographs 02/28/2024. TECHNIQUE: Fluoroscopy provided to: Fluoroscopy time: 0.2 minutes DAP: 0.87604 mGycm2 Images: 2 FINDINGS: 2 images demonstrate right shoulder reverse arthroplasty. Needle within the subacromial bursa with contrast injection. FL/FL guidance in treatment room IMPRESSION: Fluoroscopic guidance. Please refer to the full operative report for details. Electronically signed by: Karan Holbrook MD 07/29/2024 05:02 PM EDT
== END 2024-06-02 07:02 | disposition home or self-care (01) ==
LOC: CF 07:01
PROVIDERS: PCP Family Medicine; Visit Provider Anesthesiology
DX: M25.512 Pain in left shoulder (principal); Z96.612 Presence of left artificial shoulder joint
CPT/HCPCS: 64418; J2795; Q9967

== ENCOUNTER 2024-06-02 07:08 | Outpatient (AMB) | payer OTHER, SELFPAY ==
[2024-06-02 07:20] VITALS: BP 99/59; PULSE 65; RESP 16; O2SAT 99
--- NOTE | 2024-06-02 07:20 | A.OFFVIS_ITS ---
Vital Signs 06/02/24 07:20 06/02/24 07:57 BP 99/59 L 119/67 Blood Pressure Location Rt brachial Rt brachial Position Sitting Sitting Respiration 16 17 Pulse 65 65 Pulse Source Pulse Oximeter Pulse Oximeter Pulse Oximetry (%) 99 98 Oxygen Delivery Method Room Air Room Air Comment Pre-op Post-op Intake Visit Reasons: Left suprascapular injection Allergies acetaminophen [From Percocet] Allergy (Severe, Verified 03/26/24 09:56) Itching latex Allergy (Severe, Verified 03/26/24 09:56) Rash oxycodone [From Percocet] Allergy (Severe, Verified 03/26/24 09:56) Itching PFSH Medical History Anemia Arthritis GERD (gastroesophageal reflux disease) Kidney stones Bipolar 1 disorder Avascular necrosis of humeral head Hx of substance abuse Pelvicaliectasis Hypertriglyceridemia Depression Tobacco dependence History of hypertension Surgical History H/O gastric sleeve H/O colonoscopy History of ankle fusion History of arthroplasty of left shoulder History of carpal tunnel release Social History Household Members: Spouse Housing: Apartment Are you a primary medicare contact specialist to a significant other at home: Yes Do you presently have visiting nurse or other home services: No Patient Tobacco Use Status: Current everyday Tobacco user Tobacco use type: Cigarette Cigarettes Per Day: 3 Years Smoked: 46 e-Cigarette/Vaping Use: Never Used Second Hand Smoke Exposure: No service: No 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, 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 All questions about benefits and risks for the procedure were answered. Patient came to the operating room and was positioned prone on the operating table with the pillow under the chest Time-out was performed delineating site and side of the procedure name minute of of the patient. The left shoulder left side of the neck and left upper back of the patient were prepped with ChloraPrep prepped and draped with sterile utility self adhesive towels. C-arm was brought over the operating field and the picture of patient's upper scapula was demonstrated on the screen. Coracoid process and suprascapular notch at the base of the coracoid process were delineated on the screen. After that projection of the suprascapular notch to the skin was infiltrated with mixture of lidocaine 2% and ropivacaine 0.5% one-to-one. After that 22 gauge 3 and 1/2 inch needle was driven to the point of interest in tunnel vision fashion. When needle was located in the suprascapular notch injection of the contrast was performed delineating no intravascular uptake of the contrast. After that 5 cc of ropivacaine 0.5% was injected into the area of the tip of the needle. The patient tolerated the procedure well. The needle was withdrawn sterile Band-Aid was applied. The patient was taken outside of the operating room to recovery room where she recovered uneventfully. Plan Aysha very pleasant 58-year-old female who presented to the office today for evaluation manage of her chronic left shoulder pain. Patient has exhausted conservative therapy including Tylenol, ibuprofen, physical therapy without improvement of her symptoms. Cyclobenzaprine 10 mg p.o. t.i.d., patient advised on cautions for use. 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 No driving while taking this medication. Will schedule for fluoroscopy guided left suprascapular Sprint PNS with local anesthetic All questions concerns answered, patient visit the plan. Follow-up after Sprint placement, sooner if needed. Orders: Orders US guide needle placement Today Joan Bello APRN, RETORT FURNACE OPERATOR M25.512 - Pain in left shoulder FL guidance in treatment room Today Stephen Brian MD M25.512 - Pain in left shoulder Coding Level of Care Code Procedure Only Diagnoses Left shoulder pain M25.512 Status post total replacement of left shoulder Z96.612
[2024-06-02 07:57] VITALS: BP 119/67; PULSE 65; RESP 17; O2SAT 98
== END 2024-06-02 07:56 | disposition home or self-care (01) ==
LOC: HO.PMCPRC 07:08
PROVIDERS: PCP Family Medicine; Visit Provider Anesthesiology
DX: M25.512 Pain in left shoulder (principal); Z96.612 Presence of left artificial shoulder joint
CPT/HCPCS: 64418; 77002

== ENCOUNTER 2025-03-08 07:32 | Day surgery (SDC) | payer OTHER, SELFPAY ==
[2025-03-04 08:06] VITALS: BMI 28.3
--- NOTE | 2025-03-04 10:37 | HO.ANESPROP2 ---
HPI - Anesthesia Eval Consult details Narrative: 59yo F for Right Cataract Extraction IOL Insertion No previous cataract on record PMFSH Active Problems Active Problems: All Active Problems Left shoulder pain (Chronic) Psychological stress (Acute) Status post total replacement of left shoulder (Acute) S/p reverse total shoulder arthroplasty (Acute) History of arthroplasty of left shoulder (Acute) Past Medical History Medical History (Updated 03/04/25 @ 08:03 by Gisel Iniguez RN) PTSD (post-traumatic stress disorder) Suicide ideation Anxiety Adjustment disorder HTN (hypertension) Vitamin D deficiency Anemia Arthritis GERD (gastroesophageal reflux disease) Kidney stones Bipolar 1 disorder Avascular necrosis of humeral head Hx of substance abuse Pelvicaliectasis Hypertriglyceridemia Depression Tobacco dependence History of hypertension Family History Family history of problems with anesthesia: No Surgical History Surgical History (Updated 12/13/23 @ 00:04 by Grecia Barr) History of revision of total replacement of left shoulder joint H/O gastric sleeve H/O colonoscopy History of ankle fusion History of arthroplasty of left shoulder History of carpal tunnel release History of Problems with Anesthesia: No Social History Social History Household Members: Spouse Housing: Apartment Are you a primary child daycare worker to a significant other at home: No Do you presently have visiting nurse or other home services: No Patient Tobacco Use Status: Current everyday Tobacco user Tobacco use type: Cigarette Cigarette Packs Per Day: 0.5 Cigarettes Per Day: 10.0 Years Smoked: 46 e-Cigarette/Vaping Use: Never Used Second Hand Smoke Exposure: No Use of substances other than those prescribed or required for medical reasons: No Are you DNR?: No Advance Directives: No Advance Directives Information Provided: No Advance Directives on File: No Patient : No : No service: No 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, 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 Allergies Allergy/AdvReac Type Severity Reaction Status Date / Time acetaminophen [From Percocet] Allergy Severe Itching Verified 03/26/24 09:56 latex Allergy Severe Rash Verified 03/26/24 09:56 oxycodone [From Percocet] Allergy Severe Itching Verified 03/26/24 09:56 hydromorphone [From Dilaudid] Allergy Abdominal Verified 03/04/25 07:40 Pain Home Medications ?Medication ?Instructions ?Recorded ?Confirmed ?Last Taken ?Type atorvastatin 40 mg tablet 40 mg PO BEDTIME 08/16/22 03/04/25 12/10/23 History amlodipine 5 mg-olmesartan 40 mg 1 tab PO DAILY 03/04/25 03/04/25 Unknown History tablet Exam Height,Weight and Vital Signs: Height 5 ft 4.96 in Weight 77 kg Assessment and Plan Assessment Anesthesia Assessment: Chart Reviewed Final Anesthetic Review Family History of Problems with Anesthesia: No History of Problems with Anesthesia: No
[2025-03-08 09:17] VITALS: BP 137/67; PULSE 54; RESP 16; TEMP 37.1; O2SAT 100; BMI 28.0
[2025-03-08] MEDS: Tetracaine HCl/PF 0.5% Oph Sol 4 ML DROPS 1 DROP EYE-RIGHT (09:20)
[2025-03-08] MEDS: Cyclopentolate 1 % Ophth Sol 2 ML DRPBTL 1 DROP EYE-RIGHT ×3 (09:26→09:44)
[2025-03-08] MEDS: Tropicamide 1 % Ophth Sol 3 ML BTL 1 DROP EYE-RIGHT ×3 (09:28→09:46)
[2025-03-08] MEDS: Ketorolac Tromethamine 0.5% Op 5 ML DROPS 1 DROP EYE-RIGHT ×3 (09:30→09:47)
[2025-03-08] MEDS: Phenylephrine HCL 2.5% Oph SoL 2 ML BOTTLE 1 DROP EYE-RIGHT ×3 (09:32→09:48)
--- NOTE | 2025-03-08 09:33 | HO.ANESPROP2 ---
[facility] Active Problems Active Problems: All Active Problems Left shoulder pain (Chronic) Psychological stress (Acute) Status post total replacement of left shoulder (Acute) S/p reverse total shoulder arthroplasty (Acute) History of arthroplasty of left shoulder (Acute) Past Medical History Medical History PTSD (post-traumatic stress disorder) Suicide ideation Anxiety Adjustment disorder HTN (hypertension) Vitamin D deficiency Anemia Arthritis GERD (gastroesophageal reflux disease) Kidney stones Bipolar 1 disorder Avascular necrosis of humeral head Hx of substance abuse Pelvicaliectasis Hypertriglyceridemia Depression Tobacco dependence History of hypertension Functional capacity: independent ambulation Patient : No Family History Family history of problems with anesthesia: No Surgical History Surgical History History of revision of total replacement of left shoulder joint H/O gastric sleeve H/O colonoscopy History of ankle fusion History of arthroplasty of left shoulder History of carpal tunnel release History of Problems with Anesthesia: No Social History Social History Household Members: Spouse Housing: Apartment Are you a primary career development facilitator to a significant other at home: No Do you presently have visiting nurse or other home services: No Patient Tobacco Use Status: Current everyday Tobacco user Tobacco use type: Cigarette Cigarette Packs Per Day: 0.5 Cigarettes Per Day: 10.0 Years Smoked: 46 e-Cigarette/Vaping Use: Never Used Second Hand Smoke Exposure: No Use of substances other than those prescribed or required for medical reasons: No Are you DNR?: No Advance Directives: No Advance Directives Information Provided: Yes Advance Directives on File: No Patient : No : No service: No 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, 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 Allergies Allergy/AdvReac Type Severity Reaction Status Date / Time acetaminophen [From Percocet] Allergy Severe Itching Verified 03/08/25 09:27 latex Allergy Severe Rash Verified 03/08/25 09:27 oxycodone [From Percocet] Allergy Severe Itching Verified 03/08/25 09:27 hydromorphone [From Dilaudid] Allergy Abdominal Verified 03/08/25 09:27 Pain Active Medications: Current Medications Albuterol Sulfate (Albuterol Sulfate (0.083%) 2.5 Mg/3 Ml Vial.Neb) 2.5 mg INHALE ONCE PRN PRN Reason: Shortness of Breath/Wheezing Cyclopentolate HCl (Cyclopentolate 1 % Ophth Guerline 2 Ml Drpbtl) 1 drop EYE-RIGHT Q5M [facility] Stop: 03/08/25 09:41 Lactated Ringer's (Lr) 500 mls @ 50 mls/hr IV .Q10H [facility] Stop: 03/08/25 19:29 Ketorolac Tromethamine (Ketorolac Tromethamine 0.5% Op 5 Ml Drops) 1 drop EYE-RIGHT Q5M [facility] Stop: 03/08/25 09:41 Phenylephrine HCl (Phenylephrine Hcl 2.5% Oph Guerline 2 Ml Bottle) 1 drop EYE-RIGHT Q5M [facility] Stop: 03/08/25 09:41 Povidone Iodine (Povidone Iodine 5 % Ophth Soln 30 Ml Bottle) 1 appl EYE-RIGHT PREOP PRN PRN Reason: Pre-Op Surgical Implant Prophy Tropicamide (Tropicamide 1 % Ophth Guerline 3 Ml Btl) 1 drop EYE-RIGHT Q5M [facility] Stop: 03/08/25 09:41 Home Medications ?Medication ?Instructions ?Recorded ?Confirmed ?Last Taken ?Type atorvastatin 40 mg tablet 40 mg PO BEDTIME 08/16/22 03/08/25 12/10/23 History amlodipine 5 mg-olmesartan 40 mg 1 tab PO DAILY 03/04/25 03/08/25 Unknown History tablet Exam Height,Weight and Vital Signs: Height 5 ft 4.96 in Weight 76.204 kg Last Vital Signs Temp 98.7 F 03/08/25 09:17 Pulse 54 03/08/25 09:17 Resp 16 03/08/25 09:17 BP 137/67 03/08/25 09:17 Pulse Ox 100 03/08/25 09:17 O2 Del Method Room Air 03/08/25 09:17 Airway Mallampati Class: III TM Dist: >3cm Neck ROM: Full Heart: RRR Lungs: CTA Assessment and Plan Assessment Anesthesia Assessment: Anesthesia Plan Discussed Final Anesthetic Review Family History of Problems with Anesthesia: No History of Problems with Anesthesia: No NPO: Yes ASA Class: III Final Preanesthetic Review: Meds/Allgs Chart Reviewed, Consent Obtained/Reviewed and Anes Risks/Benef Reviewed Patient Risk: Low Procedure Risk: Low Anesthetic Plan Anesthetic Plan: MAC: Disposition: Standard PACU
[2025-03-08] MEDS: Lactated Ringers 500 ML 50 ML IV (09:43)
--- NOTE | 2025-03-08 10:00 | P.CONAN_ITS ---
[facility] Active Problems Active Problems: All Active Problems Left shoulder pain (Chronic) Psychological stress (Acute) Status post total replacement of left shoulder (Acute) S/p reverse total shoulder arthroplasty (Acute) History of arthroplasty of left shoulder (Acute) Past Medical History Medical History PTSD (post-traumatic stress disorder) Suicide ideation Anxiety Adjustment disorder HTN (hypertension) Vitamin D deficiency Anemia Arthritis GERD (gastroesophageal reflux disease) Kidney stones Bipolar 1 disorder Avascular necrosis of humeral head Hx of substance abuse Pelvicaliectasis Hypertriglyceridemia Depression Tobacco dependence History of hypertension Functional capacity: independent ambulation Family History Family history of problems with anesthesia: No Surgical History Surgical History History of revision of total replacement of left shoulder joint H/O gastric sleeve H/O colonoscopy History of ankle fusion History of arthroplasty of left shoulder History of carpal tunnel release History of Problems with Anesthesia: No Social History Social History Household Members: Spouse Housing: Apartment Are you a primary residential child care counselor to a significant other at home: No Do you presently have visiting nurse or other home services: No Patient Tobacco Use Status: Current everyday Tobacco user Tobacco use type: Cigarette Cigarette Packs Per Day: 0.5 Cigarettes Per Day: 10.0 Years Smoked: 46 e-Cigarette/Vaping Use: Never Used Second Hand Smoke Exposure: No Use of substances other than those prescribed or required for medical reasons: No Are you DNR?: No Advance Directives: No Advance Directives Information Provided: Yes Advance Directives on File: No Patient : No : No service: No 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, 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 Allergies Allergy/AdvReac Type Severity Reaction Status Date / Time acetaminophen [From Percocet] Allergy Severe Itching Verified 03/08/25 09:27 latex Allergy Severe Rash Verified 03/08/25 09:27 oxycodone [From Percocet] Allergy Severe Itching Verified 03/08/25 09:27 hydromorphone [From Dilaudid] Allergy Abdominal Verified 03/08/25 09:27 Pain Active Medications: Current Medications Albuterol Sulfate (Albuterol Sulfate (0.083%) 2.5 Mg/3 Ml Vial.Neb) 2.5 mg INHALE ONCE PRN PRN Reason: Shortness of Breath/Wheezing Lactated Ringer's (Lr) 500 mls @ 50 mls/hr IV .Q10H [facility] Stop: 03/08/25 19:29 Last Admin: 03/08/25 09:43 Dose: 50 mls/hr Naloxone HCl (Naloxone Hcl 0.4 Mg/Ml Vial) 0.04 mg IVPUSH Q5M PRN PRN Reason: Excessive sedation or RR < 8 Povidone Iodine (Povidone Iodine 5 % Ophth Soln 30 Ml Bottle) 1 appl EYE-RIGHT PREOP PRN PRN Reason: Pre-Op Surgical Implant Prophy Home Medications ?Medication ?Instructions ?Recorded ?Confirmed ?Last Taken ?Type atorvastatin 40 mg tablet 40 mg PO BEDTIME 08/16/22 03/08/25 12/10/23 History amlodipine 5 mg-olmesartan 40 mg 1 tab PO DAILY 03/04/25 03/08/25 Unknown History tablet Exam Height,Weight and Vital Signs: Height 5 ft 4.96 in Weight 76.204 kg Last Vital Signs Temp 98.7 F 03/08/25 09:17 Pulse 54 03/08/25 09:17 Resp 16 03/08/25 09:17 BP 137/67 03/08/25 09:17 Pulse Ox 100 03/08/25 09:17 O2 Del Method Room Air 03/08/25 09:17 Assessment and Plan Assessment Anesthesia Assessment: Anesthesia Plan Discussed Final Anesthetic Review Family History of Problems with Anesthesia: No History of Problems with Anesthesia: No ASA Class: III Final Preanesthetic Review: Meds/Allgs Chart Reviewed, Consent Obtained/Reviewed and Anes Risks/Benef Reviewed Patient Risk: Low Procedure Risk: Low Anesthetic Plan Anesthetic Plan: MAC: Disposition: Standard PACU
--- NOTE | 2025-03-08 10:08 | MHC.SHP ---
Pre-Procedural Eval Section A - 24 Hr Update-Section A only Date of Service: 03/08/25 The patient is an INPATIENT: No Changes since office visit: No Cold of Flu in the past 2 weeks, No New Medical Problems, No Changes in Medication and No Patient answered all questions The patient has been examined within 24 hours of the surgical procedure. The History & Physical has been completed within 30 days and I have reviewed it.: Yes Section B - Complete if H&P > 30 days Chief Complaint: Age-related nuclear cataract, right eye Allergies: Allergies Allergy/AdvReac Type Severity Reaction Status Date / Time acetaminophen [From Percocet] Allergy Severe Itching Verified 03/08/25 09:27 latex Allergy Severe Rash Verified 03/08/25 09:27 oxycodone [From Percocet] Allergy Severe Itching Verified 03/08/25 09:27 hydromorphone [From Dilaudid] Allergy Abdominal Verified 03/08/25 09:27 Pain Plan Diagnosis/Plan: Unchanged I have reviewed the history and physical and performed a pertinent physical examination on my patient. No changes have occurred unless specified. Time Spent With Patient Time: Total time managing care of this patient today ____ minutes.
--- NOTE | 2025-03-08 10:10 | P.PCNO_ITS ---
Ophthalmology Procedure Procedure Date of Service: 03/08/25 Ophthalmology Viscoelastic: Healon Duet Dual Pack Pro Ophthalmology Lenses: IOL Acrysof MP - MA60AC (21.5) Procedure Notes: PREOPERATIVE DIAGNOSIS: Decreased visual acuity right eye secondary to cataract POSTOPERATIVE DIAGNOSIS: Same PROCEDURE: Right cataract extraction with intraocular lens insertion SURGEON: Say Proctor M.D. ANESTHESIA: Topical/MAC ESTIMATED BLOOD LOSS: None COMPLICATIONS: None After obtaining informed consent, the patient was brought to the operating room suite and placed in the supine position. After adequate sedation per anesthesia, topical drops of Tetracaine were given to the right eye. The eye was then prepped and draped in the usual sterile fashion. The operating room microscope was then positioned over the operative eye and a lid speculum placed. A paracentesis was created. Viscoelastic was then instilled into the anterior chamber. A three plane incision was then created temporally, utilizing a 2.85 mm keratome. Capsulotomy forceps were then utilized to create a circular tear capsulotomy. Hydrodissection and hydrodelineation were carried out until adequate mobilization of the nucleus occurred. Phacoemulsification was then utilized to remove the dense central nu cleus followed by removal of the cortical material utilizing the automated aspiration irrigation unit. Viscoelastic was instilled into the posterior capsular bag followed by placement of a posterior chamber intraocular lens without difficulty. The residual Viscoelastic was then removed utilizing the automated IA machine. The wound was checked and found to be watertight. The patient tolerated the procedure well and the lid speculum was removed. Intracameral injection of Vigamox 0.1 mL followed by a subtenon injection of Kenalog-40 0.2 mL were administered. The patient will be seen in the a.m.
[2025-03-08 10:35] VITALS: BP 134/72; PULSE 58; RESP 16; TEMP 36.2; O2SAT 99
--- NOTE | 2025-03-08 10:45 | HO.POSTANES ---
Post Anesthesia Evaluation Post Anesthesia Evaluation Date of Service: 03/08/25 Vital Signs: Vital Signs Temp Pulse Resp BP Pulse Ox O2 Del Method 03/08/25 10:35 97.2 F 58 16 134/72 99 Room Air 03/08/25 09:17 98.7 F 54 16 137/67 100 Room Air Anesthesia: Monitored Mental Status: Awake Pain Control: Satisfactory Nausea/Vomiting: None Hydration: Adequate Anesthesia-Related Issues: No Anes. Related Issues
== END 2025-03-08 10:38 | disposition home or self-care (01) ==
PROVIDERS: Visit Provider Ophthalmology
PROC: (CPT 66985; principal; 2025-03-08 10:30)
DX: H25.11 Age-related nuclear cataract, right eye (principal); H54.7 Unspecified visual loss; I10 Essential (primary) hypertension; E78.00 Pure hypercholesterolemia, unspecified; E55.9 Vitamin D deficiency, unspecified; F17.210 Nicotine dependence, cigarettes, uncomplicated; Z88.5 Allergy status to narcotic agent; Z91.040 Latex allergy status; Z79.899 Other long term (current) drug therapy
CPT/HCPCS: 66984; J2250; J3010; J3301; V2630

== ENCOUNTER 2025-03-22 07:43 | Day surgery (SDC) | payer OTHER, SELFPAY ==
--- OUTSIDE RECORDS SUMMARY | 2025-01-14 13:56 | XMS_ITS | Clinical Summary ---
Author Organization [employer] Address [address] [place] [address] Care Team Providers Care Transportation Maintenance Specialist Name Role Phone Unavailable Primary Care Provider Unavailabl e Social History Tobacco Use Types Packs/Day Years Used Date Smoking Tobacco: Never Assessed Comments Unknown Sex and Gender Information Value Date Recorded Sex Assigned at Female 08/03/2024 11:36 AM EDT Legal Sex Female 11:35 AM EDT Gender Identity Female 08/03/2024 11:36 AM EDT Sexual Orientation Straight 08/03/2024 11 :36 AM EDT Plan of Treatment Health Maintenance Due Date Last Done Comments CT Colonography 1963 Colonoscopy 1963 Colorectal Cancer Screening 1963 Depression Screening 1963 FIT DNA/Cologuard 1963 FIT 1963 FOBT 1963 HIV Screening 1963 Lipid Panel 1963 SDOH Screening 1963 Sigmoidoscopy 1963 Alcohol/Substance Use Screening 1975 Tobacco Screening 1975 Hepatitis C Screening 1981 Pap Smear 1984 Cervical Cancer Screening 1993 HPV/Cotest 1993 Mammogram 2003 Pneumococcal Vaccine: 50+ Years (2 of 2 - PCV) 10/12/2016 10/12/2015 DTaP/Tdap/Td Vaccines (2 - Td or Tdap) 12/24/2023 12/24/2013 COVID-19 Vaccine (2023- season) 2024 07/26/2023, 02/28/2022, 07/02/2021, Additional history exists Influenza Vaccine (#1) 2024 , 10/26/2021, 07/29/2020, Additional history exists RSV Patients and Patients Aged 60 years or older (1 - 1-dose 75+ series) 2038 Pneumococcal Vaccine: Pediatrics (0 to 5 Years) and At-Risk Patients (6 to 49) Years) Aged Out 10/12/2015 No longer eligible based on patient's age to complete this topic Zoster Vaccines Completed 07/27/2022, 11/11/2021 HIB Vaccines Aged Out No longer eligi ble based on patient's age to complete this topic HPV Vaccines Aged Out No longer eligi ble based on patient's age to complete this topic Hepatitis A Vaccines Aged Out No long er eligible based on patient's age to complete this topic Hepatitis B Vaccines Aged Out No long er eligible based on patient's age to complete this topic IPV Vaccines Aged Out No longer eligi ble based on patient's age to complete this topic Meningococcal Vaccine Aged Out No kimi diana eligible based on patient's age to complete this topic RSV under 20 months Aged Out No longe r eligible based on patient's age to complete this topic Rotavirus Vaccines Aged Out No longer eligible based on patient's age to complete this topic
[2025-03-04 08:13] VITALS: BMI 28.3
--- NOTE | 2025-03-18 15:08 | HO.ANESPROP2 ---
Documented by User: Gail Adhikari NP 03/18/25 15:09 HPI - Anesthesia Eval Consult details Narrative: 59yo F for Left Cataract Extraction IOL Insertion Right eye 03/08/25: Fent 50, Midaz 2 PMFSH Active Problems Active Problems: All Active Problems Left shoulder pain (Chronic) Psychological stress (Acute) Status post total replacement of left shoulder (Acute) S/p reverse total shoulder arthroplasty (Acute) History of arthroplasty of left shoulder (Acute) Past Medical History Medical History PTSD (post-traumatic stress disorder) Suicide ideation Anxiety Adjustment disorder HTN (hypertension) Vitamin D deficiency Anemia Arthritis GERD (gastroesophageal reflux disease) Kidney stones Bipolar 1 disorder Avascular necrosis of humeral head Hx of substance abuse Pelvicaliectasis Hypertriglyceridemia Depression Tobacco dependence History of hypertension Family History Family history of problems with anesthesia: No Surgical History Surgical History History of revision of total replacement of left shoulder joint H/O gastric sleeve H/O colonoscopy History of ankle fusion History of arthroplasty of left shoulder History of carpal tunnel release History of Problems with Anesthesia: No Social History Social History Household Members: Spouse Housing: Apartment Are you a primary plant health care technician to a significant other at home: No Do you presently have visiting nurse or other home services: No Patient Tobacco Use Status: Current everyday Tobacco user Tobacco use type: Cigarette Cigarette Packs Per Day: 0.5 Cigarettes Per Day: 10.0 Years Smoked: 46 e-Cigarette/Vaping Use: Never Used Second Hand Smoke Exposure: No Use of substances other than those prescribed or required for medical reasons: No Are you DNR?: No Advance Directives: No Advance Directives Information Provided: Yes Advance Directives on File: No Patient : No : No service: No 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, 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 Allergies Allergy/AdvReac Type Severity Reaction Status Date / Time acetaminophen [From Percocet] Allergy Severe Itching Verified 03/08/25 09:27 latex Allergy Severe Rash Verified 03/08/25 09:27 oxycodone [From Percocet] Allergy Severe Itching Verified 03/08/25 09:27 hydromorphone [From Dilaudid] Allergy Abdominal Verified 03/08/25 09:27 Pain Home Medications ?Medication ?Instructions ?Recorded ?Confirmed ?Last Taken ?Type atorvastatin 40 mg tablet 40 mg PO BEDTIME 08/16/22 03/08/25 12/10/23 History amlodipine 5 mg-olmesartan 40 mg 1 tab PO DAILY 03/04/25 03/08/25 Unknown History tablet Exam Height,Weight and Vital Signs: Height 5 ft 4.96 in Weight 77 kg Assessment and Plan Assessment Anesthesia Assessment: Chart Reviewed Final Anesthetic Review Family History of Problems with Anesthesia: No History of Problems with Anesthesia: No Documented by User: Micheal Silva MD 03/22/25 08:40 PMFSH Past Medical History Medical History PTSD (post-traumatic stress disorder) Suicide ideation Anxiety Adjustment disorder HTN (hypertension) Vitamin D deficiency Anemia Arthritis GERD (gastroesophageal reflux disease) Kidney stones Bipolar 1 disorder Avascular necrosis of humeral head Hx of substance abuse Pelvicaliectasis Hypertriglyceridemia Depression Tobacco dependence History of hypertension Surgical History Surgical History History of revision of total replacement of left shoulder joint H/O gastric sleeve H/O colonoscopy History of ankle fusion History of arthroplasty of left shoulder History of carpal tunnel release Social History Social History Household Members: Spouse Housing: Apartment Are you a primary plant health care technician to a significant other at home: No Do you presently have visiting nurse or other home services: No Patient Tobacco Use Status: Current everyday Tobacco user Tobacco use type: Cigarette Cigarette Packs Per Day: 0.5 Cigarettes Per Day: 10.0 Years Smoked: 46 e-Cigarette/Vaping Use: Never Used Second Hand Smoke Exposure: No Use of substances other than those prescribed or required for medical reasons: No Are you DNR?: No Advance Directives: No Advance Directives Information Provided: Yes Advance Directives on File: No Patient : No : No service: No 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, 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 Allergies Allergy/AdvReac Type Severity Reaction Status Date / Time acetaminophen [From Percocet] Allergy Severe Itching Verified 03/08/25 09:27 latex Allergy Severe Rash Verified 03/08/25 09:27 oxycodone [From Percocet] Allergy Severe Itching Verified 03/08/25 09:27 hydromorphone [From Dilaudid] Allergy Abdominal Verified 03/08/25 09:27 Pain Home Medications ?Medication ?Instructions ?Recorded ?Confirmed ?Last Taken ?Type atorvastatin 40 mg tablet 40 mg PO BEDTIME 08/16/22 03/08/25 12/10/23 History amlodipine 5 mg-olmesartan 40 mg 1 tab PO DAILY 03/04/25 03/08/25 Unknown History tablet Exam Airway Mallampati Class: II TM Dist: >3cm Neck ROM: Full Heart: rrr Lungs: cts Assessment and Plan Assessment Anesthesia Assessment: Anesthesia Plan Discussed Final Anesthetic Review NPO: Yes ASA Class: III Final Preanesthetic Review: No Changes in Pt Med Stat, Meds/Allgs Chart Reviewed, Consent Obtained/Reviewed and Anes Risks/Benef Reviewed Patient Risk: Intermediate Procedure Risk: Low Anesthetic Plan Anesthetic Plan: MAC: Disposition: Standard PACU
[2025-03-22 08:36] VITALS: BP 123/84; PULSE 57; RESP 16; TEMP 36.1; O2SAT 95
[2025-03-22] MEDS: Lactated Ringers 500 ML 50 ML IV (08:38)
[2025-03-22] MEDS: Tropicamide 1 % Ophth Sol 3 ML BTL 1 DROP EYE-LEFT ×3 (08:39→08:46)
[2025-03-22] MEDS: Tetracaine HCl/PF 0.5% Oph Sol 4 ML DROPS 1 DROP EYE-LEFT (08:39)
[2025-03-22] MEDS: Ketorolac Tromethamine 0.5% Op 5 ML DROPS 1 DROP EYE-LEFT ×3 (08:39→08:46)
[2025-03-22] MEDS: Cyclopentolate 1 % Ophth Sol 2 ML DRPBTL 1 DROP EYE-LEFT ×3 (08:39→08:46)
[2025-03-22] MEDS: Phenylephrine HCL 2.5% Oph SoL 2 ML BOTTLE 1 DROP EYE-LEFT ×3 (08:40→08:46)
--- NOTE | 2025-03-22 09:38 | MHC.SHP ---
Pre-Procedural Eval Section A - 24 Hr Update-Section A only Date of Service: 03/22/25 The patient is an INPATIENT: No Changes since office visit: No Cold of Flu in the past 2 weeks, No New Medical Problems, No Changes in Medication and No Patient answered all questions The patient has been examined within 24 hours of the surgical procedure. The History & Physical has been completed within 30 days and I have reviewed it.: Yes Section B - Complete if H&P > 30 days Chief Complaint: Age-related nuclear cataract, left eye Allergies: Allergies Allergy/AdvReac Type Severity Reaction Status Date / Time acetaminophen [From Percocet] Allergy Severe Itching Verified 03/08/25 09:27 latex Allergy Severe Rash Verified 03/08/25 09:27 oxycodone [From Percocet] Allergy Severe Itching Verified 03/08/25 09:27 hydromorphone [From Dilaudid] Allergy Abdominal Verified 03/08/25 09:27 Pain Plan Diagnosis/Plan: Unchanged I have reviewed the history and physical and performed a pertinent physical examination on my patient. No changes have occurred unless specified. Time Spent With Patient Time: Total time managing care of this patient today ____ minutes.
--- NOTE | 2025-03-22 09:39 | P.PCNO_ITS ---
Ophthalmology Procedure Procedure Date of Service: 03/22/25 Ophthalmology Lenses: IOL Acrysof MP - MA60AC (21) Procedure Notes: PREOPERATIVE DIAGNOSIS: Decreased visual acuity left eye secondary to cataract POSTOPERATIVE DIAGNOSIS: Same PROCEDURE: Left cataract extraction with intraocular lens insertion SURGEON: Say Proctor M.D. ANESTHESIA: Topical/MAC ESTIMATED BLOOD LOSS: None COMPLICATIONS: None After obtaining informed consent, the patient was brought to the operation room suite and placed in the supine position. After adequate sedation per anesthesia, topical drops of Tetracaine were given to the left eye. The eye was then prepped and draped in the usual sterile fashion. The operating room microscope was then positioned over the operative eye and a lid speculum placed. A paracentesis was created. Viscoelastic was then instilled into the anterior chamber. A three plane inci emeli was then created temporally, utilizing a 2.85 mm keratome. Capsulotomy forceps were then utilized to create a circular tear capsulotomy. Hydrodissection and hydrodelineation were carried out until adequate mobilization of the nucleus occurred. Phacoemulsification was then utilized to remove the dense central nucleus followed by removal of the cortical material utilizing the automated aspiration irrigation unit. Viscoat elastic was instilled into the posterior capsular bag followed by placement of a posterior chamber intraocular lens without difficulty. The residual Viscoat elastic was then removed utilizing the automated IA machine. The wound was check and found to be watertight. The patient tolerated the procedure well and the lid speculum was removed. Intracameral injection of Vigam ox 0.1 mL followed by a subtenon injection of Kenalog-40 0.2 mL were administered. The patient will be seen in the a.m.
[2025-03-22 10:06] VITALS: BP 132/65; PULSE 56; RESP 16; TEMP 36.5; O2SAT 98
== END 2025-03-22 10:10 | disposition home or self-care (01) ==
PROVIDERS: Visit Provider Ophthalmology
PROC: (CPT 66985; principal; 2025-03-22 10:00)
DX: H25.12 Age-related nuclear cataract, left eye (principal); H54.7 Unspecified visual loss; Z83.511 Family history of glaucoma; H31.092 Other chorioretinal scars, left eye; I10 Essential (primary) hypertension; E78.00 Pure hypercholesterolemia, unspecified; Z96.612 Presence of left artificial shoulder joint; Z79.899 Other long term (current) drug therapy; Z88.5 Allergy status to narcotic agent; Z91.040 Latex allergy status; F17.210 Nicotine dependence, cigarettes, uncomplicated
CPT/HCPCS: 66984; J2250; J3301; V2630